=== PATIENT | female | born 1960 | race Caucasian/White ===

== ENCOUNTER 2023-11-28 17:06 | Inpatient (IN) | payer OTHER ==
--- OUTSIDE RECORDS SUMMARY | 2023-11-28 17:22 | XMS REPORT | Continuity of Care Document ---
Author Name Unknown Address [address] [id number] [facility] Address [address] [phone] Care Team Providers Care De Icer Installer Name Role Phone VIC MCGHEE Primary Care Physician JENNIE Hernandez Attending Clinician Unavailable López, Cardiology - Clear Attending Clinician Kathy simon Manriquez RN, Bib Giles Attending Clinician Unavail able FABRICIO SALAZAR Attending Clinician Unavail able Edmond GRACE, Keith Armenta Attending Clinician Joe Rodriguez MD Attending Clinician [phone] Lyle GRACE, Alejandro Gupta Attending Clinician [phone] Fabricio Salazar MD Attending Clinician Ayo Alanis MD Attending Clinician [phone] Vic Mcghee NP Attending Clinician [phone] Hernesto Owusu MD Attending Clinician [phone] Doctor Unassigned, [place] Attending Clinician U laverne Elizabeth MD, Gama Attending Clinician [phone] HERNESTO OWUSU Attending Clinician Unavailab le 2, [facility] Attending Clinician Unavailable VIC MCGHEE Attending Clinician Unavailab YONAS Tolbert Attending Clinician Unavailable MICHA CONDON Attending Clinician Unavailable MICHA CONDON Attending Clinician Unavailable NATY CARNES Attending Clinician UnavailNaty Mcguire MD Attending Clinician [phone] Lary Anderson MD Attending Clinician + [phone] LARY ANDERSON Attending Clinician Unava ilable CAROL LAWSON Attending Clinician Unavailable Carol Lawson MD Attending Clinician [phone] RADIOLOGY Attending Clinician Unavailable Radiology Attending Clinician Unavailable Jah GRACE, Jennie Attending Clinician [phone] Pob, [facility] Main Attending Clinician UnavailEugenio Torrez MD Attending Clinician [phone] Team, [facility] Attending Carolina sparks Unavailable Hollis Garland Attending Clinician Unavailable GAMA ELIZABETH Attending Clinician Unavailable RUSTAM GERONIMO Attending Clinician Unavailable Elias Garza Attending Clinician [phone] ELIAS MALONE Attending Clinician Unavailleandro BERRY, SENDWILLIAM K.HVance Attending Clinician Unavailtisha Berry MD, Sendil K.H. Attending Clinician [phone] Anibal Mcnamara MD Attending Clinician [phone] KEITH PRUITT Admitting Clinician Unavaila Keith Boykin MD Admitting Clinician [phone] VIC MCGHEE Admitting Clinician UnavailNATY Farmer Admitting Clinician UnavailCAROL Kenney Admitting Clinician Unavailable ANA CANO Admitting Clinician Unavailable LARY ANDERSON Admitting Clinician Unava ilable Payers Payer Name Policy Type Policy Number Effective Date Expirati on Date Source MEDICARE PART A \\T\\ B [id number] 2023 00:00:00 Problems Condition Name Condition Details Condition Category Status Onset Date Resolution Date Last Treatment Date Treating Clinician Comments Source Dyspnea, unspecifie d type Dyspnea, unspecifie d type Disease Active 11-02 00:00: 00 [facility] Anemia, unspecifie d type Anemia, unspecifie d type Disease Active 11-02 00:00: 00 [facility] Type 2 diabetes mellitus with diabetic polyneurop athy, without long-term current use of insulin Type 2 diabetes mellitus with diabetic polyneurop athy, without long-term current use of insulin Disease Active 2015-09 00:00: 00 [facility] Pancreatit is Pancreatit is Disease Active 10-01 00:00: 00 [facility] Mixed hyperlipid emia Mixed hyperlipid emia Disease Active 09-27 00:00: 00 [facility] Essential hypertensi on, benign Essential hypertensi on, benign Disease Active 09-27 00:00: 00 [facility] Peripheral neuropathy Peripheral neuropathy Disease Active 09-27 00:00: 00 [facility] Fibromyalg ia Fibromyalg ia Disease Active 09-27 00:00: 00 [facility] Depression Depression Disease Active 09-27 00:00: 00 [facility] Anxiety Anxiety Disease Active 09-27 00:00: 00 [facility] Obesity Obesity Disease Active 09-27 00:00: 00 [facility] Asthma Asthma Disease Active 09-27 00:00: 00 [facility] Pure hyperchole sterolemia Pure hyperchole sterolemia Disease Active 09-27 00:00: 00 [facility] Allergies, Adverse Reactions, Alerts Allergy Name Allergy Type Status Severity Reaction(s) Onset Date Inactive Date Treating Clinician Comments Source CODEINE DRUG INGREDI Active N/V 09-27 00:00: 00 [facility] Codeine Propensi ty to adverse reaction s Active Nausea and/or Vomiting 09-27 00:00: 00 Stomach pain [facility] Social History Social Habit Start Date Stop Date Quantity Comments Source Gender identity [facility] SDOH Alcohol Frequency [facility] History SDOH Alcohol Std Drinks [facility] History SDOH Alcohol Binge [facility] Alcohol intake 2023-11-04 00:00:00 2023-11-04 00:00:00 Current drinker of alcohol (finding) [facility] Exposure to SARS-CoV-2 (event) 2022-12-04 00:00:00 2022-12-14 11:05:00 Not sure [facility] History of Social function 2022-09-15 00:00:00 2022-09-15 00:00:00 [facility] Tobacco use and exposure 2022-05-03 00:00:00 2022-05-03 00:00:00 Smokeless tobacco non-user [facility] Alcohol Comment 2014-09-30 00:00:00 2014-09-30 00:00:00 pt states only 2 drinks a day but unknown what kind [facility] Sex Assigned At 1960 00:00:00 1960 00:00:00 [facility] Smoking Status Start Date Stop Date Source Never smoked tobacco [facility] Medications Ordered Medication Name Filled Medication Name Start Date Stop Date Current Medication? Ordering Clinician Indication Dosage Frequency Signature (SIG) Comments Components Source multivitami n tablet 11-11 12:02: 41 Yes 1{tbl} Take 1 Tab by mouth daily. [facility] multivitami n tablet 11-11 12:02: 41 Yes 1{tbl} Take 1 Tab by mouth daily. [facility] multivitami n tablet 11-11 12:02: 41 Yes 1{tbl} Take 1 Tab by mouth daily. [facility] ipratropium -albuteroL (DUONEB) 0.5 mg-3 mg(2.5 mg base)/3 mL nebulizer solution 3 mL 11-11 04:00: 00 Yes 3mL 3 mL, Inhalation , Q8H, First dose (after last modificati on) on Tue11/11/23 at 2200, Until Discontinu ed, Routine [facility] foLIC acid 1 mg tablet 11-11 00:00: 00 02-10 04:59 :00 Yes [id number] 1mg Take 1 tablet by mouth in the morning for 90 days. [facility] thiamine 100 mg tablet 11-11 00:00: 02-10 04:59 :00 Yes [id number] 100mg Take 1 tablet by mouth in the morning for 90 days. [facility] foLIC acid 1 mg tablet 11-11 00:00: 00 02-10 04:59 :00 Yes [id number] 1mg Take 1 tablet by mouth in the morning for 90 days. [facility] thiamine 100 mg tablet 11-11 00:00: 00 02-10 04:59 :00 Yes [id number] 100mg Take 1 tablet by mouth in the morning for 90 days. [facility] foLIC acid 1 mg tablet 11-11 00:00: 00 02-10 04:59 :00 Yes [id number] 1mg Take 1 tablet by mouth in the morning for 90 days. [facility] thiamine 100 mg tablet 11-11 00:00: 00 02-10 04:59 :00 Yes [id number] 100mg Take 1 tablet by mouth in the morning for 90 days. [facility] ASCORBATE CALCIUM (VITAMIN C ORAL) 11-10 16:30: 00 11-10 00:00 :00 No Take by mouth daily. [facility] COQ10, UBIQUINOL, ORAL 11-10 16:30: 00 11-10 00:00 :00 No Take by mouth. [facility] furosemide (LASIX) tablet 40 mg 11-10 15:00: 00 Yes 40mg 40 mg, Oral, DAILY, First dose on Tue11/11/23 at 0900, Until Discontinu ed, Routine [facility] buPROPion XL 150 mg 24 hr tablet 11-10 00:00: 00 02-09 04:59 :00 Yes [id number] 150mg Take 1 tablet by mouth in the morning and 1 tablet in the evening. Do all this for 90 days. [facility] carvediloL 3.125 mg tablet 11-10 00:00: 00 02-09 04:59 :00 Yes [id number] 3.125mg Take 1 tablet by mouth in the morning and 1 tablet in the evening. Take with meals. Do all this for 90 days. [facility] lactulose 10 gram/15 mL solution 11-10 00:00: 00 02-09 04:59 :00 Yes [id number] 30mL Take 30 mL by mouth every 4 (four) hours for 90 days. [facility] buPROPion XL 150 mg 24 hr tablet 11-10 00:00: 00 02-09 04:59 :00 Yes [id number] 150mg Take 1 tablet by mouth in the morning and 1 tablet in the evening. Do all this for 90 days. [facility] carvediloL 3.125 mg tablet 11-10 00:00: 00 02-09 04:59 :00 Yes [id number] 3.125mg Take 1 tablet by mouth in the morning and 1 tablet in the evening. Take with meals. Do all this for 90 days. [facility] lactulose 10 gram/15 mL solution 11-10 00:00: 00 02-09 04:59 :00 Yes [id number] 30mL Take 30 mL by mouth every 4 (four) hours for 90 days. [facility] buPROPion XL 150 mg 24 hr tablet 11-10 00:00: 00 02-09 04:59 :00 Yes [id number] 150mg Take 1 tablet by mouth in the morning and 1 tablet in the evening. Do all this for 90 days. [facility] carvediloL 3.125 mg tablet 11-10 00:00: 00 02-09 04:59 :00 Yes [id number] 3.125mg Take 1 tablet by mouth in the morning and 1 tablet in the evening. Take with meals. Do all this for 90 days. [facility] lactulose 10 gram/15 mL solution 11-10 00:00: 00 02-09 04:59 :00 Yes [id number] 30mL Take 30 mL by mouth every 4 (four) hours for 90 days. [facility] pantoprazol e 40 mg EC tablet 11-10 00:00: 00 12-02 04:59 :00 Yes [id number] 40mg Take 1 tablet by mouth in the morning for 21 days. [facility] pantoprazol e 40 mg EC tablet 11-10 00:00: 00 12-02 04:59 :00 Yes [id number] 40mg Take 1 tablet by mouth in the morning for 21 days. [facility] pantoprazol e 40 mg EC tablet 11-10 00:00: 00 12-02 04:59 :00 Yes [id number] 40mg Take 1 tablet by mouth in the morning for 21 days. [facility] ipratropium -albuteroL (DUONEB) 0.5 mg-3 mg(2.5 mg base)/3 mL nebulizer solution 3 mL 11-09 18:00: 00 11-10 21:00 :20 No 3mL 3 mL, Inhalation , Q6H, First dose (after last modificati on) on Priscila 11/10/23 at 1200, Until Discontinu ed, Routine [facility] ondansetron (ZOFRAN (PF)) injection 4 mg 11-09 15:39: 33 Yes 4mg 4 mg, Slow IV Push, Q6HPRN, Nausea and Vomiting (N/V), Starting on Priscila 11/10/23 at 0939
Do ses of ondansetro n 16 mg and above need to be administer ed via IV piggyback. For Dose >=24mg ECG monitoring is advisable.
[facility] KCL (KLOR-CON M20) tablet 40 mEq 11-09 13:45: 00 11-09 14:33 :00 No 40meq 40 mEq, Oral, ONCE, 1 dose, On Priscila 11/10/23 at 0745, [facility]ine [facility]LASIX[facility] 40 mg 11-09 02:00: 00 11-09 16:38 :00 No 40mg 40 mg, Slow IV Push, Q12H, First dose (after last modificati on) on Tue11/09/23 at 2000, Until Discontinu ed, Routine [facility] empaglifloz in (JARDIANCE) tablet 10 mg 11-08 15:45: 00 11-10 20:35 :35 No 10mg 10 mg, Oral, DAILY, First dose on Tue11/09/23 at 0945, Until Discontinu ed, Routine
Is this a home medication ? No [facility] KCL (KLOR-CON M20) tablet 40 mEq 11-08 15:15: 00 11-08 14:37 :00 No 40meq 40 mEq, Oral, ONCE, 1 dose, On Tue11/09/23 at 0915, Routine [facility] furosemide (LASIX) injection 40 mg 11-07 18:00: 00 11-08 15:42 :37 No 40mg 40 mg, Slow IV Push, Q6H, First dose (after last modificati on) on Tue11/08/23 at 1200, Until Discontinu ed, Routine [facility] KCL (KLOR-CON M20) tablet 40 mEq 11-07 13:00: 00 11-07 12:41 :00 No 40meq 40 mEq, Oral, ONCE, 1 dose, On Tue11/08/23 at 0700, Routine [facility] magnesium sulfate in water 4 gram/50 mL (8 %) IV Piggyback 4 g 11-07 11:56: 00 11-07 14:41 :00 No 4g 4 g, IV Piggyback, at 25 mL/hr Administer over 120 Minutes, ONCE, 1 dose, On Tue11/08/23 at 0600, Routine [facility] furosemide (LASIX) injection 40 mg 11-06 18:00: 00 11-07 03:31 :00 No 40mg 40 mg, Slow IV Push, Q6H, First dose (after last modificati on) on Tue11/07/23 at 1200, Until Discontinu ed, Routine [facility] spironolact one (ALDACTONE) tablet 25 mg 11-06 15:00: 00 Yes 25mg 25 mg, Oral, DAILY, First dose on Tue11/07/23 at 0900, Until Discontinu ed, Routine [facility] magnesium sulfate in water 4 gram/50 mL (8 %) IV Piggyback 4 g 11-06 14:00: 00 11-06 16:47 :00 No 4g 4 g, IV Piggyback, at 25 mL/hr Administer over 120 Minutes, ONCE, 1 dose, On Tue11/07/23 at 0800, Routine [facility] furosemide (LASIX) injection 40 mg 11-06 14:00: 00 11-06 15:49 :13 No 40mg 40 mg, Slow IV Push, Q12H, First dose (after last modificati on) on Tue11/07/23 at 0800, Until Discontinu ed, Routine [facility] atorvastati n (LIPITOR) tablet 40 mg 11-06 03:00: 00 Yes 40mg 40 mg, Oral, QHS, First dose (after last modificati on) on Tue11/06/23 at 2100, Until Discontinu ed, Routine [facility] pantoprazol e (PROTONIX) EC tablet 40 mg 11-05 14:00: 00 Yes 40mg 40 mg, Oral, DAILY, First dose on Tue11/06/23 at 0800, Until Discontinu ed, Routine [facility] KCL (KLOR-CON M20) tablet 40 mEq 11-05 13:00: 00 11-05 14:27 :00 No 40meq 40 mEq, Oral, ONCE, 1 dose, On Tue11/06/23 at 0700, Routine [facility] magnesium sulfate in water 4 gram/50 mL (8 %) IV Piggyback 4 g 11-05 12:30: 00 11-05 16:58 :00 No 4g 4 g, IV Piggyback, at 25 mL/hr Administer over 120 Minutes, ONCE, 1 dose, On Tue11/06/23 at 0630, Routine [facility] carvediloL (COREG) tablet 3.125 mg 11-04 14:00: 00 Yes 3.125mg 3.125 mg, Oral, BID MEALS, First dose on Tue11/05/23 at 0800, Until Discontinu ed, Routine [facility] furosemide (LASIX) injection 20 mg 11-04 02:00: 00 Yes 20mg 20 mg, Slow IV Push, Q12H, First dose on Tue11/04/23 at 1999, Until Discontinu ed, Routine [facility] furosemide (LASIX) injection 20 mg 11-04 02:00: 00 11-06 02:11 :08 No 20mg 20 mg, Slow IV Push, Q12H, First dose on Tue11/04/23 at 2000, Until Discontinu ed, Routine [facility] furosemide (LASIX) tablet 20 mg 11-03 14:15: 00 11-03 18:08 :23 No 20mg 20 mg, Oral, BID, First dose on Tue11/04/23 at 0815, Until Discontinu ed, Routine [facility] magnesium sulfate in water 4 gram/50 mL (8 %) IV Piggyback 4 g 11-03 12:15: 00 11-03 13:36 :00 No 4g 4 g, IV Piggyback, at 25 mL/hr Administer over 120 Minutes, ONCE, 1 dose, On Tue11/04/23 at 0615, CHRIS [facility] potassium chloride in water (KCL) 20 mEq/100 mL RTU IVPB 20 mEq 11-03 12:00: 00 11-03 17:15 :00 No 20meq 20 mEq, IV Piggyback, Q2H, 2 doses, First dose on Tue11/04/23 at 0600, Last dose on Tue11/04/23 at 0800, 100 mL [facility] furosemide (LASIX) injection 40 mg 11-03 06:37: 00 11-03 07:54 :00 No 40mg 40 mg, Slow IV Push, ONCE, 1 dose, On Tue11/04/23 at 0045, Routine [facility] phytonadion e (VITAMIN K) 5 mg in NaCl 0.9% (NS) piggyback 19:30: 00 20:36 :39 No 5mg IV Piggyback, ONCE, 1 dose, On Priscila 11/03/23 at 1330, 50 mL [facility] sulfur hexafluorid e microsphr (LUMASON) injection 5 mL 15:15: 00 15:15 :00 No [id number] 5mL 5 mL, Intravenou s, ONCE, 1 dose, On Priscila 11/03/23 at 0915, Routine [facility] foLIC acid (FOLATE) tablet 1 mg 15:00: 00 Yes 1mg 1 mg, Oral, DAILY, First dose on Priscila 11/03/23 at 0900, Until Discontinu ed, Routine [facility] thiamine (VITAMIN B1) tablet 100 mg 15:00: 00 Yes 100mg 100 mg, Oral, DAILY, First dose on Priscila 11/03/23 at 0900, Until Discontinu ed, Routine [facility] citalopram (CELEXA) tablet 40 mg 15:00: 00 Yes 40mg 40 mg, Oral, DAILY, First dose on Priscila 11/03/23 at 0900, Until Discontinu ed, Routine [facility] foLIC acid (FOLATE) tablet 1 mg 15:00: 00 Yes 1mg 1 mg, Oral, DAILY, First dose on Priscila 11/03/23 at 0900, Until Discontinu ed, Routine [facility] thiamine (VITAMIN B1) tablet 100 mg 15:00: 00 Yes 100mg 100 mg, Oral, DAILY, First dose on Priscila 11/03/23 at 0900, Until Discontinu ed, Routine [facility] citalopram (CELEXA) tablet 40 mg 15:00: 00 Yes 40mg 40 mg, Oral, DAILY, First dose on Priscila 11/03/23 at 0900, Until Discontinu ed, Routine [facility] buPROPion XL (WELLBUTRIN XL) tablet 150 mg 14:00: 00 Yes 150mg 150 mg, Oral, BID, First dose on Tue11/03/23 at 0800, Until Discontinu ed, Routine [facility] buPROPion XL (WELLBUTRIN XL) tablet 150 mg 14:00: 00 Yes 150mg 150 mg, Oral, BID, First dose on Tue11/03/23 at 0800, Until Discontinu ed, Routine [facility] Sliding Scale Insulin-Reg ular 13:30: 00 Yes Subcutaneo us, AC+HS, First dose on Tue11/03/23 at 0730, Until Discontinu ed, Routine [facility] Sliding Scale Insulin-Reg ular 13:30: 00 Yes Subcutaneo us, AC+HS, First dose on Tue11/03/23 at 0730, Until Discontinu ed, Routine [facility] glucagon (GLUCAGEN DIAGNOSTIC KIT) injection 1 mg 06:01: 53 Yes 1mg 1 mg, Intramuscu lar, PRN, Starting on Tue11/03/23 at 0001, Until Discontinu ed, CHRIS, Blood Glucose < or = 70 mg/dL and patient is NPO, unable to swallow or has mental changes. [facility] dextrose 50 % in water (D50W) injection 25 mL 06:01: 53 Yes 25mL 25 mL, Slow IV Push, PRN, Starting on Tue11/03/23 at 0001, Until Discontinu ed, CHRIS, Blood Glucose < or = 70 mg/dL and patient is NPO, unable to swallow or has mental status changes. [facility] glucagon (GLUCAGEN DIAGNOSTIC KIT) injection 1 mg 06:01: 53 Yes 1mg 1 mg, Intramuscu lar, PRN, Starting on Tue11/03/23 at 0001, Until Discontinu ed, CHRIS, Blood Glucose < or = 70 mg/dL and patient is NPO, unable to swallow or has mental changes. [facility] dextrose 50 % in water (D50W) injection 25 mL 06:01: 53 Yes 25mL 25 mL, Slow IV Push, PRN, Starting on Priscila 11/03/23 at 0001, Until Discontinu ed, CHRIS, Blood Glucose < or = 70 mg/dL and patient is NPO, unable to swallow or has mental status changes. [facility] NaCl 0.9% (NS) bolus infusion 500 mL 05:35: 00 13:00 :00 No 500mL at 999 mL/hr, 500 mL, IV Piggyback, ONCE, 1 dose, On Tue11/02/23 at 2345, STAT [facility] dexMEDEtomi dine 200 mcg in 0.9 % NaCl 50 mL (PRECEDEX) RTU IV infusion 03:21: 38 Yes .2ug/kg /h 0.2-1.5 mcg/kg/hr ?81.6 kg (4.08-30.6 mL/hr), IV Infusion, TITRATE, Sedation-R ASS score (0 to -1), Starting on Tue11/02/23 at 2120
In itiate infusion at 0.2 mcg/kg/hr and titrate by 0.1 mcg/kg/hr every 30 minutes to goal sedation score. Maximum dose = 1.5 mcg/kg/hr. If goal not maintained at maximum allowed dose, contact prescriber .
[facility] dexMEDEtomi dine 200 mcg in 0.9 % NaCl 50 mL (PRECEDEX) RTU IV infusion 03:21: 38 11-05 03:38 :06 No .2ug/kg /h 0.2-1.5 mcg/kg/hr ?81.6 kg (4.08-30.6 mL/hr), IV Infusion, TITRATE, Sedation-R ASS score (0 to -1), Starting on Tue11/02/23 at 2120
In itiate infusion at 0.2 mcg/kg/hr and titrate by 0.1 mcg/kg/hr every 30 minutes to goal sedation score. Maximum dose = 1.5 mcg/kg/hr. If goal not maintained at maximum allowed dose, contact prescriber .
[facility] atorvastati n (LIPITOR) tablet 20 mg 03:00: 00 Yes 20mg 20 mg, Oral, QHS, First dose on Tue11/02/23 at 2100, Until Discontinu ed, Routine [facility] atorvastati n (LIPITOR) tablet 20 mg 03:00: 00 11-06 02:11 :08 No 20mg 20 mg, Oral, QHS, First dose on Tue11/02/23 at 2100, Until Discontinu ed, Routine [facility] lactulose (CEPHULAC) solution 30 mL 02:30: 00 Yes 30mL 30 mL, Oral, Q4H, First dose on Tue11/02/23 at 2030, Until Discontinu ed, Routine [facility] pantoprazol e (PROTONIX) injection 40 mg 02:30: 00 Yes 40mg 40 mg, Slow IV Push, Q12H, First dose on Tue11/02/23 at 2030, Until Discontinu ed [facility] lactulose (CEPHULAC) solution 30 mL 02:30: 00 Yes 30mL 30 mL, Oral, Q4H, First dose on Tue11/02/23 at 2030, Until Discontinu ed, Routine [facility] pantoprazol e (PROTONIX) injection 40 mg 02:30: 00 11-05 13:48 :23 No 40mg 40 mg, Slow IV Push, Q12H, First dose on Tue11/02/23 at 2030, Until Discontinu ed [facility] multivitami n tablet 11-02 20:27: 13 Yes 1{tbl} Take 1 Tab by mouth daily. [facility] ASCORBATE CALCIUM (VITAMIN C ORAL) 11-02 20:27: 13 Yes Take by mouth daily. [facility] COQ10, UBIQUINOL, ORAL 11-02 20:27: 13 Yes Take by mouth. [facility] aspirin 81 mg chewable tablet 11-02 20:19: 25 11-02 00:00 :00 No 81mg Take 81 mg by mouth daily. [facility] aspirin 81 mg chewable tablet 11-02 20:19: 25 11-02 00:00 :00 No 81mg Take 81 mg by mouth daily. [facility] iopamidol (ISOVUE 370-500 mL) injection 84 mL 11-02 19:15: 00 11-02 19:15 :00 No [id number] 84mL 84 mL, Intravenou s, ONCE, 1 dose, On Tue11/02/23 at 1315, Routine [facility] furosemide (LASIX) injection 40 mg 11-02 18:30: 00 11-02 18:32 :00 No 40mg 40 mg, IV Push, ONCE, 1 dose, On Tue11/02/23 at 1230, CHRIS [facility] METFORMIN 500 mg tablet 10-06 00:00: 00 Yes [id number] 500mg TAKE 1 TABLET BY MOUTH IN THE MORNING AND 1 IN THE EVENING [facility] METFORMIN 500 mg tablet 10-06 00:00: 00 Yes [id number] 500mg TAKE 1 TABLET BY MOUTH IN THE MORNING AND 1 IN THE EVENING [facility] PREGABALIN 150 mg capsule 2023-10-06 00:00: 00 Yes [id number] TAKE 1 CAPSULE BY MOUTH IN THE MORNING AND 1 IN THE EVENING [facility] METFORMIN 500 mg tablet 10-06 00:00: 00 Yes [id number] 500mg TAKE 1 TABLET BY MOUTH IN THE MORNING AND 1 IN THE EVENING [facility] PREGABALIN 150 mg capsule 10-06 00:00: 00 Yes [id number] TAKE 1 CAPSULE BY MOUTH IN THE MORNING AND 1 IN THE EVENING [facility] METFORMIN 500 mg tablet 10-06 00:00: 00 Yes [id number] 500mg TAKE 1 TABLET BY MOUTH IN THE MORNING AND 1 IN THE EVENING [facility] PREGABALIN 150 mg capsule 4-0 2- 00:00: 00 Yes [id number] TAKE 1 CAPSULE BY MOUTH IN THE MORNING AND 1 IN THE EVENING [facility] METFORMIN 500 mg tablet 4-0 2- 00:00: 00 Yes [id number] 500mg TAKE 1 TABLET BY MOUTH IN THE MORNING AND 1 IN THE EVENING [facility] PREGABALIN 150 mg capsule 4-0 2- 00:00: 00 Yes [id number] TAKE 1 CAPSULE BY MOUTH IN THE MORNING AND 1 IN THE EVENING [facility] METFORMIN 500 mg tablet 4-0 2- 00:00: 00 Yes [id number] 500mg TAKE 1 TABLET BY MOUTH IN THE MORNING AND 1 IN THE EVENING [facility] PREGABALIN 150 mg capsule 4-0 2- 00:00: 00 Yes [id number] TAKE 1 CAPSULE BY MOUTH IN THE MORNING AND 1 IN THE EVENING [facility] METFORMIN 500 mg tablet 4-0 2- 00:00: 00 Yes [id number] 500mg TAKE 1 TABLET BY MOUTH IN THE MORNING AND 1 IN THE EVENING [facility] PREGABALIN 150 mg capsule 4-0 2- 00:00: 00 Yes [id number] TAKE 1 CAPSULE BY MOUTH IN THE MORNING AND 1 IN THE EVENING [facility] METFORMIN 500 mg tablet 4-0 2- 00:00: 00 Yes [id number] 500mg TAKE 1 TABLET BY MOUTH IN THE MORNING AND 1 IN THE EVENING [facility] PREGABALIN 150 mg capsule 4-0 2- 00:00: 00 Yes [id number] TAKE 1 CAPSULE BY MOUTH IN THE MORNING AND 1 IN THE EVENING [facility] METFORMIN 500 mg tablet 4-0 2- 00:00: 00 Yes [id number] 500mg TAKE 1 TABLET BY MOUTH IN THE MORNING AND 1 IN THE EVENING [facility] PREGABALIN 150 mg capsule 4-0 2- 00:00: 00 Yes [id number] TAKE 1 CAPSULE BY MOUTH IN THE MORNING AND 1 IN THE EVENING [facility] METFORMIN 500 mg tablet 4-0 2- 00:00: 00 Yes [id number] 500mg TAKE 1 TABLET BY MOUTH IN THE MORNING AND 1 IN THE EVENING [facility] PREGABALIN 150 mg capsule 2023-0 10-06 00:00: 00 Yes [id number] TAKE 1 CAPSULE BY MOUTH IN THE MORNING AND 1 IN THE EVENING [facility] METFORMIN 500 mg tablet 2023-10-06 00:00: 00 Yes [id number] 500mg TAKE 1 TABLET BY MOUTH IN THE MORNING AND 1 IN THE EVENING [facility] PREGABALIN 150 mg capsule 2023-10-06 00:00: 00 Yes [id number] TAKE 1 CAPSULE BY MOUTH IN THE MORNING AND 1 IN THE EVENING [facility] pregabalin 150 mg capsule 2022-11-01 00:00: 00 Yes [id number] TAKE 1 CAPSULE BY MOUTH IN THE MORNING AND 1 IN THE EVENING [facility] pregabalin 150 mg capsule 2022-11-01 00:00: 00 Yes [id number] TAKE 1 CAPSULE BY MOUTH IN THE MORNING AND 1 IN THE EVENING [facility] pregabalin 150 mg capsule 2022-11-01 00:00: 00 Yes [id number] TAKE 1 CAPSULE BY MOUTH IN THE MORNING AND 1 IN THE EVENING [facility] pregabalin 150 mg capsule 2022-11-01 00:00: 00 10-06 00:00 :00 No [id number] TAKE 1 CAPSULE BY MOUTH IN THE MORNING AND 1 IN THE EVENING [facility] PREGABALIN 150 mg capsule 2022-10-01 00:00: 00 Yes [id number] TAKE 1 CAPSULE BY MOUTH IN THE MORNING AND 1 IN THE EVENING [facility] PREGABALIN 150 mg capsule 2022-10-01 00:00: 00 Yes [id number] TAKE 1 CAPSULE BY MOUTH IN THE MORNING AND 1 IN THE EVENING [facility] PREGABALIN 150 mg capsule 2022-10-01 00:00: 00 Yes [id number] TAKE 1 CAPSULE BY MOUTH IN THE MORNING AND 1 IN THE EVENING [facility] PREGABALIN 150 mg capsule 2022-10-01 00:00: 00 08-31 00:00 :00 No [id number] TAKE 1 CAPSULE BY MOUTH IN THE MORNING AND 1 IN THE EVENING [facility] PREGABALIN 150 mg capsule 2022-09 00:00: 00 08-31 00:00 :00 No [id number] TAKE 1 CAPSULE BY MOUTH IN THE MORNING AND 1 IN THE EVENING [facility] spironolact one 100 mg tablet 2022-09 00:00: 00 Yes [id number] 100mg Take 1 tablet by mouth in the morning. [facility] furosemide 40 mg tablet 2022-09 00:00: 00 Yes [id number] 40mg Take 1 tablet by mouth in the morning. [facility] spironolact one 100 mg tablet 2022-09 00:00: 00 Yes [id number] 100mg Take 1 tablet by mouth in the morning. [facility] furosemide 40 mg tablet 2022-09 00:00: 00 Yes [id number] 40mg Take 1 tablet by mouth in the morning. [facility] Cane Sanjay 2022-09 00:00: 00 Yes [id number] Use as directed. Quad Cane [facility] spironolact one 100 mg tablet 2022-09 00:00: 00 Yes [id number] 100mg Take 1 tablet by mouth in the morning. [facility] furosemide 40 mg tablet 2022-09 00:00: 00 Yes [id number] 40mg Take 1 tablet by mouth in the morning. [facility] Cane Sanjay 2022-09 00:00: 00 Yes [id number] [facility]:00: 00 Yes [id number] 100mg Take 1 tablet by mouth in the morning. [facility] furosemide 40 mg tablet 2022-09 00:00: 00 Yes [id number] 40mg Take 1 tablet by mouth in the morning. [facility] Cane Sanjay 2022-09 00:00: 00 Yes [id number] Use as directed. [facility]-09 00:00: 00 Yes [id number] 100mg Take 1 tablet by mouth in the morning. [facility] furosemide 40 mg tablet 2022-09 00:00: 00 Yes [id number] 40mg Take 1 tablet by mouth in the morning. [facility] Cane Sanjay 2022-09 00:00: 00 Yes [id number] Use as directed. [facility]ane [facility] spironolact one 100 mg tablet 2022-09 00:00: 00 Yes [id number] 100mg Take 1 tablet by mouth in the morning. [facility] furosemide 40 mg tablet 2022-09 00:00: 00 Yes [id number] 40mg Take 1 tablet by mouth in the morning. [facility] Cane Sanjay 2022-09 00:00: 00 Yes [id number] Use as directed. [facility] Cane [facility] spironolact one 100 mg tablet 2022-09 00:00: 00 Yes [id number] 100mg Take 1 tablet by mouth in the morning. [facility] furosemide 40 mg tablet 2022-09 00:00: 00 Yes [id number] 40mg Take 1 tablet by mouth in the morning. [facility] Cane Sanjay 2022-09 00:00: 00 Yes [id number] Use as directed. [facility]ane [facility] spironolact one 100 mg tablet 2022-09 00:00: 00 Yes [id number] 100mg Take 1 tablet by mouth in the morning. [facility] furosemide 40 mg tablet 2022-09 00:00: 00 Yes [id number] 40mg Take 1 tablet by mouth in the morning. [facility] Cane Sanjay 2022-09 00:00: 00 Yes [id number] Use as directed. [facility]ane [facility] spironolact one 100 mg tablet 2022-09 00:00: 00 Yes [id number] 100mg Take 1 tablet by mouth in the morning. [facility] furosemide 40 mg tablet 2022-09 00:00: 00 Yes [id number] 40mg Take 1 tablet by mouth in the morning. [facility] Cane Sanjay 2022-09 00:00: 00 Yes [id number] Use as directed. [facility]ane [facility] spironolact one 100 mg tablet 2022-09 00:00: 00 Yes [id number] 100mg Take 1 tablet by mouth in the morning. [facility] furosemide 40 mg tablet 2022-09 00:00: 00 Yes [id number] 40mg Take 1 tablet by mouth in the morning. [facility] Cane Sanjay 2022-09 00:00: 00 Yes [id number] Use as directed. [facility] Cane [facility] spironolact one 100 mg tablet 2022-09 00:00: 00 Yes [id number] 100mg Take 1 tablet by mouth in the morning. [facility] furosemide 40 mg tablet 2022-09 00:00: 00 Yes [id number] 40mg Take 1 tablet by mouth in the morning. [facility] Cane Sanjay 2022-09 00:00: 00 Yes [id number] Use as directed. [facility]ane [facility] spironolact one 100 mg tablet 2022-09 00:00: 00 Yes [id number] 100mg Take 1 tablet by mouth in the morning. [facility] furosemide 40 mg tablet 2022-09 00:00: 00 Yes [id number] 40mg Take 1 tablet by mouth in the morning. [facility] Cane Sanjay 2022-09 00:00: 00 Yes [id number] Use as directed. [facility]ane [facility] spironolact one 100 mg tablet 2022-09 00:00: 00 Yes [id number] 100mg Take 1 tablet by mouth in the morning. [facility] furosemide 40 mg tablet 2022-09 00:00: 00 Yes [id number] 40mg Take 1 tablet by mouth in the morning. [facility] Cane Sanjay 2022-09 00:00: 00 Yes [id number] Use as directed. [facility] Cane [facility] spironolact one 100 mg tablet 2022-09 00:00: 00 Yes [id number] 100mg Take 1 tablet by mouth in the morning. [facility] furosemide 40 mg tablet 2022-09 00:00: 00 Yes [id number] 40mg Take 1 tablet by mouth in the morning. [facility] Cane Sanjay 2022-09 00:00: 00 Yes [id number] [facility]09 00:00: 00 Yes [id number] 100mg Take 1 tablet by mouth in the morning. [facility] furosemide 40 mg tablet 2022-09 00:00: 00 Yes [id number] 40mg Take 1 tablet by mouth in the morning. [facility] Can Sanjay 2022-09 00:00: 00 Yes [id number] [facility] directed[facility] 2022-09 00:00: 00 Yes [id number] 100mg Take 1 tablet by mouth in the morning. [facility] furosemide 40 mg tablet 2022-09 00:00: 00 Yes [id number] 40mg Take 1 tablet by mouth in the morning. [facility] Can Sanjay 2022-09 00:00: 00 Yes [id number] Use as directed. [facility] 2022-09 00:00: 00 Yes [id number] 100mg Take 1 tablet by mouth in the morning. [facility] furosemide 40 mg tablet 2022-09 00:00: 00 Yes [id number] 40mg Take 1 tablet by mouth in the morning. [facility] Cane Sanjay 2022-09 00:00: 00 Yes [id number] Use as directed. [facility] 2022-09 00:00: 00 Yes [id number] 100mg Take 1 tablet by mouth in the morning. [facility] furosemide 40 mg tablet 2022-09 00:00: 00 Yes [id number] 40mg Take 1 tablet by mouth in the morning. [facility] Cane Sanjay 2022-09 00:00: 00 Yes [id number] Use as directed. Quad Cane [facility] spironolact one 100 mg tablet 2022-09 00:00: 00 Yes [id number] 100mg Take 1 tablet by mouth in the morning. [facility] furosemide 40 mg tablet 2022-09 00:00: 00 Yes [id number] 40mg Take 1 tablet by mouth in the morning. [facility] spironolact one 100 mg tablet 2022-09 00:00: 00 Yes [id number] 100mg Take 1 tablet by mouth in the morning. [facility] furosemide 40 mg tablet 2022-09 00:00: 00 Yes [id number] 40mg Take 1 tablet by mouth in the morning. [facility] spironolact one 100 mg tablet 2022-09 00:00: 00 Yes [id number] 100mg Take 1 tablet by mouth in the morning. [facility] furosemide 40 mg tablet 2022-09 00:00: 00 Yes [id number] 40mg Take 1 tablet by mouth in the morning. [facility] Cane Sanjay 2022-09 00:00: 00 11-10 00:00 :00 No [id number] Use as directed. [facility] 00:00: 00 Yes [id number] Use as directed [facility] Cane Sanjay 2022-09 00:00: 00 Yes [id number] Use as directed [facility] Cane Sanjay 2022-09 00:00: 00 Yes [id number] Use as directed [facility] 2022-09 00:00: 00 Yes [id number] Use as directed [facility] Fransico Sanjay 2022-09 00:00: 00 07-27 00:00 :00 No [id number] Use as directed [facility] Canjosé miguel Sanjay 2022-09 00:00: 00 07-27 00:00 :00 No [id number] Use as directed [facility] metFORMIN 1,000 mg tablet 2022-0 05-12 00:00: 00 Yes [id number] 1000mg Take 1 tablet by mouth in the morning and 1 tablet in the evening. Take with meals. [facility] metFORMIN 1,000 mg tablet 2022-0 05-12 00:00: 00 Yes [id number] 1000mg Take 1 tablet by mouth in the morning and 1 tablet in the evening. Take with meals. [facility] metFORMIN 1,000 mg tablet 2022-0 05-12 00:00: 00 Yes [id number] 1000mg Take 1 tablet by mouth in the morning and 1 tablet in the evening. Take with meals. [facility] metFORMIN 1,000 mg tablet 2022-0 05-12 00:00: 00 Yes [id number] 1000mg Take 1 tablet by mouth in the morning and 1 tablet in the evening. Take with meals. [facility] metFORMIN 1,000 mg tablet 2022-0 05-12 00:00: 00 Yes [id number] 1000mg Take 1 tablet by mouth in the morning and 1 tablet in the evening. Take with meals. [facility] metFORMIN 1,000 mg tablet 2022-0 05-12 00:00: 00 Yes [id number] 1000mg Take 1 tablet by mouth in the morning and 1 tablet in the evening. Take with meals. [facility] metFORMIN 1,000 mg tablet 2022-0 05-12 00:00: 00 Yes [id number] 1000mg Take 1 tablet by mouth in the morning and 1 tablet in the evening. Take with meals. [facility] metFORMIN 1,000 mg tablet 3-0 05-12 00:00: 00 Yes [id number] 1000mg Take 1 tablet by mouth in the morning and 1 tablet in the evening. Take with meals. [facility] metFORMIN 1,000 mg tablet 2022-0 05-12 00:00: 00 Yes [id number] 1000mg Take 1 tablet by mouth in the morning and 1 tablet in the evening. Take with meals. [facility] metFORMIN 1,000 mg tablet 3-0 05-12 00:00: 00 Yes [id number] 1000mg Take 1 tablet by mouth in the morning and 1 tablet in the evening. Take with meals. [facility] metFORMIN 1,000 mg tablet 2023-0 05-12 00:00: 00 Yes [id number] 1000mg Take 1 tablet by mouth in the morning and 1 tablet in the evening. Take with meals. [facility] metFORMIN 1,000 mg tablet 3-0 05-12 00:00: 00 Yes [id number] 1000mg Take 1 tablet by mouth in the morning and 1 tablet in the evening. Take with meals. [facility] metFORMIN 1,000 mg tablet 2023-0 05-12 00:00: 00 Yes [id number] 1000mg Take 1 tablet by mouth in the morning and 1 tablet in the evening. Take with meals. [facility] metFORMIN 1,000 mg tablet 3-0 05-12 00:00: 00 Yes [id number] 1000mg Take 1 tablet by mouth in the morning and 1 tablet in the evening. Take with meals. [facility] metFORMIN 1,000 mg tablet 3-0 05-12 00:00: 00 Yes [id number] 1000mg Take 1 tablet by mouth in the morning and 1 tablet in the evening. Take with meals. [facility] metFORMIN 1,000 mg tablet 3-0 05-12 00:00: 00 Yes [id number] 1000mg Take 1 tablet by mouth in the morning and 1 tablet in the evening. Take with meals. [facility] metFORMIN 1,000 mg tablet 3-0 05-12 00:00: 00 Yes [id number] 1000mg Take 1 tablet by mouth in the morning and 1 tablet in the evening. Take with meals. [facility] metFORMIN 1,000 mg tablet 2023-0 05-12 00:00: 00 Yes [id number] 1000mg Take 1 tablet by mouth in the morning and 1 tablet in the evening. Take with meals. [facility] metFORMIN 1,000 mg tablet 2023-0 05-12 00:00: 00 Yes [id number] 1000mg Take 1 tablet by mouth in the morning and 1 tablet in the evening. Take with meals. [facility] metFORMIN 1,000 mg tablet 3-0 05-12 00:00: 00 Yes [id number] 1000mg Take 1 tablet by mouth in the morning and 1 tablet in the evening. Take with meals. [facility] metFORMIN 1,000 mg tablet 2023-0 05-12 00:00: 00 Yes [id number] 1000mg Take 1 tablet by mouth in the morning and 1 tablet in the evening. Take with meals. [facility] metFORMIN 1,000 mg tablet 3-0 05-12 00:00: 00 Yes [id number] 1000mg Take 1 tablet by mouth in the morning and 1 tablet in the evening. Take with meals. [facility] metFORMIN 1,000 mg tablet 2023-0 05-12 00:00: 00 Yes [id number] 1000mg Take 1 tablet by mouth in the morning and 1 tablet in the evening. Take with meals. [facility] metFORMIN 1,000 mg tablet 3-0 05-12 00:00: 00 Yes [id number] 1000mg Take 1 tablet by mouth in the morning and 1 tablet in the evening. Take with meals. [facility] metFORMIN 1,000 mg tablet 3-0 05-12 00:00: 00 Yes [id number] 1000mg Take 1 tablet by mouth in the morning and 1 tablet in the evening. Take with meals. [facility] metFORMIN 1,000 mg tablet 3-0 05-12 00:00: 00 Yes [id number] 1000mg Take 1 tablet by mouth in the morning and 1 tablet in the evening. Take with meals. [facility] metFORMIN 1,000 mg tablet 3-0 05-12 00:00: 00 Yes [id number] 1000mg Take 1 tablet by mouth in the morning and 1 tablet in the evening. Take with meals. [facility] metFORMIN 1,000 mg tablet 2023-0 05-12 00:00: 00 Yes [id number] 1000mg Take 1 tablet by mouth in the morning and 1 tablet in the evening. Take with meals. [facility] metFORMIN 1,000 mg tablet 2023-0 05-12 00:00: 00 Yes [id number] 1000mg Take 1 tablet by mouth in the morning and 1 tablet in the evening. Take with meals. [facility] metFORMIN 1,000 mg tablet 3-0 05-12 00:00: 00 10-06 00:00 :00 No [id number] 1000mg Take 1 tablet by mouth in the morning and 1 tablet in the evening. Take with meals. [facility] molnupiravi r 200 mg capsule 3-0 04-27 00:00: 00 Yes [id number] 800mg Take 4 capsules by mouth every 12 (twelve) hours. [facility] benzonatate (TESSALON PERLES) 100 mg capsule 3-0 04-27 00:00: 00 Yes [id number] 200mg Take 2 capsules by mouth every 8 (eight) hours as needed for Cough. [facility] benzonatate (TESSALON PERLES) 100 mg capsule 3-0 04-27 00:00: 00 Yes [id number] 200mg Take 2 capsules by mouth every 8 (eight) hours as needed for Cough. [facility] molnupiravi r 200 mg capsule 3-0 04-27 00:00: 00 Yes [id number] 800mg Take 4 capsules by mouth every 12 (twelve) hours. [facility] benzonatate (TESSALON PERLES) 100 mg capsule 3-0 04-27 00:00: 00 Yes [id number] 200mg Take 2 capsules by mouth every 8 (eight) hours as needed for Cough. [facility] molnupiravi r 200 mg capsule 3-0 04-27 00:00: 00 Yes [id number] 800mg Take 4 capsules by mouth every 12 (twelve) hours. [facility] benzonatate (TESSALON PERLES) 100 mg capsule 3-0 04-27 00:00: 00 Yes [id number] 200mg Take 2 capsules by mouth every 8 (eight) hours as needed for Cough. [facility] molnupiravi r 200 mg capsule 2023-0 8- 00:00: 00 Yes [id number] 800mg Take 4 capsules by mouth every 12 (twelve) hours. [facility] benzonatate (TESSALON PERLES) 100 mg capsule 2023-0 8-23 00:00: 00 Yes [id number] 200mg Take 2 capsules by mouth every 8 (eight) hours as needed for Cough. [facility] molnupiravi r 200 mg capsule 2023-0 8-23 00:00: 00 Yes [id number] 800mg Take 4 capsules by mouth every 12 (twelve) hours. [facility] benzonatate (TESSALON PERLES) 100 mg capsule 2023-0 8-23 00:00: 00 Yes [id number] 200mg Take 2 capsules by mouth every 8 (eight) hours as needed for Cough. [facility] molnupiravi r 200 mg capsule 2023-0 8-23 00:00: 00 Yes [id number] 800mg Take 4 capsules by mouth every 12 (twelve) hours. [facility] benzonatate (TESSALON PERLES) 100 mg capsule 2023-0 8- 00:00: 00 Yes [id number] 200mg Take 2 capsules by mouth every 8 (eight) hours as needed for Cough. [facility] molnupiravi r 200 mg capsule 2023-0 8- 00:00: 00 Yes [id number] 800mg Take 4 capsules by mouth every 12 (twelve) hours. [facility] benzonatate (TESSALON PERLES) 100 mg capsule 2023-0 8-23 00:00: 00 Yes [id number] 200mg Take 2 capsules by mouth every 8 (eight) hours as needed for Cough. [facility] molnupiravi r 200 mg capsule 2023-0 8-23 00:00: 00 Yes [id number] 800mg Take 4 capsules by mouth every 12 (twelve) hours. [facility] benzonatate (TESSALON PERLES) 100 mg capsule 2023-0 8-23 00:00: 00 Yes [id number] 200mg Take 2 capsules by mouth every 8 (eight) hours as needed for Cough. [facility] molnupiravi r 200 mg capsule 2023-0 8-23 00:00: 00 Yes [id number] 800mg Take 4 capsules by mouth every 12 (twelve) hours. [facility] benzonatate (TESSALON PERLES) 100 mg capsule 3-0 04-27 00:00: 00 Yes [id number] 200mg Take 2 capsules by mouth every 8 (eight) hours as needed for Cough. [facility] molnupiravi r 200 mg capsule 3-0 04-27 00:00: 00 Yes [id number] 800mg Take 4 capsules by mouth every 12 (twelve) hours. [facility] benzonatate (TESSALON PERLES) 100 mg capsule 3-0 04-27 00:00: 00 Yes [id number] 200mg Take 2 capsules by mouth every 8 (eight) hours as needed for Cough. [facility] benzonatate (TESSALON PERLES) 100 mg capsule 3-0 04-27 00:00: 00 Yes [id number] 200mg Take 2 capsules by mouth every 8 (eight) hours as needed for Cough. [facility] benzonatate (TESSALON PERLES) 100 mg capsule 3-0 04-27 00:00: 00 Yes [id number] 200mg Take 2 capsules by mouth every 8 (eight) hours as needed for Cough. [facility] benzonatate (TESSALON PERLES) 100 mg capsule 3-0 04-27 00:00: 00 Yes [id number] 200mg Take 2 capsules by mouth every 8 (eight) hours as needed for Cough. [facility] benzonatate (TESSALON PERLES) 100 mg capsule 2023-0 04-27 00:00: 00 Yes [id number] 200mg Take 2 capsules by mouth every 8 (eight) hours as needed for Cough. [facility] benzonatate (TESSALON PERLES) 100 mg capsule 2023-0 8 00:00: 00 Yes [id number] 200mg Take 2 capsules by mouth every 8 (eight) hours as needed for Cough. [facility] benzonatate (TESSALON PERLES) 100 mg capsule 2023-0 8- 00:00: 00 Yes [id number] 200mg Take 2 capsules by mouth every 8 (eight) hours as needed for Cough. [facility] benzonatate (TESSALON PERLES) 100 mg capsule 2023-0 8- 00:00: 00 Yes [id number] 200mg Take 2 capsules by mouth every 8 (eight) hours as needed for Cough. [facility] benzonatate (TESSALON PERLES) 100 mg capsule 2023-0 8- 00:00: 00 Yes [id number] 200mg Take 2 capsules by mouth every 8 (eight) hours as needed for Cough. [facility] benzonatate (TESSALON PERLES) 100 mg capsule 2023-0 8- 00:00: 00 Yes [id number] 200mg Take 2 capsules by mouth every 8 (eight) hours as needed for Cough. [facility] benzonatate (TESSALON PERLES) 100 mg capsule 2023-0 8- 00:00: 00 Yes [id number] 200mg Take 2 capsules by mouth every 8 (eight) hours as needed for Cough. [facility] benzonatate (TESSALON PERLES) 100 mg capsule 2023-0 8 00:00: 00 Yes [id number] 200mg Take 2 capsules by mouth every 8 (eight) hours as needed for Cough. [facility] benzonatate (TESSALON PERLES) 100 mg capsule 3-0 8 00:00: 00 Yes [id number] 200mg Take 2 capsules by mouth every 8 (eight) hours as needed for Cough. [facility] benzonatate (TESSALON PERLES) 100 mg capsule 2023-0 8 00:00: 00 Yes [id number] 200mg Take 2 capsules by mouth every 8 (eight) hours as needed for Cough. [facility] benzonatate (TESSALON PERLES) 100 mg capsule 2023-0 8- 00:00: 00 Yes [id number] 200mg Take 2 capsules by mouth every 8 (eight) hours as needed for Cough. [facility] benzonatate (TESSALON PERLES) 100 mg capsule 2023-0 8- 00:00: 00 Yes [id number] 200mg Take 2 capsules by mouth every 8 (eight) hours as needed for Cough. [facility] benzonatate (TESSALON PERLES) 100 mg capsule 3-0 04-27 00:00: 00 Yes [id number] 200mg Take 2 capsules by mouth every 8 (eight) hours as needed for Cough. [facility] benzonatate (TESSALON PERLES) 100 mg capsule 2022-0 04-27 00:00: 00 Yes [id number] 200mg Take 2 capsules by mouth every 8 (eight) hours as needed for Cough. [facility] benzonatate (TESSALON PERLES) 100 mg capsule 2022-0 04-27 00:00: 00 Yes [id number] 200mg Take 2 capsules by mouth every 8 (eight) hours as needed for Cough. [facility] benzonatate (TESSALON PERLES) 100 mg capsule 2022-0 04-27 00:00: 00 Yes [id number] 200mg Take 2 capsules by mouth every 8 (eight) hours as needed for Cough. [facility] benzonatate (TESSALON PERLES) 100 mg capsule 2022-0 04-27 00:00: 00 11-02 00:00 :00 No [id number] 200mg Take 2 capsules by mouth every 8 (eight) hours as needed for Cough. [facility] benzonatate (TESSALON PERLES) 100 mg capsule 0 04-27 00:00: 00 11-02 00:00 :00 No [id number] 200mg Take 2 capsules by mouth every 8 (eight) hours as needed for Cough. [facility] molnupiravi r 200 mg capsule 2022-0 04-27 00:00: 00 07-22 00:00 :00 No [id number] 800mg Take 4 capsules by mouth every 12 (twelve) hours. [facility] molnupiravi r 200 mg capsule 2022-0 04-27 00:00: 00 07-22 00:00 :00 No [id number] 800mg Take 4 capsules by mouth every 12 (twelve) hours. [facility] molnupiravi r 200 mg capsule 2022-0 04-27 00:00: 00 04-27 00:00 :00 No [id number] 800mg Take 4 capsules by mouth every 12 (twelve) hours. [facility] amLODIPine 10 mg tablet 04-12 00:00: 00 Yes [id number] 10mg Take 1 tablet by mouth in the morning. [facility] buPROPion XL 150 mg 24 hr tablet 04-12 00:00: 00 Yes [id number] 150mg Take 1 tablet by mouth in the morning and 1 tablet in the evening. [facility] citalopram 40 mg tablet 04-12 00:00: 00 Yes [id number] 40mg Take 1 tablet by mouth in the morning. [facility] pregabalin 150 mg capsule 04-12 00:00: 00 Yes [id number] 150mg Take 1 capsule by mouth in the morning and 1 capsule in the evening. [facility] flash glucose scanning reader (FREESTYLE MANASA 14 DAY READER) [facility] Yes [id number] 1{each} Take 1 Each in the morning. [facility] flash glucose sensor (FREESTYLE MANASA 14 DAY SENSOR) Kit 04-12 00:00: 00 Yes [id number] 1{kit} 1 Kit every 14 (fourteen) days. [facility] amLODIPine 10 mg tablet 04-12 00:00: 00 Yes [id number] 10mg Take 1 tablet by mouth in the morning. [facility] buPROPion XL 150 mg 24 hr tablet 04-12 00:00: 00 Yes [id number] 150mg Take 1 tablet by mouth in the morning and 1 tablet in the evening. [facility] citalopram 40 mg tablet 04-12 00:00: 00 Yes [id number] 40mg Take 1 tablet by mouth in the morning. [facility] pregabalin 150 mg capsule 04-12 00:00: 00 Yes [id number] 150mg Take 1 capsule by mouth in the morning and 1 capsule in the evening. [facility] flash glucose scanning reader (FREESTYLE MANASA 14 DAY READER) [facility] 04-12 00:00: 00 Yes [id number] 1{each} Take 1 Each in the morning. [facility] flash glucose sensor (FREESTYLE MANASA 14 DAY SENSOR) Kit 04-12 00:00: 00 Yes [id number] 1{kit} 1 Kit every 14 (fourteen) days. [facility] amLODIPine 10 mg tablet 04-12 00:00: 00 Yes [id number] 10mg Take 1 tablet by mouth in the morning. [facility] buPROPion XL 150 mg 24 hr tablet 04-12 00:00: 00 Yes [id number] 150mg Take 1 tablet by mouth in the morning and 1 tablet in the evening. [facility] citalopram 40 mg tablet 04-12 00:00: 00 Yes [id number] 40mg Take 1 tablet by mouth in the morning. [facility] pregabalin 150 mg capsule 04-12 00:00: 00 Yes [id number] 150mg Take 1 capsule by mouth in the morning and 1 capsule in the evening. [facility] flash glucose scanning reader (FREESTYLE MANASA 14 DAY READER) [facility] 04-12 00:00: 00 Yes [id number] 1{each} Take 1 Each in the morning. [facility] flash glucose sensor (FREESTYLE MANASA 14 DAY SENSOR) Kit 04-12 00:00: 00 Yes [id number] 1{kit} 1 Kit every 14 (fourteen) days. [facility] amLODIPine 10 mg tablet 04-12 00:00: 00 Yes [id number] 10mg Take 1 tablet by mouth in the morning. [facility] buPROPion XL 150 mg 24 hr tablet 04-12 00:00: 00 Yes [id number] 150mg Take 1 tablet by mouth in the morning and 1 tablet in the evening. [facility] citalopram 40 mg tablet 04-12 00:00: 00 Yes [id number] 40mg Take 1 tablet by mouth in the morning. [facility] pregabalin 150 mg capsule 04-12 00:00: 00 Yes [id number] 150mg Take 1 capsule by mouth in the morning and 1 capsule in the evening. [facility] flash glucose scanning reader (FREESTYLE MANASA 14 DAY READER) [facility] 04-12 00:00: 00 Yes [id number] 1{each} Take 1 Each in the morning. [facility] flash glucose sensor (FREESTYLE MANASA 14 DAY SENSOR) Kit 04-12 00:00: 00 Yes [id number] 1{kit} 1 Kit every 14 (fourteen) days. [facility] amLODIPine 10 mg tablet 04-12 00:00: 00 Yes [id number] 10mg Take 1 tablet by mouth in the morning. [facility] buPROPion XL 150 mg 24 hr tablet 04-12 00:00: 00 Yes [id number] 150mg Take 1 tablet by mouth in the morning and 1 tablet in the evening. [facility] citalopram 40 mg tablet 04-12 00:00: 00 Yes [id number] 40mg Take 1 tablet by mouth in the morning. [facility] pregabalin 150 mg capsule 04-12 00:00: 00 Yes [id number] 150mg Take 1 capsule by mouth in the morning and 1 capsule in the evening. [facility] flash glucose scanning reader (FREESTYLE MANASA 14 DAY READER) [facility] 04-12 00:00: 00 Yes [id number] 1{each} Take 1 Each in the morning. [facility] flash glucose sensor (FREESTYLE MANASA 14 DAY SENSOR) Kit 04-12 00:00: 00 Yes [id number] 1{kit} 1 Kit every 14 (fourteen) days. [facility] amLODIPine 10 mg tablet 04-12 00:00: 00 Yes [id number] 10mg Take 1 tablet by mouth in the morning. [facility] buPROPion XL 150 mg 24 hr tablet 04-12 00:00: 00 Yes [id number] 150mg Take 1 tablet by mouth in the morning and 1 tablet in the evening. [facility] citalopram 40 mg tablet 04-12 00:00: 00 Yes [id number] 40mg Take 1 tablet by mouth in the morning. [facility] pregabalin 150 mg capsule 04-12 00:00: 00 Yes [id number] 150mg Take 1 capsule by mouth in the morning and 1 capsule in the evening. [facility] flash glucose scanning reader (FREESTYLE MANASA 14 DAY READER) [facility] 04-12 00:00: 00 Yes [id number] 1{each} Take 1 Each in the morning. [facility] flash glucose sensor (FREESTYLE MANASA 14 DAY SENSOR) Kit 04-12 00:00: 00 Yes [id number] 1{kit} 1 Kit every 14 (fourteen) days. [facility] amLODIPine 10 mg tablet 04-12 00:00: 00 Yes [id number] 10mg Take 1 tablet by mouth in the morning. [facility] buPROPion XL 150 mg 24 hr tablet 04-12 00:00: 00 Yes [id number] 150mg Take 1 tablet by mouth in the morning and 1 tablet in the evening. [facility] citalopram 40 mg tablet 04-12 00:00: 00 Yes [id number] 40mg Take 1 tablet by mouth in the morning. [facility] pregabalin 150 mg capsule 04-12 00:00: 00 Yes [id number] 150mg Take 1 capsule by mouth in the morning and 1 capsule in the evening. [facility] flash glucose scanning reader (FREESTYLE MANASA 14 DAY READER) [facility] 04-12 00:00: 00 Yes [id number] 1{each} Take 1 Each in the morning. [facility] flash glucose sensor (FREESTYLE MANASA 14 DAY SENSOR) Kit 04-12 00:00: 00 Yes [id number] 1{kit} 1 Kit every 14 (fourteen) days. [facility] amLODIPine 10 mg tablet 04-12 00:00: 00 Yes [id number] 10mg Take 1 tablet by mouth in the morning. [facility] buPROPion XL 150 mg 24 hr tablet 04-12 00:00: 00 Yes [id number] 150mg Take 1 tablet by mouth in the morning and 1 tablet in the evening. [facility] citalopram 40 mg tablet 04-12 00:00: 00 Yes [id number] 40mg Take 1 tablet by mouth in the morning. [facility] pregabalin 150 mg capsule 04-12 00:00: 00 Yes [id number] 150mg Take 1 capsule by mouth in the morning and 1 capsule in the evening. [facility] flash glucose scanning reader (FREESTYLE MANASA 14 DAY READER) [facility] 04-12 00:00: 00 Yes [id number] 1{each} Take 1 Each in the morning. [facility] flash glucose sensor (FREESTYLE MANASA 14 DAY SENSOR) Kit 04-12 00:00: 00 Yes [id number] 1{kit} 1 Kit every 14 (fourteen) days. [facility] amLODIPine 10 mg tablet 04-12 00:00: 00 Yes [id number] 10mg Take 1 tablet by mouth in the morning. [facility] buPROPion XL 150 mg 24 hr tablet 04-12 00:00: 00 Yes [id number] 150mg Take 1 tablet by mouth in the morning and 1 tablet in the evening. [facility] citalopram 40 mg tablet 04-12 00:00: 00 Yes [id number] 40mg Take 1 tablet by mouth in the morning. [facility] pregabalin 150 mg capsule 04-12 00:00: 00 Yes [id number] 150mg Take 1 capsule by mouth in the morning and 1 capsule in the evening. [facility] flash glucose scanning reader (FREESTYLE MANASA 14 DAY READER) [facility] 04-12 00:00: 00 Yes [id number] 1{each} Take 1 Each in the morning. [facility] flash glucose sensor (FREESTYLE MANASA 14 DAY SENSOR) Kit 04-12 00:00: 00 Yes [id number] 1{kit} 1 Kit every 14 (fourteen) days. [facility] amLODIPine 10 mg tablet 04-12 00:00: 00 Yes [id number] 10mg Take 1 tablet by mouth in the morning. [facility] buPROPion XL 150 mg 24 hr tablet 04-12 00:00: 00 Yes [id number] 150mg Take 1 tablet by mouth in the morning and 1 tablet in the evening. [facility] citalopram 40 mg tablet 04-12 00:00: 00 Yes [id number] 40mg Take 1 tablet by mouth in the morning. [facility] pregabalin 150 mg capsule 04-12 00:00: 00 Yes [id number] 150mg Take 1 capsule by mouth in the morning and 1 capsule in the evening. [facility] flash glucose scanning reader (FREESTYLE MANASA 14 DAY READER) [facility] 04-12 00:00: 00 Yes [id number] 1{each} Take 1 Each in the morning. [facility] flash glucose sensor (FREESTYLE MANASA 14 DAY SENSOR) Kit 04-12 00:00: 00 Yes [id number] 1{kit} 1 Kit every 14 (fourteen) days. [facility] amLODIPine 10 mg tablet 04-12 00:00: 00 Yes [id number] 10mg Take 1 tablet by mouth in the morning. [facility] buPROPion XL 150 mg 24 hr tablet 04-12 00:00: 00 Yes [id number] 150mg Take 1 tablet by mouth in the morning and 1 tablet in the evening. [facility] citalopram 40 mg tablet 04-12 00:00: 00 Yes [id number] 40mg Take 1 tablet by mouth in the morning. [facility] pregabalin 150 mg capsule 04-12 00:00: 00 Yes [id number] 150mg Take 1 capsule by mouth in the morning and 1 capsule in the evening. [facility] flash glucose scanning reader (FREESTYLE MANASA 14 DAY READER) Misc 8 00:00: 00 Yes [id number] 1{each} Take 1 Each in the morning. [facility] flash glucose sensor (FREESTYLE MANASA 14 DAY SENSOR) Kit 04-12 00:00: 00 Yes [id number] 1{kit} 1 Kit every 14 (fourteen) days. [facility] amLODIPine 10 mg tablet 04-12 00:00: 00 Yes [id number] 10mg Take 1 tablet by mouth in the morning. [facility] buPROPion XL 150 mg 24 hr tablet 04-12 00:00: 00 Yes [id number] 150mg Take 1 tablet by mouth in the morning and 1 tablet in the evening. [facility] citalopram 40 mg tablet 04-12 00:00: 00 Yes [id number] 40mg Take 1 tablet by mouth in the morning. [facility] pregabalin 150 mg capsule 04-12 00:00: 00 Yes [id number] 150mg Take 1 capsule by mouth in the morning and 1 capsule in the evening. [facility] flash glucose scanning reader (FREESTYLE MANASA 14 DAY READER) [facility] 00:00: 00 Yes [id number] 1{each} Take 1 Each in the morning. [facility] flash glucose sensor (FREESTYLE MANASA 14 DAY SENSOR) Kit 04-12 00:00: 00 Yes [id number] 1{kit} 1 Kit every 14 (fourteen) days. [facility] amLODIPine 10 mg tablet 04-12 00:00: 00 Yes [id number] 10mg Take 1 tablet by mouth in the morning. [facility] buPROPion XL 150 mg 24 hr tablet 04-12 00:00: 00 Yes [id number] 150mg Take 1 tablet by mouth in the morning and 1 tablet in the evening. [facility] citalopram 40 mg tablet 2022-04-12 00:00: 00 Yes [id number] 40mg Take 1 tablet by mouth in the morning. [facility] pregabalin 150 mg capsule 2022-0 8 00:00: 00 Yes [id number] 150mg Take 1 capsule by mouth in the morning and 1 capsule in the evening. [facility] flash glucose scanning reader (FREESTYLE MANASA 14 DAY READER) [facility] 04-12 00:00: 00 Yes [id number] 1{each} Take 1 Each in the morning. [facility] flash glucose sensor (FREESTYLE MANASA 14 DAY SENSOR) Kit 04-12 00:00: 00 Yes [id number] 1{kit} 1 Kit every 14 (fourteen) days. [facility] amLODIPine 10 mg tablet 04-12 00:00: 00 Yes [id number] 10mg Take 1 tablet by mouth in the morning. [facility] buPROPion XL 150 mg 24 hr tablet 04-12 00:00: 00 Yes [id number] 150mg Take 1 tablet by mouth in the morning and 1 tablet in the evening. [facility] citalopram 40 mg tablet 04-12 00:00: 00 Yes [id number] 40mg Take 1 tablet by mouth in the morning. [facility] pregabalin 150 mg capsule 04-12 00:00: 00 Yes [id number] 150mg Take 1 capsule by mouth in the morning and 1 capsule in the evening. [facility] flash glucose scanning reader (FREESTYLE MANASA 14 DAY READER) [facility] 04-12 00:00: 00 Yes [id number] 1{each} Take 1 Each in the morning. [facility] flash glucose sensor (FREESTYLE MANASA 14 DAY SENSOR) Kit 04-12 00:00: 00 Yes [id number] 1{kit} 1 Kit every 14 (fourteen) days. [facility] amLODIPine 10 mg tablet 04-12 00:00: 00 Yes [id number] 10mg Take 1 tablet by mouth in the morning. [facility] buPROPion XL 150 mg 24 hr tablet 04-12 00:00: 00 Yes [id number] 150mg Take 1 tablet by mouth in the morning and 1 tablet in the evening. [facility] citalopram 40 mg tablet 04-12 00:00: 00 Yes [id number] 40mg Take 1 tablet by mouth in the morning. [facility] pregabalin 150 mg capsule 04-12 00:00: 00 Yes [id number] 150mg Take 1 capsule by mouth in the morning and 1 capsule in the evening. [facility] flash glucose scanning reader (FREESTYLE MANASA 14 DAY READER) [facility] 8- 00:00: 00 Yes [id number] 1{each} Take 1 Each in the morning. [facility] flash glucose sensor (FREESTYLE MANASA 14 DAY SENSOR) Kit 04-12 00:00: 00 Yes [id number] 1{kit} 1 Kit every 14 (fourteen) days. [facility] amLODIPine 10 mg tablet 04-12 00:00: 00 Yes [id number] 10mg Take 1 tablet by mouth in the morning. [facility] buPROPion XL 150 mg 24 hr tablet 04-12 00:00: 00 Yes [id number] 150mg Take 1 tablet by mouth in the morning and 1 tablet in the evening. [facility] citalopram 40 mg tablet 04-12 00:00: 00 Yes [id number] 40mg Take 1 tablet by mouth in the morning. [facility] pregabalin 150 mg capsule 04-12 00:00: 00 Yes [id number] 150mg Take 1 capsule by mouth in the morning and 1 capsule in the evening. [facility] flash glucose scanning reader (FREESTYLE MANASA 14 DAY READER) [facility] 04-12 00:00: 00 Yes [id number] 1{each} Take 1 Each in the morning. [facility] flash glucose sensor (FREESTYLE MANASA 14 DAY SENSOR) Kit 04-12 00:00: 00 Yes [id number] 1{kit} 1 Kit every 14 (fourteen) days. [facility] amLODIPine 10 mg tablet 04-12 00:00: 00 Yes [id number] 10mg Take 1 tablet by mouth in the morning. [facility] buPROPion XL 150 mg 24 hr tablet 04-12 00:00: 00 Yes [id number] 150mg Take 1 tablet by mouth in the morning and 1 tablet in the evening. [facility] citalopram 40 mg tablet 8 00:00: 00 Yes [id number] 40mg Take 1 tablet by mouth in the morning. [facility] flash glucose scanning reader (FREESTYLE MANASA 14 DAY READER) [facility] 8 00:00: 00 Yes [id number] 1{each} Take 1 Each in the morning. [facility] flash glucose sensor (FREESTYLE MANASA 14 DAY SENSOR) Kit 8 00:00: 00 Yes [id number] 1{kit} 1 Kit every 14 (fourteen) days. [facility] amLODIPine 10 mg tablet 04-12 00:00: 00 Yes [id number] 10mg Take 1 tablet by mouth in the morning. [facility] buPROPion XL 150 mg 24 hr tablet 04-12 00:00: 00 Yes [id number] 150mg Take 1 tablet by mouth in the morning and 1 tablet in the evening. [facility] citalopram 40 mg tablet 04-12 00:00: 00 Yes [id number] 40mg Take 1 tablet by mouth in the morning. [facility] flash glucose scanning reader (FREESTYLE MANASA 14 DAY READER) [facility] 04-12 00:00: 00 Yes [id number] 1{each} Take 1 Each in the morning. [facility] flash glucose sensor (FREESTYLE MANASA 14 DAY SENSOR) Kit 04-12 00:00: 00 Yes [id number] 1{kit} 1 Kit every 14 (fourteen) days. [facility] amLODIPine 10 mg tablet 8 00:00: 00 Yes [id number] 10mg Take 1 tablet by mouth in the morning. [facility] buPROPion XL 150 mg 24 hr tablet 8 00:00: 00 Yes [id number] 150mg Take 1 tablet by mouth in the morning and 1 tablet in the evening. [facility] citalopram 40 mg tablet 8 00:00: 00 Yes [id number] 40mg Take 1 tablet by mouth in the morning. [facility] flash glucose scanning reader (FREESTYLE MANASA 14 DAY READER) [facility] 8- 00:00: 00 Yes [id number] 1{each} Take 1 Each in the morning. [facility] flash glucose sensor (FREESTYLE MANASA 14 DAY SENSOR) Kit 04-12 00:00: 00 Yes [id number] 1{kit} 1 Kit every 14 (fourteen) days. [facility] amLODIPine 10 mg tablet 8 00:00: 00 Yes [id number] 10mg Take 1 tablet by mouth in the morning. [facility] buPROPion XL 150 mg 24 hr tablet - 00:00: 00 Yes [id number] 150mg Take 1 tablet by mouth in the morning and 1 tablet in the evening. [facility] citalopram 40 mg tablet 04-12 00:00: 00 Yes [id number] 40mg Take 1 tablet by mouth in the morning. [facility] flash glucose scanning reader (FREESTYLE MANASA 14 DAY READER) [facility] 04-12 00:00: 00 Yes [id number] 1{each} Take 1 Each in the morning. [facility] flash glucose sensor (FREESTYLE MANASA 14 DAY SENSOR) Kit 04-12 00:00: 00 Yes [id number] 1{kit} 1 Kit every 14 (fourteen) days. [facility] amLODIPine 10 mg tablet 04-12 00:00: 00 Yes [id number] 10mg Take 1 tablet by mouth in the morning. [facility] buPROPion XL 150 mg 24 hr tablet 8- 00:00: 00 Yes [id number] 150mg Take 1 tablet by mouth in the morning and 1 tablet in the evening. [facility] citalopram 40 mg tablet 8 00:00: 00 Yes [id number] 40mg Take 1 tablet by mouth in the morning. [facility] flash glucose scanning reader (FREESTYLE MANASA 14 DAY READER) [facility] 04-12 00:00: 00 Yes [id number] 1{each} Take 1 Each in the morning. [facility] flash glucose sensor (FREESTYLE MANASA 14 DAY SENSOR) Kit 04-12 00:00: 00 Yes [id number] 1{kit} 1 Kit every 14 (fourteen) days. [facility] amLODIPine 10 mg tablet 04-12 00:00: 00 Yes [id number] 10mg Take 1 tablet by mouth in the morning. [facility] buPROPion XL 150 mg 24 hr tablet 04-12 00:00: 00 Yes [id number] 150mg Take 1 tablet by mouth in the morning and 1 tablet in the evening. [facility] citalopram 40 mg tablet 04-12 00:00: 00 Yes [id number] 40mg Take 1 tablet by mouth in the morning. [facility] flash glucose scanning reader (FREESTYLE MANASA 14 DAY READER) [facility] 04-12 00:00: 00 Yes [id number] 1{each} Take 1 Each in the morning. [facility] flash glucose sensor (FREESTYLE MNAASA 14 DAY SENSOR) Kit 04-12 00:00: 00 Yes [id number] 1{kit} 1 Kit every 14 (fourteen) days. [facility] amLODIPine 10 mg tablet 04-12 00:00: 00 Yes [id number] 10mg Take 1 tablet by mouth in the morning. [facility] buPROPion XL 150 mg 24 hr tablet 04-12 00:00: 00 Yes [id number] 150mg Take 1 tablet by mouth in the morning and 1 tablet in the evening. [facility] citalopram 40 mg tablet 04-12 00:00: 00 Yes [id number] 40mg Take 1 tablet by mouth in the morning. [facility] flash glucose scanning reader (FREESTYLE MANASA 14 DAY READER) [facility] 04-12 00:00: 00 Yes [id number] 1{each} Take 1 Each in the morning. [facility] flash glucose sensor (FREESTYLE MANASA 14 DAY SENSOR) Kit 04-12 00:00: 00 Yes [id number] 1{kit} 1 Kit every 14 (fourteen) days. [facility] amLODIPine 10 mg tablet 04-12 00:00: 00 Yes [id number] 10mg Take 1 tablet by mouth in the morning. [facility] buPROPion XL 150 mg 24 hr tablet 04-12 00:00: 00 Yes [id number] 150mg Take 1 tablet by mouth in the morning and 1 tablet in the evening. [facility] citalopram 40 mg tablet 04-12 00:00: 00 Yes [id number] 40mg Take 1 tablet by mouth in the morning. [facility] flash glucose scanning reader (FREESTYLE MANASA 14 DAY READER) [facility] 04-12 00:00: 00 Yes [id number] 1{each} Take 1 Each in the morning. [facility] flash glucose sensor (FREESTYLE MANASA 14 DAY SENSOR) Kit 04-12 00:00: 00 Yes [id number] 1{kit} 1 Kit every 14 (fourteen) days. [facility] amLODIPine 10 mg tablet 04-12 00:00: 00 Yes [id number] 10mg Take 1 tablet by mouth in the morning. [facility] buPROPion XL 150 mg 24 hr tablet 04-12 00:00: 00 Yes [id number] 150mg Take 1 tablet by mouth in the morning and 1 tablet in the evening. [facility] citalopram 40 mg tablet 04-12 00:00: 00 Yes [id number] 40mg Take 1 tablet by mouth in the morning. [facility] flash glucose scanning reader (FREESTYLE MANASA 14 DAY READER) [facility] 04-12 00:00: 00 Yes [id number] 1{each} Take 1 Each in the morning. [facility] flash glucose sensor (FREESTYLE MANASA 14 DAY SENSOR) Kit 8 00:00: 00 Yes [id number] 1{kit} 1 Kit every 14 (fourteen) days. [facility] amLODIPine 10 mg tablet 04-12 00:00: 00 Yes [id number] 10mg Take 1 tablet by mouth in the morning. [facility] buPROPion XL 150 mg 24 hr tablet 04-12 00:00: 00 Yes [id number] 150mg Take 1 tablet by mouth in the morning and 1 tablet in the evening. [facility] citalopram 40 mg tablet 04-12 00:00: 00 Yes [id number] 40mg Take 1 tablet by mouth in the morning. [facility] flash glucose scanning reader (FREESTYLE MANASA 14 DAY READER) [facility] 04-12 00:00: 00 Yes [id number] 1{each} Take 1 Each in the morning. [facility] flash glucose sensor (FREESTYLE MANASA 14 DAY SENSOR) Kit 04-12 00:00: 00 Yes [id number] 1{kit} 1 Kit every 14 (fourteen) days. [facility] amLODIPine 10 mg tablet 04-12 00:00: 00 Yes [id number] 10mg Take 1 tablet by mouth in the morning. [facility] buPROPion XL 150 mg 24 hr tablet 04-12 00:00: 00 Yes [id number] 150mg Take 1 tablet by mouth in the morning and 1 tablet in the evening. [facility] citalopram 40 mg tablet 04-12 00:00: 00 Yes [id number] 40mg Take 1 tablet by mouth in the morning. [facility] flash glucose scanning reader (FREESTYLE MANASA 14 DAY READER) [facility] 04-12 00:00: 00 Yes [id number] 1{each} Take 1 Each in the morning. [facility] flash glucose sensor (FREESTYLE MANASA 14 DAY SENSOR) Kit 04-12 00:00: 00 Yes [id number] 1{kit} 1 Kit every 14 (fourteen) days. [facility] amLODIPine 10 mg tablet 04-12 00:00: 00 Yes [id number] 10mg Take 1 tablet by mouth in the morning. [facility] buPROPion XL 150 mg 24 hr tablet 2022-04-12 00:00: 00 Yes [id number] 150mg Take 1 tablet by mouth in the morning and 1 tablet in the evening. [facility] citalopram 40 mg tablet 8-08 00:00: 00 Yes [id number] 40mg Take 1 tablet by mouth in the morning. [facility] flash glucose scanning reader (FREESTYLE MANASA 14 DAY READER) [facility] 8- 00:00: 00 Yes [id number] 1{each} Take 1 Each in the morning. [facility] flash glucose sensor (FREESTYLE MANASA 14 DAY SENSOR) Kit - 00:00: 00 Yes [id number] 1{kit} 1 Kit every 14 (fourteen) days. [facility] amLODIPine 10 mg tablet 04-12 00:00: 00 Yes [id number] 10mg Take 1 tablet by mouth in the morning. [facility] buPROPion XL 150 mg 24 hr tablet 04-12 00:00: 00 Yes [id number] 150mg Take 1 tablet by mouth in the morning and 1 tablet in the evening. [facility] citalopram 40 mg tablet 04-12 00:00: 00 Yes [id number] 40mg Take 1 tablet by mouth in the morning. [facility] flash glucose scanning reader (FREESTYLE MANASA 14 DAY READER) [facility] 04-12 00:00: 00 Yes [id number] 1{each} Take 1 Each in the morning. [facility] flash glucose sensor (FREESTYLE MANASA 14 DAY SENSOR) Kit 04-12 00:00: 00 Yes [id number] 1{kit} 1 Kit every 14 (fourteen) days. [facility] amLODIPine 10 mg tablet 8- 00:00: 00 Yes [id number] 10mg Take 1 tablet by mouth in the morning. [facility] buPROPion XL 150 mg 24 hr tablet 8- 00:00: 00 Yes [id number] 150mg Take 1 tablet by mouth in the morning and 1 tablet in the evening. [facility] citalopram 40 mg tablet 04-12 00:00: 00 Yes [id number] 40mg Take 1 tablet by mouth in the morning. [facility] flash glucose scanning reader (FREESTYLE MANASA 14 DAY READER) [facility] 04-12 00:00: 00 Yes [id number] 1{each} Take 1 Each in the morning. [facility] flash glucose sensor (FREESTYLE MANASA 14 DAY SENSOR) Kit 04-12 00:00: 00 Yes [id number] 1{kit} 1 Kit every 14 (fourteen) days. [facility] amLODIPine 10 mg tablet 04-12 00:00: 00 Yes [id number] 10mg Take 1 tablet by mouth in the morning. [facility] buPROPion XL 150 mg 24 hr tablet 04-12 00:00: 00 Yes [id number] 150mg Take 1 tablet by mouth in the morning and 1 tablet in the evening. [facility] citalopram 40 mg tablet 04-12 00:00: 00 Yes [id number] 40mg Take 1 tablet by mouth in the morning. [facility] flash glucose scanning reader (FREESTYLE MANASA 14 DAY READER) [facility] 04-12 00:00: 00 Yes [id number] 1{each} Take 1 Each in the morning. [facility] flash glucose sensor (FREESTYLE MANASA 14 DAY SENSOR) Kit 04-12 00:00: 00 Yes [id number] 1{kit} 1 Kit every 14 (fourteen) days. [facility] amLODIPine 10 mg tablet 04-12 00:00: 00 Yes [id number] 10mg Take 1 tablet by mouth in the morning. [facility] citalopram 40 mg tablet 04-12 00:00: 00 Yes [id number] 40mg Take 1 tablet by mouth in the morning. [facility] flash glucose scanning reader (FREESTYLE MANASA 14 DAY READER) [facility] 04-12 00:00: 00 Yes [id number] 1{each} Take 1 Each in the morning. [facility] flash glucose sensor (FREESTYLE MANASA 14 DAY SENSOR) Kit 04-12 00:00: 00 Yes [id number] 1{kit} 1 Kit every 14 (fourteen) days. [facility] amLODIPine 10 mg tablet 04-12 00:00: 00 Yes [id number] 10mg Take 1 tablet by mouth in the morning. [facility] citalopram 40 mg tablet 04-12 00:00: 00 Yes [id number] 40mg Take 1 tablet by mouth in the morning. [facility] flash glucose scanning reader (FREESTYLE MANASA 14 DAY READER) [facility] 04-12 00:00: 00 Yes [id number] 1{each} Take 1 Each in the morning. [facility] flash glucose sensor (FREESTYLE MANASA 14 DAY SENSOR) Kit 04-12 00:00: 00 Yes [id number] 1{kit} 1 Kit every 14 (fourteen) days. [facility] amLODIPine 10 mg tablet 04-12 00:00: 00 Yes [id number] 10mg Take 1 tablet by mouth in the morning. [facility] citalopram 40 mg tablet 04-12 00:00: 00 Yes [id number] 40mg Take 1 tablet by mouth in the morning. [facility] pregabalin 150 mg capsule 04-12 00:00: 00 Yes [id number] 150mg Take 1 capsule by mouth in the morning and 1 capsule in the evening. [facility] flash glucose scanning reader (FREESTYLE MANASA 14 DAY READER) [facility] 04-12 00:00: 00 Yes [id number] 1{each} Take 1 Each in the morning. [facility] flash glucose sensor (FREESTYLE MANASA 14 DAY SENSOR) Kit 04-12 00:00: 00 Yes [id number] 1{kit} 1 Kit every 14 (fourteen) days. [facility] amLODIPine 10 mg tablet 04-12 00:00: 00 Yes [id number] 10mg Take 1 tablet by mouth in the morning. [facility] buPROPion XL 150 mg 24 hr tablet 04-12 00:00: 00 Yes [id number] 150mg Take 1 tablet by mouth in the morning and 1 tablet in the evening. [facility] citalopram 40 mg tablet 04-12 00:00: 00 Yes [id number] 40mg Take 1 tablet by mouth in the morning. [facility] pregabalin 150 mg capsule 04-12 00:00: 00 Yes [id number] 150mg Take 1 capsule by mouth in the morning and 1 capsule in the evening. [facility] flash glucose scanning reader (FREESTYLE MANASA 14 DAY READER) [facility] 04-12 00:00: 00 Yes [id number] 1{each} Take 1 Each in the morning. [facility] flash glucose sensor (FREESTYLE MANASA 14 DAY SENSOR) Kit 04-12 00:00: 00 Yes [id number] 1{kit} 1 Kit every 14 (fourteen) days. [facility] amLODIPine 10 mg tablet 04-12 00:00: 00 Yes [id number] 10mg Take 1 tablet by mouth in the morning. [facility] buPROPion XL 150 mg 24 hr tablet 04-12 00:00: 00 Yes [id number] 150mg Take 1 tablet by mouth in the morning and 1 tablet in the evening. [facility] citalopram 40 mg tablet 04-12 00:00: 00 Yes [id number] 40mg Take 1 tablet by mouth in the morning. [facility] pregabalin 150 mg capsule 04-12 00:00: 00 Yes [id number] 150mg Take 1 capsule by mouth in the morning and 1 capsule in the evening. [facility] flash glucose scanning reader (FREESTYLE MANASA 14 DAY READER) [facility] 04-12 00:00: 00 Yes [id number] 1{each} Take 1 Each in the morning. [facility] flash glucose sensor (FREESTYLE MANASA 14 DAY SENSOR) Kit 04-12 00:00: 00 Yes [id number] 1{kit} 1 Kit every 14 (fourteen) days. [facility] amLODIPine 10 mg tablet 8 00:00: 00 Yes [id number] 10mg Take 1 tablet by mouth in the morning. [facility] buPROPion XL 150 mg 24 hr tablet 04-12 00:00: 00 Yes [id number] 150mg Take 1 tablet by mouth in the morning and 1 tablet in the evening. [facility] citalopram 40 mg tablet 04-12 00:00: 00 Yes [id number] 40mg Take 1 tablet by mouth in the morning. [facility] pregabalin 150 mg capsule 04-12 00:00: 00 Yes [id number] 150mg Take 1 capsule by mouth in the morning and 1 capsule in the evening. [facility] flash glucose scanning reader (FREESTYLE MANASA 14 DAY READER) [facility] 04[facility] 00:00: 00 Yes [id number] 1{each} Take 1 Each in the morning. [facility] flash glucose sensor (FREESTYLE MANASA 14 DAY SENSOR) Kit 04-12 00:00: 00 Yes [id number] 1{kit} 1 Kit every 14 (fourteen) days. [facility] amLODIPine 10 mg tablet 04-12 00:00: 00 Yes [id number] 10mg Take 1 tablet by mouth in the morning. [facility] buPROPion XL 150 mg 24 hr tablet 04-12 00:00: 00 Yes [id number] 150mg Take 1 tablet by mouth in the morning and 1 tablet in the evening. [facility] citalopram 40 mg tablet 04-12 00:00: 00 Yes [id number] 40mg Take 1 tablet by mouth in the morning. [facility] pregabalin 150 mg capsule 8- 00:00: 00 Yes [id number] 150mg Take 1 capsule by mouth in the morning and 1 capsule in the evening. [facility] flash glucose scanning reader (FREESTYLE MANASA 14 DAY READER) Misc 8- 00:00: 00 Yes [id number] 1{each} Take 1 Each in the morning. [facility] flash glucose sensor (FREESTYLE MANASA 14 DAY SENSOR) Kit 04-12 00:00: 00 Yes [id number] 1{kit} 1 Kit every 14 (fourteen) days. [facility] amLODIPine 10 mg tablet 04-12 00:00: 00 Yes [id number] 10mg Take 1 tablet by mouth in the morning. [facility] buPROPion XL 150 mg 24 hr tablet 04-12 00:00: 00 Yes [id number] 150mg Take 1 tablet by mouth in the morning and 1 tablet in the evening. [facility] citalopram 40 mg tablet 04-12 00:00: 00 Yes [id number] 40mg Take 1 tablet by mouth in the morning. [facility] pregabalin 150 mg capsule 04-12 00:00: 00 Yes [id number] 150mg Take 1 capsule by mouth in the morning and 1 capsule in the evening. [facility] flash glucose scanning reader (FREESTYLE MANASA 14 DAY READER) Misc 04-12 00:00: 00 Yes [id number] 1{each} Take 1 Each in the morning. [facility] flash glucose sensor (FREESTYLE MANASA 14 DAY SENSOR) Kit 04-12 00:00: 00 Yes [id number] 1{kit} 1 Kit every 14 (fourteen) days. [facility] amLODIPine 10 mg tablet 04-12 00:00: 00 Yes [id number] 10mg Take 1 tablet by mouth in the morning. [facility] buPROPion XL 150 mg 24 hr tablet 04-12 00:00: 00 Yes [id number] 150mg Take 1 tablet by mouth in the morning and 1 tablet in the evening. [facility] citalopram 40 mg tablet 04-12 00:00: 00 Yes [id number] 40mg Take 1 tablet by mouth in the morning. [facility] pregabalin 150 mg capsule 04-12 00:00: 00 Yes [id number] 150mg Take 1 capsule by mouth in the morning and 1 capsule in the evening. [facility] flash glucose scanning reader (FREESTYLE MANASA 14 DAY READER) Misc 04-12 00:00: 00 Yes [id number] 1{each} Take 1 Each in the morning. [facility] flash glucose sensor (FREESTYLE MANASA 14 DAY SENSOR) Kit 04-12 00:00: 00 Yes [id number] 1{kit} 1 Kit every 14 (fourteen) days. [facility] buPROPion XL 150 mg 24 hr tablet 04-12 00:00: 00 11-10 00:00 :00 No [id number] 150mg Take 1 tablet by mouth in the morning and 1 tablet in the evening. [facility] pregabalin 150 mg capsule 04-12 00:00: 00 08-01 00:00 :00 No [id number] 150mg Take 1 capsule by mouth in the morning and 1 capsule in the evening. [facility] metFORMIN 500 mg tablet 04-12 00:00: 00 05-13 04:59 :00 No [id number] 500mg Take 1 tablet by mouth in the morning and 1 tablet in the evening. Do all this for 30 days. [facility] metFORMIN 500 mg tablet 04-12 00:00: 00 05-13 04:59 :00 No [id number] 500mg Take 1 tablet by mouth in the morning and 1 tablet in the evening. Do all this for 30 days. [facility] metFORMIN 500 mg tablet 04-12 00:00: 00 05-13 04:59 :00 No [id number] 500mg Take 1 tablet by mouth in the morning and 1 tablet in the evening. Do all this for 30 days. [facility] metFORMIN 500 mg tablet 04-12 00:00: 00 05-13 04:59 :00 No [id number] 500mg Take 1 tablet by mouth in the morning and 1 tablet in the evening. Do all this for 30 days. [facility] metFORMIN 500 mg tablet 04-12 00:00: 05-13 04:59 :00 No [id number] 500mg Take 1 tablet by mouth in the morning and 1 tablet in the evening. Do all this for 30 days. [facility] metFORMIN 500 mg tablet 04-12 00:00: 00 05-13 04:59 :00 No [id number] 500mg Take 1 tablet by mouth in the morning and 1 tablet in the evening. Do all this for 30 days. [facility] metFORMIN 500 mg tablet 04-12 00:00: 00 05-13 04:59 :00 No [id number] 500mg Take 1 tablet by mouth in the morning and 1 tablet in the evening. Do all this for 30 days. [facility] metFORMIN 500 mg tablet 04-12 00:00: 00 05-13 04:59 :00 No [id number] 500mg Take 1 tablet by mouth in the morning and 1 tablet in the evening. Do all this for 30 days. [facility] metFORMIN 500 mg tablet 04-12 00:00: 05-13 04:59 :00 No [id number] 500mg Take 1 tablet by mouth in the morning and 1 tablet in the evening. Do all this for 30 days. [facility] flash glucose sensor (FREESTYLE MANASA 14 DAY SENSOR) Kit 04-12 00:00: 00 04-12 00:00 :00 No [id number] 1{kit} 1 Kit every 14 (fourteen) days. [facility] flash glucose scanning reader (FREESTYLE MANASA 14 DAY READER) [facility] 04-12 00:00: 00 04-12 00:00 :00 No [id number] 1{each} Take 1 Each in the morning. [facility] flash glucose sensor (FREESTYLE MANASA 14 DAY SENSOR) Kit 04-12 00:00: 00 04-12 00:00 :00 No [id number] 1{kit} 1 Kit every 14 (fourteen) days. [facility] flash glucose scanning reader (FREESTYLE MANASA 14 DAY READER) [facility] 04-12 00:00: 00 04-12 00:00 :00 No [id number] 1{each} Take 1 Each in the morning. [facility] flash glucose sensor (FREESTYLE MANASA 14 DAY SENSOR) Kit 04-12 00:00: 00 04-12 00:00 :00 No [id number] 1{kit} 1 Kit every 14 (fourteen) days. [facility] flash glucose scanning reader (FREESTYLE MANASA 14 DAY READER) Misc 04-12 00:00: 00 04-12 00:00 :00 No [id number] 1{each} Take 1 Each in the morning. [facility] PREGABALIN 150 mg capsule 2022-0 - 00:00: 00 Yes [id number] Take 1 capsule by mouth twice daily [facility] PREGABALIN 150 mg capsule 2022-0 03-02 00:00: 00 04-12 00:00 :00 No [id number] Take 1 capsule by mouth twice daily [facility] PREGABALIN 150 mg capsule 3-0 28 00:00: 00 04-12 00:00 :00 No [id number] Take 1 capsule by mouth twice daily [facility] PREGABALIN 150 mg capsule 2022-0 -28 00:00: 00 04-12 00:00 :00 No [id number] Take 1 capsule by mouth twice daily [facility] PREGABALIN 150 mg capsule 3-0 5-05 00:00: 00 Yes [id number] Take 1 capsule by mouth twice daily [facility] PREGABALIN 150 mg capsule 3-0 5-05 00:00: 00 03-02 00:00 :00 No [id number] Take 1 capsule by mouth twice daily [facility] PREGABALIN 150 mg capsule 3-0 2-03 00:00: 00 Yes [id number] Take 1 capsule by mouth twice daily [facility] PREGABALIN 150 mg capsule 3-0 2-03 00:00: 00 Yes [id number] Take 1 capsule by mouth twice daily [facility] PREGABALIN 150 mg capsule 2022-0 2-03 00:00: 00 Yes [id number] Take 1 capsule by mouth twice daily [facility] PREGABALIN 150 mg capsule 2022-0 2-03 00:00: 00 Yes [id number] Take 1 capsule by mouth twice daily [facility] PREGABALIN 150 mg capsule 2022-0 2-03 00:00: 00 Yes [id number] Take 1 capsule by mouth twice daily [facility] PREGABALIN 150 mg capsule 2022-0 2-03 00:00: 00 Yes [id number] Take 1 capsule by mouth twice daily [facility] PREGABALIN 150 mg capsule 3-0 2- 00:00: 00 05- 00:00 :00 No [id number] Take 1 capsule by mouth twice daily [facility] furosemide 20 mg tablet 0 - 00:00: 00 Yes [id number] 20mg Take 1 tablet by mouth in the morning. [facility] amitriptyli ne 25 mg tablet 2022-0 - 00:00: 00 Yes [id number] 25mg Take 1 tablet by mouth at bedtime. [facility] furosemide 20 mg tablet 0 09-15 00:00: 00 Yes [id number] 20mg Take 1 tablet by mouth in the morning. [facility] amitriptyli ne 25 mg tablet 2022-0 - 00:00: 00 Yes [id number] 25mg Take 1 tablet by mouth at bedtime. [facility] furosemide 20 mg tablet 0 - 00:00: 00 Yes [id number] 20mg Take 1 tablet by mouth in the morning. [facility] amitriptyli ne 25 mg tablet 2022-0 09-15 00:00: 00 Yes [id number] 25mg Take 1 tablet by mouth at bedtime. [facility] furosemide 20 mg tablet 2022-0 - 00:00: 00 Yes [id number] 20mg Take 1 tablet by mouth in the morning. [facility] amitriptyli ne 25 mg tablet 2022-09-15 00:00: 00 Yes [id number] 25mg Take 1 tablet by mouth at bedtime. [facility] furosemide 20 mg tablet 09-15 00:00: 00 Yes [id number] 20mg Take 1 tablet by mouth in the morning. [facility] amitriptyli ne 25 mg tablet 09-15 00:00: 00 Yes [id number] 25mg Take 1 tablet by mouth at bedtime. [facility] furosemide 20 mg tablet 09-15 00:00: 00 Yes [id number] 20mg Take 1 tablet by mouth in the morning. [facility] amitriptyli ne 25 mg tablet 09-15 00:00: 00 Yes [id number] 25mg Take 1 tablet by mouth at bedtime. [facility] furosemide 20 mg tablet 09-15 00:00: 00 Yes [id number] 20mg Take 1 tablet by mouth in the morning. [facility] amitriptyli ne 25 mg tablet 09-15 00:00: 00 Yes [id number] 25mg Take 1 tablet by mouth at bedtime. [facility] furosemide 20 mg tablet 09-15 00:00: 00 Yes [id number] 20mg Take 1 tablet by mouth in the morning. [facility] amitriptyli ne 25 mg tablet 09-15 00:00: 00 Yes [id number] 25mg Take 1 tablet by mouth at bedtime. [facility] furosemide 20 mg tablet 09-15 00:00: 00 Yes [id number] 20mg Take 1 tablet by mouth in the morning. [facility] amitriptyli ne 25 mg tablet 0 09-15 00:00: 00 Yes [id number] 25mg Take 1 tablet by mouth at bedtime. [facility] furosemide 20 mg tablet 09-15 00:00: 00 Yes [id number] 20mg Take 1 tablet by mouth in the morning. [facility] amitriptyli ne 25 mg tablet 09-15 00:00: 00 Yes [id number] 25mg Take 1 tablet by mouth at bedtime. [facility] furosemide 20 mg tablet 0 09-15 00:00: 00 Yes [id number] 20mg Take 1 tablet by mouth in the morning. [facility] amitriptyli ne 25 mg tablet 0 09-15 00:00: 00 Yes [id number] 25mg Take 1 tablet by mouth at bedtime. [facility] amitriptyli ne 25 mg tablet 0 09-15 00:00: 00 Yes [id number] 25mg Take 1 tablet by mouth at bedtime. [facility] amitriptyli ne 25 mg tablet 0 09-15 00:00: 00 Yes [id number] 25mg Take 1 tablet by mouth at bedtime. [facility] amitriptyli ne 25 mg tablet 0 09-15 00:00: 00 Yes [id number] 25mg Take 1 tablet by mouth at bedtime. [facility] amitriptyli ne 25 mg tablet 0 09-15 00:00: 00 Yes [id number] 25mg Take 1 tablet by mouth at bedtime. [facility] amitriptyli ne 25 mg tablet 0 09-15 00:00: 00 Yes [id number] 25mg Take 1 tablet by mouth at bedtime. [facility] amitriptyli ne 25 mg tablet 0 09-15 00:00: 00 Yes [id number] 25mg Take 1 tablet by mouth at bedtime. [facility] amitriptyli ne 25 mg tablet 0 09-15 00:00: 00 Yes [id number] 25mg Take 1 tablet by mouth at bedtime. [facility] amitriptyli ne 25 mg tablet 0 09-15 00:00: 00 Yes [id number] 25mg Take 1 tablet by mouth at bedtime. [facility] amitriptyli ne 25 mg tablet 2022-0 09-15 00:00: 00 Yes [id number] 25mg Take 1 tablet by mouth at bedtime. [facility] amitriptyli ne 25 mg tablet 09-15 00:00: 00 Yes [id number] 25mg Take 1 tablet by mouth at bedtime. [facility] amitriptyli ne 25 mg tablet 09-15 00:00: 00 Yes [id number] 25mg Take 1 tablet by mouth at bedtime. [facility] amitriptyli ne 25 mg tablet 09-15 00:00: 00 Yes [id number] 25mg Take 1 tablet by mouth at bedtime. [facility] amitriptyli ne 25 mg tablet 09-15 00:00: 00 Yes [id number] 25mg Take 1 tablet by mouth at bedtime. [facility] amitriptyli ne 25 mg tablet 09-15 00:00: 00 Yes [id number] 25mg Take 1 tablet by mouth at bedtime. [facility] amitriptyli ne 25 mg tablet 09-15 00:00: 00 Yes [id number] 25mg Take 1 tablet by mouth at bedtime. [facility] amitriptyli ne 25 mg tablet 09-15 00:00: 00 Yes [id number] 25mg Take 1 tablet by mouth at bedtime. [facility] amitriptyli ne 25 mg tablet 09-15 00:00: 00 Yes [id number] 25mg Take 1 tablet by mouth at bedtime. [facility] amitriptyli ne 25 mg tablet 0 09-15 00:00: 00 Yes [id number] 25mg Take 1 tablet by mouth at bedtime. [facility] amitriptyli ne 25 mg tablet 0 09-15 00:00: 00 Yes [id number] 25mg Take 1 tablet by mouth at bedtime. [facility] amitriptyli ne 25 mg tablet 0 09-15 00:00: 00 Yes [id number] 25mg Take 1 tablet by mouth at bedtime. [facility] amitriptyli ne 25 mg tablet 09-15 00:00: 00 Yes [id number] 25mg Take 1 tablet by mouth at bedtime. [facility] amitriptyli ne 25 mg tablet 09-15 00:00: 00 Yes [id number] 25mg Take 1 tablet by mouth at bedtime. [facility] amitriptyli ne 25 mg tablet 09-15 00:00: 00 Yes [id number] 25mg Take 1 tablet by mouth at bedtime. [facility] amitriptyli ne 25 mg tablet 09-15 00:00: 00 Yes [id number] 25mg Take 1 tablet by mouth at bedtime. [facility] amitriptyli ne 25 mg tablet 09-15 00:00: 00 Yes [id number] 25mg Take 1 tablet by mouth at bedtime. [facility] amitriptyli ne 25 mg tablet 09-15 00:00: 00 Yes [id number] 25mg Take 1 tablet by mouth at bedtime. [facility] amitriptyli ne 25 mg tablet 09-15 00:00: 00 Yes [id number] 25mg Take 1 tablet by mouth at bedtime. [facility] amitriptyli ne 25 mg tablet 09-15 00:00: 00 Yes [id number] 25mg Take 1 tablet by mouth at bedtime. [facility] amitriptyli ne 25 mg tablet 09-15 00:00: 00 Yes [id number] 25mg Take 1 tablet by mouth at bedtime. [facility] amitriptyli ne 25 mg tablet 09-15 00:00: 00 Yes [id number] 25mg Take 1 tablet by mouth at bedtime. [facility] amitriptyli ne 25 mg tablet 09-15 00:00: 00 Yes [id number] 25mg Take 1 tablet by mouth at bedtime. [facility] amitriptyli ne 25 mg tablet 09-15 00:00: 00 Yes [id number] 25mg Take 1 tablet by mouth at bedtime. [facility] amitriptyli ne 25 mg tablet 0 09-15 00:00: 00 Yes [id number] 25mg Take 1 tablet by mouth at bedtime. [facility] amitriptyli ne 25 mg tablet 0 09-15 00:00: 00 Yes [id number] 25mg Take 1 tablet by mouth at bedtime. [facility] amitriptyli ne 25 mg tablet 0 09-15 00:00: 00 Yes [id number] 25mg Take 1 tablet by mouth at bedtime. [facility] amitriptyli ne 25 mg tablet 0 09-15 00:00: 00 Yes [id number] 25mg Take 1 tablet by mouth at bedtime. [facility] amitriptyli ne 25 mg tablet 0 09-15 00:00: 00 Yes [id number] 25mg Take 1 tablet by mouth at bedtime. [facility] amitriptyli ne 25 mg tablet 09-15 00:00: 00 Yes [id number] 25mg Take 1 tablet by mouth at bedtime. [facility] amitriptyli ne 25 mg tablet 09-15 00:00: 00 Yes [id number] 25mg Take 1 tablet by mouth at bedtime. [facility] amitriptyli ne 25 mg tablet 0 09-15 00:00: 00 Yes [id number] 25mg Take 1 tablet by mouth at bedtime. [facility] furosemide 20 mg tablet 09-15 00:00: 00 04-12 00:00 :00 No [id number] 20mg Take 1 tablet by mouth in the morning. [facility] furosemide 20 mg tablet 09-15 00:00: 00 04-12 00:00 :00 No [id number] 20mg Take 1 tablet by mouth in the morning. [facility] furosemide 20 mg tablet 09-15 00:00: 00 04-12 00:00 :00 No [id number] 20mg Take 1 tablet by mouth in the morning. [facility] PREGABALIN 150 mg capsule 2021-09 00:00: 00 Yes [id number] Take 1 capsule by mouth twice daily [facility] PREGABALIN 150 mg capsule 2021-09 00:00: 00 Yes [id number] Take 1 capsule by mouth twice daily [facility] PREGABALIN 150 mg capsule 2021-09 00:00: 00 Yes [id number] Take 1 capsule by mouth twice daily [facility] PREGABALIN 150 mg capsule 2021-09 00:00: 00 10-08 00:00 :00 No [id number] Take 1 capsule by mouth twice daily [facility] PREGABALIN 150 mg capsule 2021-09 00:00: 00 Yes [id number] Take 1 capsule by mouth twice daily [facility] PREGABALIN 150 mg capsule 2021-09 00:00: 00 08-27 00:00 :00 No [id number] Take 1 capsule by mouth twice daily [facility] ergocalcife rol, vitamin d2, (VITAMIN D2) 1,250 mcg (50,000 unit) capsule 05-03 00:00: 00 Yes [id number] Take 1 capsule by mouth weekly. [facility] ergocalcife rol, vitamin d2, (VITAMIN D2) 1,250 mcg (50,000 unit) capsule 05-03 00:00: 00 Yes [id number] Take 1 capsule by mouth weekly. [facility] ergocalcife rol, vitamin d2, (VITAMIN D2) 1,250 mcg (50,000 unit) capsule 05-03 00:00: 00 Yes [id number] Take 1 capsule by mouth weekly. [facility] ergocalcife rol, vitamin d2, (VITAMIN D2) 1,250 mcg (50,000 unit) capsule 05-03 00:00: 00 Yes [id number] Take 1 capsule by mouth weekly. [facility] ergocalcife rol, vitamin d2, (VITAMIN D2) 1,250 mcg (50,000 unit) capsule 05-03 00:00: 00 Yes [id number] Take 1 capsule by mouth weekly. [facility] ergocalcife rol, vitamin d2, (VITAMIN D2) 1,250 mcg (50,000 unit) capsule 05-03 00:00: 00 Yes [id number] Take 1 capsule by mouth weekly. [facility] ergocalcife rol, vitamin d2, (VITAMIN D2) 1,250 mcg (50,000 unit) capsule 05-03 00:00: 00 Yes [id number] Take 1 capsule by mouth weekly. [facility] ergocalcife rol, vitamin d2, (VITAMIN D2) 1,250 mcg (50,000 unit) capsule 05-03 00:00: 00 Yes [id number] Take 1 capsule by mouth weekly. [facility] ergocalcife rol, vitamin d2, (VITAMIN D2) 1,250 mcg (50,000 unit) capsule 05-03 00:00: 00 Yes [id number] Take 1 capsule by mouth weekly. [facility] ergocalcife rol, vitamin d2, (VITAMIN D2) 1,250 mcg (50,000 unit) capsule 05-03 00:00: 00 Yes [id number] Take 1 capsule by mouth weekly. [facility] ergocalcife rol, vitamin d2, (VITAMIN D2) 1,250 mcg (50,000 unit) capsule 05-03 00:00: 00 Yes [id number] Take 1 capsule by mouth weekly. [facility] ergocalcife rol, vitamin d2, (VITAMIN D2) 1,250 mcg (50,000 unit) capsule 05-03 00:00: 00 Yes [id number] Take 1 capsule by mouth weekly. [facility] ergocalcife rol, vitamin d2, (VITAMIN D2) 1,250 mcg (50,000 unit) capsule 05-03 00:00: 00 Yes [id number] Take 1 capsule by mouth weekly. [facility] ergocalcife rol, vitamin d2, (VITAMIN D2) 1,250 mcg (50,000 unit) capsule 05-03 00:00: 00 Yes [id number] Take 1 capsule by mouth weekly. [facility] ergocalcife rol, vitamin d2, (VITAMIN D2) 1,250 mcg (50,000 unit) capsule 05-03 00:00: 00 Yes [id number] Take 1 capsule by mouth weekly. [facility] ergocalcife rol, vitamin d2, (VITAMIN D2) 1,250 mcg (50,000 unit) capsule 05-03 00:00: 00 Yes [id number] Take 1 capsule by mouth weekly. [facility] ergocalcife rol, vitamin d2, (VITAMIN D2) 1,250 mcg (50,000 unit) capsule 05-03 00:00: 00 Yes [id number] Take 1 capsule by mouth weekly. [facility] ergocalcife rol, vitamin d2, (VITAMIN D2) 1,250 mcg (50,000 unit) capsule 05-03 00:00: 00 Yes [id number] Take 1 capsule by mouth weekly. [facility] ergocalcife rol, vitamin d2, (VITAMIN D2) 1,250 mcg (50,000 unit) capsule 05-03 00:00: 00 Yes [id number] Take 1 capsule by mouth weekly. [facility] ergocalcife rol, vitamin d2, (VITAMIN D2) 1,250 mcg (50,000 unit) capsule 05-03 00:00: 00 Yes [id number] Take 1 capsule by mouth weekly. [facility] ergocalcife rol, vitamin d2, (VITAMIN D2) 1,250 mcg (50,000 unit) capsule 05-03 00:00: 00 Yes [id number] Take 1 capsule by mouth weekly. [facility] ergocalcife rol, vitamin d2, (VITAMIN D2) 1,250 mcg (50,000 unit) capsule 05-03 00:00: 00 Yes [id number] Take 1 capsule by mouth weekly. [facility] ergocalcife rol, vitamin d2, (VITAMIN D2) 1,250 mcg (50,000 unit) capsule 05-03 00:00: 00 Yes [id number] Take 1 capsule by mouth weekly. [facility] ergocalcife rol, vitamin d2, (VITAMIN D2) 1,250 mcg (50,000 unit) capsule 05-03 00:00: 00 Yes [id number] Take 1 capsule by mouth weekly. [facility] ergocalcife rol, vitamin d2, (VITAMIN D2) 1,250 mcg (50,000 unit) capsule 05-03 00:00: 00 Yes [id number] Take 1 capsule by mouth weekly. [facility] ergocalcife rol, vitamin d2, (VITAMIN D2) 1,250 mcg (50,000 unit) capsule 05-03 00:00: 00 Yes [id number] Take 1 capsule by mouth weekly. [facility] ergocalcife rol, vitamin d2, (VITAMIN D2) 1,250 mcg (50,000 unit) capsule 05-03 00:00: 00 Yes [id number] Take 1 capsule by mouth weekly. [facility] ergocalcife rol, vitamin d2, (VITAMIN D2) 1,250 mcg (50,000 unit) capsule 05-03 00:00: 00 Yes [id number] Take 1 capsule by mouth weekly. [facility] ergocalcife rol, vitamin d2, (VITAMIN D2) 1,250 mcg (50,000 unit) capsule 05-03 00:00: 00 Yes [id number] Take 1 capsule by mouth weekly. [facility] ergocalcife rol, vitamin d2, (VITAMIN D2) 1,250 mcg (50,000 unit) capsule 05-03 00:00: 00 Yes [id number] Take 1 capsule by mouth weekly. [facility] ergocalcife rol, vitamin d2, (VITAMIN D2) 1,250 mcg (50,000 unit) capsule 05-03 00:00: 00 Yes [id number] Take 1 capsule by mouth weekly. [facility] ergocalcife rol, vitamin d2, (VITAMIN D2) 1,250 mcg (50,000 unit) capsule 05-03 00:00: 00 Yes [id number] Take 1 capsule by mouth weekly. [facility] ergocalcife rol, vitamin d2, (VITAMIN D2) 1,250 mcg (50,000 unit) capsule 05-03 00:00: 00 Yes [id number] Take 1 capsule by mouth weekly. [facility] ergocalcife rol, vitamin d2, (VITAMIN D2) 1,250 mcg (50,000 unit) capsule 05-03 00:00: 00 Yes [id number] Take 1 capsule by mouth weekly. [facility] ergocalcife rol, vitamin d2, (VITAMIN D2) 1,250 mcg (50,000 unit) capsule 05-03 00:00: 00 Yes [id number] Take 1 capsule by mouth weekly. [facility] ergocalcife rol, vitamin d2, (VITAMIN D2) 1,250 mcg (50,000 unit) capsule 05-03 00:00: 00 Yes [id number] Take 1 capsule by mouth weekly. [facility] ergocalcife rol, vitamin d2, (VITAMIN D2) 1,250 mcg (50,000 unit) capsule 05-03 00:00: 00 Yes [id number] Take 1 capsule by mouth weekly. [facility] ergocalcife rol, vitamin d2, (VITAMIN D2) 1,250 mcg (50,000 unit) capsule 05-03 00:00: 00 Yes [id number] Take 1 capsule by mouth weekly. [facility] ergocalcife rol, vitamin d2, (VITAMIN D2) 1,250 mcg (50,000 unit) capsule 05-03 00:00: 00 Yes [id number] Take 1 capsule by mouth weekly. [facility] ergocalcife rol, vitamin d2, (VITAMIN D2) 1,250 mcg (50,000 unit) capsule 05-03 00:00: 00 Yes [id number] Take 1 capsule by mouth weekly. [facility] ergocalcife rol, vitamin d2, (VITAMIN D2) 1,250 mcg (50,000 unit) capsule 05-03 00:00: 00 Yes [id number] Take 1 capsule by mouth weekly. [facility] ergocalcife rol, vitamin d2, (VITAMIN D2) 1,250 mcg (50,000 unit) capsule 05-03 00:00: 00 Yes [id number] Take 1 capsule by mouth weekly. [facility] ergocalcife rol, vitamin d2, (VITAMIN D2) 1,250 mcg (50,000 unit) capsule 05-03 00:00: 00 Yes [id number] Take 1 capsule by mouth weekly. [facility] ergocalcife rol, vitamin d2, (VITAMIN D2) 1,250 mcg (50,000 unit) capsule 05-03 00:00: 00 Yes [id number] Take 1 capsule by mouth weekly. [facility] ergocalcife rol, vitamin d2, (VITAMIN D2) 1,250 mcg (50,000 unit) capsule 05-03 00:00: 00 Yes [id number] Take 1 capsule by mouth weekly. [facility] ergocalcife rol, vitamin d2, (VITAMIN D2) 1,250 mcg (50,000 unit) capsule 05-03 00:00: 00 Yes [id number] Take 1 capsule by mouth weekly. [facility] ergocalcife rol, vitamin d2, (VITAMIN D2) 1,250 mcg (50,000 unit) capsule 05-03 00:00: 00 Yes [id number] Take 1 capsule by mouth weekly. [facility] ergocalcife rol, vitamin d2, (VITAMIN D2) 1,250 mcg (50,000 unit) capsule 05-03 00:00: 00 Yes [id number] Take 1 capsule by mouth weekly. [facility] ergocalcife rol, vitamin d2, (VITAMIN D2) 1,250 mcg (50,000 unit) capsule 05-03 00:00: 00 Yes [id number] Take 1 capsule by mouth weekly. [facility] ergocalcife rol, vitamin d2, (VITAMIN D2) 1,250 mcg (50,000 unit) capsule 05-03 00:00: 00 Yes [id number] Take 1 capsule by mouth weekly. [facility] ergocalcife rol, vitamin d2, (VITAMIN D2) 1,250 mcg (50,000 unit) capsule 05-03 00:00: 00 Yes [id number] Take 1 capsule by mouth weekly. [facility] ergocalcife rol, vitamin d2, (VITAMIN D2) 1,250 mcg (50,000 unit) capsule 05-03 00:00: 00 Yes [id number] Take 1 capsule by mouth weekly. [facility] ergocalcife rol, vitamin d2, (VITAMIN D2) 1,250 mcg (50,000 unit) capsule 05-03 00:00: 00 Yes [id number] Take 1 capsule by mouth weekly. [facility] ergocalcife rol, vitamin d2, (VITAMIN D2) 1,250 mcg (50,000 unit) capsule 05-03 00:00: 00 Yes [id number] Take 1 capsule by mouth weekly. [facility] ergocalcife rol, vitamin d2, (VITAMIN D2) 1,250 mcg (50,000 unit) capsule 05-03 00:00: 00 Yes [id number] Take 1 capsule by mouth weekly. [facility] ergocalcife rol, vitamin d2, (VITAMIN D2) 1,250 mcg (50,000 unit) capsule 05-03 00:00: 00 11-10 00:00 :00 No [id number] Take 1 capsule by mouth weekly. [facility] multivitami n tablet 3-31 09:09: 11 Yes 1{tbl} Take 1 Tab by mouth daily. [facility] ASCORBATE CALCIUM (VITAMIN C ORAL) 12-03 09:09: 11 Yes Take by mouth daily. [facility] aspirin 81 mg chewable tablet 12-03 09:09: 11 Yes 81mg Take 81 mg by mouth daily. [facility] COQ10, UBIQUINOL, ORAL 12-03 09:09: 11 Yes Take by mouth. [facility] multivitami n tablet 12-03 09:09: 11 Yes 1{tbl} Take 1 Tab by mouth daily. [facility] ASCORBATE CALCIUM (VITAMIN C ORAL) 12-03 09:09: 11 Yes Take by mouth daily. [facility] aspirin 81 mg chewable tablet 12-03 09:09: 11 Yes 81mg Take 81 mg by mouth daily. [facility] COQ10, UBIQUINOL, ORAL 12-03 09:09: 11 Yes Take by mouth. [facility] multivitami n tablet 12-03 09:09: 11 Yes 1{tbl} Take 1 Tab by mouth daily. [facility] ASCORBATE CALCIUM (VITAMIN C ORAL) 12-03 09:09: 11 Yes Take by mouth daily. [facility] aspirin 81 mg chewable tablet 12-03 09:09: 11 Yes 81mg Take 81 mg by mouth daily. [facility] COQ10, UBIQUINOL, ORAL 12-03 09:09: 11 Yes Take by mouth. [facility] multivitami n tablet 12-03 09:09: 11 Yes 1{tbl} Take 1 Tab by mouth daily. [facility] ASCORBATE CALCIUM (VITAMIN C ORAL) 12-03 09:09: 11 Yes Take by mouth daily. [facility] aspirin 81 mg chewable tablet 12-03 09:09: 11 Yes 81mg Take 81 mg by mouth daily. [facility] COQ10, UBIQUINOL, ORAL 12-03 09:09: 11 Yes Take by mouth. [facility] multivitami n tablet 12-03 09:09: 11 Yes 1{tbl} Take 1 Tab by mouth daily. [facility] ASCORBATE CALCIUM (VITAMIN C ORAL) 12-03 09:09: 11 Yes Take by mouth daily. [facility] aspirin 81 mg chewable tablet 12-03 09:09: 11 Yes 81mg Take 81 mg by mouth daily. [facility] COQ10, UBIQUINOL, ORAL 12-03 09:09: 11 Yes Take by mouth. [facility] multivitami n tablet 12-03 09:09: 11 Yes 1{tbl} Take 1 Tab by mouth daily. [facility] ASCORBATE CALCIUM (VITAMIN C ORAL) 12-03 09:09: 11 Yes Take by mouth daily. [facility] aspirin 81 mg chewable tablet 12-03 09:09: 11 Yes 81mg Take 81 mg by mouth daily. [facility] COQ10, UBIQUINOL, ORAL 12-03 09:09: 11 Yes Take by mouth. [facility] multivitami n tablet 12-03 09:09: 11 Yes 1{tbl} Take 1 Tab by mouth daily. [facility] ASCORBATE CALCIUM (VITAMIN C ORAL) 12-03 09:09: 11 Yes Take by mouth daily. [facility] aspirin 81 mg chewable tablet 12-03 09:09: 11 Yes 81mg Take 81 mg by mouth daily. [facility] COQ10, UBIQUINOL, ORAL 12-03 09:09: 11 Yes Take by mouth. [facility] multivitami n tablet 12-03 09:09: 11 Yes 1{tbl} Take 1 Tab by mouth daily. [facility] ASCORBATE CALCIUM (VITAMIN C ORAL) 12-03 09:09: 11 Yes Take by mouth daily. [facility] aspirin 81 mg chewable tablet 12-03 09:09: 11 Yes 81mg Take 81 mg by mouth daily. [facility] COQ10, UBIQUINOL, ORAL 12-03 09:09: 11 Yes Take by mouth. [facility] multivitami n tablet 12-03 09:09: 11 Yes 1{tbl} Take 1 Tab by mouth daily. [facility] ASCORBATE CALCIUM (VITAMIN C ORAL) 12-03 09:09: 11 Yes Take by mouth daily. [facility] aspirin 81 mg chewable tablet 12-03 09:09: 11 Yes 81mg Take 81 mg by mouth daily. [facility] COQ10, UBIQUINOL, ORAL 12-03 09:09: 11 Yes Take by mouth. [facility] multivitami n tablet 12-03 09:09: 11 Yes 1{tbl} Take 1 Tab by mouth daily. [facility] ASCORBATE CALCIUM (VITAMIN C ORAL) 12-03 09:09: 11 Yes Take by mouth daily. [facility] aspirin 81 mg chewable tablet 12-03 09:09: 11 Yes 81mg Take 81 mg by mouth daily. [facility] COQ10, UBIQUINOL, ORAL 12-03 09:09: 11 Yes Take by mouth. [facility] multivitami n tablet 12-03 09:09: 11 Yes 1{tbl} Take 1 Tab by mouth daily. [facility] ASCORBATE CALCIUM (VITAMIN C ORAL) 12-03 09:09: 11 Yes Take by mouth daily. [facility] aspirin 81 mg chewable tablet 12-03 09:09: 11 Yes 81mg Take 81 mg by mouth daily. [facility] COQ10, UBIQUINOL, ORAL 12-03 09:09: 11 Yes Take by mouth. [facility] multivitami n tablet 12-03 09:09: 11 Yes 1{tbl} Take 1 Tab by mouth daily. [facility] ASCORBATE CALCIUM (VITAMIN C ORAL) 12-03 09:09: 11 Yes Take by mouth daily. [facility] aspirin 81 mg chewable tablet 12-03 09:09: 11 Yes 81mg Take 81 mg by mouth daily. [facility] COQ10, UBIQUINOL, ORAL 12-03 09:09: 11 Yes Take by mouth. [facility] multivitami n tablet 12-03 09:09: 11 Yes 1{tbl} Take 1 Tab by mouth daily. [facility] ASCORBATE CALCIUM (VITAMIN C ORAL) 12-03 09:09: 11 Yes Take by mouth daily. [facility] aspirin 81 mg chewable tablet 12-03 09:09: 11 Yes 81mg Take 81 mg by mouth daily. [facility] COQ10, UBIQUINOL, ORAL 12-03 09:09: 11 Yes Take by mouth. [facility] multivitami n tablet 12-03 09:09: 11 Yes 1{tbl} Take 1 Tab by mouth daily. [facility] ASCORBATE CALCIUM (VITAMIN C ORAL) 12-03 09:09: 11 Yes Take by mouth daily. [facility] aspirin 81 mg chewable tablet 12-03 09:09: 11 Yes 81mg Take 81 mg by mouth daily. [facility] COQ10, UBIQUINOL, ORAL 12-03 09:09: 11 Yes Take by mouth. [facility] multivitami n tablet 12-03 09:09: 11 Yes 1{tbl} Take 1 Tab by mouth daily. [facility] ASCORBATE CALCIUM (VITAMIN C ORAL) 12-03 09:09: 11 Yes Take by mouth daily. [facility] aspirin 81 mg chewable tablet 12-03 09:09: 11 Yes 81mg Take 81 mg by mouth daily. [facility] COQ10, UBIQUINOL, ORAL 12-03 09:09: 11 Yes Take by mouth. [facility] multivitami n tablet 12-03 09:09: 11 Yes 1{tbl} Take 1 Tab by mouth daily. [facility] ASCORBATE CALCIUM (VITAMIN C ORAL) 12-03 09:09: 11 Yes Take by mouth daily. [facility] aspirin 81 mg chewable tablet 12-03 09:09: 11 Yes 81mg Take 81 mg by mouth daily. [facility] COQ10, UBIQUINOL, ORAL 12-03 09:09: 11 Yes Take by mouth. [facility] multivitami n tablet 12-03 09:09: 11 Yes 1{tbl} Take 1 Tab by mouth daily. [facility] ASCORBATE CALCIUM (VITAMIN C ORAL) 12-03 09:09: 11 Yes Take by mouth daily. [facility] aspirin 81 mg chewable tablet 12-03 09:09: 11 Yes 81mg Take 81 mg by mouth daily. [facility] COQ10, UBIQUINOL, ORAL 12-03 09:09: 11 Yes Take by mouth. [facility] multivitami n tablet 12-03 09:09: 11 Yes 1{tbl} Take 1 Tab by mouth daily. [facility] ASCORBATE CALCIUM (VITAMIN C ORAL) 12-03 09:09: 11 Yes Take by mouth daily. [facility] aspirin 81 mg chewable tablet 12-03 09:09: 11 Yes 81mg Take 81 mg by mouth daily. [facility] COQ10, UBIQUINOL, ORAL 12-03 09:09: 11 Yes Take by mouth. [facility] multivitami n tablet 12-03 09:09: 11 Yes 1{tbl} Take 1 Tab by mouth daily. [facility] ASCORBATE CALCIUM (VITAMIN C ORAL) 12-03 09:09: 11 Yes Take by mouth daily. [facility] aspirin 81 mg chewable tablet 12-03 09:09: 11 Yes 81mg Take 81 mg by mouth daily. [facility] COQ10, UBIQUINOL, ORAL 12-03 09:09: 11 Yes Take by mouth. [facility] multivitami n tablet 12-03 09:09: 11 Yes 1{tbl} Take 1 Tab by mouth daily. [facility] ASCORBATE CALCIUM (VITAMIN C ORAL) 12-03 09:09: 11 Yes Take by mouth daily. [facility] aspirin 81 mg chewable tablet 12-03 09:09: 11 Yes 81mg Take 81 mg by mouth daily. [facility] COQ10, UBIQUINOL, ORAL 12-03 09:09: 11 Yes Take by mouth. [facility] multivitami n tablet 12-03 09:09: 11 Yes 1{tbl} Take 1 Tab by mouth daily. [facility] ASCORBATE CALCIUM (VITAMIN C ORAL) 12-03 09:09: 11 Yes Take by mouth daily. [facility] aspirin 81 mg chewable tablet 12-03 09:09: 11 Yes 81mg Take 81 mg by mouth daily. [facility] COQ10, UBIQUINOL, ORAL 12-03 09:09: 11 Yes Take by mouth. [facility] multivitami n tablet 12-03 09:09: 11 Yes 1{tbl} Take 1 Tab by mouth daily. [facility] ASCORBATE CALCIUM (VITAMIN C ORAL) 12-03 09:09: 11 Yes Take by mouth daily. [facility] aspirin 81 mg chewable tablet 12-03 09:09: 11 Yes 81mg Take 81 mg by mouth daily. [facility] COQ10, UBIQUINOL, ORAL 12-03 09:09: 11 Yes Take by mouth. [facility] multivitami n tablet 12-03 09:09: 11 Yes 1{tbl} Take 1 Tab by mouth daily. [facility] ASCORBATE CALCIUM (VITAMIN C ORAL) 12-03 09:09: 11 Yes Take by mouth daily. [facility] aspirin 81 mg chewable tablet 12-03 09:09: 11 Yes 81mg Take 81 mg by mouth daily. [facility] COQ10, UBIQUINOL, ORAL 12-03 09:09: 11 Yes Take by mouth. [facility] multivitami n tablet 12-03 09:09: 11 Yes 1{tbl} Take 1 Tab by mouth daily. [facility] ASCORBATE CALCIUM (VITAMIN C ORAL) 12-03 09:09: 11 Yes Take by mouth daily. [facility] aspirin 81 mg chewable tablet 12-03 09:09: 11 Yes 81mg Take 81 mg by mouth daily. [facility] COQ10, UBIQUINOL, ORAL 12-03 09:09: 11 Yes Take by mouth. [facility] multivitami n tablet 12-03 09:09: 11 Yes 1{tbl} Take 1 Tab by mouth daily. [facility] ASCORBATE CALCIUM (VITAMIN C ORAL) 12-03 09:09: 11 Yes Take by mouth daily. [facility] aspirin 81 mg chewable tablet 12-03 09:09: 11 Yes 81mg Take 81 mg by mouth daily. [facility] COQ10, UBIQUINOL, ORAL 12-03 09:09: 11 Yes Take by mouth. [facility] multivitami n tablet 12-03 09:09: 11 Yes 1{tbl} Take 1 Tab by mouth daily. [facility] ASCORBATE CALCIUM (VITAMIN C ORAL) 12-03 09:09: 11 Yes Take by mouth daily. [facility] aspirin 81 mg chewable tablet 12-03 09:09: 11 Yes 81mg Take 81 mg by mouth daily. [facility] COQ10, UBIQUINOL, ORAL 12-03 09:09: 11 Yes Take by mouth. [facility] multivitami n tablet 12-03 09:09: 11 Yes 1{tbl} Take 1 Tab by mouth daily. [facility] ASCORBATE CALCIUM (VITAMIN C ORAL) 12-03 09:09: 11 Yes Take by mouth daily. [facility] aspirin 81 mg chewable tablet 12-03 09:09: 11 Yes 81mg Take 81 mg by mouth daily. [facility] COQ10, UBIQUINOL, ORAL 12-03 09:09: 11 Yes Take by mouth. [facility] multivitami n tablet 12-03 09:09: 11 Yes 1{tbl} Take 1 Tab by mouth daily. [facility] ASCORBATE CALCIUM (VITAMIN C ORAL) 12-03 09:09: 11 Yes Take by mouth daily. [facility] aspirin 81 mg chewable tablet 12-03 09:09: 11 Yes 81mg Take 81 mg by mouth daily. [facility] COQ10, UBIQUINOL, ORAL 12-03 09:09: 11 Yes Take by mouth. [facility] multivitami n tablet 12-03 09:09: 11 Yes 1{tbl} Take 1 Tab by mouth daily. [facility] ASCORBATE CALCIUM (VITAMIN C ORAL) 12-03 09:09: 11 Yes Take by mouth daily. [facility] aspirin 81 mg chewable tablet 12-03 09:09: 11 Yes 81mg Take 81 mg by mouth daily. [facility] COQ10, UBIQUINOL, ORAL 12-03 09:09: 11 Yes Take by mouth. [facility] multivitami n tablet 12-03 09:09: 11 Yes 1{tbl} Take 1 Tab by mouth daily. [facility] ASCORBATE CALCIUM (VITAMIN C ORAL) 12-03 09:09: 11 Yes Take by mouth daily. [facility] aspirin 81 mg chewable tablet 12-03 09:09: 11 Yes 81mg Take 81 mg by mouth daily. [facility] COQ10, UBIQUINOL, ORAL 12-03 09:09: 11 Yes Take by mouth. [facility] multivitami n tablet 12-03 09:09: 11 Yes 1{tbl} Take 1 Tab by mouth daily. [facility] ASCORBATE CALCIUM (VITAMIN C ORAL) 12-03 09:09: 11 Yes Take by mouth daily. [facility] aspirin 81 mg chewable tablet 12-03 09:09: 11 Yes 81mg Take 81 mg by mouth daily. [facility] COQ10, UBIQUINOL, ORAL 12-03 09:09: 11 Yes Take by mouth. [facility] multivitami n tablet 12-03 09:09: 11 Yes 1{tbl} Take 1 Tab by mouth daily. [facility] ASCORBATE CALCIUM (VITAMIN C ORAL) 12-03 09:09: 11 Yes Take by mouth daily. [facility] aspirin 81 mg chewable tablet 12-03 09:09: 11 Yes 81mg Take 81 mg by mouth daily. [facility] COQ10, UBIQUINOL, ORAL 12-03 09:09: 11 Yes Take by mouth. [facility] multivitami n tablet 12-03 09:09: 11 Yes 1{tbl} Take 1 Tab by mouth daily. [facility] ASCORBATE CALCIUM (VITAMIN C ORAL) 12-03 09:09: 11 Yes Take by mouth daily. [facility] aspirin 81 mg chewable tablet 12-03 09:09: 11 Yes 81mg Take 81 mg by mouth daily. [facility] COQ10, UBIQUINOL, ORAL 12-03 09:09: 11 Yes Take by mouth. [facility] multivitami n tablet 12-03 09:09: 11 Yes 1{tbl} Take 1 Tab by mouth daily. [facility] ASCORBATE CALCIUM (VITAMIN C ORAL) 12-03 09:09: 11 Yes Take by mouth daily. [facility] aspirin 81 mg chewable tablet 12-03 09:09: 11 Yes 81mg Take 81 mg by mouth daily. [facility] COQ10, UBIQUINOL, ORAL 12-03 09:09: 11 Yes Take by mouth. [facility] multivitami n tablet 12-03 09:09: 11 Yes 1{tbl} Take 1 Tab by mouth daily. [facility] ASCORBATE CALCIUM (VITAMIN C ORAL) 12-03 09:09: 11 Yes Take by mouth daily. [facility] aspirin 81 mg chewable tablet 12-03 09:09: 11 Yes 81mg Take 81 mg by mouth daily. [facility] COQ10, UBIQUINOL, ORAL 12-03 09:09: 11 Yes Take by mouth. [facility] multivitami n tablet 12-03 09:09: 11 Yes 1{tbl} Take 1 Tab by mouth daily. [facility] ASCORBATE CALCIUM (VITAMIN C ORAL) 12-03 09:09: 11 Yes Take by mouth daily. [facility] aspirin 81 mg chewable tablet 12-03 09:09: 11 Yes 81mg Take 81 mg by mouth daily. [facility] COQ10, UBIQUINOL, ORAL 12-03 09:09: 11 Yes Take by mouth. [facility] multivitami n tablet 12-03 09:09: 11 Yes 1{tbl} Take 1 Tab by mouth daily. [facility] ASCORBATE CALCIUM (VITAMIN C ORAL) 12-03 09:09: 11 Yes Take by mouth daily. [facility] aspirin 81 mg chewable tablet 12-03 09:09: 11 Yes 81mg Take 81 mg by mouth daily. [facility] COQ10, UBIQUINOL, ORAL 12-03 09:09: 11 Yes Take by mouth. [facility] multivitami n tablet 12-03 09:09: 11 Yes 1{tbl} Take 1 Tab by mouth daily. [facility] ASCORBATE CALCIUM (VITAMIN C ORAL) 12-03 09:09: 11 Yes Take by mouth daily. [facility] aspirin 81 mg chewable tablet 12-03 09:09: 11 Yes 81mg Take 81 mg by mouth daily. [facility] COQ10, UBIQUINOL, ORAL 12-03 09:09: 11 Yes Take by mouth. [facility] multivitami n tablet 12-03 09:09: 11 Yes 1{tbl} Take 1 Tab by mouth daily. [facility] ASCORBATE CALCIUM (VITAMIN C ORAL) 12-03 09:09: 11 Yes Take by mouth daily. [facility] aspirin 81 mg chewable tablet 12-03 09:09: 11 Yes 81mg Take 81 mg by mouth daily. [facility] COQ10, UBIQUINOL, ORAL 12-03 09:09: 11 Yes Take by mouth. [facility] multivitami n tablet 12-03 09:09: 11 Yes 1{tbl} Take 1 Tab by mouth daily. [facility] ASCORBATE CALCIUM (VITAMIN C ORAL) 12-03 09:09: 11 Yes Take by mouth daily. [facility] aspirin 81 mg chewable tablet 12-03 09:09: 11 Yes 81mg Take 81 mg by mouth daily. [facility] COQ10, UBIQUINOL, ORAL 12-03 09:09: 11 Yes Take by mouth. [facility] multivitami n tablet 12-03 09:09: 11 Yes 1{tbl} Take 1 Tab by mouth daily. [facility] ASCORBATE CALCIUM (VITAMIN C ORAL) 12-03 09:09: 11 Yes Take by mouth daily. [facility] aspirin 81 mg chewable tablet 12-03 09:09: 11 Yes 81mg Take 81 mg by mouth daily. [facility] COQ10, UBIQUINOL, ORAL 12-03 09:09: 11 Yes Take by mouth. [facility] multivitami n tablet 12-03 09:09: 11 Yes 1{tbl} Take 1 Tab by mouth daily. [facility] ASCORBATE CALCIUM (VITAMIN C ORAL) 12-03 09:09: 11 Yes Take by mouth daily. [facility] aspirin 81 mg chewable tablet 12-03 09:09: 11 Yes 81mg Take 81 mg by mouth daily. [facility] COQ10, UBIQUINOL, ORAL 12-03 09:09: 11 Yes Take by mouth. [facility] multivitami n tablet 12-03 09:09: 11 Yes 1{tbl} Take 1 Tab by mouth daily. [facility] ASCORBATE CALCIUM (VITAMIN C ORAL) 12-03 09:09: 11 Yes Take by mouth daily. [facility] aspirin 81 mg chewable tablet 12-03 09:09: 11 Yes 81mg Take 81 mg by mouth daily. [facility] COQ10, UBIQUINOL, ORAL 12-03 09:09: 11 Yes Take by mouth. [facility] multivitami n tablet 12-03 09:09: 11 Yes 1{tbl} Take 1 Tab by mouth daily. [facility] ASCORBATE CALCIUM (VITAMIN C ORAL) 12-03 09:09: 11 Yes Take by mouth daily. [facility] aspirin 81 mg chewable tablet 12-03 09:09: 11 Yes 81mg Take 81 mg by mouth daily. [facility] COQ10, UBIQUINOL, ORAL 12-03 09:09: 11 Yes Take by mouth. [facility] multivitami n tablet 12-03 09:09: 11 Yes 1{tbl} Take 1 Tab by mouth daily. [facility] ASCORBATE CALCIUM (VITAMIN C ORAL) 12-03 09:09: 11 Yes Take by mouth daily. [facility] aspirin 81 mg chewable tablet 12-03 09:09: 11 Yes 81mg Take 81 mg by mouth daily. [facility] COQ10, UBIQUINOL, ORAL 12-03 09:09: 11 Yes Take by mouth. [facility] multivitami n tablet 12-03 09:09: 11 Yes 1{tbl} Take 1 Tab by mouth daily. [facility] ASCORBATE CALCIUM (VITAMIN C ORAL) 12-03 09:09: 11 Yes Take by mouth daily. [facility] aspirin 81 mg chewable tablet 12-03 09:09: 11 Yes 81mg Take 81 mg by mouth daily. [facility] COQ10, UBIQUINOL, ORAL 12-03 09:09: 11 Yes Take by mouth. [facility] multivitami n tablet 12-03 09:09: 11 Yes 1{tbl} Take 1 Tab by mouth daily. [facility] ASCORBATE CALCIUM (VITAMIN C ORAL) 12-03 09:09: 11 Yes Take by mouth daily. [facility] aspirin 81 mg chewable tablet 12-03 09:09: 11 Yes 81mg Take 81 mg by mouth daily. [facility] COQ10, UBIQUINOL, ORAL 12-03 09:09: 11 Yes Take by mouth. [facility] multivitami n tablet 12-03 09:09: 11 Yes 1{tbl} Take 1 Tab by mouth daily. [facility] ASCORBATE CALCIUM (VITAMIN C ORAL) 12-03 09:09: 11 Yes Take by mouth daily. [facility] aspirin 81 mg chewable tablet 12-03 09:09: 11 Yes 81mg Take 81 mg by mouth daily. [facility] COQ10, UBIQUINOL, ORAL 12-03 09:09: 11 Yes Take by mouth. [facility] multivitami n tablet 12-03 09:09: 11 Yes 1{tbl} Take 1 Tab by mouth daily. [facility] ASCORBATE CALCIUM (VITAMIN C ORAL) 12-03 09:09: 11 Yes Take by mouth daily. [facility] aspirin 81 mg chewable tablet 12-03 09:09: 11 Yes 81mg Take 81 mg by mouth daily. [facility] COQ10, UBIQUINOL, ORAL 12-03 09:09: 11 Yes Take by mouth. [facility] multivitami n tablet 12-03 09:09: 11 Yes 1{tbl} Take 1 Tab by mouth daily. [facility] ASCORBATE CALCIUM (VITAMIN C ORAL) 12-03 09:09: 11 Yes Take by mouth daily. [facility] aspirin 81 mg chewable tablet 12-03 09:09: 11 Yes 81mg Take 81 mg by mouth daily. [facility] COQ10, UBIQUINOL, ORAL 12-03 09:09: 11 Yes Take by mouth. [facility] multivitami n tablet 12-03 09:09: 11 Yes 1{tbl} Take 1 Tab by mouth daily. [facility] ASCORBATE CALCIUM (VITAMIN C ORAL) 12-03 09:09: 11 Yes Take by mouth daily. [facility] aspirin 81 mg chewable tablet 12-03 09:09: 11 Yes 81mg Take 81 mg by mouth daily. [facility] COQ10, UBIQUINOL, ORAL 12-03 09:09: 11 Yes Take by mouth. [facility] multivitami n tablet 12-03 09:09: 11 Yes 1{tbl} Take 1 Tab by mouth daily. [facility] ASCORBATE CALCIUM (VITAMIN C ORAL) 12-03 09:09: 11 Yes Take by mouth daily. [facility] aspirin 81 mg chewable tablet 12-03 09:09: 11 Yes 81mg Take 81 mg by mouth daily. [facility] COQ10, UBIQUINOL, ORAL 12-03 09:09: 11 Yes Take by mouth. [facility] multivitami n tablet 12-03 09:09: 11 Yes 1{tbl} Take 1 Tab by mouth daily. [facility] ASCORBATE CALCIUM (VITAMIN C ORAL) 12-03 09:09: 11 Yes Take by mouth daily. [facility] aspirin 81 mg chewable tablet 12-03 09:09: 11 Yes 81mg Take 81 mg by mouth daily. [facility] COQ10, UBIQUINOL, ORAL 12-03 09:09: 11 Yes Take by mouth. [facility] multivitami n tablet 12-03 09:09: 11 Yes 1{tbl} Take 1 Tab by mouth daily. [facility] ASCORBATE CALCIUM (VITAMIN C ORAL) 12-03 09:09: 11 Yes Take by mouth daily. [facility] aspirin 81 mg chewable tablet 12-03 09:09: 11 Yes 81mg Take 81 mg by mouth daily. [facility] COQ10, UBIQUINOL, ORAL 12-03 09:09: 11 Yes Take by mouth. [facility] atorvastati n 20 mg tablet 12-03 00:00: 00 Yes [id number] 20mg Take 1 tablet by mouth at bedtime. [facility] buPROPion XL 150 mg 24 hr tablet 12-03 00:00: 00 Yes [id number] 150mg Take 1 tablet by mouth 2 (two) times daily. [facility] citalopram 40 mg tablet 12-03 00:00: 00 Yes [id number] 40mg Take 1 tablet by mouth daily. [facility] flash glucose scanning reader (FREESTYLE MANASA 14 DAY READER) Misc 12-03 00:00: 00 Yes [id number] 1{each} 1 Each daily. [facility] flash glucose sensor (FREESTYLE MANASA 14 DAY SENSOR) Kit 12-03 00:00: 00 Yes [id number] 1{kit} 1 Kit every 14 (fourteen) days. [facility] metFORMIN 500 mg tablet 12-03 00:00: 00 Yes [id number] 500mg Take 1 tablet by mouth 2 (two) times daily. [facility] pregabalin 150 mg capsule 12-03 00:00: 00 Yes [id number] 150mg Take 1 capsule by mouth 2 (two) times daily. [facility] atorvastati n 20 mg tablet 12-03 00:00: 00 Yes [id number] 20mg Take 1 tablet by mouth at bedtime. [facility] buPROPion XL 150 mg 24 hr tablet 12-03 00:00: 00 Yes [id number] 150mg Take 1 tablet by mouth 2 (two) times daily. [facility] citalopram 40 mg tablet 12-03 00:00: 00 Yes [id number] 40mg Take 1 tablet by mouth daily. [facility] flash glucose scanning reader (FREESTYLE MANASA 14 DAY READER) Misc 12-03 00:00: 00 Yes [id number] 1{each} 1 Each daily. [facility] flash glucose sensor (FREESTYLE MANASA 14 DAY SENSOR) Kit 12-03 00:00: 00 Yes [id number] 1{kit} 1 Kit every 14 (fourteen) days. [facility] metFORMIN 500 mg tablet 12-03 00:00: 00 Yes [id number] 500mg Take 1 tablet by mouth 2 (two) times daily. [facility] pregabalin 150 mg capsule 12-03 00:00: 00 Yes [id number] 150mg Take 1 capsule by mouth 2 (two) times daily. [facility] atorvastati n 20 mg tablet 12-03 00:00: 00 Yes [id number] 20mg Take 1 tablet by mouth at bedtime. [facility] buPROPion XL 150 mg 24 hr tablet 12-03 00:00: 00 Yes [id number] 150mg Take 1 tablet by mouth 2 (two) times daily. [facility] citalopram 40 mg tablet 12-03 00:00: 00 Yes [id number] 40mg Take 1 tablet by mouth daily. [facility] flash glucose scanning reader (FREESTYLE MANASA 14 DAY READER) [facility] 12-03 00:00: 00 Yes [id number] 1{each} 1 Each daily. [facility] flash glucose sensor (FREESTYLE MANASA 14 DAY SENSOR) Kit 12-03 00:00: 00 Yes [id number] 1{kit} 1 Kit every 14 (fourteen) days. [facility] metFORMIN 500 mg tablet 12-03 00:00: 00 Yes [id number] 500mg Take 1 tablet by mouth 2 (two) times daily. [facility] pregabalin 150 mg capsule 12-03 00:00: 00 Yes [id number] 150mg Take 1 capsule by mouth 2 (two) times daily. [facility] atorvastati n 20 mg tablet 12-03 00:00: 00 Yes [id number] 20mg Take 1 tablet by mouth at bedtime. [facility] buPROPion XL 150 mg 24 hr tablet 12-03 00:00: 00 Yes [id number] 150mg Take 1 tablet by mouth 2 (two) times daily. [facility] citalopram 40 mg tablet 12-03 00:00: 00 Yes [id number] 40mg Take 1 tablet by mouth daily. [facility] flash glucose scanning reader (FREESTYLE MANASA 14 DAY READER) [facility] 12-03 00:00: 00 Yes [id number] 1{each} 1 Each daily. [facility] flash glucose sensor (FREESTYLE MANASA 14 DAY SENSOR) Kit 12-03 00:00: 00 Yes [id number] 1{kit} 1 Kit every 14 (fourteen) days. [facility] metFORMIN 500 mg tablet 12-03 00:00: 00 Yes [id number] 500mg Take 1 tablet by mouth 2 (two) times daily. [facility] pregabalin 150 mg capsule 12-03 00:00: 00 Yes [id number] 150mg Take 1 capsule by mouth 2 (two) times daily. [facility] atorvastati n 20 mg tablet 12-03 00:00: 00 Yes [id number] 20mg Take 1 tablet by mouth at bedtime. [facility] buPROPion XL 150 mg 24 hr tablet 12-03 00:00: 00 Yes [id number] 150mg Take 1 tablet by mouth 2 (two) times daily. [facility] citalopram 40 mg tablet 12-03 00:00: 00 Yes [id number] 40mg Take 1 tablet by mouth daily. [facility] flash glucose scanning reader (FREESTYLE MANASA 14 DAY READER) Misc 12-03 00:00: 00 Yes [id number] 1{each} 1 Each daily. [facility] flash glucose sensor (FREESTYLE MANASA 14 DAY SENSOR) Kit 12-03 00:00: 00 Yes [id number] 1{kit} 1 Kit every 14 (fourteen) days. [facility] metFORMIN 500 mg tablet 12-03 00:00: 00 Yes [id number] 500mg Take 1 tablet by mouth 2 (two) times daily. [facility] atorvastati n 20 mg tablet 12-03 00:00: 00 Yes [id number] 20mg Take 1 tablet by mouth at bedtime. [facility] buPROPion XL 150 mg 24 hr tablet 12-03 00:00: 00 Yes [id number] 150mg Take 1 tablet by mouth 2 (two) times daily. [facility] citalopram 40 mg tablet 12-03 00:00: 00 Yes [id number] 40mg Take 1 tablet by mouth daily. [facility] flash glucose scanning reader (FREESTYLE MANASA 14 DAY READER) Misc 12-03 00:00: 00 Yes [id number] 1{each} 1 Each daily. [facility] flash glucose sensor (FREESTYLE MANASA 14 DAY SENSOR) Kit 12-03 00:00: 00 Yes [id number] 1{kit} 1 Kit every 14 (fourteen) days. [facility] metFORMIN 500 mg tablet 12-03 00:00: 00 Yes [id number] 500mg Take 1 tablet by mouth 2 (two) times daily. [facility] atorvastati n 20 mg tablet 12-03 00:00: 00 Yes [id number] 20mg Take 1 tablet by mouth at bedtime. [facility] buPROPion XL 150 mg 24 hr tablet 12-03 00:00: 00 Yes [id number] 150mg Take 1 tablet by mouth 2 (two) times daily. [facility] citalopram 40 mg tablet 12-03 00:00: 00 Yes [id number] 40mg Take 1 tablet by mouth daily. [facility] flash glucose scanning reader (FREESTYLE MANASA 14 DAY READER) [facility] 12-03 00:00: 00 Yes [id number] 1{each} 1 Each daily. [facility] flash glucose sensor (FREESTYLE MANASA 14 DAY SENSOR) Kit 12-03 00:00: 00 Yes [id number] 1{kit} 1 Kit every 14 (fourteen) days. [facility] metFORMIN 500 mg tablet 12-03 00:00: 00 Yes [id number] 500mg Take 1 tablet by mouth 2 (two) times daily. [facility] atorvastati n 20 mg tablet 12-03 00:00: 00 Yes [id number] 20mg Take 1 tablet by mouth at bedtime. [facility] buPROPion XL 150 mg 24 hr tablet 12-03 00:00: 00 Yes [id number] 150mg Take 1 tablet by mouth 2 (two) times daily. [facility] citalopram 40 mg tablet 12-03 00:00: 00 Yes [id number] 40mg Take 1 tablet by mouth daily. [facility] flash glucose scanning reader (FREESTYLE MANASA 14 DAY READER) [facility] 12-03 00:00: 00 Yes [id number] 1{each} 1 Each daily. [facility] flash glucose sensor (FREESTYLE MANASA 14 DAY SENSOR) Kit 12-03 00:00: 00 Yes [id number] 1{kit} 1 Kit every 14 (fourteen) days. [facility] metFORMIN 500 mg tablet 12-03 00:00: 00 Yes [id number] 500mg Take 1 tablet by mouth 2 (two) times daily. [facility] atorvastati n 20 mg tablet 12-03 00:00: 00 Yes [id number] 20mg Take 1 tablet by mouth at bedtime. [facility] buPROPion XL 150 mg 24 hr tablet 12-03 00:00: 00 Yes [id number] 150mg Take 1 tablet by mouth 2 (two) times daily. [facility] citalopram 40 mg tablet 12-03 00:00: 00 Yes [id number] 40mg Take 1 tablet by mouth daily. [facility] flash glucose scanning reader (FREESTYLE MANASA 14 DAY READER) [facility] 12-03 00:00: 00 Yes [id number] 1{each} 1 Each daily. [facility] flash glucose sensor (FREESTYLE MANASA 14 DAY SENSOR) Kit 12-03 00:00: 00 Yes [id number] 1{kit} 1 Kit every 14 (fourteen) days. [facility] metFORMIN 500 mg tablet 12-03 00:00: 00 Yes [id number] 500mg Take 1 tablet by mouth 2 (two) times daily. [facility] atorvastati n 20 mg tablet 12-03 00:00: 00 Yes [id number] 20mg Take 1 tablet by mouth at bedtime. [facility] buPROPion XL 150 mg 24 hr tablet 12-03 00:00: 00 Yes [id number] 150mg Take 1 tablet by mouth 2 (two) times daily. [facility] citalopram 40 mg tablet 12-03 00:00: 00 Yes [id number] 40mg Take 1 tablet by mouth daily. [facility] flash glucose scanning reader (FREESTYLE MANASA 14 DAY READER) Misc 12-03 00:00: 00 Yes [id number] 1{each} 1 Each daily. [facility] flash glucose sensor (FREESTYLE MANASA 14 DAY SENSOR) Kit 12-03 00:00: 00 Yes [id number] 1{kit} 1 Kit every 14 (fourteen) days. [facility] metFORMIN 500 mg tablet 12-03 00:00: 00 Yes [id number] 500mg Take 1 tablet by mouth 2 (two) times daily. [facility] atorvastati n 20 mg tablet 12-03 00:00: 00 Yes [id number] 20mg Take 1 tablet by mouth at bedtime. [facility] buPROPion XL 150 mg 24 hr tablet 12-03 00:00: 00 Yes [id number] 150mg Take 1 tablet by mouth 2 (two) times daily. [facility] citalopram 40 mg tablet 12-03 00:00: 00 Yes [id number] 40mg Take 1 tablet by mouth daily. [facility] flash glucose scanning reader (FREESTYLE MANASA 14 DAY READER) [facility] 12-03 00:00: 00 Yes [id number] 1{each} 1 Each daily. [facility] flash glucose sensor (FREESTYLE MANASA 14 DAY SENSOR) Kit 12-03 00:00: 00 Yes [id number] 1{kit} 1 Kit every 14 (fourteen) days. [facility] metFORMIN 500 mg tablet 12-03 00:00: 00 Yes [id number] 500mg Take 1 tablet by mouth 2 (two) times daily. [facility] atorvastati n 20 mg tablet 12-03 00:00: 00 Yes [id number] 20mg Take 1 tablet by mouth at bedtime. [facility] buPROPion XL 150 mg 24 hr tablet 12-03 00:00: 00 Yes [id number] 150mg Take 1 tablet by mouth 2 (two) times daily. [facility] citalopram 40 mg tablet 12-03 00:00: 00 Yes [id number] 40mg Take 1 tablet by mouth daily. [facility] flash glucose scanning reader (FREESTYLE MANASA 14 DAY READER) [facility] 12-03 00:00: 00 Yes [id number] 1{each} 1 Each daily. [facility] flash glucose sensor (FREESTYLE MANASA 14 DAY SENSOR) Kit 12-03 00:00: 00 Yes [id number] 1{kit} 1 Kit every 14 (fourteen) days. [facility] metFORMIN 500 mg tablet 12-03 00:00: 00 Yes [id number] 500mg Take 1 tablet by mouth 2 (two) times daily. [facility] atorvastati n 20 mg tablet 12-03 00:00: 00 Yes [id number] 20mg Take 1 tablet by mouth at bedtime. [facility] buPROPion XL 150 mg 24 hr tablet 12-03 00:00: 00 Yes [id number] 150mg Take 1 tablet by mouth 2 (two) times daily. [facility] citalopram 40 mg tablet 12-03 00:00: 00 Yes [id number] 40mg Take 1 tablet by mouth daily. [facility] flash glucose scanning reader (FREESTYLE MANASA 14 DAY READER) [facility] 12-03 00:00: 00 Yes [id number] 1{each} 1 Each daily. [facility] flash glucose sensor (FREESTYLE MANASA 14 DAY SENSOR) Kit 12-03 00:00: 00 Yes [id number] 1{kit} 1 Kit every 14 (fourteen) days. [facility] metFORMIN 500 mg tablet 12-03 00:00: 00 Yes [id number] 500mg Take 1 tablet by mouth 2 (two) times daily. [facility] atorvastati n 20 mg tablet 12-03 00:00: 00 Yes [id number] 20mg Take 1 tablet by mouth at bedtime. [facility] buPROPion XL 150 mg 24 hr tablet 12-03 00:00: 00 Yes [id number] 150mg Take 1 tablet by mouth 2 (two) times daily. [facility] citalopram 40 mg tablet 12-03 00:00: 00 Yes [id number] 40mg Take 1 tablet by mouth daily. [facility] flash glucose scanning reader (FREESTYLE MANASA 14 DAY READER) [facility] 12-03 00:00: 00 Yes [id number] 1{each} 1 Each daily. [facility] flash glucose sensor (FREESTYLE MANASA 14 DAY SENSOR) Kit 12-03 00:00: 00 Yes [id number] 1{kit} 1 Kit every 14 (fourteen) days. [facility] metFORMIN 500 mg tablet 12-03 00:00: 00 Yes [id number] 500mg Take 1 tablet by mouth 2 (two) times daily. [facility] atorvastati n 20 mg tablet 12-03 00:00: 00 Yes [id number] 20mg Take 1 tablet by mouth at bedtime. [facility] buPROPion XL 150 mg 24 hr tablet 12-03 00:00: 00 Yes [id number] 150mg Take 1 tablet by mouth 2 (two) times daily. [facility] citalopram 40 mg tablet 12-03 00:00: 00 Yes [id number] 40mg Take 1 tablet by mouth daily. [facility] flash glucose scanning reader (FREESTYLE MANASA 14 DAY READER) [facility] 12-03 00:00: 00 Yes [id number] 1{each} 1 Each daily. [facility] flash glucose sensor (FREESTYLE MANASA 14 DAY SENSOR) Kit 12-03 00:00: 00 Yes [id number] 1{kit} 1 Kit every 14 (fourteen) days. [facility] metFORMIN 500 mg tablet 12-03 00:00: 00 Yes [id number] 500mg Take 1 tablet by mouth 2 (two) times daily. [facility] atorvastati n 20 mg tablet 12-03 00:00: 00 Yes [id number] 20mg Take 1 tablet by mouth at bedtime. [facility] buPROPion XL 150 mg 24 hr tablet 12-03 00:00: 00 Yes [id number] 150mg Take 1 tablet by mouth 2 (two) times daily. [facility] citalopram 40 mg tablet 12-03 00:00: 00 Yes [id number] 40mg Take 1 tablet by mouth daily. [facility] flash glucose scanning reader (FREESTYLE MANASA 14 DAY READER) [facility] 12-03 00:00: 00 Yes [id number] 1{each} 1 Each daily. [facility] flash glucose sensor (FREESTYLE MANASA 14 DAY SENSOR) Kit 12-03 00:00: 00 Yes [id number] 1{kit} 1 Kit every 14 (fourteen) days. [facility] metFORMIN 500 mg tablet 12-03 00:00: 00 Yes [id number] 500mg Take 1 tablet by mouth 2 (two) times daily. [facility] atorvastati n 20 mg tablet 12-03 00:00: 00 Yes [id number] 20mg Take 1 tablet by mouth at bedtime. [facility] buPROPion XL 150 mg 24 hr tablet 12-03 00:00: 00 Yes [id number] 150mg Take 1 tablet by mouth 2 (two) times daily. [facility] citalopram 40 mg tablet 12-03 00:00: 00 Yes [id number] 40mg Take 1 tablet by mouth daily. [facility] flash glucose scanning reader (FREESTYLE MANASA 14 DAY READER) [facility] 12-03 00:00: 00 Yes [id number] 1{each} 1 Each daily. [facility] flash glucose sensor (FREESTYLE MANASA 14 DAY SENSOR) Kit 12-03 00:00: 00 Yes [id number] 1{kit} 1 Kit every 14 (fourteen) days. [facility] metFORMIN 500 mg tablet 12-03 00:00: 00 Yes [id number] 500mg Take 1 tablet by mouth 2 (two) times daily. [facility] atorvastati n 20 mg tablet 12-03 00:00: 00 Yes [id number] 20mg Take 1 tablet by mouth at bedtime. [facility] buPROPion XL 150 mg 24 hr tablet 12-03 00:00: 00 Yes [id number] 150mg Take 1 tablet by mouth 2 (two) times daily. [facility] citalopram 40 mg tablet 12-03 00:00: 00 Yes [id number] 40mg Take 1 tablet by mouth daily. [facility] flash glucose scanning reader (FREESTYLE MANASA 14 DAY READER) Misc 12-03 00:00: 00 Yes [id number] 1{each} 1 Each daily. [facility] flash glucose sensor (FREESTYLE MANASA 14 DAY SENSOR) Kit 12-03 00:00: 00 Yes [id number] 1{kit} 1 Kit every 14 (fourteen) days. [facility] metFORMIN 500 mg tablet 12-03 00:00: 00 Yes [id number] 500mg Take 1 tablet by mouth 2 (two) times daily. [facility] atorvastati n 20 mg tablet 12-03 00:00: 00 Yes [id number] 20mg Take 1 tablet by mouth at bedtime. [facility] atorvastati n 20 mg tablet 12-03 00:00: 00 Yes [id number] 20mg Take 1 tablet by mouth at bedtime. [facility] atorvastati n 20 mg tablet 12-03 00:00: 00 Yes [id number] 20mg Take 1 tablet by mouth at bedtime. [facility] atorvastati n 20 mg tablet 12-03 00:00: 00 Yes [id number] 20mg Take 1 tablet by mouth at bedtime. [facility] atorvastati n 20 mg tablet 12-03 00:00: 00 Yes [id number] 20mg Take 1 tablet by mouth at bedtime. [facility] atorvastati n 20 mg tablet 12-03 00:00: 00 Yes [id number] 20mg Take 1 tablet by mouth at bedtime. [facility] atorvastati n 20 mg tablet 12-03 00:00: 00 Yes [id number] 20mg Take 1 tablet by mouth at bedtime. [facility] atorvastati n 20 mg tablet 2021-0 12-03 00:00: 00 Yes [id number] 20mg Take 1 tablet by mouth at bedtime. [facility] atorvastati n 20 mg tablet 2021-0 12-03 00:00: 00 Yes [id number] 20mg Take 1 tablet by mouth at bedtime. [facility] atorvastati n 20 mg tablet 2021-0 12-03 00:00: 00 Yes [id number] 20mg Take 1 tablet by mouth at bedtime. [facility] atorvastati n 20 mg tablet 2021-0 12-03 00:00: 00 Yes [id number] 20mg Take 1 tablet by mouth at bedtime. [facility] atorvastati n 20 mg tablet 2021-0 12-03 00:00: 00 Yes [id number] 20mg Take 1 tablet by mouth at bedtime. [facility] atorvastati n 20 mg tablet 2021-0 12-03 00:00: 00 Yes [id number] 20mg Take 1 tablet by mouth at bedtime. [facility] atorvastati n 20 mg tablet 2021-0 12-03 00:00: 00 Yes [id number] 20mg Take 1 tablet by mouth at bedtime. [facility] atorvastati n 20 mg tablet 2021-0 12-03 00:00: 00 Yes [id number] 20mg Take 1 tablet by mouth at bedtime. [facility] atorvastati n 20 mg tablet 2021-0 12-03 00:00: 00 Yes [id number] 20mg Take 1 tablet by mouth at bedtime. [facility] atorvastati n 20 mg tablet 2021-0 12-03 00:00: 00 Yes [id number] 20mg Take 1 tablet by mouth at bedtime. [facility] atorvastati n 20 mg tablet 2021-0 12-03 00:00: 00 Yes [id number] 20mg Take 1 tablet by mouth at bedtime. [facility] atorvastati n 20 mg tablet 2021-0 12-03 00:00: 00 Yes [id number] 20mg Take 1 tablet by mouth at bedtime. [facility] atorvastati n 20 mg tablet 2021-0 12-03 00:00: 00 Yes [id number] 20mg Take 1 tablet by mouth at bedtime. [facility] atorvastati n 20 mg tablet 2021-0 12-03 00:00: 00 Yes [id number] 20mg Take 1 tablet by mouth at bedtime. [facility] atorvastati n 20 mg tablet 2021-0 12-03 00:00: 00 Yes [id number] 20mg Take 1 tablet by mouth at bedtime. [facility] atorvastati n 20 mg tablet 2021-0 12-03 00:00: 00 Yes [id number] 20mg Take 1 tablet by mouth at bedtime. [facility] atorvastati n 20 mg tablet 2021-0 12-03 00:00: 00 Yes [id number] 20mg Take 1 tablet by mouth at bedtime. [facility] atorvastati n 20 mg tablet 2021-0 12-03 00:00: 00 Yes [id number] 20mg Take 1 tablet by mouth at bedtime. [facility] atorvastati n 20 mg tablet 2021-0 12-03 00:00: 00 Yes [id number] 20mg Take 1 tablet by mouth at bedtime. [facility] atorvastati n 20 mg tablet 2021-0 12-03 00:00: 00 Yes [id number] 20mg Take 1 tablet by mouth at bedtime. [facility] atorvastati n 20 mg tablet 2021-0 12-03 00:00: 00 Yes [id number] 20mg Take 1 tablet by mouth at bedtime. [facility] atorvastati n 20 mg tablet 2021-0 12-03 00:00: 00 Yes [id number] 20mg Take 1 tablet by mouth at bedtime. [facility] atorvastati n 20 mg tablet 2021-0 12-03 00:00: 00 Yes [id number] 20mg Take 1 tablet by mouth at bedtime. [facility] atorvastati n 20 mg tablet 0 12-03 00:00: 00 Yes [id number] 20mg Take 1 tablet by mouth at bedtime. [facility] atorvastati n 20 mg tablet 12-03 00:00: 00 Yes [id number] 20mg Take 1 tablet by mouth at bedtime. [facility] atorvastati n 20 mg tablet 0 12-03 00:00: 00 Yes [id number] 20mg Take 1 tablet by mouth at bedtime. [facility] atorvastati n 20 mg tablet 0 12-03 00:00: 00 Yes [id number] 20mg Take 1 tablet by mouth at bedtime. [facility] atorvastati n 20 mg tablet 12-03 00:00: 00 Yes [id number] 20mg Take 1 tablet by mouth at bedtime. [facility] atorvastati n 20 mg tablet 12-03 00:00: 00 Yes [id number] 20mg Take 1 tablet by mouth at bedtime. [facility] atorvastati n 20 mg tablet 12-03 00:00: 00 Yes [id number] 20mg Take 1 tablet by mouth at bedtime. [facility] atorvastati n 20 mg tablet 12-03 00:00: 00 Yes [id number] 20mg Take 1 tablet by mouth at bedtime. [facility] atorvastati n 20 mg tablet 0 12-03 00:00: 00 Yes [id number] 20mg Take 1 tablet by mouth at bedtime. [facility] atorvastati n 20 mg tablet 0 12-03 00:00: 00 Yes [id number] 20mg Take 1 tablet by mouth at bedtime. [facility] buPROPion XL 150 mg 24 hr tablet 12-03 00:00: 00 04-12 00:00 :00 No [id number] 150mg Take 1 tablet by mouth 2 (two) times daily. [facility] citalopram 40 mg tablet 12-03 00:00: 00 04-12 00:00 :00 No [id number] 40mg Take 1 tablet by mouth daily. [facility] flash glucose scanning reader (FREESTYLE MANASA 14 DAY READER) [facility] 12-03 00:00: 00 04-12 00:00 :00 No [id number] 1{each} 1 Each daily. [facility] flash glucose sensor (FREESTYLE MANASA 14 DAY SENSOR) Kit 12-03 00:00: 00 04-12 00:00 :00 No [id number] 1{kit} 1 Kit every 14 (fourteen) days. [facility] metFORMIN 500 mg tablet 12-03 00:00: 00 04-12 00:00 :00 No [id number] 500mg Take 1 tablet by mouth 2 (two) times daily. [facility] buPROPion XL 150 mg 24 hr tablet 12-03 00:00: 00 04-12 00:00 :00 No [id number] 150mg Take 1 tablet by mouth 2 (two) times daily. [facility] citalopram 40 mg tablet 12-03 00:00: 00 04-12 00:00 :00 No [id number] 40mg Take 1 tablet by mouth daily. [facility] flash glucose scanning reader (FREESTYLE MANASA 14 DAY READER) [facility] 12-03 00:00: 00 04-12 00:00 :00 No [id number] 1{each} 1 Each daily. [facility] flash glucose sensor (FREESTYLE MANASA 14 DAY SENSOR) Kit 12-03 00:00: 00 04-12 00:00 :00 No [id number] 1{kit} 1 Kit every 14 (fourteen) days. [facility] metFORMIN 500 mg tablet 12-03 00:00: 00 04-12 00:00 :00 No [id number] 500mg Take 1 tablet by mouth 2 (two) times daily. [facility] buPROPion XL 150 mg 24 hr tablet 12-03 00:00: 00 04-12 00:00 :00 No [id number] 150mg Take 1 tablet by mouth 2 (two) times daily. [facility] citalopram 40 mg tablet 12-03 00:00: 00 04-12 00:00 :00 No [id number] 40mg Take 1 tablet by mouth daily. [facility] flash glucose scanning reader (FREESTYLE MANASA 14 DAY READER) Misc 12-03 00:00: 00 04-12 00:00 :00 No [id number] 1{each} 1 Each daily. [facility] flash glucose sensor (FREESTYLE MANASA 14 DAY SENSOR) Kit 12-03 00:00: 00 04-12 00:00 :00 No [id number] 1{kit} 1 Kit every 14 (fourteen) days. [facility] metFORMIN 500 mg tablet 12-03 00:00: 00 04-12 00:00 :00 No [id number] 500mg Take 1 tablet by mouth 2 (two) times daily. [facility] pregabalin 150 mg capsule 12-03 00:00: 00 07-09 00:00 :00 No [id number] 150mg Take 1 capsule by mouth 2 (two) times daily. [facility] lisinopriL- hydrochloro thiazide 20-12.5 mg per tablet 2019-09 0 00:00: 00 Yes [id number] 1{tbl} Take 1 tablet by mouth daily. [facility] lisinopriL- hydrochloro thiazide 20-12.5 mg per tablet 2019-09 0 00:00: 00 Yes [id number] 1{tbl} Take 1 tablet by mouth daily. [facility] lisinopriL- hydrochloro thiazide 20-12.5 mg per tablet 2019-09 0 00:00: 00 Yes [id number] 1{tbl} Take 1 tablet by mouth daily. [facility] lisinopriL- hydrochloro thiazide 20-12.5 mg per tablet 2019-09 0 00:00: 00 Yes [id number] 1{tbl} Take 1 tablet by mouth daily. [facility] lisinopriL- hydrochloro thiazide 20-12.5 mg per tablet 2019-09 0 00:00: 00 Yes [id number] 1{tbl} Take 1 tablet by mouth daily. [facility] lisinopriL- hydrochloro thiazide 20-12.5 mg per tablet 2019-09 0 00:00: 00 Yes [id number] 1{tbl} Take 1 tablet by mouth daily. [facility] lisinopriL- hydrochloro thiazide 20-12.5 mg per tablet 2019-09 0 00:00: 00 Yes [id number] 1{tbl} Take 1 tablet by mouth daily. [facility] lisinopriL- hydrochloro thiazide 20-12.5 mg per tablet 2019-09 0 00:00: 00 Yes [id number] 1{tbl} Take 1 tablet by mouth daily. [facility] lisinopriL- hydrochloro thiazide 20-12.5 mg per tablet 2019-09 0 00:00: 00 Yes [id number] 1{tbl} Take 1 tablet by mouth daily. [facility] lisinopriL- hydrochloro thiazide 20-12.5 mg per tablet 2019-09 0 00:00: 00 Yes [id number] 1{tbl} Take 1 tablet by mouth daily. [facility] lisinopriL- hydrochloro thiazide 20-12.5 mg per tablet 2019-09 0 00:00: 00 Yes [id number] 1{tbl} Take 1 tablet by mouth daily. [facility] lisinopriL- hydrochloro thiazide 20-12.5 mg per tablet 2019-09 0 00:00: 00 Yes [id number] 1{tbl} Take 1 tablet by mouth daily. [facility] lisinopriL- hydrochloro thiazide 20-12.5 mg per tablet 2019-09 0 00:00: 00 Yes [id number] 1{tbl} Take 1 tablet by mouth daily. [facility] lisinopriL- hydrochloro thiazide 20-12.5 mg per tablet 2019-09 0-30 00:00: 00 Yes [id number] 1{tbl} Take 1 tablet by mouth daily. [facility] lisinopriL- hydrochloro thiazide 20-12.5 mg per tablet 2019-09 0-30 00:00: 00 Yes [id number] 1{tbl} Take 1 tablet by mouth daily. [facility] lisinopriL- hydrochloro thiazide 20-12.5 mg per tablet 2019-09 0-30 00:00: 00 Yes [id number] 1{tbl} Take 1 tablet by mouth daily. [facility] lisinopriL- hydrochloro thiazide 20-12.5 mg per tablet 2019-09 0-30 00:00: 00 Yes [id number] 1{tbl} Take 1 tablet by mouth daily. [facility] lisinopriL- hydrochloro thiazide 20-12.5 mg per tablet 2019-09 030 00:00: 00 Yes [id number] 1{tbl} Take 1 tablet by mouth daily. [facility] lisinopriL- hydrochloro thiazide 20-12.5 mg per tablet 2019-09 030 00:00: 00 04-12 00:00 :00 No [id number] 1{tbl} Take 1 tablet by mouth daily. [facility] lisinopriL- hydrochloro thiazide 20-12.5 mg per tablet 2019-09 030 00:00: 00 04-12 00:00 :00 No [id number] 1{tbl} Take 1 tablet by mouth daily. [facility] lisinopriL- hydrochloro thiazide 20-12.5 mg per tablet 2019-09 030 00:00: 00 04-12 00:00 :00 No [id number] 1{tbl} Take 1 tablet by mouth daily. [facility] AMLODIPINE 10 mg tablet 6-15 00:00: 00 Yes [id number] Take 1 tablet by mouth once daily [facility] AMLODIPINE 10 mg tablet 6-15 00:00: 00 Yes [id number] Take 1 tablet by mouth once daily [facility] AMLODIPINE 10 mg tablet 0 15 00:00: 00 Yes [id number] Take 1 tablet by mouth once daily [facility] AMLODIPINE 10 mg tablet 0 15 00:00: 00 Yes [id number] Take 1 tablet by mouth once daily [facility] AMLODIPINE 10 mg tablet 0 15 00:00: 00 Yes [id number] Take 1 tablet by mouth once daily [facility] AMLODIPINE 10 mg tablet 0 15 00:00: 00 Yes [id number] Take 1 tablet by mouth once daily [facility] AMLODIPINE 10 mg tablet 0 15 00:00: 00 Yes [id number] Take 1 tablet by mouth once daily [facility] AMLODIPINE 10 mg tablet 0 15 00:00: 00 Yes [id number] Take 1 tablet by mouth once daily [facility] AMLODIPINE 10 mg tablet 0 15 00:00: 00 Yes [id number] Take 1 tablet by mouth once daily [facility] AMLODIPINE 10 mg tablet 0 15 00:00: 00 Yes [id number] Take 1 tablet by mouth once daily [facility] AMLODIPINE 10 mg tablet 0 15 00:00: 00 Yes [id number] Take 1 tablet by mouth once daily [facility] AMLODIPINE 10 mg tablet 0 15 00:00: 00 Yes [id number] Take 1 tablet by mouth once daily [facility] AMLODIPINE 10 mg tablet 0 15 00:00: 00 Yes [id number] Take 1 tablet by mouth once daily [facility] AMLODIPINE 10 mg tablet 0 15 00:00: 00 Yes [id number] Take 1 tablet by mouth once daily [facility] AMLODIPINE 10 mg tablet 0 15 00:00: 00 Yes [id number] Take 1 tablet by mouth once daily [facility] AMLODIPINE 10 mg tablet 0 15 00:00: 00 Yes [id number] Take 1 tablet by mouth once daily [facility] AMLODIPINE 10 mg tablet 0 15 00:00: 00 Yes [id number] Take 1 tablet by mouth once daily [facility] AMLODIPINE 10 mg tablet 02-17 00:00: 00 Yes [id number] Take 1 tablet by mouth once daily [facility] AMLODIPINE 10 mg tablet 02-17 00:00: 00 04-12 00:00 :00 No [id number] Take 1 tablet by mouth once daily [facility] AMLODIPINE 10 mg tablet 02-17 00:00: 00 04-12 00:00 :00 No [id number] Take 1 tablet by mouth once daily [facility] AMLODIPINE 10 mg tablet 02-17 00:00: 00 04-12 00:00 :00 No [id number] Take 1 tablet by mouth once daily [facility] Vital Signs Vital Name Observation Time Observation Value Comments S ource Systolic blood pressure 2023-11-12 16:51:00 109 mm[Hg] [facility] Diastolic blood pressure 2023-11-12 16:51:00 85 mm[Hg] [facility] Heart rate 2023-11-12 16:51:00 77 /min [facility] Respiratory rate 2023-11-12 16:48:00 18 /min [facility] Oxygen saturation in Arterial blood by Pulse oximetry 2023-11-12 16:48:00 96 /min [facility] Body temperature 2023-11-12 13:19:00 35.67 [place] [facility] Body weight 2023-11-04 01:00:00 90.18 kg [facility] BMI 2023-11-04 01:00:00 32.09 kg/m2 [facility] Body height 2023-11-03 15:45:00 167.6 cm [facility] Systolic blood pressure 2023-11-03 22:10:00 105 mm[Hg] [facility] Diastolic blood pressure 2023-11-03 22:10:00 58 mm[Hg] [facility] Heart rate 2023-11-03 22:10:00 97 /min [facility] Body temperature 2023-11-03 22:10:00 35.28 [place] [facility] Respiratory rate 2023-11-03 22:10:00 18 /min [facility] Oxygen saturation in Arterial blood by Pulse oximetry 2023-11-03 22:10:00 97 /min [facility] Body height 2023-11-03 15:45:00 167.6 cm [facility] Body weight 2023-11-03 15:45:00 89.585 kg [facility] BMI 2023-11-03 15:45:00 32.09 kg/m2 [facility] Systolic blood pressure 2023-07-27 20:19:00 103 mm[Hg] [facility] Diastolic blood pressure 2023-07-27 20:19:00 61 mm[Hg] [facility] Heart rate 2023-07-27 20:19:00 80 /min [facility] Body temperature 2023-07-27 20:19:00 35.28 [place] [facility] Body height 2023-07-27 20:19:00 167.6 cm [facility] Body weight 2023-07-27 20:19:00 85.322 kg [facility] BMI 2023-07-27 20:19:00 30.36 kg/m2 [facility] Oxygen saturation in Arterial blood by Pulse oximetry 2023-07-27 20:19:00 100 /min [facility] Systolic blood pressure 2023-07-22 21:54:00 127 mm[Hg] [facility] Diastolic blood pressure 2023-07-22 21:54:00 74 mm[Hg] [facility] Heart rate 2023-07-22 21:54:00 97 /min [facility] Body temperature 2023-07-22 21:54:00 37.61 [place] [facility] Body height 2023-07-22 21:54:00 167.6 cm [facility] Body weight 2023-07-22 21:54:00 84.369 kg [facility] BMI 2023-07-22 21:54:00 30.02 kg/m2 [facility] Oxygen saturation in Arterial blood by Pulse oximetry 2023-07-22 21:54:00 98 /min [facility] Systolic blood pressure 2023-06-13 19:01:00 121 mm[Hg] [facility] Diastolic blood pressure 2023-06-13 19:01:00 54 mm[Hg] [facility] Heart rate 2023-06-13 19:01:00 84 /min [facility] Body temperature 2023-06-13 19:01:00 36.22 [place] [facility] Respiratory rate 2023-06-13 19:01:00 18 /min [facility] Body height 2023-06-13 19:01:00 165.1 cm [facility] Body weight 2023-06-13 19:01:00 82.101 kg [facility] BMI 2023-06-13 19:01:00 30.12 kg/m2 [facility] Oxygen saturation in Arterial blood by Pulse oximetry 2023-06-13 19:01:00 98 /min [facility] Systolic blood pressure 2023-04-12 16:43:00 139 mm[Hg] [facility] Diastolic blood pressure 2023-04-12 16:43:00 66 mm[Hg] [facility] Heart rate 2023-04-12 16:43:00 86 /min [facility] Body temperature 2023-04-12 16:43:00 37.22 [facility] Respiratory rate 2023-04-12 16:43:00 18 /min [facility] Body weight 2023-04-12 16:43:00 85.73 kg [facility] BMI 2023-04-12 16:43:00 30.51 kg/m2 [facility] Oxygen saturation in Arterial blood by Pulse oximetry 2023-04-12 16:43:00 95 /min [facility] Systolic blood pressure 2022-12-14 16:33:00 145 mm[Hg] [facility] Diastolic blood pressure 2022-12-14 16:33:00 63 mm[Hg] [facility] Heart rate 2022-12-14 16:33:00 75 /[facility]terial blood by Pulse oximetry 2022-12-14 16:33:00 97 /min [facility] Body temperature 2022-12-14 16:30:00 37.44 [place] [facility] Respiratory rate 2022-12-14 16:30:00 18 /min [facility] Body height 2022-12-14 16:30:00 167.6 cm [facility] 2022-12-14 16:30:00 84.46 [facility] BMI 2022-12-14 16:30:00 30.05 kg/m2 [facility] Systolic blood pressure 2022-11-16 13:49:00 134 mm[Hg] [facility] Diastolic blood pressure 2022-11-16 13:49:00 65 mm[Hg] [facility] Heart rate 2022-11-16 13:48:00 84 /min [facility] Body height 2022-11-16 13:48:00 167.6 cm [facility] Body weight 2022-11-16 13:48:00 78.019 kg [facility] BMI 2022-11-16 13:48:00 27.76 kg/m2 [facility] Oxygen saturation in Arterial blood by Pulse oximetry 2022-11-16 13:48:00 97 /min [facility] Systolic blood pressure 2022-09-15 21:48:00 131 mm[Hg] [facility] Diastolic blood pressure 2022-09-15 21:48:00 61 mm[Hg] [facility] Heart rate 2022-09-15 21:47:00 80 /min [facility] Respiratory rate 2022-09-15 21:47:00 18 /min [facility] Body height 2022-09-15 21:47:00 167.6 cm [facility] Body weight 2022-09-15 21:47:00 81.647 [facility] BMI 2022-09-15 21:47:00 29.05 kg/m2 [facility] Oxygen saturation in Arterial blood by Pulse oximetry 2022-09-15 21:47:00 97 /min [facility] Systolic blood pressure 2022-05-18 16:36:00 155 mm[Hg] [facility] Diastolic blood pressure 2022-05-18 16:36:00 64 mm[Hg] [facility] Heart rate 2022-05-18 16:36:00 84 /min [facility] Body temperature 2022-05-18 16:36:00 36.11 [place] [facility] Respiratory rate 2022-05-18 16:36:00 17 /min [facility] Body height 2022-05-18 16:36:00 167.6 cm [facility] Body weight 2022-05-18 16:36:00 73.029 kg [facility] BMI 2022-05-18 16:36:00 25.99 kg/m2 [facility] Oxygen saturation in Arterial blood by Pulse oximetry 2022-05-18 16:36:00 99 /min [facility] Systolic blood pressure 2022-05-03 21:10:00 148 mm[Hg] [facility] Diastolic blood pressure 2022-05-03 21:10:00 67 mm[Hg] [facility] Heart rate 2022-05-03 21:10:00 75 /min [facility] Respiratory rate 2022-05-03 21:10:00 18 /min [facility] Body weight 2022-05-03 21:10:00 73.029 kg [facility] BMI 2022-05-03 21:10:00 25.99 kg/m2 [facility] Oxygen saturation in Arterial blood by Pulse oximetry 2022-05-03 21:10:00 98 /min [facility] Procedures Procedure Date / Time Performed Performing Clinician Source POCT GLUCOSE (AUTOMATED) 2023-11-12 14:11:00 Alejandro Alvarenga [facility] POCT GLUCOSE (AUTOMATED) 2023-11-12 02:47:00 Alejandro Alvarenga [facility] POCT GLUCOSE (AUTOMATED) 2023-11-11 23:41:00 Alejandro Alvarenga [facility] POCT GLUCOSE (AUTOMATED) 2023-11-11 18:25:00 LyleAlejandro sparks [facility] POCT GLUCOSE (AUTOMATED) 2023-11-11 14:07:00 LyleAlejandro sparks [facility] MAGNESIUM 2023-11-11 11:11:00 [facility] BASIC METABOLIC PANEL (NA, K , CL, CO2, GLUCOSE, BUN, CREATININE, CA) 2023-11-11 11:11:00 [facility] CBC WITH DIFF 2023-11-11 11:11:00 [facility] POCT GLUCOSE (AUTOMATED) 2023-11-11 02:57:00 LyleAlejandro sparks [facility] POCT GLUCOSE (AUTOMATED) 2023-11-10 23:29:00 Alejandro Alvarenga [facility] POCT GLUCOSE (AUTOMATED) 2023-11-10 17:31:00 LyleAlejandro sparks [facility] POCT GLUCOSE (AUTOMATED) 2023-11-10 14:14:00 Alejandro Alvarenga [facility] MAGNESIUM 2023-11-10 11:40:00 [facility] BASIC METABOLIC PANEL (NA, K , CL, CO2, GLUCOSE, BUN, CREATININE, CA) 2023-11-10 11:40:00 [facility] CBC WITH DIFF 2023-11-10 11:40:00 [facility] POCT GLUCOSE (AUTOMATED) 2023-11-10 03:34:00 LyleAlejandro sparks [facility] POCT GLUCOSE (AUTOMATED) 2023-11-09 22:24:00 Alejandro Alvarenga [facility] POCT GLUCOSE (AUTOMATED) 2023-11-09 17:41:00 LyleAlejandro sparks [facility] POCT GLUCOSE (AUTOMATED) 2023-11-09 14:23:00 Alejandro Alvarenga [facility] MAGNESIUM 2023-11-09 12:01:00 Estrada Headley [facility] BASIC METABOLIC PANEL (NA, K , CL, CO2, GLUCOSE, BUN, CREATININE, CA) 2023-11-09 12:01:00 Estrada Headley [facility] CBC WITH DIFF 2023-11-09 12:01:00 Estrada Headley [facility] POCT GLUCOSE (AUTOMATED) 2023-11-09 02:44:00 LyleAlejandro sparks [facility] POCT GLUCOSE (AUTOMATED) 2023-11-09 00:17:00 LyleAlejandro sparks [facility] POCT GLUCOSE (AUTOMATED) 2023-11-08 18:58:00 LyleAlejandro sparks [facility] POCT GLUCOSE (AUTOMATED) 2023-11-08 14:04:00 Alejandro Alvarenga [facility] MAGNESIUM 2023-11-08 10:38:00 [facility] BASIC METABOLIC PANEL (NA, K , CL, CO2, GLUCOSE, BUN, CREATININE, CA) 2023-11-08 10:38:00 [facility] CBC WITH DIFF 2023-11-08 10:38:00 [facility] POCT GLUCOSE (AUTOMATED) 2023-11-08 01:49:00 LyleAlejandro sparks [facility] POCT GLUCOSE (AUTOMATED) 2023-11-07 23:10:00 Alejandro Alvarenga [facility] POCT GLUCOSE (AUTOMATED) 2023-11-07 17:20:00 Alejandro Alvarenga [facility] POCT GLUCOSE (AUTOMATED) 2023-11-07 13:54:00 Alejandro Alvarenga [facility] MAGNESIUM 2023-11-07 11:46:00 [facility] BASIC METABOLIC PANEL (NA, K , CL, CO2, GLUCOSE, BUN, CREATININE, CA) 2023-11-07 11:46:00 [facility] CBC WITH DIFF 2023-11-07 11:46:00 [facility] POCT GLUCOSE (AUTOMATED) 2023-11-07 02:26:00 LyleAlejandro sparks [facility] POCT GLUCOSE (AUTOMATED) 2023-11-06 22:06:00 Alejandro Alvarenga [facility] POCT GLUCOSE (AUTOMATED) 2023-11-06 17:47:00 Alejandro Alvarenga [facility] POCT GLUCOSE (AUTOMATED) 2023-11-06 14:32:00 Alejandro Alvarenga [facility] MAGNESIUM 2023-11-06 09:57:00 [facility] HEPATIC FUNCTION PANEL (8007 [id number]) (ALB,T.PRO,BILI T,BU/BC,ALT,AST,ALK PHOS) 2023-11-06 09:57:00 [facility] BASIC METABOLIC PANEL (NA, K , CL, CO2, GLUCOSE, BUN, CREATININE, CA) 2023-11-06 09:57:00 [facility] CBC WITH DIFF 2023-11-06 09:57:00 [facility] PROTHROMBIN TIME / INR 2023-11-06 09:57:00 [facility] POCT GLUCOSE (AUTOMATED) 2023-11-06 03:05:00 Alejandro Alvarenga [facility] POCT GLUCOSE (AUTOMATED) 2023-11-05 22:45:00 Alejandro Alvarenga [facility] POCT GLUCOSE (AUTOMATED) 2023-11-05 17:53:00 Alejandro Alvarenga [facility] POCT GLUCOSE (AUTOMATED) 2023-11-05 15:23:00 Alejandro Alvarenga [facility] MAGNESIUM 2023-11-05 11:22:00 August Peters [facility] COMP. METABOLIC PANEL ([id number]) 2023-11-05 11:22:00 August Peters [facility] CBC WITH DIFF 2023-11-05 11:22:00 August Peters [facility] POCT GLUCOSE (AUTOMATED) 2023-11-05 03:18:00 Keith Pruitt [facility] CBC WITHOUT DIFF 2023-11-05 00:05:00 Kirsty Jefferson [facility] POCT GLUCOSE (AUTOMATED) 2023-11-04 23:02:00 Keith Pruitt [facility] COMP. METABOLIC PANEL ([id number]) 2023-11-04 19:46:00 Kirsty Jefferson Dinorah [facility] COMP. METABOLIC PANEL ([id number]) 2023-11-04 19:46:00 Kirsty Jefferson Dinorah [facility] POCT GLUCOSE (AUTOMATED) 2023-11-04 18:43:00 Keith Pruitt [facility] POCT GLUCOSE (AUTOMATED) 2023-11-04 18:43:00 Keith Pruitt [facility] CBC WITHOUT DIFF 2023-11-04 17:13:00 Kirsty Jefferson [facility] CBC WITHOUT DIFF 2023-11-04 17:13:00 Kirsty Jefferson [facility] POCT GLUCOSE (AUTOMATED) 2023-11-04 14:07:00 Keith Pruitt [facility] POCT GLUCOSE (AUTOMATED) 2023-11-04 14:07:00 Keith Pruitt [facility] PREPARE PACKED RBC 2023-11-04 13:46:44 Kirsty Jefferson [facility] PREPARE PACKED RBC 2023-11-04 13:46:44 Kirsty Jefferson [facility] PROTHROMBIN TIME / INR 2023-11-04 12:53:00 Kirsty Jefferson [facility] PROTHROMBIN TIME / INR 2023-11-04 12:53:00 Kirsty Jefferson [facility] CBC WITH DIFF 2023-11-04 11:34:00 [facility]vin [facility] CBC WITH DIFF 2023-11-04 11:34:00 Melvin [facility] ALBUMIN 2023-11-04 10:29:00 Kirsyt Jefferson [facility] MAGNESIUM 2023-11-04 10:29:00 Melvin [facility] BASIC METABOLIC PANEL (NA, K , CL, CO2, GLUCOSE, BUN, CREATININE, CA) 2023-11-04 10:29:00 [facility]vin [facility] ALBUMIN 2023-11-04 10:29:00 Kirsty Jefferson [facility] MAGNESIUM 2023-11-04 10:29:00 Melvin Olivares [facility] BASIC METABOLIC PANEL (NA, K , CL, CO2, GLUCOSE, BUN, CREATININE, CA) 2023-11-04 10:29:00 Melvin Olivares [facility] CBC WITHOUT DIFF 2023-11-04 05:35:00 Adams Shearer [facility] CBC WITHOUT DIFF 2023-11-04 05:35:00 Adams Shearer [facility] POCT GLUCOSE (AUTOMATED) 2023-11-04 05:26:00 Keith Pruitt [facility] POCT GLUCOSE (AUTOMATED) 2023-11-04 05:26:00 Keith Pruitt [facility] POCT GLUCOSE (AUTOMATED) 2023-11-04 02:34:00 Keith Pruitt [facility] POCT GLUCOSE (AUTOMATED) 2023-11-04 02:34:00 Keith Pruitt [facility] POCT GLUCOSE (AUTOMATED) 2023-11-03 22:48:00 Keith Pruitt [facility] POCT GLUCOSE (AUTOMATED) 2023-11-03 22:48:00 Keith Pruitt [facility] EGD (ENDO) 2023-11-03 21:09:13 Keith Pruitt [facility] EGD (ENDO) 2023-11-03 21:09:13 Keith Pruitt [facility] ESOPHAGOGASTRODUODENOSCOPY 2023-11-03 21:00:00 Annabelle [facility] ESOPHAGOGASTRODUODENOSCOPY 2023-11-03 21:00:00 Ayo Alanis [facility] FOLATE 2023-11-03 20:08:00 Luzmaria Arceo [facility] TROPONIN I 2023-11-03 20:08:00 Otis Becerra [facility] CBC WITHOUT DIFF 2023-11-03 20:08:00 Adams Shearer [facility] FOLATE 2023-11-03 20:08:00 Luzmaria Arceo [facility] TROPONIN I 2023-11-03 20:08:00 Otis Becerra [facility] CBC WITHOUT DIFF 2023-11-03 20:08:00 Adams Shearer [facility] POCT GLUCOSE (AUTOMATED) 2023-11-03 17:25:00 Keith Pruitt [facility] POCT GLUCOSE (AUTOMATED) 2023-11-03 17:25:00 Keith Pruitt [facility] TRANSTHORACIC ECHO (TTE) COM PLETE W/ CONTRAST 2023-11-03 15:06:43 Margie Deutsch Seth [facility] TRANSTHORACIC ECHO (TTE) COM PLETE W/ CONTRAST 2023-11-03 15:06:43 Margie Deutsch Seth [facility] POCT GLUCOSE (AUTOMATED) 2023-11-03 14:07:00 Keith Pruitt [facility] POCT GLUCOSE (AUTOMATED) 2023-11-03 14:07:00 Keith Pruitt [facility] TROPONIN I 2023-11-03 14:06:[address] Lu[address] [facility] TROPONIN I 2023-11-03 14:06:[address] Luzmar[address] [facility] FERRITIN SERUM 2023-11-03 12:13:00 Devaughn [facility] TROPONIN I 2023-11-03 12:13:00 Luzmaria Arceo Trisha [facility] CBC WITHOUT DIFF 2023-11-03 12:13:00 Margie Deutsch [facility] FERRITIN SERUM 2023-11-03 12:13:00 Devaughn [facility] TROPONIN I 2023-11-03 12:13:00 Luzmaria [address]ce[address] [facility] CBC WITHOUT DIFF 2023-11-03 12:13:00 Margie Deutsch [facility] PREPARE PACKED RBC 2023-11-03 09:14:53 Seema Scruggs [facility] PREPARE PACKED RBC 2023-11-03 09:14:53 Seema Scruggs [facility] LACTATE DEHYDROGENASE 2023-11-03 07:11:00 Galambus, Luzmaria [facility] MAGNESIUM 2023-11-03 07:11:00 Galambus, [facility] VITAMIN B12, LEVEL 2023-11-03 07:11:00 Galambus, [facility] HAPTOGLOBIN, SERUM 2023-11-03 07:11:00 Galambus, [facility] HEPATIC FUNCTION PANEL (8007 6) (ALB,T.PRO,BILI T,BU/BC,ALT,AST,ALK PHOS) 2023-11-03 07:11:00 Galambus, [facility] BASIC METABOLIC PANEL (NA, K , CL, CO2, GLUCOSE, BUN, CREATININE, CA) 2023-11-03 07:11:00 Galambus, [facility] IRON PANEL 2023-11-03 07:11:00 Danita Cantor [facility] CBC WITH DIFF 2023-11-03 07:11:00 Galambus, [facility] PROTHROMBIN TIME / INR 2023-11-03 07:11:00 Galambus, [facility] ACTIVATED PARTIAL THRMPLAS TRAM 2023-10-07 9 07:11:00 Galambus, [facility] LACTATE DEHYDROGENASE 2023-11-03 07:11:00 Galambus, [facility] MAGNESIUM 2023-11-03 07:11:00 Galambus, [facility] VITAMIN B12, LEVEL 2023-11-03 07:11:00 Galambus, [facility] HAPTOGLOBIN, SERUM 2023-11-03 07:11:00 Galambus, [facility] HEPATIC FUNCTION PANEL (8007 6) (ALB,T.PRO,BILI T,BU/BC,ALT,AST,ALK PHOS) 2023-11-03 07:11:00 Galambus, [facility] BASIC METABOLIC PANEL (NA, K , CL, CO2, GLUCOSE, BUN, CREATININE, CA) 2023-11-03 07:11:[address] [facility] IRON PANEL 2023-11-03 07:11:00 Danita Cantor [facility] CBC WITH DIFF 2023-11-03 07:11:00 Luzmaria Arceo [facility] PROTHROMBIN TIME / INR 2023-11-03 07:11:00 Adis [facility] ACTIVATED PARTIAL THRMPLAS TRAM 2023-10-07 9 07:11:00 Adis [facility] ENDOSCOPY PROCEDURE DOCUMENTATION 06:01:00 Doctor Unassigned, [place] [facility] ENDOSCOPY PROCEDURE DOCUMENTATION 06:01:00 Doctor Unassigned, [place] [facility] TRANSFUSE PACKED RBC 2023-11-03 04:09:00 Get Hanson [facility] TRANSFUSE PACKED RBC 2023-11-03 04:09:00 Gianni Deutschmad [facility] PREPARE PACKED RBC 2023-11-03 04:01:33 Get Hanson [facility] PREPARE PACKED RBC 2023-11-03 04:01:33 Get Hanson [facility] AMMONIA, PLASMA 2023-11-03 03:19:00 Galbean [facility] AMMONIA, PLASMA 2023-11-03 03:19:00 Adis Luzmaria [facility] TROPONIN I 2023-11-03 02:06:00 Seema Scruggs [facility] COMP. METABOLIC PANEL (44164) 2023-11-03 02:06:00 Seema Scruggs [facility] CBC WITH DIFF 2023-11-03 02:06:00 Seema Scruggs [facility] GLYCOSYLATED HEMOGLOBIN (A1C) 2023-11-03 02:06:00 GalLuzmaria del angel Trisha [facility] PROTHROMBIN TIME / INR 2023-11-03 02:06:00 Kael, [facility] ACTIVATED PARTIAL THRMPLAS TRAM 2023-10-07 9 02:06:00 Seema Scruggs [facility] FIBRINOGEN 2023-11-03 02:06:00 Kael [facility] HB ABO GROUPING 2023-11-03 02:06:00 Kael [facility] TROPONIN I 2023-11-03 02:06:00 Kael [facility] COMP. METABOLIC PANEL (42006) 2023-11-03 02:06:00 Kael [facility] CBC WITH DIFF 2023-11-03 02:06:00 Kael [facility] GLYCOSYLATED HEMOGLOBIN (A1C) 2023-11-03 02:06:00 Luzmaria Arceo [facility] PROTHROMBIN TIME / INR 2023-11-03 02:06:00 Kael [facility] ACTIVATED PARTIAL THRMPLAS TRAM 2023-10-07 9 02:06:00 Kael [facility] FIBRINOGEN 2023-11-03 02:06:00 Kael [facility] HB ABO GROUPING 2023-11-03 02:06:00 Kael [facility] CRITICAL CARE 2023-11-03 00:28:59 Joe Rodriguez [facility] CRITICAL CARE 2023-11-03 00:28:59 Michael [facility] TRANSFUSE PACKED RBC 2023-11-02 23:27:00 Joe Rodriguez [facility] TRANSFUSE PACKED RBC 2023-11-02 23:27:00 Joe Rodriguez [facility] PREPARE PACKED RBC 2023-11-02 23:18:16 Joe Rodriguez [facility] PREPARE PACKED RBC 2023-11-02 23:18:16 Joe Rodriguez [facility] TRANSFUSE PACKED RBC 2023-11-02 20:04:00 Joe Rodriguez [facility] TRANSFUSE PACKED RBC 2023-11-02 20:04:00 Joe Rodriguez [facility] ABORH CONFIRMATION (LAB ONLY) 2023-11-02 18:52:00 Joe Rodriguez [facility] ABORH CONFIRMATION (LAB ONLY) 2023-11-02 18:52:00 oJe Rodriguez [facility] CT ABDOMEN PELVIS W CONTRAST 2023-11-02 18:23:02 Joe Rodriguez [facility] CT ABDOMEN PELVIS W CONTRAST 2023-11-02 18:23:02 Joe Rodriguez [facility] URINALYSIS 2023-11-02 17:12:00 Joe Rodriguez [facility] HB ABO GROUPING 2023-11-02 17:12:00 [facility]UG (IMMUNOASSAY) - COMPREHENSIVE DRUG SCREEN W/O REFLEX 2023-11-02 17:12:00 Joe Rodriguez [facility] URINALYSIS 2023-11-02 17:12:00 Joe Rodriguez [facility] HB ABO GROUPING 2023-11-02 17:12:00 [facility] (IMMUNOASSAY) - COMPREHENSIVE DRUG SCREEN W/O REFLEX 2023-11-02 17:12:00 [facility] WITH DIFF 2023-11-02 16:35:00 [facility] WITH DIFF 2023-11-02 16:35:00 [facility] CHEST 1 VW 2023-11-02 15:56:00 [facility] CHEST 1 VW 2023-11-02 15:56:00 Michael [facility] AC PANEL 20 + LACTIC ACID 2023-11-02 15:50:00 [facility] PANEL 20 + LACTIC ACID 2023-11-02 15:50:00 [facility] ECG ROUTINE & RHYTHM STRIP 2023-11-02 15:36:44 [facility] ECG ROUTINE & RHYTHM STRIP 2023-11-02 15:36:44 [facility] TROPONIN I 2023-11-02 15:33:00 Michael [facility] COMP. METABOLIC PANEL (27519) 2023-11-02 15:33:00 Joe Rodriguez [facility] ETHANOL 2023-11-02 15:33:00 [facility] N-TERMINAL PRO-BNP 2023-11-02 15:33:00 Joe Rodriguez [facility] TROPONIN I 2023-11-02 15:33:00 Joe Rodriguez [facility] COMP. METABOLIC PANEL (31232) 2023-11-02 15:33:00 Joe Rodriguez [facility] ETHANOL 2023-11-02 15:33:00 Joe Rodriguez [facility] N-TERMINAL PRO-BNP 2023-11-02 15:33:00 Joe Rodriguez [facility] EMERGENCY SERVICES AGREEMENT S AND AUTHORIZATIONS 2023-11-02 06:01:00 Doctor Unassigned, [place] [facility] HOSPITAL ADMISSION 2023-11-02 06:01:00 Doctor Unassigned, [place] [facility] EMERGENCY SERVICES AGREEMENT S AND AUTHORIZATIONS 2023-11-02 06:01:00 Doctor Unassigned, [place] [facility] HOSPITAL ADMISSION 2023-11-02 06:01:00 Doctor Unassigned, [place] [facility] REFERRAL- REQUEST/RESPONSE 2023-10-12 06:01:00 Doctor Unassigned, [place] [facility] EXTERNAL PROVIDER RECORDS 2023-09-08 06:01:00 Doctor Unassigned, [place] [facility] CT ABDOMEN PELVIS WO CONTRAST 2023-07-26 15:49:28 Vic Mcghee [facility] POCT HEMOGLOBIN A1C TEST 2023-07-22 22:43:00 Vic Mcghee [facility] NOTICE OF BILLING PRACTICES FOR MEDICARE PATIENTS 2023-07-22 21:42:33 Doctor Unassigned, [place] [facility] CONSENT/REFUSAL FOR DIAGNOSI S AND TREATMENT 2023-05-19 15:01:19 Doctor Unassigned, [place] [facility] DME/SUPPLY JUSTIFICATION 2023-04-22 05:01:00 Doctor Unassigned, [place] [facility] POCT HEMOGLOBIN A1C TEST 2023-04-12 17:42:00 Vic Mcghee [facility] PATIENT FINANCIAL POLICY 2022-11-16 13:39:02 Doctor Unassigned, [place] [facility] CT HEAD WO CONTRAST 2022-05-18 17:05:49 Carol Lawson [facility] TROPONIN I 2022-05-18 16:48:00 Carol Lawson [facility] BASIC METABOLIC PANEL (NA, K , CL, CO2, GLUCOSE, BUN, CREATININE, CA) 2022-05-18 16:48:00 Carol Lawson [facility] CBC WITH DIFF 2022-05-18 16:48:00 Carol Lawson [facility] CONSENT/REFUSAL FOR DIAGNOSI S AND TREATMENT 2022-05-18 16:25:01 Doctor Unassigned, [place] [facility] POCT GLUCOSE(AGE >30DAYS) 2022-05-03 21:22:00 Vic Mcghee [facility] POCT HEMOGLOBIN A1C TEST 2022-05-03 21:21:00 Vic Mcghee [facility] Encounters Start Date/Time End Date/Time Encounter Type Admission Type Attending Clinicians Care Facility Care Department Encounter ID Source 2023-11-25 10:00:00 2023-11-25 10:00:00 Outpatient JENNIE PETTY [facility] [id number] [facility] 2023-11-17 00:00:00 2023-11-17 00:00:00 Letter (Out) Rene Cardiology - [facility] MED[facility] OFFICE BUILDING 1..840.114 350.1.13.10 4.2.7.2.686 [id number] [facility] 2023-11-14 00:00:00 2023-11-14 00:00:00 Transition of Care Bib Manriquez 1..840.114 350.1.13.10 4.2.7.2.686 [id number] [facility] 2023-11-02 09:24:00 2023-11-12 12:02:00 Inpatient X ERIKA SALAZARAL [facility] [id number] [facility] 2023-11-02 09:24:00 2023-11-12 12:02:00 Hospital Encounter Keith Pruitt, Joe Alvarenga, Alejandro Salazar, Fabricio Torres [facility] .840.114 350.1.13.10 4.2.7.2.686 [id number] [facility] 2023-11-03 15:51:00 2023-11-03 16:32:00 Surgery Ayo Alanis [facility] 1.20.114 350.1.13.10 4.2.7.2.686 [id number] [facility] 2023-10-24 00:00:00 2023-10-24 00:00:00 Telephone Vic Mcghee [facility] 1.2840.114 350.1.13.10 4.2.7.2.686 [id number] [facility] 2023-10-19 00:00:00 2023-10-19 00:00:00 Telephone Hern[facility] 1.0.114 350.1.13.10 4.2.7.2.686 [id number] [facility] 2023-10-12 00:00:00 2023-10-12 00:00:00 Orders Only Doctor Unassigned, [place] [facility] 1.2840.114 350.1.13.10 4.2.7.2.686 [id number] [facility] 2023-10-05 00:00:00 2023-10-05 00:00:00 Refill [facility] 1.2840.114 350.1.13.10 4.2.7.2.686 [id number] [facility] 2023-10-05 00:00:00 2023-10-05 00:00:00 Refill Елена Gama [facility] NAL BUILDING 1.2.840.114 350.1.13.10 4.2.7.2.686 [id number] [facility] 2023-09-08 00:00:00 2023-09-08 00:00:00 Orders Only Doctor Unassigned, [place] [facility] 1.2.840.114 350.1.13.10 4.2.7.2.686 [id number] [facility] 2023-08-31 00:00:00 2023-08-31 00:00:00 Telephone Hernesto [facility]us[facility] 1..840.114 350.1.13.10 4.2.7.2.686 [id number] [facility] 2023-08-31 00:00:00 2023-08-31 00:00:00 Refill Vance Owusuma [facility] 1..840.114 350.1.13.10 4.2.7.2.686 [id number] [facility] 2023-08-24 13:20:00 2023-08-24 13:20:00 Outpatient R HERNESTO OWUSU OBI-HERNESTO MCGEE [facility] [id number] [facility] 2023-08-10 00:00:00 2023-08-10 00:00:00 Telephone [facility] 1.2.840.114 350.1.13.10 4.2.7.2.686 [id number] [facility] 2023-08-01 00:00:00 2023-08-01 00:00:00 [facility] 1.2.840.114 350.1.13.10 4.2.7.2.686 [id number] [facility] 2023-07-27 15:30:00 2023-07-27 15:45:00 Ore Tester Visit 2, Adc Lab Vic Mcghee [facility] BU[facility] 1.2.840.114 350.1.13.10 4.2.7.2.686 [id number] [facility] 2023-07-27 14:30:00 2023-07-27 15:16:21 Outpatient R VIC MCGHEE VIC [facility] [id number] [facility] 2023-07-27 14:30:00 2023-07-27 15:16:21 Office Visit Vic Mcghee [facility] 1.2.840.114 350.1.13.10 4.2.7.2.686 [id number] [facility] 2023-07-27 00:00:00 2023-07-27 00:00:00 Patient Outreach Vic Mcghee [facility] 1.2.840.114 350.1.13.10 4.2.7.2.686 [id number] [facility] 2023-07-26 09:24:20 2023-07-26 23:59:00 Outpatient R VIC MCGHEE OGECHUKWU [facility] [id number] [facility] 2023-07-26 09:24:20 2023-07-26 23:59:00 Hospital Encounter Vic Mcghee [facility] 1.2.840.114 350.1.13.10 4.2.7.2.686 [id number] [facility] 2023-07-22 15:30:00 2023-07-22 16:47:35 Outpatient R VIC MCGHEE OGECHUKWU [facility] [id number] [facility] 2023-07-22 15:30:00 2023-07-22 16:47:35 Office Visit [facility] 1..840.114 350.1.13.10 4.2.7.2.686 [id number] [facility] 2023-07-22 08:30:00 2023-07-22 08:30:00 Outpatient R [facility] [id number] [facility] 2023-07-22 00:00:00 2023-07-22 00:00:00 Orders Only Doctor Unassigned, [place] [facility] 1..840.114 350.1.13.10 4.2.7.2.686 [id number] [facility] 2023-06-20 08:30:00 2023-06-20 08:30:00 Outpatient R YONAS ORELLANA [facility] [id number] [facility] 2023-06-13 13:30:00 2023-06-13 14:18:50 Outpatient R MICHA CONDON MITCHELL [facility] [id number] [facility] 2023-06-13 13:30:00 2023-06-13 14:18:50 Office Visit Micha Condon [facility] BUILD[facility] 1..840.114 350.1.13.10 4.2.7.2.686 [id number] [facility] 2023-06-03 13:30:00 2023-06-03 13:45:00 Ore Tester Visit 2, [facility] 1.2.840.114 350.1.13.10 4.2.7.2.686 [id number] [facility] 2023-06-03 13:30:00 2023-06-03 13:37:25 Outpatient R VIC MCGHEE, VIC [facility] [id number] [facility] 2023-05-19 10:00:00 2023-05-19 10:16:14 Outpatient R VIC MCGHEE, VIC [facility] [id number] [facility] 2023-05-19 10:00:00 2023-05-19 10:15:00 Ore Tester Visit 2, Adc Lab Vic Mcghee [facility] 1.2.840.114 350.1.13.10 4.2.7.2.686 [id number] [facility] 2023-05-19 00:00:00 2023-05-19 00:00:00 Orders Only Doctor Unassigned, [place] [facility] 1.2.840.114 350.1.13.10 4.2.7.2.686 [id number] [facility] 2023-05-11 00:00:00 2023-05-11 00:00:00 Telephone Jenn Mcgheenevaeh [facility]ILD[facility] 1.2.840.114 350.1.13.10 4.2.7.2.686 [id number] [facility] 2023-05-11 00:00:00 2023-05-11 00:00:00 Telephone Cherry Mcgheeparadise [facility] BUILDING 1.2.840.114 350.1.13.10 4.2.7.2.686 [id number] [facility] 2023-04-27 11:00:00 2023-04-27 12:09:03 Outpatient R VIC MCGHEE OGECHUKWU [facility] [id number] [facility] 2023-04-27 11:00:00 2023-04-27 12:09:03 Telemedici ne Visit Vic [facility]hee [facility] 1.2.840.114 350.1.13.10 4.2.7.2.686 [id number] [facility] 2023-04-27 00:00:00 2023-04-27 00:00:00 Telephone Vic Mcghee [facility] 1.2.840.114 350.1.13.10 4.2.7.2.686 [id number] [facility] 2023-04-26 00:00:00 2023-04-26 00:00:00 Telephone Vic Mcghee [facility] 1.2.840.114 350.1.13.10 4.2.7.2.686 [id number] [facility] 2023-04-22 00:00:00 2023-04-22 00:00:00 Orders Only Doctor Unassigned, [place] [facility] 1.2.840.114 350.1.13.10 4.2.7.2.686 [id number] [facility] 2023-04-18 15:45:00 2023-04-18 15:45:00 Outpatient R MICHA CONDON MITCHELL [facility] [id number] [facility] 2023-04-12 11:00:00 2023-04-12 12:41:45 Outpatient R VIC MCGHEE OGECHUKWU [facility] [id number] [facility] 2023-04-12 11:00:00 2023-04-12 12:41:45 Office Visit Vic Mcghee [facility] 1.2.840.114 350.1.13.10 4.2.7.2.686 [id number] [facility] 2023-04-12 00:00:00 2023-04-12 00:00:00 Telephone Vic Mcghee [facility] 1.2.840.114 350.1.13.10 4.2.7.2.686 [id number] [facility] 2023-04-04 12:00:00 2023-04-04 12:00:00 Outpatient R TAZ, CHERRYJoanaJami OZUNABRIAN CHERRYPARADISE [facility] [id number] [facility] 2023-03-28 14:30:00 2023-03-28 14:30:00 Outpatient R MICHA CONDON MITCHELL [facility] [id number] [facility] 2023-03-22 09:30:00 2023-03-22 09:30:00 Outpatient R CHERRY MCGHEEJoanaJami MCGHEE CHERRYJoanaJami [facility] [id number] [facility] 2023-03-01 09:30:00 2023-03-01 09:30:00 Outpatient R NATY CARNES [facility] [id number] [facility] 2023-02-23 00:00:00 2023-02-23 00:00:00 Refill Vic Mcghee [facility] 1.2.840.114 350.1.13.10 4.2.7.2.686 [id number] [facility] 2023-02-17 00:00:00 2023-02-17 00:00:00 Telephone Cherry Mcgheeparadise [facility] NAL BUILDING 1.2.840.114 350.1.13.10 4.2.7.2.686 [id number] [facility] 2023-01-25 11:00:00 2023-01-25 11:00:00 Outpatient R ANTY CARNES [facility] [id number] [facility] 2023-01-07 00:00:00 2023-01-07 00:00:00 Vic Godwin [facility] NAL BUILDING 1.2.840.114 350.1.13.10 4.2.7.2.686 [id number] [facility] 2022-12-14 11:15:00 2022-12-14 12:11:25 Outpatient R NATY CARNES [facility] [id number] [facility] 2022-12-14 11:15:00 2022-12-14 12:11:25 Office Visit Naty Carnes [facility] NAL BUILDING 1.2.840.114 350.1.13.10 4.2.7.2.686 [id number] [facility] 2022-12-03 12:50:23 2022-12-03 23:59:00 Outpatient R NATY CARNES [facility] [id number] [facility] 2022-11-30 08:00:00 2022-11-30 08:00:00 Outpatient R NATY CARNES [facility] [id number] [facility] 2022-11-26 14:00:00 2022-11-26 14:00:00 Outpatient R NATY CARNES [facility] [id number] [facility] 2022-11-16 08:00:00 2022-11-16 09:03:08 Outpatient R NATY CARNES [facility] [id number] [facility] 2022-11-16 08:00:00 2022-11-16 09:03:08 Office Visit Naty Carnes [facility] BUILDING 1.2.840.114 350.1.13.10 4.2.7.2.686 [id number] [facility] 2022-11-16 00:00:00 2022-11-16 00:00:00 Orders Only Doctor Unassigned, [place] [facility] 1.2.840.114 350.1.13.10 4.2.7.2.686 [id number] [facility] 2022-10-19 08:00:00 2022-10-19 08:00:00 Outpatient R NATY CARNES [facility] [id number] [facility] 2022-10-04 00:00:00 2022-10-04 00:00:00 Refill Gama Elizabeth [facility] 1.2.840.114 350.1.13.10 4.2.7.2.686 [id number] [facility] 2022-09-28 08:30:00 2022-09-28 08:30:00 Outpatient R FEROZ CARNESNIFER [facility] [id number] [facility] 2022-09-15 15:30:00 2022-09-15 16:28:32 Outpatient R VIC MCGHEE OGECHUKWU [facility] [id number] [facility] 2022-09-15 15:30:00 2022-09-15 16:28:32 Office Visit Vic Mcghee [facility] 1.2.840.114 350.1.13.10 4.2.7.2.686 [id number] [facility] 2022-08-27 00:00:00 2022-08-27 00:00:00 Refill Lary Anderson [facility] 1.2.840.114 350.1.13.10 4.2.7.2.686 [id number] [facility] 2022-08-27 00:00:00 2022-08-27 00:00:00 Refill Vic Mcghee [facility] 1.2.840.114 350.1.13.10 4.2.7.2.686 [id number] [facility] 2022-07-16 00:00:00 2022-07-16 00:00:00 [facility] [id number] [facility] 2022-07-06 00:00:00 2022-07-06 00:00:00 Refill Lary Anderson Tisha [facility] 1.2.840.114 350.1.13.10 4.2.7.2.686 [id number] [facility] 2022-06-10 08:40:00 2022-06-10 08:40:00 [facility] [id number] [facility] 2022-06-10 08:40:00 2022-06-10 08:40:00 Outpatient [facility] [id number] [facility] 2022-05-18 11:37:00 2022-05-18 13:49:00 Emergency X CAROL LAWSON [facility] ERT [id number] [facility] 2022-05-18 11:37:00 2022-05-18 13:49:00 Emergency Carol Lawson [facility] 1.2.840.114 350.1.13.10 4.2.7.2.686 [id number] [facility] 2022-05-14 00:00:00 2022-05-14 00:00:00 Telephone Lary Anderson [facility] 1.2.840.114 350.1.13.10 4.2.7.2.686 [id number] [facility] 2022-05-03 16:00:00 2022-05-03 16:58:53 Outpatient R VIC MCGHEE, VIC [facility] [id number] [facility] 2022-05-03 16:00:00 2022-05-03 16:58:53 Office Visit Vic Mcghee [facility] 1.2.840.114 350.1.13.10 4.2.7.2.686 [id number] [facility] 2022-05-03 16:00:00 2022-05-03 16:58:53 Outpatient R VIC MCGHEE, VIC [facility] [id number] [facility] 2022-05-03 16:00:00 2022-05-03 16:00:00 Outpatient R VIC MCGHEE VIC [facility] [id number] [facility] 2022-04-13 12:29:46 2022-04-13 23:59:00 Outpatient R RADIOLOGY [facility] [id number] [facility] 2022-04-13 12:29:46 2022-04-13 23:59:00 Hospital Encounter Radiology [facility] 1.2.840.114 350.1.13.10 4.2.7.2.686 [id number] [facility] 2022-04-07 14:40:00 2022-04-07 14:40:00 Outpatient R JENNIE TYSON [facility] [id number] [facility] 2022-03-11 00:00:00 2022-03-11 00:00:00 Orders Only Doctor Unassigned, [place] [facility] 1.2.840.114 350.1.13.10 4.2.7.2.686 [id number] [facility] 2022-03-09 16:00:00 2022-03-09 16:31:41 Outpatient R VIC MCGHEE OGECHUKWU [facility] [id number] [facility] 2022-03-09 16:00:00 2022-03-09 16:31:41 Office Visit Vic Mcghee [facility] 1.2.840.114 350.1.13.10 4.2.7.2.686 [id number] [facility] 2022-03-09 14:20:00 2022-03-09 15:21:19 [id number] 2022-03-09 14:20:00 2022-03-09 15:21:19 [facility] 1.2.840.114 350.1.13.10 4.2.7.2.686 [id number] [facility] 2022-03-09 14:20:00 2022-03-09 15:21:19 [facility] [id number] [facility] 2022-03-09 14:20:00 2022-03-09 14:40:00 [facility] 1.2.840.114 350.1.13.10 4.2.7.2.686 [id number] [facility] 2022-03-09 14:20:00 2022-03-09 14:20:00 [facility] [id number] 2022-03-05 14:30:00 2022-03-05 14:30:00 Outpatient R VIC MCGHEE OGECHUKWU [facility] [id number] [facility] 2022-03-05 00:00:00 2022-03-05 00:00:00 Telephone Jennie Tyson [facility] 1.2.840.114 350.1.13.10 4.2.7.2.686 [id number] [facility] 2022-03-05 00:00:00 2022-03-05 00:00:00 Telephone Lary Anderson [facility] 1.2.840.114 350.1.13.10 4.2.7.2.686 [id number] [facility] 2022-03-05 00:00:00 2022-03-05 00:00:00 Telephone Lary Anderson [facility] 1.2.840.114 350.1.13.10 4.2.7.2.686 [id number] [facility] 2022-03-05 00:00:00 2022-03-05 00:00:00 Telephone Lary Anderson [facility] 1.2.840.114 350.1.13.10 4.2.7.2.686 [id number] 044 [id number] [facility] 2022-02-22 00:00:00 2022-02-22 00:00:00 Telephone Lary Anderson [facility] 1.2.840.114 350.1.13.10 4.2.7.2.686 [id number] [facility] 2022-01-20 09:55:35 2022-01-20 23:59:00 Outpatient Glenn TYSONJENNIE [facility] [id number] [facility] 2022-01-20 10:30:00 2022-01-20 10:45:00 Ore Tester Visit Pobrinda, Adc Lab Main Eugenio Perez [facility] 1..840.114 350.1.13.10 4.2.7.2.686 [id number] [facility] 2022-01-20 09:49:37 2022-01-20 09:54:00 Hospital Encounter Radiology [facility] 1..840.114 350.1.13.10 4.2.7.2.686 [id number] [facility] 2022-01-20 00:00:00 2022-01-20 00:00:00 Orders Only Doctor Unassigned, [place] [facility] 1..840.114 350.1.13.10 4.2.7.2.686 [id number] [facility] 2022-01-01 15:00:00 2022-01-01 15:00:00 Outpatient LARY LEW [facility] [id number] [facility] 2021-12-25 15:30:00 2021-12-25 15:30:00 Outpatient VIC LEWIS OGECHUKWU [facility] [id number] [facility] 2021-12-10 00:00:00 2021-12-10 00:00:00 Outpatient LARY LEW [facility] [id number] [facility] 2021-12-03 08:40:00 2021-12-03 09:42:35 Outpatient LARY LEW [facility] [id number] [facility] 2021-12-03 08:40:00 2021-12-03 09:42:35 Office Visit Lary Anderson [facility] 1.2.840.114 350.1.13.10 4.2.7.2.686 [id number] [facility] 2021-10-21 00:00:00 2021-10-21 00:00:00 Telephone Team, [facility] 1.2.840.114 350.1.13.10 4.2.7.2.686 [id number] 082 [id number] [facility] 2021-10-07 00:00:00 2021-10-07 00:00:00 Telephone Team, [facility] 1.2.840.114 350.1.13.10 4.2.7.2.686 [id number] 082 [id number] [facility] 2021-10-05 00:00:00 2021-10-05 00:00:00 Case Management Hollis Garland [facility] 1.2.840.114 350.1.13.10 4.2.7.2.686 [id number] [facility] 2021-09-07 16:00:00 2021-09-07 16:00:00 Outpatient R VIC MCGHEE OGECHUKWU [facility] [id number] [facility] 2021-08-31 08:00:00 2021-08-31 08:00:00 Outpatient R VIC MCGHEE OGECHUKWU [facility] [id number] [facility] 2021-08-27 16:00:00 2021-08-27 16:00:00 Outpatient R GAMA ELIZABETH [facility] [id number] [facility] 2021-08-26 00:00:00 2021-08-26 00:00:00 Refill Lary Anderson [facility] 1.2.840.114 350.1.13.10 4.2.7.2.686 [id number] 231 [id number] [facility] 2021-08-26 00:00:00 2021-08-26 00:00:00 Refill Lary Anderson [facility] 1.2.840.114 350.1.13.10 4.2.7.2.686 [id number] 231 [id number] [facility] 2021-08-24 00:00:00 2021-08-24 00:00:00 Refill Lary Anderson [facility] 1.2.840.114 350.1.13.10 4.2.7.2.686 [id number] 231 [id number] [facility] 2021-07-20 09:40:00 2021-07-20 09:40:00 Outpatient LARY LEW [facility] [id number] [facility] 2021-07-06 00:00:00 2021-07-06 00:00:00 Lary Nassar [facility] 1.2.840.114 350.1.13.10 4.2.7.2.686 [id number] 044 [id number] [facility] 2021-07-04 00:00:00 2021-07-04 00:00:00 Orders Only Doctor Unassigned, [place] [facility] 1.2.840.114 350.1.13.10 4.2.7.2.686 [id number] [facility] 2021-04-09 08:00:00 2021-04-09 08:00:00 Outpatient LARY LEW [facility] RAD [id number] [facility] 2021-03-31 10:19:01 2021-03-31 23:59:00 Hospital Encounter Radiology [facility] 1.2.840.114 350.1.13.10 4.2.7.2.686 [id number] [facility] 2021-03-31 00:00:00 2021-03-31 00:00:00 Outpatient R RADIOLOGY [facility] [id number] [facility] 2021-03-27 00:00:00 2021-03-27 00:00:00 Outpatient R RADIOLOGY [facility] [id number] [facility] 2021-03-23 09:30:00 2021-03-23 09:30:00 Outpatient R GRAZYNA RUSTAM [facility] [id number] [facility] 2021-03-20 00:00:00 2021-03-20 00:00:00 Telephone Elias Malone [facility] Office Building One 1.2.840.114 350.1.13.10 4.2.7.2.686 [id number] [facility] 2021-03-11 00:00:00 2021-03-11 00:00:00 Refill Lary Anderson [facility] Building 1.2.840.114 350.1.13.10 4.2.7.2.686 [id number] 231 [id number] [facility] 2021-03-02 15:30:00 2021-03-02 15:30:00 Outpatient R ELIAS MALONE [facility] [id number] [facility] 2021-02-06 00:00:00 2021-02-06 00:00:00 Telephone Lary Anderson [facility] Building 1.2.840.114 350.1.13.10 4.2.7.2.686 [id number] 231 [id number] [facility] 2020-12-12 00:00:00 2020-12-12 00:00:00 Telephone Lary Anderson [facility] Building 1.2.840.114 350.1.13.10 4.2.7.2.686 [id number] 231 [id number] [facility] 2020-12-04 08:00:00 2020-12-04 08:00:00 Outpatient R CHETAN BERRY [facility] [id number] [facility] 2020-12-03 00:00:00 2020-12-03 00:00:00 Letter (Out) Lary Anderson [facility] Building 1.2.840.114 350.1.13.10 4.2.7.2.686 [id number] 231 [id number] [facility] 2020-12-02 12:44:22 2020-12-02 13:35:29 Office Visit Chetan Berry [facility] 1.2.840.114 350.1.13.10 4.2.7.2.686 [id number] [facility] 2020-12-02 13:00:00 2020-12-02 13:00:00 Outpatient CHETAN BROWN [facility] [id number] [facility] 2020-11-27 10:00:00 2020-11-27 10:00:00 Outpatient CHETAN BORWN [facility] [id number] [facility] 2020-11-27 00:00:00 2020-11-27 00:00:00 Telephone Elias Malone [facility] Building 1.2.840.114 350.1.13.10 4.2.7.2.686 [id number] [facility] 2020-11-26 09:08:00 2020-11-26 09:23:00 Ore Tester Visit 2, Adc Lab Elias Malone [facility] Building 1.2840.114 350.1.13.10 4.2.7.2.686 [id number] [facility] 2020-11-26 07:57:23 2020-11-26 09:01:25 Office Visit Elias Malone [facility] Building 1.2840.114 350.1.13.10 4.2.7.2.686 [id number] [facility] 2020-11-26 08:00:00 2020-11-26 08:00:00 Outpatient R HERMINIO [facility] [id number] [facility] 2020-11-20 08:30:00 2020-11-20 08:30:00 Outpatient R TAMI [facility] [id number] [facility] 2020-11-04 00:00:00 2020-11-04 00:00:00 Telephone Lary Anderson [facility] Building One 1.840.114 350.1.13.10 4.2.7.2.686 [id number] [facility] 2020-10-09 00:00:00 2020-10-09 00:00:00 Orders Only Doctor Unassigned, [place] [facility] 1.840.114 350.1.13.10 4.2.7.2.686 [id number] [facility] 2020-09-01 09:40:00 2020-09-01 09:40:00 Outpatient R JENNIE TYSON [facility] [id number] [facility] 2020-07-08 15:45:00 2020-07-08 23:59:00 Hospital Encounter Radiology [facility] 1.2840.114 350.1.13.10 4.2.7.2.686 [id number] [facility] 2020-07-08 00:00:00 2020-07-08 00:00:00 Outpatient R RADIOLOGY [facility] [id number] [facility] 2020-07-08 00:00:00 2020-07-08 00:00:00 Orders Only Doctor Unassigned, [place] [facility] 1.20.114 350.1.13.10 4.2.7.2.686 [id number] [id number] [facility] 2020-07-04 09:27:29 2020-07-04 10:25:01 Office Visit Lary Anderson [facility] Building 1..114 350.1.13.10 4.2.7.2.686 [id number] [facility] 2020-07-04 09:20:00 2020-07-04 09:20:00 Outpatient R LARY ANDERSON [facility] [id number] [facility] 2020-07-04 00:00:00 2020-07-04 00:00:00 Orders Only Doctor Unassigned, [place] [facility] 1.114 350.1.13.10 4.2.7.2.686 [id number] [facility] 2020-06-19 10:40:00 2020-06-19 10:40:00 Outpatient R LARY ANDERSON [facility] [id number] [facility] 2020-06-19 00:00:00 2020-06-19 00:00:00 Telephone Lary Anderson [facility] Office Building One 1.114 350.1.13.10 4.2.7.2.686 [id number] 044 [id number] [facility] 2020-06-18 08:57:41 2020-06-18 23:59:00 Hospital Encounter Radiology [facility] 1..114 350.1.13.10 4.2.7.2.686 [id number] [facility] 2020-06-18 10:39:58 2020-06-18 10:54:58 Ore Tester Visit 2, Adc Lab Lary Anderson [facility] Building 1.20.114 350.1.13.10 4.2.7.2.686 [id number] [facility] 2020-06-18 00:00:00 2020-06-18 00:00:00 Outpatient R RADIOLOGY [facility] [id number] [facility] 2020-06-18 00:00:00 2020-06-18 00:00:00 Orders Only Doctor Unassigned, [place] [facility] 1.2.114 350.1.13.10 4.2.7.2.686 [id number] [facility] 2020-06-18 00:00:00 2020-06-18 00:00:00 Telephone Anderson Lary A [facility] 1.284.114 350.1.13.10 4.2.7.2.686 [id number] [facility] 2020-06-16 00:00:00 2020-06-16 00:00:00 Refill Anderson Lary A [facility] Building 1.284.114 350.1.13.10 4.2.7.2.686 [id number] [facility] 2020-05-23 15:00:00 2020-05-23 15:00:00 Outpatient R LARY ANDERSON [facility] [id number] [facility] 2020-05-23 10:43:05 2020-05-23 11:03:05 Telemedici ne Visit Anderson Lary Tisha [facility] Building 1.284.114 350.1.13.10 4.2.7.2.686 [id number] [facility] 2020-05-19 09:20:00 2020-05-19 09:20:00 Outpatient R ANDERSONTRACIELARY [facility] [id number] [facility] 2020-05-19 00:00:00 2020-05-19 00:00:00 Telephone Monica Lary [facility] Building 1.2.840.114 350.1.13.10 4.2.7.2.686 [id number] 231 [id number] [facility] 2020-04-18 14:20:00 2020-04-18 14:20:00 Outpatient R ANDERSONTRACIELARY [facility] [id number] [facility] 2020-03-20 00:00:00 2020-03-20 00:00:00 Refill Monica Lary A [facility] Building 1.2.840.114 350.1.13.10 4.2.7.2.686 [id number] [facility] 2020-02-18 09:01:00 2020-02-19 08:24:09 Telemedici ne Visit AndersonTracieLary A [facility] Building 1.2.840.114 350.1.13.10 4.2.7.2.686 [id number] [facility] 2020-02-18 07:40:00 2020-02-18 07:40:00 Outpatient R MONICA LARY [facility] [id number] [facility] 2020-02-18 00:00:00 2020-02-18 00:00:00 Refill AndersonTracieLary A [facility] Building 1.2.840.114 350.1.13.10 4.2.7.2.686 [id number] 231 [id number] [facility] 2020-02-13 00:00:00 2020-02-13 00:00:00 [facility] 1.2.840.114 350.1.13.10 4.2.7.2.686 [id number] 231 [id number] [facility] 2020-01-15 00:00:00 2020-01-15 00:00:00 Refill Lary Anderson [facility] Building 1.2.840.114 350.1.13.10 4.2.7.2.686 [id number] 231 [id number] [facility] 2020-01-09 00:00:00 2020-01-09 00:00:00 Refill Lary Anderson [facility] 1.2.840.114 350.1.13.10 4.2.7.2.686 [id number] 231 [id number] [facility] 2019-12-27 07:00:00 2019-12-27 07:00:00 Outpatient R LARY ANDERSON [facility] [id number] [facility] 2019-11-23 07:20:00 2019-11-23 07:20:00 Outpatient R LAYR ANDERSON [facility] [id number] [facility] 2019-08-08 07:44:02 2019-08-08 23:59:00 Outpatient LARY LEW [facility] [id number] [facility] 2019-04-16 00:00:00 2019-04-16 00:00:00 Telephone Anibal Mcnamara [facility] Building 1.2.840.114 350.1.13.10 4.2.7.2.686 [id number] [facility] 2019-04-09 00:00:00 2019-04-09 00:00:00 Telephone Anibal Mcnamara [facility] Building 1.2.840.114 350.1.13.10 4.2.7.2.686 [id number] 044 [id number] [facility] 2019-04-06 00:00:00 2019-04-06 00:00:00 Telephone Anibal Mcnamara [facility] 1.2.840.114 350.1.13.10 4.2.7.2.686 [id number] [id number] [facility] 2019-04-04 10:50:20 2019-04-04 23:59:00 Hospital Encounter Lary Anderson [facility] 1.2.840.114 350.1.13.10 4.2.7.2.686 [id number] 807 [id number] [facility] Results Test Description Test Time Test Comments Results Result Co mments Source [facility] GLUCOSE (AUTOMATED)2023-11-12 02:49:38* Test Item Value Reference Range Interpretation Comme nts POCT GLU (test code = 9638164356) 114 mg/dL 70-110 H Lab Interpretation (test cod e = 05261-6) Abnormal [facility] GLUCOSE (AUTOMATED)2023-11-11 23:46:06* Test Item Value Reference Range Interpretation Comme nts POCT GLU (test code = 8870755440) 133 mg/dL 70-110 H Lab Interpretation (test cod e = 33894-8) Abnormal [facility] GLUCOSE (AUTOMATED)2023-11-11 18:34:28* Test Item Value Reference Range Interpretation Comme nts POCT GLU (test code = 8846370766) 131 mg/dL 70-110 H Lab Interpretation (test cod e = 22365-3) Abnormal [facility] GLUCOSE (AUTOMATED)2023-11-11 14:20:44* Test Item Value Reference Range Interpretation Comme nts POCT GLU (test code = 7117800610) 117 mg/dL 70-110 H Lab Interpretation (test cod e = 90173-5) Abnormal [facility] Metabolic Panel (NA, K, CL, CO2, GLUCOSE, BUN, CREATININE, CA)2023-11-11 12:58:16* Test Item Value Reference Range Interpretation Comme nts NA (test code = 0753455424) 136 mmol/L 135-145 K (test code = 4156038642) 3.5 mmol/L 3.5-5.0 CL (test code = 4898573083) 101 mmol/L 98-108 CO2 TOTAL (test code = 9759017234) 30 mmol/L 23-31 AGAP (test code = 2813295493) 5 2-16 BUN (test code = 5033458043) 13 mg/dL 7-23 GLUCOSE (test code = 7031526541) 108 mg/dL 70-110 CREATININE (test code = 2160-0) 0.83 mg/dL 0.50-1.04 CALCIUM (test code = 0643474336) 8.6 mg/dL 8.6-10.6 eGFR (test code = 69216-7) 78.3 mL/min/1.73m2 CKD-EPI eGFR (20 21). Assuming creatinine has been stable day-to-day for at least three months, the eGFR indicates Category G2 (60 - 89 mL/min/1.73 m2) [facility] 12:58:16* Test Item Value Reference Range Interpretation Comme nts MAGNESIUM (test code = 8234938631) 1.9 mg/dL 1.7-2.4 Lab Interpretation (test cod e = 54986-2) Normal [facility] with Kjbl6030-54-62 12:48:36* Test Item Value Reference Range Interpretation Comme nts WBC (test code = 6690-2) 3.85 4.30-11.10 L RBC (test code = 789-8) 3.46 3.93-5.25 L HGB (test code = 718-7) 9.4 g/dL 11.6-15.0 L HCT (test code = 4544-3) 30.5 % 35.7-45.2 L MCV (test code = 787-2) 88.2 fL 80.6-95.5 MCH (test code = 785-6) 27.2 pg 25.9-32.8 MCHC (test code = 786-4) 30.8 g/dL 31.6-35.1 L RDW-SD (test code = 14716-5) 57.4 fL 39.0-49.9 H RDW-CV (test code = 788-0) 20.0 % 12.0-15.5 H PLT (test code = 777-3) 56 166-358 L MPV (test code = 19422-8) 11.6 fL 9.5-12.9 IPF % (test code = 8044276878) 7.4 % 1.3-7.7 Platelet count measured by fluorescence method. NRBC/100 WBC (test code = 5386512101) 0.0 0.0-10.0 NRBC x10^3 (test code = 8682551541) See_Comment [Automated Dataheroa ge] The system which generated this result transmitted reference range: 10*3/?L. The reference range was not used to interpret this result as normal/abnormal. GRAN MAT (NEUT) % (test code = 770-8) 56.8 % IMM GRAN % (test code = 2520024017) 0.50 % LYMPH % (test code = 736-9) 26.8 % MONO % (test code = 5905-5) 13.0 % EOS % (test code = 713-8) 2.1 % BASO % (test code = 706-2) 0.8 % GRAN MAT x10^3(ANC) (test code = 8406707050) 2.19 10*3/uL 1.88-7.09 IMM GRAN x10^3 (test code = 3517206100) 0.00-0.06 LYMPH x10^3 (test code = 731-0) 1.03 10*3/uL 1.32-3.29 L MONO x10^3 (test code = 742-7) 0.50 10*3/uL 0.33-0.92 EOS x10^3 (test code = 711-2) 0.08 10*3/uL 0.03-0.39 BASO x10^3 (test code = 704-7) 0.03 10*3/uL 0.01-0.07 Lab Interpretation (test code = 23115-2) Abnormal [facility] GLUCOSE (AUTOMATED)2023-11-11 03:02:01* Test Item Value Reference Range Interpretation Comme nts POCT GLU (test code = 1642025235) 137 mg/dL 70-110 H Lab Interpretation (test cod e = 27173-7) Abnormal [facility] GLUCOSE (AUTOMATED)2023-11-10 23:32:12* Test Item Value Reference Range Interpretation Comme nts POCT GLU (test code = 2229918538) 153 mg/dL 70-110 H Lab Interpretation (test cod e = 75232-9) Abnormal [facility] GLUCOSE (AUTOMATED)2023-11-10 17:35:48* Test Item Value Reference Range Interpretation Comme nts POCT GLU (test code = 7929045364) 165 mg/dL 70-110 H Lab Interpretation (test cod e = 34551-0) Abnormal [facility] GLUCOSE (AUTOMATED)2023-11-10 14:16:52* Test Item Value Reference Range Interpretation Comme nts POCT GLU (test code = 9927506103) 140 mg/dL 70-110 H Lab Interpretation (test cod e = 48730-2) Abnormal [facility] with Unou2659-08-61 13:10:49* Test Item Value Reference Range Interpretation Comme nts WBC (test code = 6690-2) 3.49 4.30-11.10 L RBC (test code = 789-8) 3.22 3.93-5.25 L HGB (test code = 718-7) 8.6 g/dL 11.6-15.0 L HCT (test code = 4544-3) 28.1 % 35.7-45.2 L MCV (test code = 787-2) 87.3 fL 80.6-95.5 MCH (test code = 785-6) 26.7 pg 25.9-32.8 MCHC (test code = 786-4) 30.6 g/dL 31.6-35.1 L RDW-SD (test code = 49904-9) 56.9 fL 39.0-49.9 H RDW-CV (test code = 788-0) 19.9 % 12.0-15.5 H PLT (test code = 777-3) 55 166-358 L MPV (test code = 79142-6) 10.6 fL 9.5-12.9 IPF % (test code = 7246875870) 7.3 % 1.3-7.7 Platelet count measured by fluorescence method. NRBC/100 WBC (test code = 5085631031) 0.0 0.0-10.0 NRBC x10^3 (test code = 3558731306) See_Comment [Automated messa ge] The system which generated this result transmitted reference range: 10*3/?L. The reference range was not used to interpret this result as normal/abnormal. GRAN MAT (NEUT) % (test code = 770-8) 50.1 % IMM GRAN % (test code = 3915572999) 0.30 % LYMPH % (test code = 736-9) 31.5 % MONO % (test code = 5905-5) 14.3 % EOS % (test code = 713-8) 2.9 % BASO % (test code = 706-2) 0.9 % GRAN MAT x10^3(ANC) (test code = 0456210944) 1.75 10*3/uL 1.88-7.09 L IMM GRAN x10^3 (test code = 1463268090) 0.00-0.06 LYMPH x10^3 (test code = 731-0) 1.10 10*3/uL 1.32-3.29 L MONO x10^3 (test code = 742-7) 0.50 10*3/uL 0.33-0.92 EOS x10^3 (test code = 711-2) 0.10 10*3/uL 0.03-0.39 BASO x10^3 (test code = 704-7) 0.03 10*3/uL 0.01-0.07 Lab Interpretation (test code = 01107-9) Abnormal [facility] Metabolic Panel (NA, K, CL, CO2, GLUCOSE, BUN, CREATININE, CA)2023-11-10 12:49:24* Test Item Value Reference Range Interpretation Comme nts NA (test code = 6824040906) 139 mmol/L 135-145 K (test code = 0268675927) 3.1 mmol/L 3.5-5.0 L CL (test code = 5066424176) 100 mmol/L 98-108 CO2 TOTAL (test code = 0816956337) 32 mmol/L 23-31 H AGAP (test code = 1828015714) 7 2-16 BUN (test code = 3939456943) 14 mg/dL 7-23 GLUCOSE (test code = 8464889673) 117 mg/dL 70-110 H CREATININE (test code = 2160-0) 0.78 mg/dL 0.50-1.04 CALCIUM (test code = 8732366106) 8.3 mg/dL 8.6-10.6 L eGFR (test code = 20860-8) 84.4 mL/min/1.73m2 CKD-EPI eGFR (2020). Assuming creatinine has been stable day-to-day for at least three months, the eGFR indicates Category G2 (60 - 89 mL/min/1.73 m2) Lab Interpretation (test code = 05902-1) [facility]* Test Item Value Reference Range Interpretation Comme nts MAGNESIUM (test code = 3212083583) 1.8 mg/dL 1.7-2.4 Lab Interpretation (test cod e = 80775-7) Normal [facility] GLUCOSE (AUTOMATED)2023-11-10 03:35:18* Test Item Value Reference Range Interpretation Comme nts POCT GLU (test code = 9525759380) 148 mg/dL 70-110 H Lab Interpretation (test cod e = 05461-3) Abnormal [facility] GLUCOSE (AUTOMATED)2023-11-09 22:25:22* Test Item Value Reference Range Interpretation Comme nts POCT GLU (test code = 6590192328) 191 mg/dL 70-110 H Lab Interpretation (test cod e = 61451-0) Abnormal [facility] GLUCOSE (AUTOMATED)2023-11-09 17:44:06* Test Item Value Reference Range Interpretation Comme nts POCT GLU (test code = 2821429046) 187 mg/dL 70-110 H Lab Interpretation (test cod e = 39410-5) Abnormal [facility] GLUCOSE (AUTOMATED)2023-11-09 14:29:25* Test Item Value Reference Range Interpretation Comme nts POCT GLU (test code = 0254836087) 168 mg/dL 70-110 H Lab Interpretation (test cod e = 29345-0) Abnormal [facility] Bjeg1993-92-00 13:39:23* Test Item Value Reference Range Interpretation Comme nts WBC (test code = 6690-2) 4.22 4.30-11.10 L RBC (test code = 789-8) 3.05 3.93-5.25 L HGB (test code = 718-7) 8.5 g/dL 11.6-15.0 L HCT (test code = 4544-3) 26.8 % 35.7-45.2 L MCV (test code = 787-2) 87.9 fL 80.6-95.5 MCH (test code = 785-6) 27.9 pg 25.9-32.8 MCHC (test code = 786-4) 31.7 g/dL 31.6-35.1 RDW-SD (test code = 69509-0) 55.4 fL 39.0-49.9 H RDW-CV (test code = 788-0) 19.9 % 12.0-15.5 H PLT (test code = 777-3) 58 166-358 L MPV (test code = 65954-8) 10.9 fL 9.5-12.9 IPF % (test code = 5406114637) 5.9 % 1.3-7.7 Platelet count measured by fluorescence method. NRBC/100 WBC (test code = 6951257736) 0.0 0.0-10.0 NRBC x10^3 (test code = 2463894597) See_Comment [Automated Dataheroa ge] The system which generated this result transmitted reference range: 10*3/?L. The reference range was not used to interpret this result as normal/abnormal. SEG % (test code = 41360-6) 70 % 33-76 BAND % (test code = 42044-1) 1 % 0-1 LYMPH % (test code = 00241-8) 19 % 14-54 MONO % (test code = 09402-8) 5 % 0-4 H EOS % (test code = 23611-6) 5 % 0-3 H ANC (test code = 753-4) 2.99 10*3/uL 1.88-7.09 Lab Interpretation (test code = 44192-5) Abnormal [facility] GLUCOSE (AUTOMATED)2023-11-09 02:45:26* Test Item Value Reference Range Interpretation Comme nts POCT GLU (test code = 2915494228) 191 mg/dL 70-110 H Lab Interpretation (test cod e = 33834-8) Abnormal [facility] GLUCOSE (AUTOMATED)2023-11-09 00:19:22* Test Item Value Reference Range Interpretation Comme nts POCT GLU (test code = 3624209414) 202 mg/dL 70-110 H Lab Interpretation (test cod e = 09471-7) Abnormal [facility] GLUCOSE (AUTOMATED)2023-11-08 19:04:30* Test Item Value Reference Range Interpretation Comme nts POCT GLU (test code = 1402125271) 247 mg/dL 70-110 H Lab Interpretation (test cod e = 41633-5) Abnormal [facility] GLUCOSE (AUTOMATED)2023-11-08 14:13:44* Test Item Value Reference Range Interpretation Comme nts POCT GLU (test code = 8053618631) 180 mg/dL 70-110 H Lab Interpretation (test cod e = 25523-8) Abnormal [facility] with [id number] 12:11:13* Test Item Value Reference Range Interpretation Comme nts WBC (test code = 6690-2) 5.62 4.30-11.10 RBC (test code = 789-8) 3.12 3.93-5.25 L HGB (test code = 718-7) 8.5 g/dL 11.6-15.0 L HCT (test code = 4544-3) 27.1 % 35.7-45.2 L MCV (test code = 787-2) 86.9 fL 80.6-95.5 MCH (test code = 785-6) 27.2 pg 25.9-32.8 MCHC (test code = 786-4) 31.4 g/dL 31.6-35.1 L RDW-SD (test code = 40605-1) 53.7 fL 39.0-49.9 H RDW-CV (test code = 788-0) 19.9 % 12.0-15.5 H PLT (test code = 777-3) 70 166-358 L MPV (test code = 84059-3) 11.0 fL 9.5-12.9 IPF % (test code = 0553952301) 6.7 % 1.3-7.7 Platelet count measured by fluorescence method. NRBC/100 WBC (test code = 5454636593) 0.0 0.0-10.0 NRBC x10^3 (test code = 5839524744) See_Comment [Automated messa ge] The system which generated this result transmitted reference range: 10*3/?L. The reference range was not used to interpret this result as normal/abnormal. GRAN MAT (NEUT) % (test code = 770-8) 63.1 % IMM GRAN % (test code = 0012986423) 0.40 % LYMPH % (test code = 736-9) 19.4 % MONO % (test code = 5905-5) 13.0 % EOS % (test code = 713-8) 3.6 % BASO % (test code = 706-2) 0.5 % GRAN MAT x10^3(ANC) (test code = 7881168439) 3.55 10*3/uL 1.88-7.09 IMM GRAN x10^3 (test code = 9998376758) 0.00-0.06 LYMPH x10^3 (test code = 731-0) 1.09 10*3/uL 1.32-3.29 L MONO x10^3 (test code = 742-7) 0.73 10*3/uL 0.33-0.92 EOS x10^3 (test code = 711-2) 0.20 10*3/uL 0.03-0.39 BASO x10^3 (test code = 704-7) 0.03 10*3/uL 0.01-0.07 Lab Interpretation (test code = 51804-8) Abnormal [facility] Metabolic Panel (NA, K, CL, CO2, GLUCOSE, BUN, CREATININE, CA)2023-11-08 11:33:21* Test Item Value Reference Range Interpretation Comme nts NA (test code = 6950625423) 138 mmol/L 135-145 K (test code = 4865624143) 3.1 mmol/L 3.5-5.0 L CL (test code = 3779819916) 103 mmol/L 98-108 CO2 TOTAL (test code = 4971474318) 30 mmol/L 23-31 AGAP (test code = 5245484217) 5 2-16 BUN (test code = 0010012011) 15 mg/dL 7-23 GLUCOSE (test code = 7493142257) 163 mg/dL 70-110 H CREATININE (test code = 2160-0) 0.81 mg/dL 0.50-1.04 CALCIUM (test code = 6910900269) 8.1 mg/dL 8.6-10.6 L eGFR (test code = 41383-6) 80.7 mL/min/1.73m2 CKD-EPI eGFR (2020). Assuming creatinine has been stable day-to-day for at least three months, the eGFR indicates Category G2 (60 - 89 mL/min/1.73 m2) Lab Interpretation (test code = 94565-3) [facility]* Test Item Value Reference Range Interpretation Comme nts MAGNESIUM (test code = 3808429399) 1.3 mg/dL 1.7-2.4 L Lab Interpretation (test cod e = 64742-9) Abnormal [facility] GLUCOSE (AUTOMATED)2023-11-08 02:00:07* Test Item Value Reference Range Interpretation Comme nts POCT GLU (test code = 4585977670) 192 mg/dL 70-110 H Lab Interpretation (test cod e = 81057-3) Abnormal [facility] GLUCOSE (AUTOMATED)2023-11-07 23:13:18* Test Item Value Reference Range Interpretation Comme nts POCT GLU (test code = 3325395122) 196 mg/dL 70-110 H Lab Interpretation (test cod e = 39106-0) Abnormal [facility] GLUCOSE (AUTOMATED)2023-11-07 17:26:17* Test Item Value Reference Range Interpretation Comme nts POCT GLU (test code = 3873298376) 203 mg/dL 70-110 H Lab Interpretation (test cod e = 94622-5) Abnormal [facility] GLUCOSE (AUTOMATED)2023-11-07 14:05:49* Test Item Value Reference Range Interpretation Comme nts POCT GLU (test code = 0651587443) 198 mg/dL 70-110 H Lab Interpretation (test cod e = 20006-1) Abnormal [facility] Metabolic Panel (NA, K, CL, CO2, GLUCOSE, BUN, CREATININE, CA)2023-11-07 12:53:44* Test Item Value Reference Range Interpretation Comme nts NA (test code = 9443372095) 138 mmol/L 135-145 K (test code = 2574847268) 3.6 mmol/L 3.5-5.0 CL (test code = 9395779196) 104 mmol/L 98-108 CO2 TOTAL (test code = 8976897330) 29 mmol/L 23-31 AGAP (test code = 0956305536) 5 2-16 BUN (test code = 7108791097) 15 mg/dL 7-23 GLUCOSE (test code = 6035494313) 171 mg/dL 70-110 H CREATININE (test code = 2160-0) 0.76 mg/dL 0.50-1.04 CALCIUM (test code = 9439524177) 8.6 mg/dL 8.6-10.6 eGFR (test code = 47140-7) 87.1 mL/min/1.73m2 CKD-EPI eGFR (2020). Assuming creatinine has been stable day-to-day for at least three months, the eGFR indicates Category G2 (60 - 89 mL/min/1.73 m2) Lab Interpretation (test code = 92333-4) [facility] 12:53:44* Test Item Value Reference Range Interpretation Comme nts MAGNESIUM (test code = 7266596916) 1.5 mg/dL 1.7-2.4 L Lab Interpretation (test cod e = 84650-1) Abnormal [facility] with Srta9459-60-83 12:48:07* Test Item Value Reference Range Interpretation Comme nts WBC (test code = 6690-2) 6.36 4.30-11.10 RBC (test code = 789-8) 3.28 3.93-5.25 L HGB (test code = 718-7) 8.9 g/dL 11.6-15.0 L HCT (test code = 4544-3) 28.4 % 35.7-45.2 L MCV (test code = 787-2) 86.6 fL 80.6-95.5 MCH (test code = 785-6) 27.1 pg 25.9-32.8 MCHC (test code = 786-4) 31.3 g/dL 31.6-35.1 L RDW-SD (test code = 55837-4) 52.0 fL 39.0-49.9 H RDW-CV (test code = 788-0) 19.1 % 12.0-15.5 H PLT (test code = 777-3) 81 166-358 L MPV (test code = 75774-1) 11.3 fL 9.5-12.9 IPF % (test code = 8348453287) 6.6 % 1.3-7.7 Platelet count measured by fluorescence method. NRBC/100 WBC (test code = 1435163166) 0.0 0.0-10.0 NRBC x10^3 (test code = 4145304844) See_Comment [Automated Dataheroa ge] The system which generated this result transmitted reference range: 10*3/?L. The reference range was not used to interpret this result as normal/abnormal. GRAN MAT (NEUT) % (test code = 770-8) 61.8 % IMM GRAN % (test code = 2551357388) 0.50 % LYMPH % (test code = 736-9) 21.5 % MONO % (test code = 5905-5) 12.6 % EOS % (test code = 713-8) 3.0 % BASO % (test code = 706-2) 0.6 % GRAN MAT x10^3(ANC) (test code = 7041640053) 3.93 10*3/uL 1.88-7.09 IMM GRAN x10^3 (test code = 6591292171) 0.03 10*3/uL 0.00-0.06 LYMPH x10^3 (test code = 731-0) 1.37 10*3/uL 1.32-3.29 MONO x10^3 (test code = 742-7) 0.80 10*3/uL 0.33-0.92 EOS x10^3 (test code = 711-2) 0.19 10*3/uL 0.03-0.39 BASO x10^3 (test code = 704-7) 0.04 10*3/uL 0.01-0.07 POLYCHROMASIA (test code = 84061-3) 2+ See_Comment [Automated Dataheroa ge] The system which generated this result transmitted reference range: 2+. The reference range was not used to interpret this result as normal/abnormal. Lab Interpretation (test code = 95565-7) Abnormal [facility] GLUCOSE (AUTOMATED)2023-11-07 02:28:16* Test Item Value Reference Range Interpretation Comme nts POCT GLU (test code = 2735579792) 192 mg/dL 70-110 H Lab Interpretation (test cod e = 93788-1) Abnormal [facility] GLUCOSE (AUTOMATED)2023-11-06 22:07:48* Test Item Value Reference Range Interpretation Comme nts POCT GLU (test code = 0869931156) 190 mg/dL 70-110 H Lab Interpretation (test cod e = 87344-8) Abnormal [facility] GLUCOSE (AUTOMATED)2023-11-06 17:49:10* Test Item Value Reference Range Interpretation Comme nts POCT GLU (test code = 6074661812) 223 mg/dL 70-110 H Lab Interpretation (test cod e = 94726-0) Abnormal [facility] GLUCOSE (AUTOMATED)2023-11-06 14:33:36* Test Item Value Reference Range Interpretation Comme nts POCT GLU (test code = 1282640244) 206 mg/dL 70-110 H Lab Interpretation (test cod e = 00746-1) Abnormal [facility] with Xtga8249-04-80 10:44:36* Test Item Value Reference Range Interpretation Comme nts WBC (test code = 6690-2) 6.74 4.30-11.10 RBC (test code = 789-8) 3.21 3.93-5.25 L HGB (test code = 718-7) 8.7 g/dL 11.6-15.0 L HCT (test code = 4544-3) 27.6 % 35.7-45.2 L MCV (test code = 787-2) 86.0 fL 80.6-95.5 MCH (test code = 785-6) 27.1 pg 25.9-32.8 MCHC (test code = 786-4) 31.5 g/dL 31.6-35.1 L RDW-SD (test code = 27655-4) 51.5 fL 39.0-49.9 H RDW-CV (test code = 788-0) 17.1 % 12.0-15.5 H PLT (test code = 777-3) 77 166-358 L MPV (test code = 24602-9) 11.5 fL 9.5-12.9 IPF % (test code = 6129725056) 7.0 % 1.3-7.7 Platelet count measured by fluorescence method. NRBC/100 WBC (test code = 3371591422) 0.0 0.0-10.0 NRBC x10^3 (test code = 7513994404) See_Comment [Automated Dataheroa ge] The system which generated this result transmitted reference range: 10*3/?L. The reference range was not used to interpret this result as normal/abnormal. GRAN MAT (NEUT) % (test code = 770-8) 71.1 % IMM GRAN % (test code = 6857880128) 0.30 % LYMPH % (test code = 736-9) 15.6 % MONO % (test code = 5905-5) 9.9 % EOS % (test code = 713-8) 2.5 % BASO % (test code = 706-2) 0.6 % GRAN MAT x10^3(ANC) (test code = 9192762503) 4.79 10*3/uL 1.88-7.09 IMM GRAN x10^3 (test code = 1143963259) 0.00-0.06 LYMPH x10^3 (test code = 731-0) 1.05 10*3/uL 1.32-3.29 L MONO x10^3 (test code = 742-7) 0.67 10*3/uL 0.33-0.92 EOS x10^3 (test code = 711-2) 0.17 10*3/uL 0.03-0.39 BASO x10^3 (test code = 704-7) 0.04 10*3/uL 0.01-0.07 Lab Interpretation (test code = 70478-9) [facility] (NA, K, CL, CO2, GLUCOSE, BUN, CREATININE, CA)2023-11-06 10:23:30* Test Item Value Reference Range Interpretation Comme nts NA (test code = 2232866540) 138 mmol/L 135-145 K (test code = 5483055784) 3.1 mmol/L 3.5-5.0 L CL (test code = 3321708924) 104 mmol/L 98-108 CO2 TOTAL (test code = 7086037795) 28 mmol/L 23-31 AGAP (test code = 5693233364) 6 2-16 BUN (test code = 6763786767) 12 mg/dL 7-23 GLUCOSE (test code = 1588895597) 172 mg/dL 70-110 H CREATININE (test code = 2160-0) 0.65 mg/dL 0.50-1.04 CALCIUM (test code = 1337887778) 8.3 mg/dL 8.6-10.6 L eGFR (test code = 91548-6) 97.8 mL/min/1.73m2 CKD-EPI eGFR (2020). Assuming creatinine has been stable day-to-day for at least three months, the eGFR indicates Category G1 (>= 90 mL/min/1.73 m2) Lab Interpretation (test code = 96600-9) [facility] 10:23:30* Test Item Value Reference Range Interpretation Comme nts MAGNESIUM (test code = 2471920532) 1.4 mg/dL 1.7-2.4 L Lab Interpretation (test cod e = 85758-3) [facility]normal [facility] ([facility] (ALB,T.PRO,BILI T,BU/BC,ALT,AST,ALK PHOS)2023-11-06 10:23:30* Test Item Value Reference Range Interpretation Comme nts TOTAL BILI (test code = 2838915232) 3.8 mg/dL 0.1-1.1 H BILI UNCON (test code = 1586693529) 2.6 mg/dL 0.1-1.1 H BILI CONJ (test code = 0230925602) 0.4 mg/dL 0.0-0.3 H T PROTEIN (test code = 9336217519) 6.7 g/dL 6.3-8.2 ALBUMIN (test code = 6011951326) 3.0 g/dL 3.5-5.0 L ALK PHOS (test code = 1097480249) 63 U/L 34-122 ALTv (test code = 1742-6) 18 U/L 5-35 AST(SGOT) (test code = 0049804046) 44 U/L 13-40 H Lab Interpretation (test cod e = 54070-5) [facility]normal [facility] / [id number] 10:21:28* Test Item Value Reference Range Interpretation Comme nts PROTIME PATIENT (test code = 5964-2) 18.0 10.1-12.6 H INR (test code = 6301-6) 1.6 Normal INR <1.1; Warfarin Therapeutic range 2.0 to 3.0 or 2.5 to 3.5, depending upon the indications. Lab Interpretation (test code = 07494-2) Abnormal [facility] GLUCOSE (AUTOMATED)2023-11-06 03:05:45* Test Item Value Reference Range Interpretation Comme nts POCT GLU (test code = 4278224462) 190 mg/dL 70-110 H Lab Interpretation (test cod e = 12822-1) Abnormal [facility] GLUCOSE (AUTOMATED)2023-11-05 22:46:21* Test Item Value Reference Range Interpretation Comme nts POCT GLU (test code = 2880230841) 204 mg/dL 70-110 H Lab Interpretation (test cod e = 38093-4) Abnormal [facility] GLUCOSE (AUTOMATED)2023-11-05 17:55:04* Test Item Value Reference Range Interpretation Comme nts POCT GLU (test code = 8678120899) 225 mg/dL 70-110 H Lab Interpretation (test cod e = 37306-3) Abnormal [facility] GLUCOSE (AUTOMATED)2023-11-05 15:25:04* Test Item Value Reference Range Interpretation Comme nts POCT GLU (test code = 1244160857) 198 mg/dL 70-110 H Lab Interpretation (test cod e = 56885-3) Abnormal [facility] Zucf0033-01-18 12:20:58* Test Item Value Reference Range Interpretation Comme nts WBC (test code = 6690-2) 7.41 4.30-11.10 RBC (test code = 789-8) 3.20 3.93-5.25 L HGB (test code = 718-7) 8.4 g/dL 11.6-15.0 L HCT (test code = 4544-3) 26.7 % 35.7-45.2 L MCV (test code = 787-2) 83.4 fL 80.6-95.5 MCH (test code = 785-6) 26.3 pg 25.9-32.8 MCHC (test code = 786-4) 31.5 g/dL 31.6-35.1 L RDW-SD (test code = 19964-6) 50.3 fL 39.0-49.9 H RDW-CV (test code = 788-0) 16.8 % 12.0-15.5 H PLT (test code = 777-3) 83 166-358 L MPV (test code = 00083-1) 11.9 fL 9.5-12.9 IPF % (test code = 4361486583) 7.6 % 1.3-7.7 Platelet count measured by fluorescence method. NRBC/100 WBC (test code = 9148049741) 0.0 0.0-10.0 NRBC x10^3 (test code = 5132514671) See_Comment [Automated messa ge] The system which generated this result transmitted reference range: 10*3/?L. The reference range was not used to interpret this result as normal/abnormal. GRAN MAT (NEUT) % (test code = 770-8) 65.0 % IMM GRAN % (test code = 2019468864) 0.70 % LYMPH % (test code = 736-9) 19.8 % MONO % (test code = 5905-5) 10.3 % EOS % (test code = 713-8) 3.5 % BASO % (test code = 706-2) 0.7 % GRAN MAT x10^3(ANC) (test code = 0952078062) 4.82 10*3/uL 1.88-7.09 IMM GRAN x10^3 (test code = 0510923438) 0.05 10*3/uL 0.00-0.06 LYMPH x10^3 (test code = 731-0) 1.47 10*3/uL 1.32-3.29 MONO x10^3 (test code = 742-7) 0.76 10*3/uL 0.33-0.92 EOS x10^3 (test code = 711-2) 0.26 10*3/uL 0.03-0.39 BASO x10^3 (test code = 704-7) 0.05 10*3/uL 0.01-0.07 Lab Interpretation (test code = 00052-6) [facility] 11:50:29* Test Item Value Reference Range Interpretation Comme nts MAGNESIUM (test code = 2879996218) 1.8 mg/dL 1.7-2.4 Lab Interpretation (test cod e = 53045-3) [facility] (13230)2023-11-05 11:50:29* Test Item Value Reference Range Interpretation Comme nts NA (test code = 9943060611) 136 mmol/L 135-145 K (test code = 1492724790) 3.5 mmol/L 3.5-5.0 CL (test code = 1819669139) 103 mmol/L 98-108 CO2 TOTAL (test code = 7907425622) 28 mmol/L 23-31 AGAP (test code = 8588599645) 5 2-16 BUN (test code = 3921932512) 14 mg/dL 7-23 GLUCOSE (test code = 5899535143) 175 mg/dL 70-110 H CREATININE (test code = 2160-0) 0.74 mg/dL 0.50-1.04 TOTAL BILI (test code = 2522050904) 4.3 mg/dL 0.1-1.1 H CALCIUM (test code = 6123572528) 8.4 mg/dL 8.6-10.6 L T PROTEIN (test code = 1089428162) 7.2 g/dL 6.3-8.2 ALBUMIN (test code = 6564640654) 3.3 g/dL 3.5-5.0 L ALK PHOS (test code = 5320241388) 69 U/L 34-122 ALTv (test code = 1742-6) 20 U/L 5-35 AST(SGOT) (test code = 7910070818) 54 U/L 13-40 H eGFR (test code = 08485-9) 89.9 mL/min/1.73m2 Lab Interpretation (test cod e = 31335-4) Abnormal [facility] GLUCOSE (AUTOMATED)2023-11-05 03:19:36* Test Item Value Reference Range Interpretation Comme nts POCT GLU (test code = 3862934715) 214 mg/dL 70-110 H Notified Provide r Lab Interpretation (test code = 33550-3) Abnormal [facility] GLUCOSE (AUTOMATED)2023-11-04 23:04:22* Test Item Value Reference Range Interpretation Comme nts POCT GLU (test code = 7381599811) 215 mg/dL 70-110 H Lab Interpretation (test cod e = 79103-5) Abnormal [facility]. Metabolic Panel (72633)2023-11-04 20:30:50* Test Item Value Reference Range Interpretation Comme nts NA (test code = 1714811111) 134 mmol/L 135-145 L K (test code = 4362096833) 3.8 mmol/L 3.5-5.0 CL (test code = 7495217295) 103 mmol/L 98-108 CO2 TOTAL (test code = 0102395381) 24 mmol/L 23-31 AGAP (test code = 2090990130) 7 2-16 BUN (test code = 9562786855) 15 mg/dL 7-23 GLUCOSE (test code = 5658097384) 224 mg/dL 70-110 H CREATININE (test code = 2160-0) 0.75 mg/dL 0.50-1.04 TOTAL BILI (test code = 9749521701) 4.8 mg/dL 0.1-1.1 H CALCIUM (test code = 0502999521) 8.2 mg/dL 8.6-10.6 L T PROTEIN (test code = 2221535733) 7.1 g/dL 6.3-8.2 ALBUMIN (test code = 8709941456) 3.2 g/dL 3.5-5.0 L ALK PHOS (test code = 8026493208) 63 U/L 34-122 ALTv (test code = 1742-6) 20 U/L 5-35 AST(SGOT) (test code = 0765168110) 57 U/L 13-40 H eGFR (test code = 66735-1) 88.5 mL/min/1.73m2 CKD-EPI eGFR (2020). Assuming creatinine has been stable day-to-day for at least three months, the eGFR indicates Category G2 (60 - 89 mL/min/1.73 m2) Lab Interpretation (test code = 92821-1) [facility] (54920)2023-11-04 20:30:50* Test Item Value Reference Range Interpretation Comme nts NA (test code = 4705970528) 134 mmol/L 135-145 L K (test code = 3161522928) 3.8 mmol/L 3.5-5.0 CL (test code = 0909414305) 103 mmol/L 98-108 CO2 TOTAL (test code = 2642600111) 24 mmol/L 23-31 AGAP (test code = 3536025877) 7 2-16 BUN (test code = 4059448310) 15 mg/dL 7-23 GLUCOSE (test code = 2364134284) 224 mg/dL 70-110 H CREATININE (test code = 2160-0) 0.75 mg/dL 0.50-1.04 TOTAL BILI (test code = 0021393701) 4.8 mg/dL 0.1-1.1 H CALCIUM (test code = 2082282500) 8.2 mg/dL 8.6-10.6 L T PROTEIN (test code = 4158834977) 7.1 g/dL 6.3-8.2 ALBUMIN (test code = 1150885828) 3.2 g/dL 3.5-5.0 L ALK PHOS (test code = 3375601778) 63 U/L 34-122 ALTv (test code = 1742-6) 20 U/L 5-35 AST(SGOT) (test code = 6134812925) 57 U/L 13-40 H eGFR (test code = 21859-4) 88.5 mL/min/1.73m2 CKD-EPI eGFR (2020). Assuming creatinine has been stable day-to-day for at least three months, the eGFR indicates Category G2 (60 - 89 mL/min/1.73 m2) Lab Interpretation (test code = 87137-5) Abnormal [facility] GLUCOSE (AUTOMATED)2023-11-04 18:44:14* Test Item Value Reference Range Interpretation Comme [facility] POCT GLU (test code = 7578698634) 235 mg/dL 70-110 H Lab Interpretation (test cod e = 14982-3) Abnormal [facility] GLUCOSE (AUTOMATED)2023-11-04 18:44:14* Test Item Value Reference Range Interpretation Comme [facility] POCT GLU (test code = 6148841495) 235 mg/dL 70-110 H Lab Interpretation (test cod e = 88593-8) Abnormal [facility] without [id number] 17:36:26* Test Item Value Reference Range Interpretation Comme nts WBC (test code = 6690-2) 7.43 4.30-11.10 RBC (test code = 789-8) 2.75 3.93-5.25 L HGB (test code = 718-7) 7.4 g/dL 11.6-15.0 L HCT (test code = 4544-3) 23.2 % 35.7-45.2 L MCH (test code = 785-6) 26.9 pg 25.9-32.8 MCV (test code = 787-2) 84.4 fL 80.6-95.5 MCHC (test code = 786-4) 31.9 g/dL 31.6-35.1 PLT (test code = 777-3) 72 166-358 L MPV (test code = 77975-5) 12.2 fL 9.5-12.9 RDW-CV (test code = 788-0) 16.6 % 12.0-15.5 H RDW-SD (test code = 91226-5) 50.1 fL 39.0-49.9 H NRBC x10^3 (test code = 3552004329) 0.03 See_Comment [Automated Data[employer] ge] The system which generated this result transmitted reference range: 10*3/?L. The reference range was not used to interpret this result as normal/abnormal. NRBC/100 WBC (test code = 6602025212) 0.4 0.0-10.0 IPF % (test code = 7982623754) 8.1 % 1.3-7.7 H Platelet count measured by fluorescence method. Lab Interpretation (test code = 86370-3) [facility] [id number] 17:36:26* Test Item Value Reference Range Interpretation Comme nts WBC (test code = 6690-2) 7.43 4.30-11.10 RBC (test code = 789-8) 2.75 3.93-5.25 L HGB (test code = 718-7) 7.4 g/dL 11.6-15.0 L HCT (test code = 4544-3) 23.2 % 35.7-45.2 L MCH (test code = 785-6) 26.9 pg 25.9-32.8 MCV (test code = 787-2) 84.4 fL 80.6-95.5 MCHC (test code = 786-4) 31.9 g/dL 31.6-35.1 PLT (test code = 777-3) 72 166-358 L MPV (test code = 52582-2) 12.2 fL 9.5-12.9 RDW-CV (test code = 788-0) 16.6 % 12.0-15.5 H RDW-SD (test code = 73107-3) 50.1 fL 39.0-49.9 H NRBC x10^3 (test code = 9349678197) 0.03 See_Comment [Automated messa ge] The system which generated this result transmitted reference range: 10*3/?L. The reference range was not used to interpret this result as normal/abnormal. NRBC/100 WBC (test code = 7859663534) 0.4 0.0-10.0 IPF % (test code = 9961992282) 8.1 % 1.3-7.7 H Platelet count measured by fluorescence method. Lab Interpretation (test code = 25921-3) [facility] 14:08:33* Test Item Value Reference Range Interpretation Comme nts POCT GLU (test code = 1217920712) 232 mg/dL 70-110 H Lab Interpretation (test cod e = 43085-7) Abnormal [facility] GLUCOSE (AUTOMATED)2023-11-04 14:08:33* Test Item Value Reference Range Interpretation Comme nts POCT GLU (test code = 4159188192) 232 mg/dL 70-110 H Lab Interpretation (test cod e = 60229-3) [facility] (in units), 1 Units 2023-11-04 13:46:44* Test Item Value Reference Range Interpretation Comme nts Cross Match Result (test code = 4409) Compatible ISBT Blood Type Code (test code = 134165) 6200 Unit Blood Type (test code = 4410) A Pos Unit Number (test code = 4411) [id number] Blood Expiration Date & Time (test code = 466010) [id number] Status Information (test code = 4412) Issued Product Identification (test code = 4413) Red Blood Cells Product Code (test code = 4414) [id number] Performed at [facility] Blood [address] Free: [phone] No. [id number] [facility] Packed RBC (in units), 1 Units 2023-11-04 13:46:44* Test Item Value Reference Range Interpretation Comme nts Cross Match Result (test code = 4409) Compatible ISBT Blood Type Code (test code = 312464) 6200 Unit Blood Type (test code = 4410) A Pos Unit Number (test code = 4411) [id number] Blood Expiration Date & Time (test code = 074540) [id number] Status Information (test code = 4412) Issued Product Identification (test code = 4413) Red Blood Cells Product Code (test code = 4414) [id number] Performed at [facility] Blood [address] Free: [phone] No. [id number] [facility] GLUCOSE (AUTOMATED)2023-11-04 05:27:38* Test Item Value Reference Range Interpretation Comme nts POCT GLU (test code = 0052749522) 286 mg/dL 70-110 H Notified Provide r Lab Interpretation (test code = 62185-8) Abnormal [facility] GLUCOSE (AUTOMATED)2023-11-04 05:27:38* Test Item Value Reference Range Interpretation Comme nts POCT GLU (test code = 4134210147) 286 mg/dL 70-110 H Notified Provide r Lab Interpretation (test code = 96222-5) Abnormal [facility] GLUCOSE (AUTOMATED)2023-11-04 02:41:44* Test Item Value Reference Range Interpretation Comme nts POCT GLU (test code = 3137747702) 291 mg/dL 70-110 H Lab Interpretation (test cod e = 21271-5) Abnormal [facility] GLUCOSE (AUTOMATED)2023-11-04 02:41:44* Test Item Value Reference Range Interpretation Comme nts POCT GLU (test code = 3393439628) 291 mg/dL 70-110 H Lab Interpretation (test cod e = 94645-6) Abnormal [facility] GLUCOSE (AUTOMATED)2023-11-03 22:50:24* Test Item Value Reference Range Interpretation Comme nts POCT GLU (test code = 3598169306) 229 mg/dL 70-110 H Notified Provide r Lab Interpretation (test code = 71562-4) Abnormal [facility] GLUCOSE (AUTOMATED)2023-11-03 22:50:24* Test Item Value Reference Range Interpretation Comme nts POCT GLU (test code = 3174430798) 229 mg/dL 70-110 H Notified Provide r Lab Interpretation (test code = 04475-8) Abnormal [facility] [id number] 18:12:16* Test Item Value Reference Range Interpretation Comme nts IRON (test code = 6341567302) 419 ug/dL 50-160 H TIBC (test code = 8598270359) 449 ug/dL 250-410 H % FE SAT (test code = 0391201919) 93 % 20-50 H Lab Interpretation (test cod e = 59561-3) Abnormal [facility] [id number] 18:12:16* Test Item Value Reference Range Interpretation Comme nts IRON (test code = 0948892453) 419 ug/dL 50-160 H TIBC (test code = 3340768948) 449 ug/dL 250-410 H % FE SAT (test code = 5430767068) 93 % 20-50 H Lab Interpretation (test cod e = 13627-7) [facility] 18:06:55* Test Item Value Reference Range Interpretation Comme nts Height (test code = 6730666991) 66 in Weight (test code = 1428713335) 180 lbs Systolic BP (test code = 3372412651) 99 mmHg Diastolic BP (test code = 0118941591) 64 mmHg Heart Rate (test code = 2040102593) 83 bpm BSA (test code = 5740794942) 1.91 m2 Ao root diam (test code = 6701721073) 3.10 cm Aortic root (test code = 3966154642) 3.1 cm Ao root annulus (test code = 1294753056) 3.1 cm LA size (test code = 0860974649) 4.0 cm Sinus (test code = 0173690621) 2.9 cm STJ (test code = 1701663182) 2.8 cm MV Peak E Shar (test code = 9400377487) 136.4 cm/s MV Peak A Shar (test code = 7717636913) 123.5 cm/s E/A ratio (test code = 4105031201) 1.10 ratio E wave decelartion time (test code = 7676661960) 0.19 s MV E/e' septal (test code = 8689244298) 6.7 cm/s MV Prop V (test code = 3360745866) 39.50 cm/s LAV(MOD-sp4) (test code = 0686882144) 75.30 mL LVOT peak shar (test code = 1893272218) 126.1 cm/s LVOT mn grad (test code = 7308819865) 3.6 mmHg AV LVOT peak gradient (test code = 2053129404) 6.4 mmHg LVOT peak VTI (test code = 4626255109) 27.2 cm LV V1 mean (test code = 6739422021) 90.80 cm/s Aortic valve mean velocity (test code = 5758755232) 132.9 cm/s Ao peak shar (test code = 5204887278) 201.7 cm/s Ao VTI (test code = 8312643976) 43.7 cm Ao max PG (test code = 6493456358) 16.30 mm[Hg] AV peak gradient (test code = 7698403440) 16.3 mmHg AV mean gradient (test code = 8732421438) 8.0 mmHg TASV (test code = 4277679993) 11.2 cm/s LA Volume Index (BP) (test code = 2068236586) 46.8 mL/m2 LA volume (BP) (test code = 8302670825) 89.5 mL LAV(MOD-sp2) (test code = 9035159759) 69.00 mL LVIDD (test code = 8184438456) 5.30 cm Left Ventricular End Diastolic Volume by Teichholz Method (test code = 4165755) 136.1 mL IVS (test code = 2067906709) 1.00 cm Interventricular Septum Diastolic Thickness by 2D (test code = 3862904) 1.00 cm LVPWD (test code = 0181244703) 1.02 cm PW (test code = 7479376912) 1.02 cm 0.6-1.1 EF(Teich) (test code = 8192602419) 47.90 % LVIDS (test code = 5737934954) 4.00 cm Left Ventricular End Systolic Volume by Teichholz Method (test code = 7383855) 70.9 mL FS (test code = 9355401669) 24 % EF - 2D (test code = 49990941) 47.90 % LVOT stroke volume (test code = 2408349483) 101.80 cm3 LVOT diameter (test code = 5732807739) 2.18 cm LVOT area (test code = 5162706325) 3.70 cm2 AV area by cont VTI (test code = 5089221230) 2.3 cm2 AV area peak shar (test code = 8249671870) 2.3 cm2 AV valve area (test code = 4822444030) 2.33 cm2 A4C EF (test code = 8407124480) 45.20 % EF(sp4-el) (test code = 9331947032) 44.40 % SV(MOD-sp4) (test code = 3187255093) 68.50 mL SV(sp4-el) (test code = 0533145776) 68.10 mL LV Diastolic Volume (BP) (test code = 2760054708) 166.3 mL A2C EF (test code = 7398170149) 52.50 % EF(MOD-bp) (test code = 7307723181) 50.40 % EF(sp2-el) (test code = 8632252869) 52.80 % LV Systolic Volume (BP) (test code = 0092306188) 82.5 mL SV(MOD-bp) (test code = 2039702008) 83.80 mL SV(MOD-sp2) (test code = 4854841760) 88.70 mL EF (test code = 6126620588) 50 Left Ventricular Stroke Volume by 2-D Biplane-MOD (test code = 2365705) 83.8 mL TR Peak Shar (test code = 4803197081) 270.3 cm/s Triscuspid Valve Regurgitation Peak Gradient (test code = 6100971851) 29.2 mmHg LV Diastolic Volume Index (BP) (test code = 7479181597) 87.1 mL/m2 LV Systolic Volume Index (BP) (test code = 6566610727) 43.2 mL/m2 Radiology Study observation (narrative) (test code = 56825-6) CHAD (test code = CHAD) ?Left?Ventricle: Left ventricle is mildly dilated. Increased wall thickness. Mildly increased ventricular mass. There is eccentric hypertrophy. Normal wall motion. Low normal systolic function with a visually estimated EF of 50 - 55%. EF by 2D Pérez biplane is 50%. There is grade 2 diastolic dysfunction. Elevated left ventricular filling pressure. ?Right?Ventricle: Right ventricle size is normal. Normal systolic function. ?Left?Atrium: Left atrium is moderately dilated. Left atrium volume index is 46.8 mL/m2. ?Aortic?Valve: Consistent with mild aortic stenosis. AV mean gradient is 8.0 mmHg. AV peak velocity is 201.7 cm/s. AV area by continuity VTI is 2.3 cm2. ?Tricuspid?Valve: Tricuspid valve structure is normal. Mild transvalvular regurgitation. Right ventricular systolic pressure is 40-45 mmHg. ?IVC/SVC: IVC diameter is greater than 21 mm and decreases less than 50% during inspiration; therefore the estimated right atrial pressure is elevated (~15 mmHg). Mitchel Renee MD Left VentricleLeft ventricle is mildly dilated. Increased wall thickness. Mildly increased ventricular mass. There is eccentric hypertrophy. Normal wall motion. Low normal systolic function with a visually estimated EF of 50 - 55%. EF by 2D Pérez biplane is 50%. There is grade 2 diastolic dysfunction. Elevated left ventricular filling pressure.Right VentricleRight ventricle size is normal. Normal systolic function.Left AtriumLeft atrium is moderately dilated. Left atrium volume index is 46.8 mL/m2.Right AtriumRight atrium size is normal.IVC/SVCIVC diameter is greater than 21 mm and decreases less than 50% during inspiration; therefore the estimated right atrial pressure is elevated (~15 mmHg).Mitral ValveMild posterior mitral annular calcification. Trace transvalvular regurgitation.Tricusp id ValveTricuspid valve structure is normal. Mild transvalvular regurgitation. Right ventricular systolic pressure is 40-45 mmHg.Aortic ValveMildly thickened cusps. Mildly calcified cusps. Mild annular calcification. Consistent with mild aortic stenosis. AV mean gradient is 8.0 mmHg. AV peak velocity is 201.7 cm/s. AV area by continuity VTI is 2.3 cm2.Pulmonic ValveNot well visualized. Mild transvalvular regurgitation.Ascendi ng AortaNormal sized aortic root.PericardiumThe pericardium is normal. No pericardial effusion.Study DetailsStudy quality was adequate. A complete echocardiogram was performed using 2D, color flow Doppler and spectral Doppler. 5 mL of Lumason ultrasound enhancing agent used. [facility] 18:06:55* Test Item Value Reference Range Interpretation Comme nts Height (test code = 8260720445) 66 in Weight (test code = 6012801237) 180 lbs Systolic BP (test code = 5880490795) 99 mmHg Diastolic BP (test code = 7677123288) 64 mmHg Heart Rate (test code = 3565085329) 83 bpm BSA (test code = 8760366834) 1.91 m2 Ao root diam (test code = 2318885622) 3.10 cm Aortic root (test code = 7338037592) 3.1 cm Ao root annulus (test code = 9642273774) 3.1 cm LA size (test code = 1656218119) 4.0 cm Sinus (test code = 0221060308) 2.9 cm STJ (test code = 4058039522) 2.8 cm MV Peak E Shar (test code = 0781640679) 136.4 cm/s MV Peak A Shar (test code = 0305053556) 123.5 cm/s E/A ratio (test code = 5721366950) 1.10 ratio E wave decelartion time (test code = 0114002441) 0.19 s MV E/e' septal (test code = 7661991805) 6.7 cm/s MV Prop V (test code = 9653180202) 39.50 cm/s LAV(MOD-sp4) (test code = 2964111573) 75.30 mL LVOT peak shar (test code = 8069451703) 126.1 cm/s LVOT mn grad (test code = 3388840490) 3.6 mmHg AV LVOT peak gradient (test code = 9226416414) 6.4 mmHg LVOT peak VTI (test code = 3891822667) 27.2 cm LV V1 mean (test code = 6847391189) 90.80 cm/s Aortic valve mean velocity (test code = 3284373147) 132.9 cm/s Ao peak shar (test code = 1455863846) 201.7 cm/s Ao VTI (test code = 0634113310) 43.7 cm Ao max PG (test code = 5444392402) 16.30 mm[Hg] AV peak gradient (test code = 0521975294) 16.3 mmHg AV mean gradient (test code = 7329654777) 8.0 mmHg TASV (test code = 8446639690) 11.2 cm/s LA Volume Index (BP) (test code = 2935347268) 46.8 mL/m2 LA volume (BP) (test code = 4115125911) 89.5 mL LAV(MOD-sp2) (test code = 3251565697) 69.00 mL LVIDD (test code = 5948457936) 5.30 cm Left Ventricular End Diastolic Volume by Teichholz Method (test code = 4264090) 136.1 mL IVS (test code = 2291356684) 1.00 cm Interventricular Septum Diastolic Thickness by 2D (test code = 4706674) 1.00 cm LVPWD (test code = 8100137696) 1.02 cm PW (test code = 4531331670) 1.02 cm 0.6-1.1 EF(Teich) (test code = 7543723783) 47.90 % LVIDS (test code = 6791574192) 4.00 cm Left Ventricular End Systolic Volume by Teichholz Method (test code = 7654161) 70.9 mL FS (test code = 8574316348) 24 % EF - 2D (test code = 23017257) 47.90 % LVOT stroke volume (test code = 7715316558) 101.80 cm3 LVOT diameter (test code = 1433843480) 2.18 cm LVOT area (test code = 2388306177) 3.70 cm2 AV area by cont VTI (test code = 7488632394) 2.3 cm2 AV area peak shar (test code = 8397353178) 2.3 cm2 AV valve area (test code = 0837146886) 2.33 cm2 A4C EF (test code = 9423022795) 45.20 % EF(sp4-el) (test code = 6526008691) 44.40 % SV(MOD-sp4) (test code = 8564743188) 68.50 mL SV(sp4-el) (test code = 1648468341) 68.10 mL LV Diastolic Volume (BP) (test code = 2883781177) 166.3 mL A2C EF (test code = 5463666426) 52.50 % EF(MOD-bp) (test code = 5041423719) 50.40 % EF(sp2-el) (test code = 2657564449) 52.80 % LV Systolic Volume (BP) (test code = 3040315562) 82.5 mL SV(MOD-bp) (test code = 1988762010) 83.80 mL SV(MOD-sp2) (test code = 3413548955) 88.70 mL EF (test code = 7799611025) 50 Left Ventricular Stroke Volume by 2-D Biplane-MOD (test code = 2713371) 83.8 mL TR Peak Shar (test code = 8416963343) 270.3 cm/s Triscuspid Valve Regurgitation Peak Gradient (test code = 1188468113) 29.2 mmHg LV Diastolic Volume Index (BP) (test code = 5192607892) 87.1 mL/m2 LV Systolic Volume Index (BP) (test code = 5120904628) 43.2 mL/m2 Radiology Study observation (narrative) (test code = 73660-9) CHAD (test code = CHAD) ?Left?Ventricle: Left ventricle is mildly dilated. Increased wall thickness. Mildly increased ventricular mass. There is eccentric hypertrophy. Normal wall motion. Low normal systolic function with a visually estimated EF of 50 - 55%. EF by 2D Pérez biplane is 50%. There is grade 2 diastolic dysfunction. Elevated left ventricular filling pressure. ?Right?Ventricle: Right ventricle size is normal. Normal systolic function. ?Left?Atrium: Left atrium is moderately dilated. Left atrium volume index is 46.8 mL/m2. ?Aortic?Valve: Consistent with mild aortic stenosis. AV mean gradient is 8.0 mmHg. AV peak velocity is 201.7 cm/s. AV area by continuity VTI is 2.3 cm2. ?Tricuspid?Valve: Tricuspid valve structure is normal. Mild transvalvular regurgitation. Right ventricular systolic pressure is 40-45 mmHg. ?IVC/SVC: IVC diameter is greater than 21 mm and decreases less than 50% during inspiration; therefore the estimated right atrial pressure is elevated (~15 mmHg). Mitchel Renee MD Left VentricleLeft ventricle is mildly dilated. Increased wall thickness. Mildly increased ventricular mass. There is eccentric hypertrophy. Normal wall motion. Low normal systolic function with a visually estimated EF of 50 - 55%. EF by 2D Pérez biplane is 50%. There is grade 2 diastolic dysfunction. Elevated left ventricular filling pressure.Right VentricleRight ventricle size is normal. Normal systolic function.Left AtriumLeft atrium is moderately dilated. Left atrium volume index is 46.8 mL/m2.Right AtriumRight atrium size is normal.IVC/SVCIVC diameter is greater than 21 mm and decreases less than 50% during inspiration; therefore the estimated right atrial pressure is elevated (~15 mmHg).Mitral ValveMild posterior mitral annular calcification. Trace transvalvular regurgitation.Tricusp id ValveTricuspid valve structure is normal. Mild transvalvular regurgitation. Right ventricular systolic pressure is 40-45 mmHg.Aortic ValveMildly thickened cusps. Mildly calcified cusps. Mild annular calcification. Consistent with mild aortic stenosis. AV mean gradient is 8.0 mmHg. AV peak velocity is 201.7 cm/s. AV area by continuity VTI is 2.3 cm2.Pulmonic ValveNot well visualized. Mild transvalvular regurgitation.Ascendi ng AortaNormal sized aortic root.PericardiumThe pericardium is normal. No pericardial effusion.Study DetailsStudy quality was adequate. A complete echocardiogram was performed using 2D, color flow Doppler and spectral Doppler. 5 mL of Lumason ultrasound enhancing agent used. [facility] [id number] 17:52:12* Test Item Value Reference Range Interpretation Comme nts FERRITIN (test code = 2897591762) 17.5 ng/mL 11.0-264.0 CHAD (test code = CHAD) Biotin has been reported to cause a negative bias, interpret results relative to patient's use of biotin. Lab Interpretation (test code = 61186-6) Normal [facility] [id number] 17:52:12* Test Item Value Reference Range Interpretation Comme nts FERRITIN (test code = 2318932304) 17.5 ng/mL 11.0-264.0 CHAD (test code = CHAD) Biotin has been reported to cause a negative bias, interpret results relative to patient's use of biotin. Lab Interpretation (test code = 11095-3) Normal [facility] GLUCOSE (AUTOMATED)2023-11-03 17:26:49* Test Item Value Reference Range Interpretation Comme nts POCT GLU (test code = 9516540577) 242 mg/dL 70-110 H Notified Provide r Lab Interpretation (test code = 86477-6) Abnormal [facility] GLUCOSE (AUTOMATED)2023-11-03 17:26:49* Test Item Value Reference Range Interpretation Comme nts POCT GLU (test code = 0115632002) 242 mg/dL 70-110 H Notified Provide r Lab Interpretation (test code = 56007-4) [facility] [id number] 15:15:20* Test Item Value Reference Range Interpretation Comme nts HAPTOGLOB (test code = 5031463539) 16-200 L Lab Interpretation (test cod e = 95723-0) [facility], [id number] 15:15:20* Test Item Value Reference Range Interpretation Comme nts HAPTOGLOB (test code = 3591441968) 16-200 L Lab Interpretation (test cod e = 53822-6) Abnormal [facility] HospitalGlycosylated Hemoglobin (A1C)2023-11-03 14:56:24* Test Item Value Reference Range Interpretation Comme nts HGB A1C (test code = 4548-4) 6.0 % 4.0-5.7 H CHAD (test code = CHAD) Reference RangesNormal: <5.7%Prediabetes: 5.7 - 6.4%Diabetes: > 6.5% Lab Interpretation (test code = 05276-4) Abnormal [facility] Hospital[facility]ylated Hemoglobin (A1C)2023-11-03 14:56:24* Test Item Value Reference Range Interpretation Comme nts HGB A1C (test code = 4548-4) 6.0 % 4.0-5.7 H CHAD (test code = CHAD) Reference RangesNormal: <5.7%Prediabetes: 5.7 - 6.4%Diabetes: > 6.5% Lab Interpretation (test code = 83618-4) Abnormal [facility] GLUCOSE (AUTOMATED)2023-11-03 14:08:46* Test Item Value Reference Range Interpretation Comme nts POCT GLU (test code = 2034041077) 222 mg/dL 70-110 H Lab Interpretation (test cod e = 57735-0) Abnormal [facility] GLUCOSE (AUTOMATED)2023-11-03 14:08:46* Test Item Value Reference Range Interpretation Comme nts POCT GLU (test code = 1772802337) 222 mg/dL 70-110 H Lab Interpretation (test cod e = 81916-6) Abnormal [facility] HospitalTroponin [id number] 13:03:35* Test Item Value Reference Range Interpretation Comme nts TROPONIN I (test code = 6509479347) 0.221 ng/mL <=0.034 H CHAD (test code = CHAD) Reference (Normal) Range (defined by the 99th percentile reference limit): <= 0.034 ng/mL Note: Cardiac troponin begins to rise 3-4 hours after the onset of ischemia. Repeat in 4-6 hours if the sample was drawn within 3-4 hours of the onset of the symptom and found normal. Diagnosis of myocardial injury is made with acute changes in cTn concentrations with at least one serial sample above the 99th percentile upper reference limit (URL), taken together with the patient's clinical presentation. Biotin has been reported to cause a negative bias, interpret results relative to patient's use of biotin. Lab Interpretation (test code = 95630-0) Abnormal [facility] HospitalTroponin [id number] 13:03:35* Test Item Value Reference Range Interpretation Comme nts TROPONIN I (test code = 6282573284) 0.221 ng/mL <=0.034 H CHAD (test code = CHAD) Reference (Normal) Range (defined by the 99th percentile reference limit): <= 0.034 ng/mL Note: Cardiac troponin begins to rise 3-4 hours after the onset of ischemia. Repeat in 4-6 hours if the sample was drawn within 3-4 hours of the onset of the symptom and found normal. Diagnosis of myocardial injury is made with acute changes in cTn concentrations with at least one serial sample above the 99th percentile upper reference limit (URL), taken together with the patient's clinical presentation. Biotin has been reported to cause a negative bias, interpret results relative to patient's use of biotin. Lab Interpretation (test code = 48809-6) Abnormal [facility] HospitalCbc without [id number] 12:42:37* Test Item Value Reference Range Interpretation Comme nts WBC (test code = 6690-2) 6.13 4.30-11.10 RBC (test code = 789-8) 2.86 3.93-5.25 L HGB (test code = 718-7) 7.6 g/dL 11.6-15.0 L HCT (test code = 4544-3) 22.5 % 35.7-45.2 L MCH (test code = 785-6) 26.6 pg 25.9-32.8 MCV (test code = 787-2) 78.7 fL 80.6-95.5 L MCHC (test code = 786-4) 33.8 g/dL 31.6-35.1 PLT (test code = 777-3) 74 166-358 L MPV (test code = 11613-3) 11.3 fL 9.5-12.9 RDW-CV (test code = 788-0) 16.1 % 12.0-15.5 H RDW-SD (test code = 72204-8) 46.3 fL 39.0-49.9 NRBC x10^3 (test code = 3624871955) 0.02 See_Comment [Automated [employer]] The system which generated this result transmitted reference range: 10*3/?L. The reference range was not used to interpret this result as normal/abnormal. NRBC/100 WBC (test code = 6580263936) 0.3 0.0-10.0 IPF % (test code = 4811344116) 8.4 % 1.3-7.7 H Platelet count measured by fluorescence method. Lab Interpretation (test code = 15071-2) Abnormal [facility] without [id number] 12:42:37* Test Item Value Reference Range Interpretation Comme nts WBC (test code = 6690-2) 6.13 4.30-11.10 RBC (test code = 789-8) 2.86 3.93-5.25 L HGB (test code = 718-7) 7.6 g/dL 11.6-15.0 L HCT (test code = 4544-3) 22.5 % 35.7-45.2 L MCH (test code = 785-6) 26.6 pg 25.9-32.8 MCV (test code = 787-2) 78.7 fL 80.6-95.5 L MCHC (test code = 786-4) 33.8 g/dL 31.6-35.1 PLT (test code = 777-3) 74 166-358 L MPV (test code = 12573-5) 11.3 fL 9.5-12.9 RDW-CV (test code = 788-0) 16.1 % 12.0-15.5 H RDW-SD (test code = 70538-1) 46.3 fL 39.0-49.9 NRBC x10^3 (test code = 1970065769) 0.02 See_Comment [Automated [employer]] The system which generated this result transmitted reference range: 10*3/?L. The reference range was not used to interpret this result as normal/abnormal. NRBC/100 WBC (test code = 2130343087) 0.3 0.0-10.0 IPF % (test code = 4962590966) 8.4 % 1.3-7.7 H Platelet count measured by fluorescence method. Lab Interpretation (test code = 46054-6) Abnormal [facility] HospitalVitamin B12, [id number] 11:20:08* Test Item Value Reference Range Interpretation Comme nts VIT B12 (test code = 6381300775) 975 pg/mL 240-930 H CHAD (test code = CHAD) Biotin has been reported to cause a positive bias, interpret results relative to patient's use of biotin. Lab Interpretation (test code = 04135-6) Abnormal [facility] HospitalVitamin B12, [id number] 11:20:08* Test Item Value Reference Range Interpretation Comme nts VIT B12 (test code = 7840894482) 975 pg/mL 240-930 H CHAD (test code = CHAD) Biotin has been reported to cause a positive bias, interpret results relative to patient's use of biotin. Lab Interpretation (test code = 33855-3) Abnormal [facility] Packed RBC (in units), 1 Units 2023-11-03 09:14:53* Test Item Value Reference Range Interpretation Comme nts Cross Match Result (test code = 4409) Compatible ISBT Blood Type Code (test code = 053083) 6200 Unit Blood Type (test code = 4410) A Pos Unit Number (test code = 4411) [id number] Blood Expiration Date & Time (test code = 019301) [id number] Status Information (test code = 4412) Issued Product Identification (test code = 4413) Red Blood Cells Product Code (test code = 4414) [id number] Performed at [facility] B Laboratory Services [facility] Blood [address] [place] [address]Tvey Free: [phone] No. [id number] [facility] Packed RBC (in units), 1 Units 2023-11-03 09:14:53* Test Item Value Reference Range Interpretation Comme nts Cross Match Result (test code = 4409) Compatible ISBT Blood Type Code (test code = 686781) 6200 Unit Blood Type (test code = 4410) A Pos Unit Number (test code = 4411) [id number] Blood Expiration Date & Time (test code = 796173) [id number] Status Information (test code = 4412) Issued Product Identification (test code = 4413) Red Blood Cells Product Code (test code = 4414) [id number] Performed at [facility] Laboratory Services [facility] Blood [address] [address]Mqyp Free: [phone] No. [id number] [facility] with Hhtq6003-20-03 08:13:49* Test Item Value Reference Range Interpretation Comme nts WBC (test code = 6690-2) 6.51 4.30-11.10 RBC (test code = 789-8) 2.60 3.93-5.25 L HGB (test code = 718-7) 6.8 g/dL 11.6-15.0 L HCT (test code = 4544-3) 20.4 % 35.7-45.2 L MCV (test code = 787-2) 78.5 fL 80.6-95.5 L MCH (test code = 785-6) 26.2 pg 25.9-32.8 MCHC (test code = 786-4) 33.3 g/dL 31.6-35.1 RDW-SD (test code = 69262-4) 45.8 fL 39.0-49.9 RDW-CV (test code = 788-0) 16.0 % 12.0-15.5 H PLT (test code = 777-3) 78 166-358 L MPV (test code = 93769-4) 10.5 fL 9.5-12.9 IPF % (test code = 4504956447) 8.1 % 1.3-7.7 H Platelet count measured by fluorescence method. NRBC/100 WBC (test code = 9462874559) 0.3 0.0-10.0 NRBC x10^3 (test code = 2985736334) 0.02 See_Comment [Automated messa ge] The system which generated this result transmitted reference range: 10*3/?L. The reference range was not used to interpret this result as normal/abnormal. GRAN MAT (NEUT) % (test code = 770-8) 57.7 % IMM GRAN % (test code = 0177530819) 0.30 % LYMPH % (test code = 736-9) 26.3 % MONO % (test code = 5905-5) 10.9 % EOS % (test code = 713-8) 4.0 % BASO % (test code = 706-2) 0.8 % GRAN MAT x10^3(ANC) (test code = 2767126970) 3.76 10*3/uL 1.88-7.09 IMM GRAN x10^3 (test code = 6683914759) 0.00-0.06 LYMPH x10^3 (test code = 731-0) 1.71 10*3/uL 1.32-3.29 MONO x10^3 (test code = 742-7) 0.71 10*3/uL 0.33-0.92 EOS x10^3 (test code = 711-2) 0.26 10*3/uL 0.03-0.39 BASO x10^3 (test code = 704-7) 0.05 10*3/uL 0.01-0.07 Lab Interpretation (test code = 54269-9) Abnormal [facility] with Dlyv2852-48-61 08:13:49* Test Item Value Reference Range Interpretation Comme nts WBC (test code = 6690-2) 6.51 4.30-11.10 RBC (test code = 789-8) 2.60 3.93-5.25 L HGB (test code = 718-7) 6.8 g/dL 11.6-15.0 L HCT (test code = 4544-3) 20.4 % 35.7-45.2 L MCV (test code = 787-2) 78.5 fL 80.6-95.5 L MCH (test code = 785-6) 26.2 pg 25.9-32.8 MCHC (test code = 786-4) 33.3 g/dL 31.6-35.1 RDW-SD (test code = 43200-1) 45.8 fL 39.0-49.9 RDW-CV (test code = 788-0) 16.0 % 12.0-15.5 H PLT (test code = 777-3) 78 166-358 L MPV (test code = 46140-5) 10.5 fL 9.5-12.9 IPF % (test code = 4715164001) 8.1 % 1.3-7.7 H Platelet count measured by fluorescence method. NRBC/100 WBC (test code = 8349478338) 0.3 0.0-10.0 NRBC x10^3 (test code = 1251773902) 0.02 See_Comment [Automated messa ge] The system which generated this result transmitted reference range: 10*3/?L. The reference range was not used to interpret this result as normal/abnormal. GRAN MAT (NEUT) % (test code = 770-8) 57.7 % IMM GRAN % (test code = 6693400728) 0.30 % LYMPH % (test code = 736-9) 26.3 % MONO % (test code = 5905-5) 10.9 % EOS % (test code = 713-8) 4.0 % BASO % (test code = 706-2) 0.8 % GRAN MAT x10^3(ANC) (test code = 1972247681) 3.76 10*3/uL 1.88-7.09 IMM GRAN x10^3 (test code = 3436071467) 0.00-0.06 LYMPH x10^3 (test code = 731-0) 1.71 10*3/uL 1.32-3.29 MONO x10^3 (test code = 742-7) 0.71 10*3/uL 0.33-0.92 EOS x10^3 (test code = 711-2) 0.26 10*3/uL 0.03-0.39 BASO x10^3 (test code = 704-7) 0.05 10*3/uL 0.01-0.07 Lab Interpretation (test code = 93728-4) [facility] Qpaoyrjwwsamz3130-12-49 07:59:45* Test Item Value Reference Range Interpretation Comme nts LDH (test code = 6996456327) 221 U/L 120-246 Lab Interpretation (test cod e = 46487-3) Normal [facility] Hospital[facility] Gujzogwsnucsb9020-17-31 07:59:45* Test Item Value Reference Range Interpretation Comme nts LDH (test code = 6709581446) 221 U/L 120-246 Lab Interpretation (test cod e = 87392-6) Normal [facility] HospitalMagnesium2024-02-29 07:56:08* Test Item Value Reference Range Interpretation Comme nts MAGNESIUM (test code = 7520631667) 1.7 mg/dL 1.7-2.4 Lab Interpretation (test cod e = 05972-2) Normal [facility] (NA, K, CL, CO2, GLUCOSE, BUN, CREATININE, CA)2023-11-03 07:56:08* Test Item Value Reference Range Interpretation Comme nts NA (test code = 4823306083) 135 mmol/L 135-145 K (test code = 9255836705) 3.6 mmol/L 3.5-5.0 CL (test code = 9176706405) 100 mmol/L 98-108 CO2 TOTAL (test code = 5204637150) 26 mmol/L 23-31 AGAP (test code = 9711014306) 9 2-16 BUN (test code = 1107948922) 20 mg/dL 7-23 GLUCOSE (test code = 8582142153) 175 mg/dL 70-110 H CREATININE (test code = 2160-0) 0.78 mg/dL 0.50-1.04 CALCIUM (test code = 4133911722) 8.4 mg/dL 8.6-10.6 L eGFR (test code = 57526-6) 84.4 mL/min/1.73m2 CKD-EPI eGFR (2020). Assuming creatinine has been stable day-to-day for at least three months, the eGFR indicates Category G2 (60 - 89 mL/min/1.73 m2) Lab Interpretation (test code = 16210-3) Abnormal [facility] HospitalHep[facility] Function Panel (77214) (ALB,T.PRO,BILI T,BU/BC,ALT,AST,ALK PHOS)2023-11-03 07:56:08* Test Item Value Reference Range Interpretation Comme nts TOTAL BILI (test code = 5264755693) 6.7 mg/dL 0.1-1.1 H BILI UNCON (test code = 8958499708) 5.4 mg/dL 0.1-1.1 H BILI CONJ (test code = 7012527467) 0.4 mg/dL 0.0-0.3 H T PROTEIN (test code = 2130175820) 7.2 g/dL 6.3-8.2 ALBUMIN (test code = 5123320329) 3.3 g/dL 3.5-5.0 L ALK PHOS (test code = 4348170315) 64 U/L 34-122 ALTv (test code = 1742-6) 17 U/L 5-35 AST(SGOT) (test code = 4758821004) 53 U/L 13-40 H Lab Interpretation (test cod e = 77487-1) Abnormal [facility] HospitalMagnesium2024-02-29 07:56:08* Test Item Value Reference Range Interpretation Comme nts MAGNESIUM (test code = 4885443695) 1.7 mg/dL 1.7-2.4 Lab Interpretation (test cod e = 93085-2) Normal [facility] (NA, K, CL, CO2, GLUCOSE, BUN, CREATININE, CA)2023-11-03 07:56:08* Test Item Value Reference Range Interpretation Comme nts NA (test code = 7745742361) 135 mmol/L 135-145 K (test code = 6818690986) 3.6 mmol/L 3.5-5.0 CL (test code = 5902683157) 100 mmol/L 98-108 CO2 TOTAL (test code = 7633141281) 26 mmol/L 23-31 AGAP (test code = 7868505889) 9 2-16 BUN (test code = 7076124054) 20 mg/dL 7-23 GLUCOSE (test code = 0759209099) 175 mg/dL 70-110 H CREATININE (test code = 2160-0) 0.78 mg/dL 0.50-1.04 CALCIUM (test code = 9433681056) 8.4 mg/dL 8.6-10.6 L eGFR (test code = 92021-4) 84.4 mL/min/1.73m2 CKD-EPI eGFR (2020). Assuming creatinine has been stable day-to-day for at least three months, the eGFR indicates Category G2 (60 - 89 mL/min/1.73 m2) Lab Interpretation (test code = 38998-9) Abnormal [facility] HospitalHep[facility] Function Panel (93705) (ALB,T.PRO,BILI T,BU/BC,ALT,AST,ALK PHOS)2023-11-03 07:56:08* Test Item Value Reference Range Interpretation Comme nts TOTAL BILI (test code = 1075897964) 6.7 mg/dL 0.1-1.1 H BILI UNCON (test code = 0256941277) 5.4 mg/dL 0.1-1.1 H BILI CONJ (test code = 3891593879) 0.4 mg/dL 0.0-0.3 H T PROTEIN (test code = 0379437801) 7.2 g/dL 6.3-8.2 ALBUMIN (test code = 0450849069) 3.3 g/dL 3.5-5.0 L ALK PHOS (test code = 4254694683) 64 U/L 34-122 ALTv (test code = 1742-6) 17 U/L 5-35 AST(SGOT) (test code = 5873522748) 53 U/L 13-40 H Lab Interpretation (test cod e = 56440-0) Abnormal [facility] HospitalProthrombin Time / BUR8880-86-58 07:40:00* Test Item Value Reference Range Interpretation Comme [facility] PROTIME PATIENT (test code = 5964-2) 19.0 10.1-12.6 H INR (test code = 6301-6) 1.6 Normal INR <1.1; Warfarin Therapeutic range 2.0 to 3.0 or 2.5 to 3.5, depending upon the indications. Lab Interpretation (test code = 83144-4) Abnormal [facility] HospitalaPTT2024-02-29 07:40:00* Test Item Value Reference Range Interpretation Comme [facility] APTT Patient (test code = 3173-2) 33 26-36 Lab Interpretation (test cod e = 90599-5) Normal [facility] HospitalProthrombin Time / QHR1171-32-97 07:40:00* Test Item Value Reference Range Interpretation Comme [facility] PROTIME PATIENT (test code = 5964-2) 19.0 10.1-12.6 H INR (test code = 6301-6) 1.6 Normal INR <1.1; Warfarin Therapeutic range 2.0 to 3.0 or 2.5 to 3.5, depending upon the indications. Lab Interpretation (test code = 05354-8) Abnormal [facility] HospitalaPTT2024-02-29 07:40:00* Test Item Value Reference Range Interpretation Comme [facility] APTT Patient (test code = 3173-2) 33 26-36 Lab Interpretation (test cod e = 89771-9) Normal [facility] Packed RBC (in units), 1 Units 2023-11-03 04:01:33* Test Item Value Reference Range Interpretation Comme [facility] Cross Match Result (test code = 4409) Compatible ISBT Blood Type Code (test code = 176293) 9500 Unit Blood Type (test code = 4410) O Neg Unit Number (test code = 4411) [id number] Blood Expiration Date & Time (test code = 847154) 821978372486 Status Information (test code = 4412) Issued Product Identification (test code = 4413) Red Blood Cells Product Code (test code = 4414) [id number] Performed at [place] [id number] Free: [phone] No. [id number] [facility] Packed RBC (in units), 1 Units 2023-11-03 04:01:33* Test Item Value Reference Range Interpretation Comme [facility] Cross Match Result (test code = 4409) Compatible ISBT Blood Type Code (test code = 510909) 9500 Unit Blood Type (test code = 4410) O Neg Unit Number (test code = 4411) [id number] Blood Expiration Date & Time (test code = 469942) 964393780135 Status Information (test code = 4412) Issued Product Identification (test code = 4413) Red Blood Cells Product Code (test code = 4414) [id number] Performed at [facility] Blood [place] [address]Toll Free: [phone] No. [id number] [facility], Tncpeu0504-93-55 03:40:23* Test Item Value Reference Range Interpretation Comme nts AMMONIA (test code = 5062706470) 24 umol/L 9-33 Lab Interpretation (test cod e = 26825-9) Normal [facility], Phymmt7729-77-37 03:40:23* Test Item Value Reference Range Interpretation Comme nts AMMONIA (test code = 1599387251) 24 umol/L 9-33 Lab Interpretation (test cod e = 95075-2) Normal [facility] with Bodm3424-10-70 03:06:16* Test Item Value Reference Range Interpretation Comme nts WBC (test code = 6690-2) 5.98 4.30-11.10 RBC (test code = 789-8) 2.33 3.93-5.25 L HGB (test code = 718-7) 5.9 g/dL 11.6-15.0 L HCT (test code = 4544-3) 18.2 % 35.7-45.2 L MCV (test code = 787-2) 78.1 fL 80.6-95.5 L MCH (test code = 785-6) 25.3 pg 25.9-32.8 L MCHC (test code = 786-4) 32.4 g/dL 31.6-35.1 RDW-SD (test code = 60290-5) 45.3 fL 39.0-49.9 RDW-CV (test code = 788-0) 15.9 % 12.0-15.5 H PLT (test code = 777-3) 81 166-358 L MPV (test code = 15619-9) 12.6 fL 9.5-12.9 IPF % (test code = 6821445880) 5.7 % 1.3-7.7 Platelet count measured by fluorescence method. NRBC/100 WBC (test code = 3561971886) 0.5 0.0-10.0 NRBC x10^3 (test code = 4105620111) 0.03 See_Comment [Automated messa ge] The system which generated this result transmitted reference range: 10*3/?L. The reference range was not used to interpret this result as normal/abnormal. GRAN MAT (NEUT) % (test code = 770-8) 57.7 % IMM GRAN % (test code = 4178459521) 1.30 % LYMPH % (test code = 736-9) 24.7 % MONO % (test code = 5905-5) 13.5 % EOS % (test code = 713-8) 2.0 % BASO % (test code = 706-2) 0.8 % GRAN MAT x10^3(ANC) (test code = 3510150932) 3.44 10*3/uL 1.88-7.09 IMM GRAN x10^3 (test code = 7347798282) 0.08 10*3/uL 0.00-0.06 H LYMPH x10^3 (test code = 731-0) 1.48 10*3/uL 1.32-3.29 MONO x10^3 (test code = 742-7) 0.81 10*3/uL 0.33-0.92 EOS x10^3 (test code = 711-2) 0.12 10*3/uL 0.03-0.39 BASO x10^3 (test code = 704-7) 0.05 10*3/uL 0.01-0.07 Lab Interpretation (test code = 18913-6) Abnormal [facility] with Wgba7288-28-76 03:06:16* Test Item Value Reference Range Interpretation Comme nts WBC (test code = 6690-2) 5.98 4.30-11.10 RBC (test code = 789-8) 2.33 3.93-5.25 L HGB (test code = 718-7) 5.9 g/dL 11.6-15.0 L HCT (test code = 4544-3) 18.2 % 35.7-45.2 L MCV (test code = 787-2) 78.1 fL 80.6-95.5 L MCH (test code = 785-6) 25.3 pg 25.9-32.8 L MCHC (test code = 786-4) 32.4 g/dL 31.6-35.1 RDW-SD (test code = 13278-1) 45.3 fL 39.0-49.9 RDW-CV (test code = 788-0) 15.9 % 12.0-15.5 H PLT (test code = 777-3) 81 166-358 L MPV (test code = 51536-8) 12.6 fL 9.5-12.9 IPF % (test code = 1901091477) 5.7 % 1.3-7.7 Platelet count measured by fluorescence method. NRBC/100 WBC (test code = 1313231243) 0.5 0.0-10.0 NRBC x10^3 (test code = 7827495809) 0.03 See_Comment [Automated messa ge] The system which generated this result transmitted reference range: 10*3/?L. The reference range was not used to interpret this result as normal/abnormal. GRAN MAT (NEUT) % (test code = 770-8) 57.7 % IMM GRAN % (test code = 5920993838) 1.30 % LYMPH % (test code = 736-9) 24.7 % MONO % (test code = 5905-5) 13.5 % EOS % (test code = 713-8) 2.0 % BASO % (test code = 706-2) 0.8 % GRAN MAT x10^3(ANC) (test code = 3214470241) 3.44 10*3/uL 1.88-7.09 IMM GRAN x10^3 (test code = 7805869748) 0.08 10*3/uL 0.00-0.06 H LYMPH x10^3 (test code = 731-0) 1.48 10*3/uL 1.32-3.29 MONO x10^3 (test code = 742-7) 0.81 10*3/uL 0.33-0.92 EOS x10^3 (test code = 711-2) 0.12 10*3/uL 0.03-0.39 BASO x10^3 (test code = 704-7) 0.05 10*3/uL 0.01-0.07 Lab Interpretation (test code = 70428-9) [facility] B4535-60[facility]08 02:43:57* Test Item Value Reference Range Interpretation Comme [facility] TROPONIN I (test code = 8001886340) 0.189 ng/mL <=0.034 H CHAD (test code = CHAD) Reference (Normal) Range (defined by the 99th percentile reference limit): <= 0.034 ng/mL Note: Cardiac troponin begins to rise 3-4 hours after the onset of ischemia. Repeat in 4-6 hours if the sample was drawn within 3-4 hours of the onset of the symptom and found normal. Diagnosis of myocardial injury is made with acute changes in cTn concentrations with at least one serial sample above the 99th percentile upper reference limit (URL), taken together with the patient's clinical presentation. Biotin has been reported to cause a negative bias, interpret results relative to patient's use of biotin. Lab Interpretation (test code = 10483-2) Abnormal [facility] HospitalTroponin W3673-40-50 02:43:57* Test Item Value Reference Range Interpretation Comme [facility] TROPONIN I (test code = 6375599537) 0.189 ng/mL <=0.034 H CHAD (test code = CHAD) Reference (Normal) Range (defined by the 99th percentile reference limit): <= 0.034 ng/mL Note: Cardiac troponin begins to rise 3-4 hours after the onset of ischemia. Repeat in 4-6 hours if the sample was drawn within 3-4 hours of the onset of the symptom and found normal. Diagnosis of myocardial injury is made with acute changes in cTn concentrations with at least one serial sample above the 99th percentile upper reference limit (URL), taken together with the patient's clinical presentation. Biotin has been reported to cause a negative bias, interpret results relative to patient's use of biotin. Lab Interpretation (test code = 30128-7) Abnormal [facility] HospitalProthrombin Time / YPO4852-47-84 02:40:35* Test Item Value Reference Range Interpretation Comme nts PROTIME PATIENT (test code = 5964-2) 18.3 10.1-12.6 H INR (test code = 6301-6) 1.6 Normal INR <1.1; Warfarin Therapeutic range 2.0 to 3.0 or 2.5 to 3.5, depending upon the indications. Lab Interpretation (test code = 27553-5) Abnormal [facility] HospitalActivated Partial Thrmplas Pkh8731-16-07 02:40:35* Test Item Value Reference Range Interpretation Comme nts APTT Patient (test code = 3173-2) 22 26-36 L Lab Interpretation (test cod e = 54469-0) Abnormal [facility] HospitalFibrinogen2024-02-29 02:40:35* Test Item Value Reference Range Interpretation Comme nts Fibrinogen (test code = 0046182873) 157 mg/dL 167-453 L Lab Interpretation (test cod e = 78681-7) Abnormal [facility] HospitalProthrombin Time / [id number] 02:40:35* Test Item Value Reference Range Interpretation Comme nts PROTIME PATIENT (test code = 5964-2) 18.3 10.1-12.6 H INR (test code = 6301-6) 1.6 Normal INR <1.1; Warfarin Therapeutic range 2.0 to 3.0 or 2.5 to 3.5, depending upon the indications. Lab Interpretation (test code = 84517-0) Abnormal [facility] HospitalAct[facility] Partial Thrmplas Oqe5793-23-25 02:40:35* Test Item Value Reference Range Interpretation Comme nts APTT Patient (test code = 3173-2) 22 26-36 L Lab Interpretation (test cod e = 56188-9) Abnormal [facility] HospitalFibrinogen2024-02-29 02:40:35* Test Item Value Reference Range Interpretation Comme nts Fibrinogen (test code = 8335534876) 157 mg/dL 167-453 L Lab Interpretation (test cod e = 26873-6) Abnormal [facility] HospitalComp. Metabolic Panel (95822)2023-11-03 02:29:32* Test Item Value Reference Range Interpretation Comme nts NA (test code = 6742262980) 134 mmol/L 135-145 L K (test code = 4659033168) 3.7 mmol/L 3.5-5.0 CL (test code = 4422375514) 100 mmol/L 98-108 CO2 TOTAL (test code = 7496885699) 26 mmol/L 23-31 AGAP (test code = 5417142575) 8 2-16 BUN (test code = 7054386995) 22 mg/dL 7-23 GLUCOSE (test code = 8042347493) 219 mg/dL 70-110 H CREATININE (test code = 2160-0) 0.79 mg/dL 0.50-1.04 TOTAL BILI (test code = 2879424762) 4.6 mg/dL 0.1-1.1 H CALCIUM (test code = 1287501544) 8.7 mg/dL 8.6-10.6 T PROTEIN (test code = 4583745170) 7.5 g/dL 6.3-8.2 ALBUMIN (test code = 6252825340) 3.5 g/dL 3.5-5.0 ALK PHOS (test code = 9318347708) 64 U/L 34-122 ALTv (test code = 1742-6) 18 U/L 5-35 AST(SGOT) (test code = 6551967191) 41 U/L 13-40 H eGFR (test code = 28708-6) 83.1 mL/min/1.73m2 CKD-EPI eGFR (2020). Assuming creatinine has been stable day-to-day for at least three months, the eGFR indicates Category G2 (60 - 89 mL/min/1.73 m2) Lab Interpretation (test code = 00710-4) [facility] (59351)2023-11-03 02:29:32* Test Item Value Reference Range Interpretation Comme nts NA (test code = 6743722650) 134 mmol/L 135-145 L K (test code = 3419452864) 3.7 mmol/L 3.5-5.0 CL (test code = 1782660808) 100 mmol/L 98-108 CO2 TOTAL (test code = 3474807418) 26 mmol/L 23-31 AGAP (test code = 0393702412) 8 2-16 BUN (test code = 1738320275) 22 mg/dL 7-23 GLUCOSE (test code = 8636779675) 219 mg/dL 70-110 H CREATININE (test code = 2160-0) 0.79 mg/dL 0.50-1.04 TOTAL BILI (test code = 8511673786) 4.6 mg/dL 0.1-1.1 H CALCIUM (test code = 7352438401) 8.7 mg/dL 8.6-10.6 T PROTEIN (test code = 5746263238) 7.5 g/dL 6.3-8.2 ALBUMIN (test code = 1156924937) 3.5 g/dL 3.5-5.0 ALK PHOS (test code = 7543878775) 64 U/L 34-122 ALTv (test code = 1742-6) 18 U/L 5-35 AST(SGOT) (test code = 2999587597) 41 U/L 13-40 H eGFR (test code = 49782-1) 83.1 mL/min/1.73m2 CKD-EPI eGFR (2020). Assuming creatinine has been stable day-to-day for at least three months, the eGFR indicates Category G2 (60 - 89 mL/min/1.73 m2) Lab Interpretation (test code = 75107-9) Abnormal [facility] HospitalType and Screen - ONCE Nitnoda7567-77-96 02:10:00* Test Item Value Reference Range Interpretation Comme nts ABO & RH (test code = 20) A POSITIVE IAT (test code = 1185) Negative [facility] HospitalType and Screen - ONCE Txmyuvc2002-73-57 02:10:00* Test Item Value Reference Range Interpretation Comme nts ABO & RH (test code = 20) A POSITIVE IAT (test code = 1185) Negative [facility] HospitalCritical Kaje2213-36-00 00:28:59Joe Rodriguez MD ? ? 11/02/2023 ?6:28 PMCritical Care Performed by: Joe Rodriguez MDAuthorizedby: Joe Rodriguez MD ?Critical care provider statement: ?Critical care time (minutes): ?75 ?Critical care time was exclusive of: ?Separately billable procedures and treating other patients and teaching time ?Critical care was necessary to treat or prevent imminent or life-threatening deterioration of the following conditions: ?Circulatory failure ?Critical care was time spent personally by me on the following activities: ?Development of treatment plan with patient or surrogate, evaluation ofpatient's response to treatment, examination of patient, obtaining history from patient or surrogate, ordering and performing treatments and interventions, ordering and review of laboratory studies, ordering and review of radiographic studies, pulse oximetry, re- evaluation of patient's condition and review of old charts ?Care discussed with: admitting provider ?Comments: ? Due to a high probability of clinically significant, life threatening deterioration, the patient required my highest level of preparedness to intervene emergently and I personally spent this critical care time directly and personally managing the patient. This critical care time included obtaining a history; examining thepatient; pulse oximetry; ordering and review of studies; arranging urgent treatment with development of a management plan; evaluation of patient's response to treatment; frequent reassessment; and, discussions with other providers.This critical care time was performed to assess and manage the high probability of imminent, life- threatening deterioration that could result in multi-organ failure. Itwas exclusive of separately billable procedures and treating other patients. [facility] Packed RBC (in units), 2 Units 2023-11-02 23:18:16* Test Item Value Reference Range Interpretation Comme nts Cross Match Result (test code = 4409) Compatible ISBT Blood Type Code (test code = 434153) 6200 Unit Blood Type (test code = 4410) A Pos Unit Number (test code = 4411) [id number] Blood Expiration Date & Time (test code = 710641) [id number] Status Information (test code = 4412) Issued Product Identification (test code = 4413) Red Blood Cells Product Code (test code = 4414) [id number] Performed at [facility] Blood [address] [address]Yozn Free: [phone] No. [id number] [facility] Packed RBC (in units), 2 Units 2023-11-02 23:18:16* Test Item Value Reference Range Interpretation Comme nts Cross Match Result (test code = 4409) Compatible ISBT Blood Type Code (test code = 148890) 6200 Unit Blood Type (test code = 4410) A Pos Unit Number (test code = 4411) [id number] Blood Expiration Date & Time (test code = 934722) 971696543355 Status Information (test code = 4412) Issued Product Identification (test code = 4413) Red Blood Cells Product Code (test code = 4414) [id number] Performed at [facility] Laboratory [facility] Blood [address] [place] [address]Jymi Free: [phone] No. [id number] [facility] HospitalCT ABDOMEN PELVIS W KKPJJKBI0836-73-07 18:42:53CT Abdomen and Pelvis with intravenous contrast. CLINICAL HISTORY: Abdominal distention. DOSE: Up-to-date CT equipment and radiation dose reduction techniques wereemployed. CTDIvol: ? 17.83 mGy. DLP:?937.58 mGy-cm. TECHNIQUE : Contiguous axial imaging from the level of the lung basesthrough the pubic symphysis were performed after the uncomplicatedadministration of 83 mL of nonionic contrast material. ?Coronal andsagittal reconstructions were obtained. Auto mA and/or iterativereconstruction were used to reduce radiation dose. FINDINGS: ?Comparison has been made with 07/26/2023 CT studies. Lower lungs: Small right and moderate left pleural effusion with collapsedportions of both lower lungs. Liver, Gallbladder and Spleen: S/P cholecystectomy. Liver is 16 cm inlength and spleen is enlarged, 13.4 x 6 cm in size. Undulating serosalsurface of the liver is suggestive of chronic primary liverdisease.Biliary ducts and the pancreatic ducts appear of normal size. Peritoneum: ?Small volume ascites noted with fluid surrounding the liver,spleen, stomach, in the paracolic gutter and in the pelvis. No free air.Small lymph nodes are seen in the periportal space and retrogastric region,unchanged. Pancreas and Adrenals: ?Unremarkable pancreas and adrenal glands. Kidneys and Ureters: ?No visiblecalculi in the renal collecting systems. No hydroureter or hydronephrosis. Vessels: Diffuse atherosclerosis without AAA. Patent portal venouscirculation. Calcifications noted in several small and medium sizedarteries including inferior epigastric artery and branches of Retroperitoneum: No abnormal fluid or lymphadenopathy. Bowel: Colonic diverticulosis is noted without any acute changes. Bladder and Reproductive Organs: ?No gross pathology in the under distendedand unopacified urinary bladder. No gross pathology in the uterus oradnexa. Bones: Lower thoracic and upper lumbar degenerative spondylosis,exaggerated lumbar lordosis, grade 1 spondylolisthesis at L4-L5, multilevelhypertrophic facetarthritis, spinal stenosis at L4-L5, less at L3-L4.Cystic changes are seen in the head of the rightfemur, likely degenerativecyst secondary to osteoarthritis of the joint. Soft tissues: Diffuse anasarca with congested subcutaneous fat of theentire abdomen and pelvis. CONCLUSION:1. Liver morphologyconsistent with chronic liver disease, possiblycirrhosis with portal hypertension causing small volume ascites and mildsplenomegaly.2. S/P cholecystectomy.3. Generalized anasarca.4. Extensive arteriosclerosis. Please correlate with history forpossibility of chronic poorly controlled diabetes.5. Small right and moderate left pleural effusion with chronicallycollapsed portions of adjacent lower lungs.[facility]CT [facility] PEL[facility] W [id number] 18:42:53CT Abdomen and Pelvis with intravenous contrast. CLINICAL HISTORY: Abdominal distention. DOSE: Up-to-date CT equipment and radiation dose reduction techniques wereemployed. CTDIvol: ? 17.83 mGy. DLP:?937.58 mGy-cm. TECHNIQUE : Contiguous axial imaging from the level of the lung basesthrough the pubic symphysis were performed after the uncomplicatedadministration of 83 mL of nonionic contrast material. ?Coronal andsagittal reconstructions were obtained. Auto mA and/or iterativereconstruction were used to reduce radiation dose. FINDINGS: ?Comparison has been made with 07/26/2023 CT studies. Lower lungs: Small right and moderate left pleural effusion with collapsedportions of both lower lungs. Liver, Gallbladder and Spleen: S/P cholecystectomy. Liver is 16 cm inlength and spleen is enlarged, 13.4 x 6 cm in size. Undulating serosalsurface of the liver is suggestive of chronic primary liverdisease.Biliary ducts and the pancreatic ducts appear of normal size. Peritoneum: ?Small volume ascites noted with fluid surrounding the liver,spleen, stomach, in the paracolic gutter and in the pelvi s. No free air.Small lymph nodes are seen in the periportal space and retrogastric region,unchanged. Pancreas and Adrenals: ?Unremarkable pancreas and adrenal glands. Kidneys and Ureters: ?No visiblecalculi in the renal collecting systems. No hydroureter or hydronephrosis. Vessels: Diffuse atherosclerosis without AAA. Patent portal venouscirculation. Calcifications noted in several small and medium sizedarteries including inferior epigastric artery and branches of Retroperitoneum: No abnormal fluid or lymphadenopathy. Bowel: Colonic diverticulosis is noted without any acute changes. Bladder and Reproductive Organs: ?No gross pathology in the under distendedand unopacified urinary bladder. No gross pathology in the uterus oradnexa. Bones: Lower thoracic and upper lumbar degenerative spondylosis,exaggerated lumbar lordosis, grade 1 spondylolisthesis at L4-L5, multilevelhypertrophic facetarthritis, spinal stenosis at L4-L5, less at L3-L4.Cystic changes are seen in the head of the rightfemur, likely degenerativecyst secondary to osteoarthritis of the joint. Soft tissues: Diffuse anasarca with congested subcutaneous fat of theentire abdomen and pelvis. CONCLUSION:1. Liver morphologyconsistent with chronic liver disease, possiblycirrhosis with portal hypertension causing small volume ascites and mildsplenomegaly.2. S/P cholecystectomy.3. Generalized anasarca.4. Extensive arteriosclerosis. Please correlate with history forpossibility of chronic poorly controlled diabetes.5. Small right and moderate left pleural effusion with chronicallycollapsed portions of adjacent lower lungs.[facility]CB WITH [id number] 17:49:36* Test Item Value Reference Range Interpretation Comme nts WBC (test code = 6690-2) 5.31 4.30-11.10 RBC (test code = 789-8) 1.50 3.93-5.25 L HGB (test code = 718-7) 3.5 g/dL 11.6-15.0 LL HCT (test code = 4544-3) 12.9 % 35.7-45.2 LL MCV (test code = 787-2) 86.0 fL 80.6-95.5 MCH (test code = 785-6) 23.3 pg 25.9-32.8 L MCHC (test code = 786-4) 27.1 g/dL 31.6-35.1 L RDW-SD (test code = 09710-8) 53.8 fL 39.0-49.9 H RDW-CV (test code = 788-0) 17.2 % 12.0-15.5 H PLT (test code = 777-3) 85 166-358 L MPV (test code = 70151-8) 11.6 fL 9.5-12.9 NRBC/100 WBC (test code = 2304082924) 0.0 0.0-10.0 NRBC x10^3 (test code = 8550042316) See_Comment [Automated messa ge] The system which generated this result transmitted reference range: 10*3/?L. The reference range was not used to interpret this result as normal/abnormal. GRAN MAT (NEUT) % (test code = 770-8) 59.3 % IMM GRAN % (test code = 8544772757) 0.40 % LYMPH % (test code = 736-9) 25.2 % MONO % (test code = 5905-5) 11.7 % EOS % (test code = 713-8) 3.4 % BASO % (test code = 706-2) 0.0 % GRAN MAT x10^3(ANC) (test code = 8376491723) 3.15 10*3/uL 1.88-7.09 IMM GRAN x10^3 (test code = 4190663190) 0.00-0.06 LYMPH x10^3 (test code = 731-0) 1.34 10*3/uL 1.32-3.29 MONO x10^3 (test code = 742-7) 0.62 10*3/uL 0.33-0.92 EOS x10^3 (test code = 711-2) 0.18 10*3/uL 0.03-0.39 BASO x10^3 (test code = 704-7) 0.01-0.07 ELLIPTO/OVAL (test code = 97203-2) 2+ See_Comment A [Automated messa ge] The system which generated this result transmitted reference range: (none). The reference range was not used to interpret this result as normal/abnormal. POLYCHROMASIA (test code = 29599-2) 2+ See_Comment [Automated messa ge] The system which generated this result transmitted reference range: 2+. The reference range was not used to interpret this result as normal/abnormal. REACT LYMPHS (test code = 3522716305) Rare GIANT PLATELETS (test code = 5908-9) Present See_Comment A [Automated messa ge] The system which generated this result transmitted reference range: (none). The reference range was not used to interpret this result as normal/abnormal. Lab Interpretation (test code = 95116-1) Abnormal [facility] WITH [id number] 17:49:36* Test Item Value Reference Range Interpretation Comme nts WBC (test code = 6690-2) 5.31 4.30-11.10 RBC (test code = 789-8) 1.50 3.93-5.25 L HGB (test code = 718-7) 3.5 g/dL 11.6-15.0 LL HCT (test code = 4544-3) 12.9 % 35.7-45.2 LL MCV (test code = 787-2) 86.0 fL 80.6-95.5 MCH (test code = 785-6) 23.3 pg 25.9-32.8 L MCHC (test code = 786-4) 27.1 g/dL 31.6-35.1 L RDW-SD (test code = 25292-4) 53.8 fL 39.0-49.9 H RDW-CV (test code = 788-0) 17.2 % 12.0-15.5 H PLT (test code = 777-3) 85 166-358 L MPV (test code = 53004-6) 11.6 fL 9.5-12.9 NRBC/100 WBC (test code = 7234792542) 0.0 0.0-10.0 NRBC x10^3 (test code = 0268703186) See_Comment [Automated messa ge] The system which generated this result transmitted reference range: 10*3/?L. The reference range was not used to interpret this result as normal/abnormal. GRAN MAT (NEUT) % (test code = 770-8) 59.3 % IMM GRAN % (test code = 6061182122) 0.40 % LYMPH % (test code = 736-9) 25.2 % MONO % (test code = 5905-5) 11.7 % EOS % (test code = 713-8) 3.4 % BASO % (test code = 706-2) 0.0 % GRAN MAT x10^3(ANC) (test code = 0449365442) 3.15 10*3/uL 1.88-7.09 IMM GRAN x10^3 (test code = 7381157047) 0.00-0.06 LYMPH x10^3 (test code = 731-0) 1.34 10*3/uL 1.32-3.29 MONO x10^3 (test code = 742-7) 0.62 10*3/uL 0.33-0.92 EOS x10^3 (test code = 711-2) 0.18 10*3/uL 0.03-0.39 BASO x10^3 (test code = 704-7) 0.01-0.07 ELLIPTO/OVAL (test code = 18905-9) 2+ See_Comment A [Automated messa ge] The system which generated this result transmitted reference range: (none). The reference range was not used to interpret this result as normal/abnormal. POLYCHROMASIA (test code = 69386-6) 2+ See_Comment [Automated messa ge] The system which generated this result transmitted reference range: 2+. The reference range was not used to interpret this result as normal/abnormal. REACT LYMPHS (test code = 8926594079) Rare GIANT PLATELETS (test code = 5908-9) Present See_Comment A [Automated messa ge] The system which generated this result transmitted reference range: (none). The reference range was not used to interpret this result as normal/abnormal. Lab Interpretation (test code = 18702-8) Abnormal [facility] HospitalType and Screen - ONCE [id number] 17:29:00 * Test Item Value Reference Range Interpretation Comme nts ABO & RH (test code = 20) A POSITIVE IAT (test code = 1185) Negative [facility] HospitalType [facility] - ONCE [id number] 17:29:00 * Test Item Value Reference Range Interpretation Comme nts ABO & RH (test code = 20) A POSITIVE IAT (test code = 1185) Negative [facility] HospitalEthanol2024-02-28 16:59:32 ALCOHOL<10mg/dL11/02/2023 10:59 [facility] [id number] Toxic>100 Depression of CHICKEN VACCINATOR>400 Fatalities ReportedHarris Health System Ben [facility]ub HospitalEthanol2024-02-28 16:59:32ALCOHOL<10mg/dL11/02/2023 10:59 [facility]10 [id number] Toxic>100 Depression of CHICKEN VACCINATOR>400 [facility] 2023-[facility]-02 16:35:39* Test Item Value Reference Range Interpretation Comme nts TROPONIN I (test code = 3724570165) 0.184 ng/mL <=0.034 H CHAD (test code = CHAD) Reference (Normal) Range (defined by the 99th percentile reference limit): <= 0.034 ng/mL Note: Cardiac troponin begins to rise 3-4 hours after the onset of ischemia. Repeat in 4-6 hours if the sample was drawn within 3-4 hours of the onset of the symptom and found normal. Diagnosis of myocardial injury is made with acute changes in cTn concentrations with at least one serial sample above the 99th percentile upper reference limit (URL), taken together with the patient's clinical presentation. Biotin has been reported to cause a negative bias, interpret results relative to patient's use of biotin. Lab Interpretation (test code = 75515-9) Abnormal [facility] [id number] 16:35:39* Test Item Value Reference Range Interpretation Comme nts TROPONIN I (test code = 0784954229) 0.184 ng/mL <=0.034 H CHAD (test code = CHAD) Reference (Normal) Range (defined by the 99th percentile reference limit): <= 0.034 ng/mL Note: Cardiac troponin begins to rise 3-4 hours after the onset of ischemia. Repeat in 4-6 hours if the sample was drawn within 3-4 hours of the onset of the symptom and found normal. Diagnosis of myocardial injury is made with acute changes in cTn concentrations with at least one serial sample above the 99th percentile upper reference limit (URL), taken together with the patient's clinical presentation. Biotin has been reported to cause a negative bias, interpret results relative to patient's use of biotin. Lab Interpretation (test code = 89869-3) Abnormal [facility] HospitalN-TERMINAL [id number] 16:33:21* Test Item Value Reference Range Interpretation Comme nts NT-proBNP (test code = 94591-2) 2100 pg/mL <=125 H CHAD (test code = CHAD) Positive: Heart Failure Likely Lab Interpretation (test code = 67552-3) Abnormal [facility] HospitalN-TERMINAL [id number] 16:33:21* Test Item Value Reference Range Interpretation Comme nts NT-proBNP (test code = 20360-3) 2100 pg/mL <=125 H CHAD (test code = CHAD) Positive: Heart Failure Likely Lab Interpretation (test code = 11279-6) Abnormal [facility] HospitalCOMP. METABOLIC PANEL (16147)2023-11-02 16:23:59* Test Item Value Reference Range Interpretation Comme nts NA (test code = 3542190593) 134 mmol/L 135-145 L K (test code = 5034067140) 3.6 mmol/L 3.5-5.0 CL (test code = 9076966581) 101 mmol/L 98-108 CO2 TOTAL (test code = 0129326799) 22 mmol/L 23-31 L AGAP (test code = 8526689434) 11 2-16 BUN (test code = 7211268048) 20 mg/dL 7-23 GLUCOSE (test code = 2912950535) 221 mg/dL 70-110 H CREATININE (test code = 2160-0) 0.86 mg/dL 0.50-1.04 TOTAL BILI (test code = 0539052757) 2.6 mg/dL 0.1-1.1 H CALCIUM (test code = 7436975100) 8.8 mg/dL 8.6-10.6 T PROTEIN (test code = 1146433443) 7.5 g/dL 6.3-8.2 ALBUMIN (test code = 1253509538) 3.3 g/dL 3.5-5.0 L ALK PHOS (test code = 0028869629) 69 U/L 34-122 ALTv (test code = 1742-6) 18 U/L 5-35 AST(SGOT) (test code = 7644267463) 36 U/L 13-40 eGFR (test code = 23767-0) 75.1 mL/min/1.73m2 CKD-EPI eGFR (2020). Assuming creatinine has been stable day-to-day for at least three months, the eGFR indicates Category G2 (60 - 89 mL/min/1.73 m2) Lab Interpretation (test code = 63238-3) Abnormal [facility] HospitalCOMP. METABOLIC PANEL (67120)2023-11-02 16:23:59* Test Item Value Reference Range Interpretation Comme nts NA (test code = 3208110864) 134 mmol/L 135-145 L K (test code = 6107978349) 3.6 mmol/L 3.5-5.0 CL (test code = 5376881114) 101 mmol/L 98-108 CO2 TOTAL (test code = 4974045347) 22 mmol/L 23-31 L AGAP (test code = 1815993356) 11 2-16 BUN (test code = 1719635052) 20 mg/dL 7-23 GLUCOSE (test code = 8721372385) 221 mg/dL 70-110 H CREATININE (test code = 2160-0) 0.86 mg/dL 0.50-1.04 TOTAL BILI (test code = 2205620136) 2.6 mg/dL 0.1-1.1 H CALCIUM (test code = 0897453930) 8.8 mg/dL 8.6-10.6 T PROTEIN (test code = 4275753709) 7.5 g/dL 6.3-8.2 ALBUMIN (test code = 0374771905) 3.3 g/dL 3.5-5.0 L ALK PHOS (test code = 6861519051) 69 U/L 34-122 ALTv (test code = 1742-6) 18 U/L 5-35 AST(SGOT) (test code = 4396852499) 36 U/L 13-40 eGFR (test code = 35409-3) 75.1 mL/min/1.73m2 CKD-EPI eGFR (2020). Assuming creatinine has been stable day-to-day for at least three months, the eGFR indicates Category G2 (60 - 89 mL/min/1.73 m2) Lab Interpretation (test code = 19894-6) Abnormal [facility] HospitalXR CHEST 1 [id number] 16:19:55EXAM: XR CHEST 1 11/02/2023 9:50 AM HISTORY: 63 years-old Female with dyspnea . TECHNIQUE: Portable AP view of the chest. COMPARISON: None. FINDINGS: Lines and tubes: None. Cardiomediastinal: The cardiac silhouette is upper normal in size to mildlyenlarged. The pulmonary vasculature is engorged. Lungs and pleura: Mild diffuse prominence of interstitial markingssuspicious for mild interstitial ed eladio. Small to moderate left pleuraleffusion and associated atelectasis. Trace right pleural effusion. Included osseous structures show no acute abnormality. [facility] HospitalXR [facility] 1 [id number] 16:19:55EXAM: XR CHEST 1 11/02/2023 9:50 AM HISTORY: 63 years-old Female with dyspnea . TECHNIQUE: Portable AP view of the chest. COMPARISON: None. FINDINGS: Lines and tubes: None. Cardiomediastinal: The cardiac silhouette is upper normal in size to mildlyenlarged. The pulmonary vasculature is engorged. Lungs and pleura: Mild diffuse prominence of interstitial markingssuspicious for mild interstitial ed eladio. Small to moderate left pleuraleffusion and associated atelectasis. Trace right pleural effusion. Included osseous structures show no acute abnormality. [facility] HospitalAC Panel 20 + Lactic [id number] 15:54:01* Test Item Value Reference Range Interpretation Comme nts PH (test code = 2) 7.50 7.35-7.45 H PCO2 (test code = 5170579528) 32 35-45 L PO2 (test code = 4484632997) 74 80-100 L HCO3 (test code = 8308283687) 25 22-26 BE (test code = 9658282450) 1.0 -3.0-3.0 THB (test code = 7266709678) 3.8 g/dL 12.0-16.0 LL %O2HB (test code = 6536006229) 93.0 % 94.0-99.0 L %COHB ART (test code = 4013426825) 0.6 % 0.0-1.5 %METHB ART (test code = 0844764386) 0.6 % 0.4-1.5 VOL%O2 ART (test code = 2174985538) 5.1 % 15.0-23.0 L NA (test code = 8085003490) 134 mmol/L 135-145 L K+ (test code = 8047634824) 3.6 mmol/L 3.5-5.0 AC CA IONZ (test code = 7418591810) 4.40 mg/dL 4.50-5.30 L GLUCOSE (test code = 4389240514) 237 mg/dL 70-110 H LACTIC ACID (test code = 7877989499) 3.62 mmol/L 0.50-2.20 H Lab Interpretation (test cod e = 57867-2) Abnormal [facility] HospitalAC Panel 20 + Lactic [id number] 15:54:01* Test Item Value Reference Range Interpretation Comme [facility] PH (test code = 2) 7.50 7.35-7.45 H PCO2 (test code = 7443120369) 32 35-45 L PO2 (test code = 5455854737) 74 80-100 L HCO3 (test code = 9506966564) 25 22-26 BE (test code = 5469147949) 1.0 -3.0-3.0 THB (test code = 4946942118) 3.8 g/dL 12.0-16.0 LL %O2HB (test code = 1441316267) 93.0 % 94.0-99.0 L %COHB ART (test code = 7171648558) 0.6 % 0.0-1.5 %METHB ART (test code = 3313987074) 0.6 % 0.4-1.5 VOL%O2 ART (test code = 6939362338) 5.1 % 15.0-23.0 L NA (test code = 3470127185) 134 mmol/L 135-145 L K+ (test code = 8583144937) 3.6 mmol/L 3.5-5.0 AC CA IONZ (test code = 1710663456) 4.40 mg/dL 4.50-5.30 L GLUCOSE (test code = 2028090687) 237 mg/dL 70-110 H LACTIC ACID (test code = 4411670454) 3.62 mmol/L 0.50-2.20 H Lab Interpretation (test cod e = 09552-4) Abnormal [facility] HEMOGLOBIN A1C [id number] 22:44:00* Test Item Value Reference Range Interpretation Comme [facility] POCT HBA1C (test code = 4548-4) 6.2 % 4-6 A Lab Interpretation (test cod e = 22801-2) Abnormal [facility] HEMOGLOBIN A1C [id number] 22:44:00* Test Item Value Reference Range Interpretation Comme nts POCT HBA1C (test code = 4548-4) 6.2 % 4-6 A Lab Interpretation (test cod e = 17148-6) Abnormal [facility] HEMOGLOBIN A1C [id number] 17:42:00* Test Item Value Reference Range Interpretation Comme nts POCT HBA1C (test code = 4548-4) 9.1 % 4-6 A Lab Interpretation (test cod e = 42347-3) Abnormal [facility] HEMOGLOBIN A1C [id number] 17:42:00* Test Item Value Reference Range Interpretation Comme nts POCT HBA1C (test code = 4548-4) 9.1 % 4-6 A Lab Interpretation (test cod e = 42656-7) Abnormal [facility] HEMOGLOBIN A1C [id number] 17:42:00* Test Item Value Reference Range Interpretation Comme nts POCT HBA1C (test code = 4548-4) 9.1 % 4-6 A Lab Interpretation (test cod e = 03367-6) Abnormal [facility] GLUCOSE(AGE >30DAYS)2022-05-03 21:22:00* Test Item Value Reference Range Interpretation Comme nts POCT Glu (age>30days) (test code = 3342) 148 mg/dL 70-110 A Lab Interpretation (test cod e = 19841-1) Abnormal [facility] GLUCOSE(AGE >30DAYS)2022-05-03 21:22:00* Test Item Value Reference Range Interpretation Comme nts POCT Glu (age>30days) (test code = 3342) 148 mg/dL 70-110 A Lab Interpretation (test cod e = 35255-6) Abnormal [facility] HEMOGLOBIN A1C [id number] 21:21:00* Test Item Value Reference Range Interpretation Comme nts POCT HBA1C (test code = 4548-4) 7.2 % 4-6 A Lab Interpretation (test cod e = 83174-8) Abnormal [facility] HEMOGLOBIN A1C [id number] 21:21:00* Test Item Value Reference Range Interpretation Comme nts POCT HBA1C (test code = 4548-4) 7.2 % 4-6 A Lab Interpretation (test cod e = 65245-1) Abnormal [facility] Consult Notes Date/Time Note Provider Source 2023-11-09 08:33:00 [id number] 8:33:00Associated Order(s): CONSULT ADULT PHYSICAL THERAPY Patient agreeable to working with physical therapy. Patient met semi reclined in bed.Recommend nursing staff utilize Rolling Walker to safely assist patient with mobility out of the bed or chair.PHYSICAL THERAPY EVALUATIONConsult received, chart reviewed and evaluation complete this date. Patient is referred to PT for evaluation and treatment. Patient is a 63 year old female who presents to hospital for Dyspnea, GIB (gastrointestinal bleeding) s/p paracentesis.Discharge Recommendations:Therapy Needs and Potential:Patient would benefit from continued physical therapy services to address: decline in bed mobility decline in transfers decline in gait and/or balance decreased strength decreased endurancePatient demonstrates good potential to improve and meet therapy goals with further physical therapy services.Patient appears motivated to improve their functional mobility and return to their previous level of function.Patient demonstrates ability to tolerate atleast 30-60 minutes of physical therapy with active participation.Challenges to Home Transition:increased risk of fallsEquipment recommendations:Patient has or access to necessary equipmentCurrent Functional Status and/or Treatment:AM-PAC 6 Clicks (Raw Score 0=Dependent, 24=Independent; Low function Raw Score 0= Dependent, 32=Independent):Raw Score - Basic Mobility : 17T-Scale Score - Basic Mobility : 39.67Bed Mobility:Sitting balance GoodSupine to sit: SupervisionScooting to edge of bed: SupervisionAdditional time and verbal cues to complete transitionTransfers:Sit to stand: Supervision using Rolling WalkerStand to sit: Supervision using Rolling WalkerStatic/dynamic standing balance: Fair+Verbal cueing provided for correct hand placement and correct use of AD(+) dizziness upon standingAmbulation:Assisted patient with ambulation as follows: 16 feet using Rolling Walker and Supervision.Patient presenting with Modified 3 point gait pattern.Decreased step length and gait speedTherapeutic exercise:patient educated in Edema management, Energy conservation, Fall prevention, General strengthening, and Positioning. and patient/caregiver verbalizes understanding of instructions.Patient is educated on importance of out of bed activity and upright sitting, especially for meals, to decrease risk of pneumonia, pressure sores, and deconditioning.Educated patient on importance of elevating B leg and performing ankle pumps to decrease edema and risk of blood clot formation.Educated patient on energy conservation; instructed to perform small bouts of activity spread throughout the day, allowing time for rest between activities, to build endurance and prevent fatigue.Functional Outcome Measures: (Values within the past 12 hours)Tinetti Gait Score- # / 12Initiation of gait: No hesitancyStep length: Neither foot passes the otherFoot clearance: Both feet completely clear floorStep Symmetry: Step lengths equalStep continuity: Steps appear continuousPath: Mild/moderate deviation or uses ADTrunk: Marked sway or uses ADWalking: Heels almost touchingTinetti Gait Score: 7Tinetti Gait Score Interpretation: >= 7 - Low risk for fallsTINETTI BALANCE SCORE- # / 16Sitting balance: Steady, safeArises: Able, uses arms to helpAttempts to Rise: Able, requires > 1Immediate standing balance (first 5 sec): Steady but uses walker or other supportStanding Balance: Steady but LEONORA > 4 inches or uses AD/other supportNudged 3 times *: Staggers, grabs, catches selfEyes closed*: SteadyTurning 360 degrees: Either discontinuous or unsteadySitting down: Uses arms or motion not smoothTinetti Balance Score: 9Tinetti Balance Interpretation: >= 9 - Low risk for fallsAfter session, patient up in chair. Call button provided.PLAN OF CARE:While in the hospital, PT will follow patient at least 3 times per week,once or twice a day, per patient's tolerance and needs.See below for complete details.Admit Date: 11/02/2023Hospital Diagnosis:Dyspnea, unspecified type [R06.00]GIB (gastrointestinal bleeding) [K92.2]PT Diagnosis: Difficulty walkingWeight Bearing Precaution: NAGeneral Precautions: PPE used:Gloves, General, Fall,Purewick catheter, IV disconnected, oxygen: Nasal canula @1LBracing/Cast present or required:N/APMH:Past Medical History:Diagnosis DateAlcohol abuseAsthmaDepressionEssential hypertension, benignType 2 diabetes mellitus with diabetic polyneuropathy, without long-term current use of insulinPSH:Past Surgical History:Procedure Laterality DateCHOLECYSTECTOMYDILATION AND CURETTAGE (SHX)ESOPHAGOGASTRODUODENOSCOPY N/A 11/03/2023Surgeon: Ayo Alanis MD; Location: ENDOSCOPY ([facility]) OR LOCATIONTONSILLECTOMYPrior Living Situation: Lives in a single story house with partner and partners sister, Able to negotiate: YesDME: Rolling Walker, shower chair, Four wheeled walker with seatPrior level of Mobility: house hold ambulation, ambulates with Four wheeled walker with seatSuspected ischemic or hemorraghic stroke:NoSubjective: Patient states that prior to this illness she was independent without any devices but since she's been ill she has been using the rollator walker mostly and has been staying homePatient/Family Goals: improve functionPatient/Family verbalizes understanding of condition: YesPAIN:denies pain before and after sessionCOMMUNICATIONPrimary Language: EnglishAble to Verbalize needs: YesVision:glasses Hearing:good; no issues reportedORIENTATION/COGNITION:Oriented to: person, place, date/time, and situationAwake: Yes Alert: Yes Dizzy: Yes upon sitting/standingFollows Commands: Yes1-Step Yes Multi-Step YesInconsistent: NoNEUROLOGICALLight Touch: deficit: Diminished light touch B feet with absent sharp/dull discriminationTone: normalBALANCE:Sitting: Static: Good Dynamic: GoodStanding: Static: Fair+ Dynamic: Fair+RANGE OF MOTION: within functional limits bilateral LESTRENGTH: 4/5 (Good), bilateral LEENDURANCE: Fair+, Nasal canulaSKIN INTEGRITY: intactPROBLEM LIST: Decline in bed mobility, Decline in gait, Decline in transfers, Decreased strength, Decreased endurance, and Decreased balanceASSESSMENT: Patient is a 63 year old female seen secondary to the above listed diagnosis. Patient would benefit from continued PT to address the above listed deficits to maximize independence and safety with functional mobility.Rehabilitation Potential: goodGoals: The following goals are to maximize independence and safety with functional mobility to eventually return to prior living situation and prior functional status.Upon discharge, patient and/or family will demonstrate the followin. Supine-sit: Independent2. sit-stand: Independent3. Independent with ambulation, Feet: 200 using least assistive device.Treatment Plan: Gait training, Gait training on stairs, Therapeutic exercise, Transfer training, Balance training, Bed mobility training, Equipment needs assessment, Safety education, patient/caregiver education, Pain management, Neuromuscular Re-Education, and Functional Motor TrainingPATIENT EDUCATION: Patient provided with preferred teaching of verbal information on role of PT, plan of care, and above instruction. Shows readiness to learn. Verbal instruction teaching provided. Individual is able to read and verbalizes understanding of teaching provided.Ashley Christina PT, DPTTotal Timed Tx Codes in Minutes: 15 MinTotal Treatment Time in Minutes: 25 Kizzy physical therapy evaluation of moderate complexity was completed based on meeting the criteria below:A history of present problem with at least 1-2 personal factors (includes environmental factors) and/or comorbidities that impact the plan of careAn examination of body systems using standardized tests and measures in addressing at least 3 or more elements from any of the following: body structures and functions, activity limitations and/or participation restrictionsAn evolving clinical presentation with changing characteristics 13806-5Cdozvtb blpnTB4075-04-94W61:09:09Consult noteTXT1.2.840.988606.1.13.104.2.7.2.7 61165|[id number] for patient slhq92662-5Cvlfwwj noteLNNARRATIVEFormatted C-CDA narrative text[address] Eb[id number] SANMQSHKAVZTAGLQYGIF6123-59-86M41:09:0 91.2.840.240514.1.72.3.15|1.2.840.1143 [id number] [facility] 2023-11-08 10:20:00 lh2b/w1wNpj+GFxSXhH+QeXp8KKOgpxOYyZk9n WXh+PK/94RJNAc7BkvQeTry49j2112-40-11E3 0:20:00Associated Order(s): CONSULT ADULT OCCUPATIONAL THERAPY OT GENERAL EVALUATIONConsult received via [facility], EMR reviewed and evaluation completed 11/08/23. Patient referred to occupational therapy for evaluation and treatment secondary to SOB. Patient agreeable to participate in occupational therapy.Discharge Recommendations:Therapy Needs and Potential:- Patient would benefit from continued skilled occupational therapy services to address: Decline in basic activities of daily living, Decline in instrumental activities of daily living, and Decreased endurance- Patient demonstrates good potential to improve and meet therapy goals with further skilled occupational therapy services.- Patient appears motivated to improve their B/IADLs and return to their previous level of function.- Patient demonstrates ability to tolerate at least 30-60 minutes of active participation in occupational therapy.- Patient able to follow commands: 1-step Yes, Multi-step Yes, Inconsistencies NoChallenges to Home Transition:- Requires physical assistance for BADLS- Requires physical assistance for IADLS- Increased risk of fallsEquipment Recommendations:Hand held shower, Long handled sponge, Long handled neurology tech, and Sock aidePLAN OF CARE: At least 3x/weekPrecautions:Weight bearing status: NAGeneral: Fall, O2 per NC , and IV f7Bfgggyx: N/ACurrent Occupational Performance and/or Treatment:AM-PAC 6 Clicks (Raw Score 0=Dependent, 24=Independent; Low function Raw Score 0= Dependent, 32=Independent):Raw Score - Daily Activity: 19T-Scale Score - Daily Activity: 40.22Grooming: Independent, to wipe face with damp washcloth sitting upright in bed. Patient left with toiletry items to complete at her leisure.UB Dressing: Independent, to don gown posteriorly sitting EOB.Toilet Transfer: Supervision, with extra time and CGA for stand pivot transfer to/from bedside commode. Patient rating transfer at 5/10 on JAMAL scale.Functional Mobility:HOB elevated.Supine<>sit: Minimal Assistance, for trunk body mechanics.Sit<>stand: Supervision, with verbal cues for hand placement with extra time secondary to SOB.Stand pivot transfer to/from bedside commode.Patient returns to bed.Lateral scooting towards center of bed: Minimal Assistance, with verbal cues for bridging techniquePatient left at 47 degrees and educated on positioning for increased lung capacity and overall wellbeingPatient rating functional mobility in total at 7/10 on JAMAL scale.Patient/caregiver educated on:Adaptive equipment , ADL training, Compensatory techniques/adaptive strategies, Deep breathing, Energy conservation, Fall prevention, Positioning, Role of OT, and Safety awarenessPatient left semireclining in bed with call fink in reach. Patient left resting comfortably in bed with all immediate needs met. Please, see full evaluation below for more detail.OT EVALUATION:63 year old female Admit date: 11/02/2023 Date of onset: ~5 days prior to onsetAdmit Diagnosis: Dyspnea, unspecified type [R06.00]GIB (gastrointestinal bleeding) [K92.2]OT Diagnosis: Impaired BADL independence, Impaired IADL independence, Decreased endurance, and Impaired self-care mobilityPMH:Past Medical History:Diagnosis DateAlcohol abuseAsthmaDepressionEssential hypertension, benignType 2 diabetes mellitus with diabetic polyneuropathy, without long-term current use of insulinPSH:Past Surgical History:Procedure Laterality DateCHOLECYSTECTOMYDILATION AND CURETTAGE (SHX)ESOPHAGOGASTRODUODENOSCOPY N/A 11/03/2023Surgeon: Ayo Alanis MD; Location: ENDOSCOPY ([facility]) OR LOCATIONTONSILLECTOMYPAIN:Pain Location: patient complains of pain caused by SOBPain rating before treatment: does not rate, After treatment: 7Pain Management: Repositioning ProvidedOCCUPATIONAL ROLES/HOME ENVIRONMENT:Home environment: Lives with life partner and life partner's sister, 28/03 supervision/assistance is not available, and Single story home.Bathroom access: YesBathroom setup: ShowerOccupation(s): Not workingFunction prior to admission:Supervision with shower transferLife partner performs IADLs including cooking, cleaning, and grocery shoppingHousehold ambulation and community ambulationSuspected ischemic or hemorraghic stroke patient: NoEquipment prior to admission: shower chair, grab bars, long handled neurology tech, 4 wheel walker, rolling walkerPERFORMANCE SKILLS/FACTORS:UE Muscle Tone: bilateral WNLUE ROM: bilateral AROM WFLUE Strength: ANDRE UE WFLHand dominance: rightDexterity/Coordination: bilateral IntactEndurance - Sitting: Fair Standing: Poor+Sitting Balance - Static: Good Dynamic: GoodStanding: Balance - Static Fair+ Dynamic: FairDizziness: NoSkin Integrity: No breakdown notedSensation: NTOral Motor: WFLCommunication: Able to verbalize needs Yes Other: N/AVision: WFL Yes Other: glassesHearing: good; no issues reportedCOGNITION:Orientation: person, place, date/time, and situationFollows Commands: 1-step Yes Multi-step Yes Inconsistencies NoSafety Awareness/Judgment: GoodPROBLEM LIST: Decreased independence with ADL and Decreased strength/endurance for functional activityREHAB POTENTIAL/PROGNOSIS: goodPATIENT/FAMILY GOALS: To not be short of breathTREATMENT/INTERVENTION PLAN: Patient/Caregiver Education, Equipment recommendations, Daily living activities, and Therapeutic exercisesGOAL(S): By discharge, patient will increase independence in daily living skills as follows:1 Patient will perform toilet transfer with independence.2 Patient will perform LB dressing with independence using AE as needed.3 Patient will complete grooming tasks with independence while standing at the sink.4 Patient will complete toileting hygiene, including clothing management, with independence.5 Patient will increase endurance for functional activity as evidenced by ability to sustain 20 minutes of active participation.6 Patient/caregiver will verbalize/demonstrate understanding/proficiency in the following home programs: Adaptive equipment , 7 Energy conservation, 8 Fall prevention, 9 Positioning, and 10 Theraband (for endurance training purposes)PATIENT-FAMILY TEACHINGPatient provided with preferred teaching of verbal information on Adaptive equipment , ADL training, Compensatory techniques/adaptive strategies, Deep breathing, Energy conservation, Fall prevention, Positioning, Role of OT, and Safety awareness. Shows readiness to learn. Verbal instruction teaching provided. Individual is able to read and verbalizes understanding of teaching provided and accurately returns demonstration of skill.Arely Nguyen, OTR, OTDPager: [phone] Timed Treatment Codes: 10 MinTotal Treatment Time: 31 MinPatient Complexity Level Moderate - An occupational therapy evaluation of moderate complexity was completed using the above tests and measures. The following information was obtained: An occupational profile and medical and therapy history, including an expanded review of medical and/or therapy records and additional review of physical, cognitive, or psychosocial history related to current functional performance, Various standardized and non-standardized assessments were used to identify at least 3-5 performance deficits related to physical, cognitive, or psychosocial skills that result in activity limitations and/or participation restrictions, and Clinical decision making of moderate analytic complexity, which includes an analysis of the occupational profile, analysis of data from detailed assessment(s), and consideration of several treatment options. Patient may present with comorbidities that affect occupational performance. Minimal to moderate modification of tasks or assistance (e.g., physical or verbal) with assessment(s) is necessary to enable patient to complete evaluation component. 17858-1Ytpdvej fpuuKU3284-89-78K64:54:35Consult noteTXT1.2.840.049624.1.13.104.2.7.2.7 14379|[id number] for patient ffie40917-0Fklgmhr noteLNNARRATIVEFormatted C-CDA narrative [id number] J Wielfaert [address] Leon StreetDk[id number] TKWPOVRHFDLIUXCBUNSA1965-19-26J46:54:3 51.2.840.999703.1.72.3.15|1.2.840.1143 [id number] Arely Nguyen [facility] 2023-11-06 07:23:24 kGm6kZ/aosJJZcXpgkCAWytnWNl9IqjhCWf9Py HDFwwz8V3P63ZeMEWzC9w07Ji68883-79-99O2 7:23:24Associated Order(s): CONSULT CARDIOLOGY Images from the original note were not included.-Division of Cardiovascular DiseaseCardiology Consult NoteReason for consult: New onset HFHistory of Present Illness:Arely Contreras is a 63 year old female with PMHx of HTN, DM controlled (AC 6), alcohol abuse, > chronic liver cirrhosis and portal hypertension (esophageal varices), thrombocytopenia 2/2/ alcohol use, who intially presented for GI bleed with melena and Hgb of 3.5 > pt recived a total of 5 units RBCs and her Hgb has been temporized for the past couple days. She started developing SOB and an Echo was obtained that showed low normal EF. Moreover, pt has ascites 2/2/ liver cirrhosis for which HI are recommending paracentesis. Cardiology were consulted for new onset HF (established per primary team due to low normal EF, elevated BNP). 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 In addition, trops were obtained and elevated with a peak of 0.221.Cardiology consulted for HF rx.Recent Labs05/19/398797LCBC 232*LDL 164*HDL 42*TRIG 129Last Two A1C Results ([facility]/LC, POCT, [facility])Recent Labs242 643 680283JDWY6Z -- -- 6.0*ZLWUSBV9Z 9.1* 6.2* --NT-proBNP (pg/mL)Date Value11/02/2023 2,100 (H)Recent Labs/718646LSULGM 0.178*PMHx: has a past medical history of Alcohol abuse, Asthma, Depression, Essential hypertension, benign, and Type 2 diabetes mellitus with diabetic polyneuropathy, without long-term current use of insulin.PSHx: has a past surgical history that includes tonsillectomy; cholecystectomy; dilation and curettage (shx); and esophagogastroduodenoscopy (N/A, 11/03/2023).SocHx: reports that she has never smoked. She has never used smokeless tobacco. She reports current alcohol use. She reports that she does not use drugs.FamilyHx: family history includes Arthritis in her father and mother; Cancer in her sister; Diabetes in her father; Heart in her father.Allergies:AllergiesAllergen ReactionsCodeine Nausea and/or VomitingStomach painPrior to Admission medicationsMedication Sig Start Date End Date Taking? Authorizing ProviderMETFORMIN 500 mg tablet TAKE 1 TABLET BY MOUTH IN THE MORNING AND 1 IN THE EVENING 10/06/23 Obi-Andrea, Hernesto, MDPREGABALIN 150 mg capsule TAKE 1 CAPSULE BY MOUTH IN THE MORNING AND 1 IN THE EVENING 10/06/23 Obefra-Andrea, Hernesto, ALINAane Sanjay Use as directed. Quad Cane 07/27/23 Vic Mcghee, NPfurosemide 40 mg tablet Take 1 tablet by mouth in the morning. 07/27/23 Vic Mcghee, NPspironolactone 100 mg tablet Take 1 tablet by mouth in the morning. 07/27/23 Vic Mcghee, NPamLODIPine 10 mg tablet Take 1 tablet by mouth in the morning. 04/12/23 Vic Mcghee, NPbuPROPion XL 150 mg 24 hr tablet Take 1 tablet by mouth in the morning and 1 tablet in the evening. 04/12/23 Vic Mcghee, NPcitalopram 40 mg tablet Take 1 tablet by mouth in the morning. 04/12/23 Vic Mcghee NPflash glucose scanning reader (FREESTYLE MANASA 14 DAY READER) Misc Take 1 Each in the morning. 04/12/23 Vic Mcghee, MECHEflash glucose sensor (FREESTYLE MANASA 14 DAY SENSOR) Kit 1 Kit every 14 (fourteen) days. 04/12/23 Vic Mcghee, MECHEamitriptyline 25 mg tablet Take 1 tablet by mouth at bedtime. 09/15/22 Vic Mcghee, MECHEergocalciferol, vitamin d2, (VITAMIN D2) 1,250 mcg (50,000 unit) capsule Take 1 capsule by mouth weekly. 05/03/22 Vic Mcghee, NPatorvastatin 20 mg tablet Take 1 tablet by mouth at bedtime. 12/03/21 Lary Anderson MDCOQ10, UBIQUINOL, ORAL Take by mouth. Doctor Unassigned, No NameASCORBATE CALCIUM (VITAMIN C ORAL) Take by mouth daily. Doctor Unassigned, No Namemultivitamin tablet Take 1 Tab by mouth daily. Doctor Unassigned, No NameCurrent Facility-Administered Medications:KCL (KLOR-CON M20) tablet 40 mEq, 40 mEq, Oral, ONCE, Ha, Regan, DOmagnesium sulfate in water 4 gram/50 mL (8 %) IV Piggyback 4 g, 4 g, IV Piggyback, ONCE, Regan Ha DOcarvediloL (COREG) tablet 3.125 mg, 3.125 mg, Oral, BID MEALS, Lorraine, August R, DO, 3.125 mg at 11/05/23 1649furosemide (LASIX) injection 20 mg, 20 mg, Slow IV Push, Q12H, Kirsty Jefferson MD, 20 mg at 11/05/23 2149dextrose 50 % in water (D50W) injection 25 mL, 25 mL, Slow IV Push, PRN, Luzmaria Arceo MDglucagon (GLUCAGEN DIAGNOSTIC KIT) injection 1 mg, 1 mg, Intramuscular, PRN, Luzmaria Arceo MDSliding Scale Insulin-Regular, , Subcutaneous, AC+HS, Luzmaria Arceo MD, 1 Units at 11/05/23 2113atorvastatin (LIPITOR) tablet 20 mg, 20 mg, Oral, QHS, Luzmaria Arceo MD, 20 mg at 11/05/23 2147buPROPion XL (WELLBUTRIN XL) tablet 150 mg, 150 mg, Oral, BID, Luzmaria Arceo MD, 150 mg at 11/05/23 2147cefTRIAXone (ROCEPHIN) 1,000 mg in NaCl 0.9% (NS) 100 mL MINI-BAG, 1,000 mg, IV Piggyback, Q24H ABX, Luzmaria Arceo MD, Stopped at 11/05/23 2215citalopram (CELEXA) tablet 40 mg, 40 mg, Oral, DAILY, Luzmaria Arceo MD, 40 mg at 11/05/23 0952foLIC acid (FOLATE) tablet 1 mg, 1 mg, Oral, DAILY, Luzmaria Arceo MD, 1 mg at 11/05/23 0934lactulose (CEPHULAC) solution 30 mL, 30 mL, Oral, Q4H, Luzmaria Arceo MD, 30 mL at 11/05/23 0934pantoprazole (PROTONIX) injection 40 mg, 40 mg, Slow IV Push, Q12H, Seema Scruggs, , 40 mg at 11/05/23 2140thiamine (VITAMIN B1) tablet 100 mg, 100 mg, Oral, DAILY, Luzmaria Arceo MD, 100 mg at 11/05/23 0934Physical Examination:Temp: [36.1 ?C (97 ?F)-36.8 ?C (98.2 ?F)]Pulse: [70-89]Resp: [16-22]BP: (107-118)/(52-61)MAP (mmHg): [70-79]No intake or output data in the 24 hours ending 11/06/23 0723Cardiovascular: regular rate and rhythm, no murmur and S1, S2, no murmur, click, gallop or rubsRespiratory: faint crackles,Echocardiography 11/03/23:Left Ventricle Left ventricle is mildly dilated. Increased wall thickness. Mildly increased ventricular mass. There is eccentric hypertrophy. Normal wall motion. Low normal systolic function with a visually estimated EF of 50 - 55%. EF by 2D Pérez biplane is 50%. There is grade 2 diastolic dysfunction. Elevated left ventricular filling pressure.Right Ventricle Right ventricle size is normal. Normal systolic function.Left Atrium Left atrium is moderately dilated. Left atrium volume index is 46.8 mL/m2.Right Atrium Right atrium size is normal.IVC/SVC IVC diameter is greater than 21 mm and decreases less than 50% during inspiration; therefore the estimated right atrial pressure is elevated (~15 mmHg).Mitral Valve Mild posterior mitral annular calcification. Trace transvalvular regurgitation.Tricuspid Valve Tricuspid valve structure is normal. Mild transvalvular regurgitation. Right ventricular systolic pressure is 40-45 mmHg.Aortic Valve Mildly thickened cusps. Mildly calcified cusps. Mild annular calcification. Consistent with mild aortic stenosis. AV mean gradient is 8.0 mmHg. AV peak velocity is 201.7 cm/s. AV area by continuity VTI is 2.3 cm2.Pulmonic Valve Not well visualized. Mild transvalvular regurgitation.Ascending Aorta Normal sized aortic root.Pericardium The pericardium is normal. No pericardial effusion.Assessment/Plan:Arely Contreras is a 63 year old female admitted with:HFpEF, diastolic dysfunction grade 2, NYHA Class II-III (EF 50-55%)Liver Cirrhosis, uncompensatedAcute anemia s/p transfusionsThrombocytopenia.Trop elevation likely Acute Myocardial injury (2/2/ Acute anemia and HFPEF decompensated)Recommendations:-Can increase lasix to 40IV BID for net UOP -2L- C/w coreg 3.125 BID,- Increase statin to 40mg daily- Will need spironolactone 25mg daily. Will likely uptitrate to cirrhosis dose if BP tolerates- Encourage paracentesis per primary team.- If okay form a bleeding risk, would recommend starting ASA.Thank you for your consult. Seen and examined with Dr. Nati Rocha MD, FESCCardiology FellowDivision of Cardiovascular MedicineUNM Cancer Center reviewed patient's chart, vitals, lab work, current medications and other diagnostic studies. I saw and examined the patient and agree with the detailed note written by Dr Rocha. I actively participated in the decision-making process. Please see the detailed progress note for additional details with the following additions/exceptions if any.Kelly Farmer MD, FACCAssistant ProfessorDivision of Cardiovascular Medicine [facility] 60802-8Eydcwkl gclyWJ7209-28-72T98:15:36Consult noteTXT1.2.840.679307.1.13.104.2.7.2.7 24972|[id number] for patient rejb70461-6Jwcezel noteLNNARRATIVEFormatted C-CDA narrative textIM-CARDIOVASCULAR DISEASE STAFFIM-CARDIOVASCULAR DISEASE STAFFHOAG [facility] - [address] Obz[id number] RUKREEDUPFILDYCXNRLB5520-99-03X55:15:3 61.2.840.959453.1.72.3.15|1.2.840.1143 [id number] IM-CARDIOVASCULAR DISEASE STAFF [facility] - Health History and Physical Notes Date/Time Note Provider Source 2023-11-03 15:09:48 [id number]lWzR2Plb q iWqDA3jTYJijgAGJo1hdlkH8799-65-76F16:09:4 8 Endoscopy H & PAge: 63 year old Sex: femaleASA Class: 3Indication:Arely Contreras is a 63 year old /White female with past medical history of DM, alcoholic cirrhosis, and essential HTN who was admitted with acute blood loss anemia and Hb 3.5 concerning with acute Gi bleeding. Here for diagnostic EGD.Blood thinners: noPrevious Endoscopy:EGD: yes, done at OSH, reported grade 2 esophageal varices, portal hypertension with associated gastropathy with bleeding in the antral regionColonoscopy:noneSubjective/Interval history:Past Medical History:Diagnosis DateAlcohol abuseAsthmaDepressionEssential hypertension, benignType 2 diabetes mellitus with diabetic polyneuropathy, without long-term current use of insulinCurrent Facility-Administered MedicationsMedication Dose Route Frequency Last Rate Last Admindextrose 50 % in water (D50W) injection 25 mL 25 mL Slow IV Push PRNglucagon (GLUCAGEN DIAGNOSTIC KIT) injection 1 mg 1 mg Intramuscular PRNSliding Scale Insulin-Regular Subcutaneous AC+HS 2 Units at 11/03/23 1130atorvastatin (LIPITOR) tablet 20 mg 20 mg Oral QHS 20 mg at 11/02/23 2127buPROPion XL (WELLBUTRIN XL) tablet 150 mg 150 mg Oral BID 150 mg at 11/03/23 0733cefTRIAXone (ROCEPHIN) 1,000 mg in NaCl 0.9% (NS) 100 mL MINI-BAG 1,000 mg IV Piggyback Q24H ABX Stopped at 11/02/23 2147citalopram (CELEXA) tablet 40 mg 40 mg Oral DAILY 40 mg at 11/03/23 0733dexMEDEtomidine 200 mcg in 0.9 % NaCl 50 mL (PRECEDEX) RTU IV infusion 0.2-1.5 mcg/kg/hr IV Infusion TITRATEfoLIC acid (FOLATE) tablet 1 mg 1 mg Oral DAILY 1 mg at 11/03/23 0733lactulose (CEPHULAC) solution 30 mL 30 mL Oral Q4H 30 mL at 11/03/23 1130octreotide (SANDOSTATIN) 500 mcg in NaCl 0.9% (NS) 100 mL infusion 50 mcg/hr IV Infusion CONTINUOUS 10 mL/hr at 11/03/23 1446 50 mcg/hr at 11/03/23 1446pantoprazole (PROTONIX) injection 40 mg 40 mg Slow IV Push Q12H 40 mg at 11/03/23 0752thiamine (VITAMIN B1) tablet 100 mg 100 mg Oral DAILY 100 mg at 11/03/23 0733AllergiesAllergen ReactionsCodeine Nausea and/or VomitingStomach painSocial HistorySocioeconomic HistoryMarital status: MarriedTobacco UseSmoking status: NeverSmokeless tobacco: NeverSubstance and Sexual ActivityAlcohol use: YesComment: pt states only 2 drinks a day but unknown what kindDrug use: NoSexual activity: YesPartners: FemaleSocial History NarrativeLives with her partner.Social Determinants of HealthFinancial Resource Strain: Low Risk (11/03/2023)Overall Financial Resource Strain (CARDIA)Difficulty of Paying Living Expenses: Not hard at allFood Insecurity: No Food Insecurity (11/03/2023)Hunger Vital SignWorried About Running Out of Food in the Last Year: Never trueRan Out of Food in the Last Year: Never trueTransportation Needs: No Transportation Needs (11/03/2023)PRAPARE - TransportationLack of Transportation (Medical): NoLack of Transportation (Non-Medical): NoPhysical Activity: Inactive (11/03/2023)Exercise Vital SignDays of Exercise per Week: 0 daysMinutes of Exercise per Session: 0 minSocial Connections: Unknown (11/03/2023)Social Connection and Isolation Panel [NHANES]Frequency of Communication with Friends and Family: More than three times a weekMarital Status: Living with partnerHousing Stability: Low Risk (11/03/2023)Housing Stability Vital SignUnable to Pay for Housing in the Last Year: NoNumber of Places Lived in the Last Year: 1Unstable Housing in the Last Year: NoMental Status: alert, oriented j8Vbqmk: clear to auscultationCardiovascular: regular rate and rythmnAbdomen: bowel sounds presentTenderness: NOImpression and Plan:Arely Contreras is a 63 year old /White female with past medical history of DM, alcoholic cirrhosis, and essential HTN who was admitted with acute blood loss anemia and Hb 3.5 concerning with acute Gi bleeding. Here for diagnostic EGD. Consent obtained at the bedside.Education provided to the patient and family about the procedure. Benefits, risks, alternatives, and likelihood of achieving patient's goals of care discussed. Risks discussed including but not limited to aspiration, infection, bleeding, perforation, missed polyps/lesions, failure to obtain a diagnosis, failure to complete the procedure, cardiovascular complications such as GA, stroke, arrhythmia, and . Informed consent obtained.Sebas Crooks. Gastroenterology Fellow. ETO2Twkktasizggyzd signed by Ayo Alanis MD at 11/03/2023 3:31 PM CSTAssociated attestation - Ayo Alanis MD - 11/03/2023 3:31 PM CST I have evaluated the patient and discussed the history, examination findings and procedure plan with Dr Crooks. I agree with the above pre-op note.92678-4Spriaor and physical [id number], Sreeram1.2.840.505038.1.13.104.2.7.2.8369 56MmgipmxgIeoimviWJ2876-33-11Y02:31:17His tory and physical noteTXT1.2.840.207715.1.13.104.2.7.2.7278 79|[id number] for patient nukw99601-5Skdjvfv and physical noteLNNARRATIVEFormatted C-CDA narrative cvmfSL-CBTLDKPSNVJWAEZIQN-XOTBGVLAMXFYTPG [address] Hx[id number] OJMAHEETOBZREVLBO5180-14-07B57:31:171.2.8 40.424022.1.72.3.15|1.2.840.066868.1.13.1 04.2.7.2.727879_[id number] IM-GASTROENTERO LOGY [facility] 2023-11-02 20:33:02 kSQPlSDxZsTXiZOYxZwe8U98rjJufBJm/x9KKy9K m Gq7psvC9lSRwjV/LVIAvhu41348-15-55X31:33:0 2 Images from the original note were not included.MICU History and Physical NoteDate of Service: 4Reason for ICU admission: severe anemia (Hgb 3.5) in setting of alcoholic cirrhosis with possible GI bleedICU Day: 0Code Status: Full CodeSubjectiveCarrijosé miguel Contreras is a 63 y/o female presenting as a transfer from [facility] for severe anemia in the setting of possible GI bleed with alcoholic cirrhosis. Pt said that she started feeling short of breath 5 days ago (~10/28/23) a/w orthostatic dizziness, difficulty walking, and generalized weakness. She then had a dark bowel movement 3 days ago (~10/30/23). This morning (11/02/23), pt noticed that she had increased confusion (poor orientation, poor awareness, difficulty thinking). Denies headache, blurry vision, nausea, vomiting, hematemesis, hematuria, diarrhea, constipation, BRBPR. Pt has never had a colonoscopy, but did have positive Cologuard on 04/29/23.Pt currently undergoing cirrhosis work-up, likely alcoholic. Pt currently drinks 3-4 glasses of hard liquor daily, which is substantially reduced from prior. This has been going on for many years. Last drink was 3 days ago. Pt recently underwent EGD. Results with esophageal varices, portal hypertension c/b gastropathy with oozing. Unable to visualize full stomach because of large bezoar present.Major Events in Last 24 Hours:- admitted to MICUObjectiveVital Signs:BP 109/62 | Pulse 84 | Temp 35.8 ?C (96.5 ?F) (Axillary) | Resp 11 | Ht 1.676 m (5' 6") | Wt 81.6 kg (180 lb) | LMP (LMP Unknown) | SpO2 100% | BMI 29.05 kg/m?Intake/Output:Intake/Output Summary (Last 24 hours) at 11/03/2023 0133Last data filed at 11/03/2023 0100Gross per 24 hourIntake 2088 mlOutput 1145 mlNet 943 mlPhysical Exam:Constitutional: no acute distress, responding appropriately, AOx3 with delayed answers and sometimes initially incorrect (said Rene Mackey before self-correcting to [place], said 19- before self-correcting to 2023)HEENT: NCAT, anictericPulm: no respiratory distress, speaking in full sentences, on room airCardiac: RRR, extremities appear pink and well-perfusedAbdomen: distended, soft, non-tenderExtremities: no peripheral edemaSkin: warm and dry, no lamin rashes, jaundiced, spider telangiectasias on chestNeuro: gross facial symmetry, speaking clearly, + asterixis x 3 beatsLabs (last 24 hours):Chemistry CBC LFTs Coags, dvath188 (L) 100 22 219 (H) 5.98 5.9 (L) 81 (L) AST: 41 (H) ALT: 18 PT: 18.3 (H) INR: 1.63.7 26 0.79 18.2 (L) AP: 64 T Andre: 4.6 (H) PTT: 22 (L)eGFR: 83.1 Ca: 8.7 % Lorraine: 57.7 Prot: 7.5 Alb: 3.5 Lact: 3.62 (H)Mg: - PO4: - ANC: 3.44 Procal: -Respiratory Cardiac7.50 (H)|32 (L)|74 (L)|25|93.0 (L) D-dimer: - pBNP: 2,100 (H) Trop I: 0.189 (H)CK: - CKMB: -MELD 3.0: 20 at 11/02/2023 8:06 PMMELD-Na: 19 at 11/02/2023 8:06 PMCalculated from:Serum Creatinine: 0.79 mg/dL (Using min of 1 mg/dL) at 11/02/2023 8:06 PMSerum Sodium: 134 mmol/L at 11/02/2023 8:06 PMTotal Bilirubin: 4.6 mg/dL at 11/02/2023 8:06 PMSerum Albumin: 3.5 g/dL at 11/02/2023 8:06 PMINR(ratio): 1.6 at 11/02/2023 8:06 PMAge at listing (hypothetical): 63 yearsSex: Female at 11/02/2023 8:06 PMChild-Nair Score for Cirrhosis Mortality from [email or web address] on 4RESULT SUMMARY:10 pointsChild Class CLife Expectancy : 1-3 yearsAbdominal surgery marcus-operative mortality: 82%INPUTS:Bilirubin (Total) --> 3 = >3 mg/dL (>51.3 ?mol/L)Albumin --> 2 = 2.8-3.5 g/dL (28-35 g/L)INR --> 1 = <1.7Ascites --> 2 = SlightEncephalopathy --> 2 = Grade 1-2Microbiology:Results No results found for the last 48 hours. Imaging:XR CHEST 1 VWResult Date: 11/02/2023Findings suggest CHF or volume overload.EGD report (full report can be found in Chart Review>Other Orders>10/12/23 Referral-Request/Response):Assessment & PlanCarrijosé miguel Contreras is a 63 year old female admitted with severe anemia (Hgb 3.5) in setting of alcoholic cirrhosis with possible GI bleed.NeuroAnxietyAlcohol use disorderNo reported hx of DTs. Last drink 3 days ago. EtOH negative at admission. Will monitor.- c/w bupropion, citalopramRespNo acute concerns at this time.CardiovascularType II GA 2/2 severe anemiaTroponin 0.184 --> 0.189.- TTE- Trend troponin j5nSTCnvabfd (>26 weeks) Liver Injury 2/2 Alcohol, Child-Nair Class Cc/b portal hypertension c/b gastropathy with oozingc/b esophageal varices, Grade IIc/b coagulopathy (elevated INR, thrombocytopenia, low fibrinogen) c/b acute blood loss anemia 2/2 GI bleed?c/b hepatic encephalopathyEsophagitisCologuard +Evidenced by ascites, jaundice, and asterixis. AST/ALT ratio is >2. MELD score 20 on 11/02/23. Outpatient work-up with HBV/HCV negative. Ammonia 24 at admission.- GI consult in AM; EGD + colonoscopy- Trend Meld Labs (BMP, T.Bili, INR)- Most recent LFTs: AST: 41 (H), ALT 18, T Andre 4.6 (H), INR 1.6- ascites: holding diuretics in setting of GI bleed- Lactulose titrated to 3-4BM/day; keep K>4 (most recent K 3.7), replete- Esophageal varices: PPI 40mg q12h; Octreotide gtt acutely, transition to Propranolol 20mg PO bid or Nadolol 20mg PO daily after stabilization with goal HR <70; abx for 1 week (ceftriaxone 1g IV daily while inpatient, transition to norfloxacin 400mg or ciprofloxacin 500mg PO bid upon discharge)- folic acid, thiamine- 2 x 18G IVs placed- Encouraged avoidance of alcoholRenalNo acute concerns at this time.HemeNormocytic Anemia (MCV 86.0, baseline Hgb 14) 2/2 acute blood loss, EBL unknown 2/2 GI bleed and alcoholismThrombocytopenia 2/2 liver disease?C/f Hypovolemic ShockPresent on admission. Signs/symptoms include fatigue, dizziness, weakness, and shortness of breath. Unable to determine hemorrhagic shock as liver dysfunction. Previously with macrocytic anemia, likely in setting of chronic alcoholism.- Trend CBC; current Hgb 5.9 (L)- will check hemolysis labs given elevated TBili- transfuse to Hgb >7- remainder of management per GI- 500 cc NS bolusIDNo acute concerns at this time.EndoDiabetes Mellitus, Type 2, non-insulin dependent, Hgb A1c -Most recent Hgb A1c - on -. Adherent with medications as prescribed. Home regimen includes metformin.- SSI- hold home medicationsOtherICU Bundle:Stress ulcer prophylaxis: PPIDVT prophylaxis: contraindicatedNutrition: EnteralLast BM: 10/30/23Bowel Regimen: lactuloseDispo: MICUPrognosis: favorableJustine Padilla Arceo.Internal Medicine, PGY-1 ssociated attestation - Keith Pruitt MD - 11/03/2023 3:05 PM CST Attending History Supplement: I personally examined the patient on 11/03/[address] Arceo's resident note as written. I actively participated in the decision-making process. Please see the resident's note for additional details. Arely Contreras is a 63 year old female cirrhosis admitted with hypovolemic shock and anemia related to acute blood loss. IV fluid resuscitation provided and PRBC transfusion. Improved hemodynamics with Hgb 7.4. Review of external records indicates prior EGD with varices. Being treated with octreotide & pantoprazole. CXR reveals left pleural effusion and review of abdominal CT reveals LLL atelectasis with left pleural effusion and small right effusion, small amount of ascites and enlarge liver & spleen. Consulted GI regarding management of upper GI bleed.62941-8Dviscbv and physical [id number], Alexander G1.2.840.876358.1.13.104.2.7.2.665735Lqta fcXuxvpyccqASD2491-04-92W87:05:01History and physical noteTXT1.2.840.464975.1.13.104.2.7.2.7278 79|[id number] for patient botu76570-7Iaayuph and physical noteLNNARRATIVEFormatted C-CDA narrative text[address] Du[id number] ALAEPAKPKUJEGMPBH2281-77-00E70:05:011.2.8 40.046863.1.72.3.15|1.2.840.807821.1.13.1 04.2.7.2.727879_[id number] [facility] Procedure Notes Date/Time Note Provider Source 2023-11-08 20:54:56 2ePixIZ/g0/ixxfVw0QC GOW4eUjD4DruZZ hQAilpLZx+qsb1MlqVinSQhwSDy4og1219 -03-05T20:54:56Procedure(s): PARACENTESISPre-Procedure Diagnose(s): Decompensated hepatic cirrhosisPost-Procedure Diagnose(s): Decompensated hepatic cirrhosis PARACENTESIS PROCEDURE NOTEDate of Service: 11/08/23Faculty Change Manager: Dr. SalazarProcedure Team: BronwynIndication/Diagnosis: decompensated cirrhosisConsent source: selfConsent type: indications/complications discussed with patient/legal guardian; written consent obtainedPreProcedure Verification Completed yes, Site Marking Completed yes, Time Out Completed yes.Aseptic technique: ChlorhexidineAnesthesia: localAnesthesia drugs used: 1% lidocaineInstrument(s) type: Lumbar TrayVolume removed (in cc): 900ccFluid characteristics: clear and yellowSterile dressing: yesNarrative: presentDescription: After a final discussion of the indication, technique, risks, and benefits of paracentesis, all questions were answered and the patient agreed to proceed. The patient was placed in the supine position with the head of bed elevated 30 degrees. The lower abdomen was searched using ultrasound and a fluid level established. A position for placement of the paracentesis catheter was selected in the right lower quadrant. The skin was prepped with chlorhexidine. With first a 25 ga, 1.6 cm needle, followed by a 22 ga, 5.1 cm needle, 1% lidocaine hydrochloride was placed subcutaneously to achieve excellent local anesthesia. A 14 ga x 5.1 cm needle with an 18 cm catheter was inserted until fluid could be withdrawn. We then kaylie off 900cc by gravity drainage into a plastic container. The catheter was removed when drainage ceased. No acute complications.Patient Tolerance: The vital signs remained stable throughout the procedure, and the patient suffered minimal discomfort.Complications: noneDr. Salazar, Faculty, was present for the entire procedure.John Weldon MDInternal Medicine PGY-I ssociated attestation - Fabricio Salazar MD - 11/10/2023 3:06 PM CST I reviewed the procedure note and agree with the resident's note as written.Fabricio Salazar MD28570-0Procedure [id number], Randal C1.2.840.099226.1.13.104.2.7.2.836 151BqlzzigxbeYvdlbgGGW4751-98-14A4 5:06:56Procedure noteTXT1.2.840.817924.1.13.104.2.7 .2.317234|[id number] for patient mypv83769-8Ezygoqbig noteLNNARRATIVEFormatted C-CDA narrative textIM-INTERNAL MEDICINE-INTERNAL MEDICINE[address] Lt[id number] 66MSECIJMEIQOMJMJRAYJWDN0170-55-17 T15:06:561.2.840.542001.1.72.3.15| 1.2.840.048824.1.13.104.2.7.2.7278 [id number] IM-INTERNAL MEDICINE [facility] Notes Date/Time Note Provider Source 2023-11-14 17:09:50 jDraL4KezwntuQXLarGBzBccWTb7IlvmDbGONO OQN3hlsdvDD1dd6WPtlQf791QC6552-80-40M8 7:09:50 TRANSITIONAL CARE MANAGEMENT ASSESSMENT4Cjanice ContrerasIgshfmi753935YAynucu Johnson is a 63 year old /White female was admitted on 11/02/[address] She was discharged on 11/12/23 with discharge disposition of HR- Routine Discharge.Admitting Physician: Keith Pruitt GDischarge Diagnosis: Upper GI bleedNo linked episodesTCM Bzb-mucc-bf-face outreach documentation:Discharge AssessmentChart Assessed: 11/14/23Chart Reviewed - Post Discharge Call Deferred due to Change in Discharge Status.: Discharged to SNF (SNF location: [place] [address] () [phone] (F) [phone])TCM Outreach Completed: 11/14/23Future Appointments: 65169-0Sudxbevsp encounter QeicDE8875-21-51T84:10:42Telephone encounter NoteTXT1.2.840.113011.1.13.104.2.7.2.7 26551|[id number] for patient mkke95109-3SyszBSRWWQEACKRGuuoaexxu C-CDA narrative [id number] A Gaudet RN[address] Uc[id number] GHGKILXGHPNDDNZUQGLI4630-44-35R73:10:4 21.2.840.062452.1.72.3.15|1.2.840.1143 50.1.13.104.2.7.2.727879_[id number] Bib Manriquez RN [facility] 2023-11-12 10:51:31 zdMgJaA0+wwubajYDpHSsSS1BqpHXLu/+a0mLz 7++uPCBpn/8DK5jwhR15SVw8rA1162-87-33B5 0:51:31 Problem: Respiratory Function - ImpairedGoal: Adequate oxygenation11/12/2023 1051 by Martir Jaeger RNOutcome: Adequate for discharge11/12/2023 0734 by Martir Jaeger RNOutcome: Progressing as expectedProblem: Discharge PlanningGoal: Adequate for discharge11/12/2023 1051 by Martir Jaeger RNOutcome: Adequate for discharge11/12/2023 0734 by Martir Jaeger RNOutcome: Progressing as expectedGoal: Effective communication11/12/2023 1051 by Martir Jaeger RNOutcome: Adequate for discharge11/12/2023 0734 by Martir Jaeger RNOutcome: Progressing as expectedProblem: Bleeding, Risk ofGoal: Absence of impaired coagulation signs and symptoms11/12/2023 1051 by Martir Jaeger RNOutcome: Adequate for discharge11/12/2023 0734 by Martir Jaeger RNOutcome: Progressing as expectedGoal: Absence of active bleeding11/12/2023 1051 by Martir Jaeger RNOutcome: Adequate for discharge11/12/2023 0734 by Martir Jaeger RNOutcome: Progressing as expectedProblem: Falls, Risk ofGoal: Absence of falls11/12/2023 1051 by Martir Jaeger RNOutcome: Adequate for discharge11/12/2023 0734 by Martir Jaeger RNOutcome: Progressing as expectedProblem: Fluid Volume - ImbalancedGoal: Absence of imbalanced fluid volume signs and symptoms11/12/2023 1051 by Martir Jaeger RNOutcome: Adequate for discharge11/12/2023 0734 by Martir Jaeger RNOutcome: Progressing as expectedProblem: PainGoal: Reduction in pain sensation11/12/2023 1051 by Martir Jaeger RNOutcome: Adequate for discharge11/12/2023 0734 by Martir Jaeger RNOutcome: Progressing as expectedProblem: Glucose controlGoal: Glucose level within specified parameters11/12/2023 1051 by Martir Jaeger RNOutbryant: Adequate for discharge11/12/2023 0734 by Martir Jaeger RNOutcome: Progressing as expected 69254-4Qpqg of care clkzBG4908-29-90D92:51:40Plan of care noteTXT1.2.840.102084.1.13.104.2.7.2.7 42388|[id number] for patient tsgk66159-3FcfnQLYWHHNDNDJXzymzchic C-CDA narrative [id number] C Frost RN[id number] NTWFPTAOZHUZETUOVCMM4979-09-69I95:51:4 01.2.840.551514.1.72.3.15|1.2.840.1143 50.1.13.104.2.7.2.727879_[id number] Martir Jaeger RN [facility] 2023-11-12 07:34:34 hQ+EJE3MgF1yuMX+wdaN8KfsIOb8sX+OZ2kyyh twTOoMgrX5DoLLtXPqe2DOnu1R6195-23-40G6 7:34:34 Problem: Respiratory Function - ImpairedGoal: Adequate oxygenationOutcome: Progressing as expectedProblem: Discharge PlanningGoal: Adequate for dischargeOutcome: Progressing as expectedGoal: Effective communicationOutcome: Progressing as expectedProblem: Bleeding, Risk ofGoal: Absence of impaired coagulation signs and symptomsOutcome: Progressing as expectedGoal: Absence of active bleedingOutcome: Progressing as expectedProblem: Falls, Risk ofGoal: Absence of fallsOutcome: Progressing as expectedProblem: Fluid Volume - ImbalancedGoal: Absence of imbalanced fluid volume signs and symptomsOutcome: Progressing as expectedProblem: PainGoal: Reduction in pain sensationOutcome: Progressing as expectedProblem: Glucose controlGoal: Glucose level within specified parametersOutcome: Progressing as expected 67462-5Gzwp of care qxxeFA7831-49-61W54:34:42Plan of care noteTXT1.2.840.443419.1.13.104.2.7.2.7 49124|[id number] for patient eylr51812-3LdixZXMBXDSVKGUAwwlvleau C-CDA narrative textUT[address] [id number] MIFXVEPSXCJLNKOKUWFZ2615-93-83T56:34:4 21.2.840.110136.1.72.3.15|1.2.840.1143 50.1.13.104.2.7.2.727879_[id number] [facility] 2023-11-11 21:27:16 mtKX25y87e9ZcCdfD5rxawQh4L+OSUFFmpNF1s [facility]/SYSGqO5ldl3+EJO21EsM7524-57-21Z4 1:27:16 Problem: Respiratory Function - ImpairedGoal: Adequate oxygenationOutcome: Progressing as expectedProblem: Discharge PlanningGoal: Adequate for dischargeOutcome: Progressing as expectedGoal: Effective communicationOutcome: Progressing as expectedProblem: Bleeding, Risk ofGoal: Absence of impaired coagulation signs and symptomsOutcome: Progressing as expectedGoal: Absence of active bleedingOutcome: Progressing as expectedProblem: Falls, Risk ofGoal: Absence of fallsOutcome: Progressing as expectedProblem: Fluid Volume - ImbalancedGoal: Absence of imbalanced fluid volume signs and symptomsOutcome: Progressing as expectedProblem: PainGoal: Reduction in pain sensationOutcome: Progressing as expectedProblem: Glucose controlGoal: Glucose level within specified parametersOutcome: Progressing as expected 73240-5Xpnb of care kqeyBG1810-95-93W88:27:18Plan of care noteTXT1.2.840.662974.1.13.104.2.7.2.7 61947|[id number] for patient eksj18916-7YclxYZDRATPCYOYXuktdibyq C-CDA narrative [id number] A Thiem RNUT[address] D[address] StreetOpsq[id number] YUDVIAFMYEEWQDMIIYGS4443-43-40E17:27:1 81.2.840.773354.1.72.3.15|1.2.840.1143 50.1.13.104.2.7.2.727879_[id number] Vera Nava RN [facility] 2023-11-11 07:48:17 iWqnSu2YskyOKpRA3EoTO1MDOgmF1bvF1n/MPf OqQJBlBA8ajCwsDmrIqlvs1QMz3766-15-81E4 7:48:17 Problem: Respiratory Function - ImpairedGoal: Adequate oxygenationOutcome: Progressing as expectedProblem: Discharge PlanningGoal: Adequate for dischargeOutcome: Progressing as expectedGoal: Effective communicationOutcome: Progressing as expectedProblem: Bleeding, Risk ofGoal: Absence of impaired coagulation signs and symptomsOutcome: Progressing as expectedGoal: Absence of active bleedingOutcome: Progressing as expectedProblem: Falls, Risk ofGoal: Absence of fallsOutcome: Progressing as expectedProblem: Fluid Volume - ImbalancedGoal: Absence of imbalanced fluid volume signs and symptomsOutcome: Progressing as expectedProblem: PainGoal: Reduction in pain sensationOutcome: Progressing as expectedProblem: Glucose controlGoal: Glucose level within specified parametersOutcome: Progressing as expected 30835-4Zaie of care qcikVV4763-47-92E40:48:25Plan of care noteTXT1.2.840.449328.1.13.104.2.7.2.7 67151|[id number] for patient llun29036-9VzchKREEGLZQTKGOjdunyvki C-CDA narrative text[id number] DZMMGFSVALDAXGXNYNEM3172-13-01T52:48:2 51.2.840.688974.1.72.3.15|1.2.840.1143 50.1.13.104.2.7.2.727879_[id number] [facility] 2023-11-09 18:20:07 is0Xko1xKyBaaR4jnP5SFXmrXmu6cNIoFi+VcE rZKy+cBg/dLKof3TByF5vc6mzJ1807-97-93N0 8:20:07 Problem: Respiratory Function - ImpairedGoal: Adequate oxygenationOutcome: Progressing as expectedProblem: Discharge PlanningGoal: Adequate for dischargeOutcome: Progressing as expectedGoal: Effective communicationOutcome: Progressing as expectedProblem: Bleeding, Risk ofGoal: Absence of impaired coagulation signs and symptomsOutcome: Progressing as expectedGoal: Absence of active bleedingOutcome: Progressing as expectedProblem: Falls, Risk ofGoal: Absence of fallsOutcome: Progressing as expectedProblem: Fluid Volume - ImbalancedGoal: Absence of imbalanced fluid volume signs and symptomsOutcome: Progressing as expectedProblem: PainGoal: Reduction in pain sensationOutcome: Progressing as expectedProblem: Glucose controlGoal: Glucose level within specified parametersOutcome: Progressing as expected 09495-8Wxab of care ahszVM2860-58-26U73:20:09Plan of care noteTXT1.2.840.150260.1.13.104.2.7.2.7 68813|[id number] for patient bpoh20820-8QahoWTLIPGKMLEJSavtfkbyf C-CDA narrative [id number] Heath RN[id number] RDLJIUYHJEAAJAXWPGPV1900-92-39P60:20:0 91.2.840.887064.1.72.3.15|1.2.840.1143 50.1.13.104.2.7.2.727879_[id number] Batsheva Oh Replaced by [facility] 2023-11-08 22:33:17 8W/vEDYcqicUsUeSLR0Php36M+Sa/ISqCkJ49Y lQyxvY5nqxIzm7Jab/I7z+m3Dp4404-03-27X8 2:33:17 Problem: Respiratory Function - ImpairedGoal: Adequate oxygenation11/08/20232232 by Rosanne Singh RNOutcome: Progressing as expected11/08/20232231 by Rosanne Singh RNOutcome: Progressing as expectedProblem: Discharge PlanningGoal: Adequate for discharge11/08/20232232 by Rosanne Singh RNOutcome: Progressing as expected11/08/20232231 by Rosanne Singh RNOutcome: Progressing as expectedGoal: Effective communication11/08/20232232 by Rosanne Singh RNOutbryant: Progressing as expected11/08/20232231 by Rosanne Singh RNOutcome: Progressing as expectedProblem: Bleeding, Risk ofGoal: Absence of impaired coagulation signs and symptoms11/08/20232232 by Rosanne Singh RNOutbryant: Progressing as expected11/08/2023 223 by Rosanne Singh RNOutcome: Progressing as expectedGoal: Absence of active bleeding11/08/20232232 by Rosanne Singh RNOutbryant: Progressing as expected11/08/20232231 by Rosanne Singh RNOutcome: Progressing as expectedProblem: Falls, Risk ofGoal: Absence of falls11/08/20232232 by Rosanne Singh RNOutcome: Progressing as expected11/08/20232231 by Rosanne Singh RNOutcome: Progressing as expectedProblem: Fluid Volume - ImbalancedGoal: Absence of imbalanced fluid volume signs and symptoms11/08/20232232 by Rosanne Singh RNOutbryant: Progressing as expected11/08/20232231 by Rosanne Singh RNOutcome: Progressing as expectedProblem: PainGoal: Reduction in pain sensation11/08/20232232 by Rosanne Singh RNOutcome: Progressing as expected11/08/20232231 by Rosanne Singh RNOutcome: Progressing as expectedProblem: Glucose controlGoal: Glucose level within specified parametersOutcome: Progressing as expected 57507-1Ynay of care phczJF5946-12-60D96:33:19Plan of care noteTXT1.2.840.388983.1.13.104.2.7.2.7 97699|[id number] for patient vzid09593-8XynqPVWJJFYQPGNIrjgbiygb C-CDA narrative [id number] Zerrudo [id number] QMUYJZMYVNETPEVNUGPJ1979-31-05V24:33:1 91.2.840.820310.1.72.3.15|1.2.840.1143 50.1.13.104.2.7.2.727879_[id number] Rosanne Singh Replaced by [facility] 2023-11-08 10:38:05 lN0TaEnMdsvBT0V107tcyOmShr4ZKDyABxtNqH UIceVL+4RUagAyMvi8L4NCFr+V1608-28-88K9 0:38:05 Problem: Respiratory Function - ImpairedGoal: Adequate oxygenationOutcome: Progressing as expectedProblem: Discharge PlanningGoal: Adequate for dischargeOutcome: Progressing as expectedGoal: Effective communicationOutcome: Progressing as expectedProblem: Bleeding, Risk ofGoal: Absence of impaired coagulation signs and symptomsOutcome: Progressing as expectedGoal: Absence of active bleedingOutcome: Progressing as expectedProblem: Falls, Risk ofGoal: Absence of fallsOutcome: Progressing as expectedProblem: Fluid Volume - ImbalancedGoal: Absence of imbalanced fluid volume signs and symptomsOutcome: Progressing as expectedProblem: PainGoal: Reduction in pain sensationOutcome: Progressing as expected 09327-9Pujy of care wnqjPP1362-58-93V78:38:07Plan of care noteTXT1.2.840.467662.1.13.104.2.7.2.7 52823|[id number] for patient dgwy28316-5HtuwJAUCXLIZTTGTopxcurxf C-CDA narrative zyzr888463692Syuwtb Martinez [id number] XRRFGRENIZYLVMDZIELM0025-10-00B49:38:0 71.2.840.046583.1.72.3.15|1.2.840.1143 50.1.13.104.2.7.2.727879_[id number] Shyann Reid RN [facility] 2023-11-07 21:37:13 EGCllEgyU1jGsjEJ7I5f61mpTc6l2L93ca374H kLK36wiH7RSmaF11EOFV5SmG+C6775-54-91S0 1:37:13 Problem: Respiratory Function - ImpairedGoal: Adequate oxygenationOutcome: Progressing as expectedProblem: Discharge PlanningGoal: Adequate for dischargeOutcome: Progressing as expectedGoal: Effective communicationOutcome: Progressing as expectedProblem: Bleeding, Risk ofGoal: Absence of impaired coagulation signs and symptomsOutcome: Progressing as expectedGoal: Absence of active bleedingOutcome: Progressing as expectedProblem: Falls, Risk ofGoal: Absence of fallsOutcome: Progressing as expectedProblem: Fluid Volume - ImbalancedGoal: Absence of imbalanced fluid volume signs and symptomsOutcome: Progressing as expectedProblem: PainGoal: Reduction in pain sensationOutcome: Progressing as expected 72401-3Ccil of care bddzAX1343-17-48M07:37:17Plan of care noteTXT1.2.840.016679.1.13.104.2.7.2.7 32816|[id number] for patient vdmt83245-4CmkfNHJXXLOLQIIDbwzxodzb C-CDA narrative text[id number] IEGSOBDFJIZNIJSPSQIZ4342-17-56G66:37:1 71.2.840.019945.1.72.3.15|1.2.840.1143 50.1.13.104.2.7.2.727879_[id number] [facility] 2023-11-07 10:07:13 kxXn/OYzXkyPuMzmNir4PQbEiuguayyLW/W/a6 knUt1UG+ScaWoZAiYjaYQUkltT7857-05-35N9 0:07:13 Problem: Respiratory Function - ImpairedGoal: Adequate oxygenationOutcome: Progressing as expectedProblem: Discharge PlanningGoal: Adequate for dischargeOutcome: Progressing as expectedGoal: Effective communicationOutcome: Progressing as expectedProblem: Bleeding, Risk ofGoal: Absence of impaired coagulation signs and symptomsOutcome: Progressing as expectedGoal: Absence of active bleedingOutcome: Progressing as expectedProblem: Falls, Risk ofGoal: Absence of fallsOutcome: Progressing as expected 43774-5Ewlx of care zzoiAL1383-26-01V19:07:15Plan of care noteTXT1.2.840.562355.1.13.104.2.7.2.7 65079|[id number] for patient thmd13131-4OdqcNQLYTGWWLOEOlmedrgaa C-CDA narrative text[address] Ug[id number] YJIQTUOTRQKJITZXORTL2472-54-54H91:07:1 51.2.840.863068.1.72.3.15|1.2.840.1143 50.1.13.104.2.7.2.727879_[id number] [facility] 2023-11-07 00:43:57 lmTeYyqqfnAK6Eguh6M/4xFT1UhSyH2aPRrd+M 9yjr5zCHD5AHBxbGLRjE2uOrHH9278-15-36A2 0:43:57 Problem: Respiratory Function - ImpairedGoal: Adequate oxygenationOutcome: Progressing as expectedProblem: Discharge PlanningGoal: Adequate for dischargeOutcome: Progressing as expectedGoal: Effective communicationOutcome: Progressing as expectedProblem: Bleeding, Risk ofGoal: Absence of impaired coagulation signs and symptomsOutcome: Progressing as expectedGoal: Absence of active bleedingOutcome: Progressing as expectedProblem: Falls, Risk ofGoal: Absence of fallsOutcome: Progressing as expected 64883-2Ldti of care zxjlOK0537-35-46L26:43:59Plan of care noteTXT1.2.840.541170.1.13.104.2.7.2.7 69859|[id number] for patient glso42672-8QqaeTWGZYRWHKIFJeoyirlxr C-CDA narrative [id number] E Blackwell RN[id number] GWYLJHKEXTHNSJIPQEZA6027-83-30I72:43:5 91.2.840.326940.1.72.3.15|1.2.840.1143 50.1.13.104.2.7.2.727879_[id number] Kat Alexandra RN [facility] 2023-11-06 11:48:58 yJG+r5Y3qKKEh/2vtiKAnO3lv8mydF6YdLhx/R i5rAeI0FvAZ+sNfA6/YclWzeP33120-89-49W2 1:48:58 Problem: Respiratory Function - ImpairedGoal: Adequate oxygenationOutcome: Progressing as expectedProblem: Discharge PlanningGoal: Adequate for dischargeOutcome: Progressing as expectedGoal: Effective communicationOutcome: Progressing as expectedProblem: Bleeding, Risk ofGoal: Absence of impaired coagulation signs and symptomsOutcome: Progressing as expectedGoal: Absence of active bleedingOutcome: Progressing as expectedProblem: Falls, Risk ofGoal: Absence of fallsOutcome: Progressing as expectedProblem: Respiratory Function - ImpairedGoal: Adequate oxygenationOutcome: Progressing as expectedProblem: Discharge PlanningGoal: Adequate for dischargeOutcome: Progressing as expectedGoal: Effective communicationOutcome: Progressing as expectedProblem: Bleeding, Risk ofGoal: Absence of impaired coagulation signs and symptomsOutcome: Progressing as expectedGoal: Absence of active bleedingOutcome: Progressing as expectedProblem: Falls, Risk ofGoal: Absence of fallsOutcome: Progressing as expected 60895-8Chrw of care ylbkYY5206-48-19N85:49:05Plan of care noteTXT1.2.840.944044.1.13.104.2.7.2.7 87486|[id number] for patient qzes48261-9YumiKFFBGYOXPZZHonjezzeb C-CDA narrative text[address] StreetMxjnTafypcagtHlshwctkjHQHT0984691591GM OTOXBVAYTWHXCIGSNIPA3011-50-10X04:49:0 51.2.840.000012.1.72.3.15|1.2.840.1143 50.1.13.104.2.7.2.727879_[id number] [facility] 2023-11-05 23:09:20 vNZ8HkFZalFAHrcEOziPc80wx4NiylQe1Egcr/ fpaPfBg+iMEZ3iMZJru69BUvAE6868-25-03S7 3:09:20 Problem: Respiratory Function - ImpairedGoal: Adequate oxygenationOutcome: Progressing as expectedProblem: Discharge PlanningGoal: Adequate for dischargeOutcome: Progressing as expectedGoal: Effective communicationOutcome: Progressing as expectedProblem: Bleeding, Risk ofGoal: Absence of impaired coagulation signs and symptomsOutcome: Progressing as expectedGoal: Absence of active bleedingOutcome: Progressing as expectedProblem: Falls, Risk ofGoal: Absence of fallsOutcome: Progressing as expected 21563-4Lovj of care gmufQH7377-79-29E64:09:22Plan of care noteTXT1.2.840.188102.1.13.104.2.7.2.7 45012|[id number] for patient kwyf69746-8YmzgEWJNYNPUTEOSqidaltnh C-CDA narrative text[id number] FPKRUHYEJEFFGFVCRQCH4200-79-09H17:09:2 21.2.840.168681.1.72.3.15|1.2.840.1143 50.1.13.104.2.7.2.727879_[id number] [facility] 2023-11-05 07:37:00 sinjlsFwMSDQQsOK9WhPY95BMOPZvF6ePJzjdH kMEPp+8WwW+r9BQOs3UlNw5Q9L4764-14-64V2 7:37:00 Problem: Respiratory Function - ImpairedGoal: Adequate oxygenationOutcome: Progressing as expectedProblem: Discharge PlanningGoal: Adequate for dischargeOutcome: Progressing as expectedGoal: Effective communicationOutcome: Progressing as expectedProblem: Bleeding, Risk ofGoal: Absence of impaired coagulation signs and symptomsOutcome: Progressing as expectedGoal: Absence of active bleedingOutcome: Progressing as expectedProblem: Falls, Risk ofGoal: Absence of fallsOutcome: Progressing as expected 44590-6Phve of care ihttQO6192-45-91E56:37:05Plan of care noteTXT1.2.840.773418.1.13.104.2.7.2.7 54947|[id number] for patient igku27736-2GcbxCKPWHNYVGNNScxxlaxur C-CDA narrative [id number] Ainsworth RNUT[id number] ONBQBRUYLHTRKAKEBJZE7856-49-97U05:37:0 51.2.840.989509.1.72.3.15|1.2.840.1143 50.1.13.104.2.7.2.727879_[id number] Betty Heath RN [facility] 2023-11-05 01:34:35 U4RhXuZRmxepa0Z6EjhITeveblSUeof0XVKZz/ eFYMManbQ3BaMN5/DLLJO3Rcki6873-08-42M7 1:34:35 Problem: Respiratory Function - ImpairedGoal: Adequate oxygenationOutcome: Progressing as expectedProblem: Discharge PlanningGoal: Adequate for dischargeOutcome: Progressing as expectedGoal: Effective communicationOutcome: Progressing as expectedProblem: Bleeding, Risk ofGoal: Absence of impaired coagulation signs and symptomsOutcome: Progressing as expectedGoal: Absence of active bleedingOutcome: Progressing as expectedProblem: Falls, Risk ofGoal: Absence of fallsOutcome: Progressing as expected 42754-3Pasj of care qafiMX9230-78-35T10:34:38Plan of care noteTXT1.2.840.991564.1.13.104.2.7.2.7 57889|[id number] for patient nivd98227-5LhdqCGDVLOAKDNYQozxljjko C-CDA narrative text[address] BjehGjijleiuaZlyopdbldZLZW8564431180FG JSFZBFIKVZMKTSFXJMBB6516-58-21L13:34:3 81.2.840.756794.1.72.3.15|1.2.840.1143 50.1.13.104.2.7.2.727879_[id number] [facility] 2023-11-02 18:28:59 oHC4GuQeOt4r7eT3U5LAbnF5Ui+wB9r41L1wFf WdbMdUqebJqJjLN+IcUUW/SOxB9697-19-53M4 8:28:59Associated Order(s): Critical Care Critical CarePerformed by: Joe Rodriguez MDAuthorized by: Joe Rodriguez [facility] [place]ritical care provider statement:Critical care time (minutes): 75Critical care time was exclusive of: Separately billable procedures and treating other patients and teaching timeCritical care was necessary to treat or prevent imminent or life-threatening deterioration of the following conditions: Circulatory failureCritical care was time spent personally by me on the following activities: Development of treatment plan with patient or surrogate, evaluation of patient's response to treatment, examination of patient, obtaining history from patient or surrogate, ordering and performing treatments and interventions, ordering and review of laboratory studies, ordering and review of radiographic studies, pulse oximetry, re-evaluation of patient's condition and review of old chartsCare discussed with: admitting providerComments:Due to a high probability of clinically significant, life threatening deterioration, the patient required my highest level of preparedness to intervene emergently and I personally spent this critical care time directly and personally managing the patient. This critical care time included obtaining a history; examining the patient; pulse oximetry; ordering and review of studies; arranging urgent treatment with development of a management plan; evaluation of patient's response to treatment; frequent reassessment; and, discussions with other providers.This critical care time was performed to assess and manage the high probability of imminent, life-threatening deterioration that could result in multi-organ failure. It was exclusive of separately billable procedures and treating other patients. [address]39-2Doumnaeyt department UmfpMC2770-92-83T00:28:59[facility] NoteTXT1.2.840.329225.1.13.104.2.7.2.7 11298|[id number] for patient ygbi88914-3SzxjBZHWAQECZOHJonvjgpao C-CDA narrative text[address] StreetGdvsHwauclsufPzdtymvkfRBNS2936819291KS DTNTFUGCVOEHKRJFLBBJ2726-17-90M07:28:5 91.2.840.693817.1.72.3.15|1.2.840.1143 50.1.13.104.2.7.2.727879_[id number] [facility] 2023-11-02 18:18:35 Qs7dpt+xxCfs40P5RCYVfn8NAq6xsKje8MaJrU w1u1SUGcI0zjdXKcG/28mh7nxQ1600-22-70N2 8:18:35 Patient transferred to [place] [address] for diagnosis of Dyspnea, hypoxia, anemia, elevated troponin, generalized abdominal painPatient agrees to transfer/admit plan and verbalized understanding of plan of care, family aware of planPatient awake alert, oriented, resp reg unlabored, skin w/d PIV patent x2 with blood transfusing, no s/s infiltration noted,No adverse reaction to medications given while in ED.Report given to [facility] EMS personnel [address]13[address]-3Rriyuthac department BifyVH7231-91-67D82:19:49Emergency department NoteTXT1.2.840.106989.1.13.104.2.7.2.7 20968|[id number] for patient dbqp24882-6ZylaDMCQGQXKLHXDekkbarst C-CDA narrative zats500761016Nwisvrde M Felix RN[address] IszvJwovgvemaKgmypxqqmSOHO7111515736LG BUZLDBONRJNTWSZNBGNY8773-39-88U38:19:4 91.2.840.921639.1.72.3.15|1.2.840.1143 50.1.13.104.2.7.2.727879_[id number] Jazzy Marinelli RN [facility] 2023-11-02 18:14:03 Fi96iM2ahPJ4krufsF4nVPtu42MP/HmhxjnmSZ 2SjxY0nmbrA1fCEYqGmewMxbMZ5681-61-33R1 8:14:03 Nurse ReportReport given to ANITA Chisholm. Chief complaint, assessment findings, infusion verify and orders reviewed. Plan of care discussed with both nurses. Patient/family members [place] [address]-5Thgrorolf department RdamNA5349-39-47X56:14:20[facility] NoteTXT1.2.840.579063.1.13.104.2.7.2.7 68967|[id number] for patient lhdp07969-9WimmPZFMCXXPAVJSgwcphhss C-CDA narrative text[address]TXTX[address]US TBATQBPSMLCZWMEBPOVM6185-55-29K31:14:2 01.2.840.140337.1.72.3.15|1.2.840.1143 50.1.13.104.2.7.2.727879_[id number] [facility] 2023-11-02 10:59:42 8s6dXknJfzMkjzuB5Ov5VKGb4Zw4Qv+1DnDCPk pnU1bwnEOdfORElMo5/8JxILeT9302-55-49J5 0:59:42 Patient attempting to use the restroom. Patient addiment about getting up to the bathroom. Patient unsteady on her feet swaying back and forth. Nurse stood by patient's side and needed a wheelchair to get to the bathroom. 99890-9Emdjmeizq department GpxsKM9360-11-81F45:01:00[facility] NoteTXT1.2.840.901601.1.13.104.2.7.2.7 10750|[id number] for patient ipnf22035-7QqdkQUPFXTWJIPEBmuecanhk C-CDA narrative text[address]TXTX[address]75[address]US EBDKCKOLTVLKLEDUBNUE0878-59-65K96:01:0 01.2.840.878254.1.72.3.15|1.2.840.1143 50.1.13.104.2.7.2.727879_[id number] [facility] 2023-11-02 09:24:45 cTbN1luYiRQsQoXckoGLjqxAFkUbH3dco5R0PA 7ZVkqr20zLnih3w6Cr7j3uYef99038-41-64Z7 9:24:45 Shortness of breath x3 days. Appears to have ascites. Unsure if she has liver problems. EMS reported 88% room air. Does not use home oxygen. 08971-5Wdfhtrjkt department Triage nogdZI9542-78-34Y50:25:42[facility] Triage noteTXT1.2.840.584108.1.13.104.2.7.2.7 42101|[id number] for patient xtbq05631-3Dnezgklnu department NoteLNNARRATIVEFormatted C-CDA narrative bwyl766930908Dxgboyp Fief RNUT[address]TXTX[address]75[address]US ERPGVOWPISBLNXDPTUMT0863-09-88Y77:25:4 21.2.840.790555.1.72.3.15|1.2.840.1143 50.1.13.104.2.7.2.727879_[id number] Allie Gutierrez RN [facility] 2023-11-02 09:23:00 tJzlGOq/iJJyE6OJ+KYDBCmalSYvT9ks1QbQol wrhz1Ct9g+YH3EHyE77gh3by7B7593-94-75K5 9:23:00 EMERGENCY DEPARTMENT [facility]NCOUNTERMcLaren OaklandPatient Name: Arely Kothari of : 1960 63 year oldMRN: [id number] Room:IL2/[address] Care Physician: [facility]Tr[facility]- HospitalPatient Escorted by: Self [9]Mode of Ar[facility]: 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 Appears to have ascites. Unsure if she has liver problems. EMS reported 88% room air. Does not use home oxygen.HPIHistory provided by: PatientShortness of BreathSeverity: ModerateOnset quality: GradualDuration: 3 daysTiming: ConstantProgression: WorseningChronicity: NewRelieved by: NothingWorsened by: NothingAssociated symptoms: no abdominal pain, no chest pain, no cough, no fever, no headaches, no vomiting and no wheezingPast Medical History / ImmunizationsPast Medical History:Diagnosis DateAlcohol abuseAsthmaDepressionEssential hypertension, benignType 2 diabetes mellitus with diabetic polyneuropathy, without long-term current use of insulinTetanus received in last 5 years: UnknownChildhood immunizations: Ng-ez-wixyAome Surgical HistoryPast Surgical History:Procedure Laterality DateCHOLECYSTECTOMYDILATION AND CURETTAGE (SHX)TONSILLECTOMYAllergiesAllergiesAl lergen ReactionsCodeine Nausea and/or VomitingStomach painSocial HistoryTobacco UseNever smoked or used smokeless tobacco.Alcohol UseYes.Comments: pt states only 2 drinks a day but unknown what kindDrug UseNo.Sexual ActivitySexually active; Partners: Female.Review of SystemsReview of SystemsConstitutional: Negative. Negative for chills, fatigue, fever and unexpected weight change.HENT: Negative.Eyes: Negative. Negative for discharge and itching.Respiratory: Positive for shortness of breath. Negative for cough, chest tightness and wheezing.Cardiovascular: Negative. Negative for chest pain and palpitations.Gastrointestinal: Negative. Negative for abdominal distention, abdominal pain, nausea and vomiting.Genitourinary: Negative. Negative for dysuria, urgency, frequency and flank pain.Musculoskeletal: Negative.Skin: Negative. Negative for color change, pallor and wound.Neurological: Positive for weakness. Negative for dizziness, syncope, light-headedness and headaches.Psychiatric/Behavioral: Negative. Negative for agitation and behavioral problems.All other systems reviewed and are negative.Endocrine: Endocrine negativePhysical ExamED Triage Vitals [11/02/23 0925]Weight 81.6 kg (180 lb)Actual or estimated Estimated by patient/family reportHeight 1.676 m (5' 6")BP 107/54Pulse 98Resp 20Temp 36.2 ?C (97.2 ?F)Temp source OralSpO2 95 %Measured on Room airPhysical ExamVitals reviewed.Constitutional:Appearance: She is well-developed. She is ill-appearing.Comments: Appears jaundiceHENT:Head: Normocephalic.Nose: Nose normal.Eyes:Conjunctiva/sclera: Conjunctivae normal.Neck:Trachea: No tracheal deviation.Cardiovascular:Rate and Rhythm: Normal rate.Heart sounds: Normal heart sounds. No murmur heard.No friction rub.Pulmonary:Effort: Pulmonary effort is normal. No respiratory distress.Breath sounds: Normal breath sounds.Abdominal:General: Bowel sounds are normal. There is distension.Palpations: Abdomen is soft.Tenderness: There is no abdominal tenderness. There is no guarding or rebound.Musculoskeletal:General: Normal range of motion.Cervical back: Normal range of motion and neck supple.Right lower leg: Edema present.Left lower leg: Edema present.Skin:General: Skin is warm and dry.Neurological:Mental Status: She is alert and oriented to person, place, and time.Psychiatric:Behavior: Behavior normal.LabsLab ResultsCBC WITH DIFF - AbnormalResult Value Ref RangeWBC 5.31 4.30 - 11.10 10*3/?LRBC 1.50 (*) 3.93 - 5.25 10*6/?LHGB 3.5 (*) 11.6 - 15.0 g/dLHCT 12.9 (*) 35.7 - 45.2 %MCV 86.0 80.6 - 95.5 fLMCH 23.3 (*) 25.9 - 32.8 pgMCHC 27.1 (*) 31.6 - 35.1 g/dLRDW-SD 53.8 (*) 39.0 - 49.9 fLRDW-CV 17.2 (*) 12.0 - 15.5 %PLT 85 (*) 166 - 358 10*3/?LMPV 11.6 9.5 - 12.9 fLNRBC/100 WBC 0.0 0.0 - 10.0 /100 WBCsNRBC x10^3 <0.01 10*3/?LGRAN MAT (NEUT) % 59.3 %IMM GRAN % 0.40 %LYMPH % 25.2 %MONO % 11.7 %EOS % 3.4 %BASO % 0.0 %GRAN MAT x10^3(ANC) 3.15 1.88 - 7.09 10*3/uLIMM GRAN x10^3 <0.03 0.00 - 0.06 10*3/uLLYMPH x10^3 1.34 1.32 - 3.29 10*3/uLMONO x10^3 0.62 0.33 - 0.92 10*3/uLEOS x10^3 0.18 0.03 - 0.39 10*3/uLBASO x10^3 <0.03 0.01 - 0.07 10*3/uLELLIPTO/OVAL 2+ (*) (none)POLYCHROMASIA 2+ 2+REACT LYMPHS RareGIANT PLATELETS Present (*) (none)COMP. METABOLIC PANEL (65006) - AbnormalNA 134 (*) 135 - 145 mmol/LK 3.6 3.5 - 5.0 mmol/LCL 101 98 - 108 mmol/LCO2 TOTAL 22 (*) 23 - 31 mmol/LAGAP 11 2 - 16BUN 20 7 - 23 mg/dLGLUCOSE 221 (*) 70 - 110 mg/dLCREATININE 0.86 0.50 - 1.04 mg/dLTOTAL BILI 2.6 (*) 0.1 - 1.1 mg/dLCALCIUM 8.8 8.6 - 10.6 mg/Ziggy PROTEIN 7.5 6.3 - 8.2 g/dLALBUMIN 3.3 (*) 3.5 - 5.0 g/dLALK PHOS 69 34 - 122 U/LALTv 18 5 - 35 U/LAST(SGOT) 36 13 - 40 U/LeGFR 75.1 mL/min/1.10q9UXBFMAWW I - AbnormalTROPONIN I 0.184 (*) <=0.034 ng/mLN-TERMINAL PRO-BNP - AbnormalNT-proBNP 2,100 (*) <=125 pg/mLAC PANEL 20 + LACTIC ACID - AbnormalPH 7.50 (*) 7.35 - 7.45PCO2 32 (*) 35 - 45 mmHgPO2 74 (*) 80 - 100 mmHgHCO3 25 22 - 26 mEq/LBE 1.0 -3.0 - 3.0 mEq/LTHB 3.8 (*) 12.0 - 16.0 g/dL%O2HB 93.0 (*) 94.0 - 99.0 %%COHB ART 0.6 0.0 - 1.5 %%METHB ART 0.6 0.4 - 1.5 %VOL%O2 ART 5.1 (*) 15.0 - 23.0 %NA 134 (*) 135 - 145 mmol/LK+ 3.6 3.5 - 5.0 mmol/LAC CA IONZ 4.40 (*) 4.50 - 5.30 mg/dLGLUCOSE 237 (*) 70 - 110 mg/dLLACTIC ACID 3.62 (*) 0.50 - 2.20 mmol/LURINALYSIS - AbnormalAPPEARANCE Clear ClearCOLOR Yellow YellowPH 5.0 4.8 - 8.0SP GRAVITY 1.013 1.003 - 1.030GLU U QUAL Normal NormalBLOOD Negative NegativeKETONES Negative NegativePROTEIN Negative NegativeUROBILIN 2.0 mg/dL (*) NormalBILIRUBIN Negative NegativeNITRITE Negative NegativeLEUK SARAH Negative NegativeRBC/HPF 2 0 - 3 HPFWBC/HPF 2 0 - 5 HPFBACTERIA Negative NegativeSQ EPITH 1 HPFURINE DRUG (IMMUNOASSAY) - COMPREHENSIVE DRUG SCREEN W/O REFLEX - NormalAMPHET Negative NegativeBARB U Negative NegativeBENZO U Negative NegativeCocaine Metabolite Negative NegativeMETHADONE Negative NegativeOPIATES Negative NegativePCP Negative NegativeTHC Negative NegativeETHANOLALCOHOL <10 mg/dLTYPE AND SCREENABO & RH A POSITIVEIAT NegativeABORH CONFIRMATION (LAB ONLY)ABO & RH A PositivePREPARE PACKED RBCCross Match Result CompatibleISBT Blood Type Code 6200Unit Blood Type A PosUnit Number [id number] Expiration Date & Time 126940839978Qffgnf Information IssuedProduct Identification Red Blood CellsProduct Code T4348B86Hkcue Match Result CompatibleISBT Blood Type Code 6200Unit Blood Type A PosUnit Number [id number] Expiration Date & Time [id number] Information IssuedProduct Identification Red Blood CellsProduct Code A5416C60SsfjjmwBU ABDOMEN PELVIS W CONTRASTFinal ResultCT Abdomen and Pelvis with intravenous contrast.CLINICAL HISTORY: Abdominal distention.DOSE: Up-to-date CT equipment and radiation dose reduction techniques wereemployed.CTDIvol: 17.83 mGy. DLP: 937.58 mGy-cm.TECHNIQUE : Contiguous axial imaging from the level of the lung basesthrough the pubic symphysis were performed after the uncomplicatedadministration of 83 mL of nonionic contrast material. Coronal andsagittal reconstructions were obtained. Auto mA and/or iterativereconstruction were used to reduce radiation dose.FINDINGS: Comparison has been made with 07/26/2023 CT studies.Lower lungs: Small right and moderate left pleural effusion with collapsedportions of both lower lungs.Liver, Gallbladder and Spleen: S/P cholecystectomy. Liver is 16 cm inlength and spleen is enlarged, 13.4 x 6 cm in size. Undulating serosalsurface of the liver is suggestive of chronic primary liver disease.Biliary ducts and the pancreatic ducts appear of normal size.Peritoneum: Small volume ascites noted with fluid surrounding the liver,spleen, stomach, in the paracolic gutter and in the pelvis. No free air.Small lymph nodes are seen in the periportal space and retrogastricregion,unchanged.Pancreas and Adrenals: Unremarkable pancreas and adrenal glands.Kidneys and Ureters: No visible calculi in the renal collecting systems.No hydroureter or hydronephrosis.Vessels: Diffuse atherosclerosis without AAA. Patent portal venouscirculation. Calcifications noted in several small and medium sizedarteries including inferior epigastric artery and branches ofRetroperitoneum: No abnormal fluid or lymphadenopathy.Bowel: Colonic diverticulosis is noted without any acute changes.Bladder and Reproductive Organs: No gross pathology in the underdistendedand unopacified urinary bladder. No gross pathology in the uterus oradnexa.Bones: Lower thoracic and upper lumbar degenerative spondylosis,exaggerated lumbar lordosis, grade 1 spondylolisthesis at L4-L5,multilevelhypertrophic facet arthritis, spinal stenosis at L4-L5, less at L3-L4.Cystic changes are seen in the head of the right femur, likelydegenerativecyst secondary to osteoarthritis of the joint.Soft tissues: Diffuse anasarca with congested subcutaneous fat of theentire abdomen and pelvis.CONCLUSION:1. Liver morphology consistent with chronic liver disease, possiblycirrhosis with portal hypertension causing small volume ascites and mildsplenomegaly.2. S/P cholecystectomy.3. Generalized anasarca.4. Extensive arteriosclerosis. Please correlate with history forpossibility of chronic poorly controlled diabetes.5. Small right and moderate left pleural effusion with chronicallycollapsed portions of adjacent lower lungs.XR CHEST 1 VWFinal ResultEXAM: XR CHEST 1 VW 11/02/2023 9:50 AMHISTORY: 63 years-old Female with dyspnea .TECHNIQUE: Portable AP view of the chest.COMPARISON: None.FINDINGS:Lines and tubes: None.Cardiomediastinal: The cardiac silhouette is upper normal in size tomildlyenlarged. The pulmonary vasculature is engorged.Lungs and pleura: Mild diffuse prominence of interstitial markingssuspicious for mild interstitial edema. Small to moderate left pleuraleffusion and associated atelectasis. Trace right pleural effusion.Included osseous structures show no acute abnormality.IMPRESSIONFindings suggest CHF or volume overload.Orders and TreatmentsOrders Placed This EncounterProceduresCritical CareXR CHEST 1 VWCT ABDOMEN PELVIS W CONTRASTCBC WITH DIFFCOMP. METABOLIC PANEL (01075)TROPONIN IN-TERMINAL PRO-BNPAC Panel 20 + Lactic AcidEthanolURINALYSISURINE DRUG (IMMUNOASSAY) - COMPREHENSIVE DRUG SCREEN W/O REFLEXType and Screen - ONCE [facility] Confirmation (Lab Only)Transfusion Reaction InvestigationO2 Per ProtocolOrders Placed This EncounterMedicationsiopamidol (ISOVUE 370-500 mL) injection 84 mLfurosemide (LASIX) injection 40 mgDISCONTD: furosemide (LASIX) injection 20 mgProceduresEKGTime 0936Rate 95Normal sinusQ waves in anterior leadsAxis normalAbnormal EKGNotes & MDMPatient was evaluated for an emergency medical condition related to Shortness of Breath.ED Course as of 11/02/23 183Wed Nov 02 Pt accepted by [facility] [DN]1317 Transfer initiated [facility] [DN]ED Course User Index[DN] Joe Rodriguez MDDiagnosis/Impression as of 11/02/23 1831Dyspnea, unspecified typeHypoxiaAnemia, unspecified typeElevated troponinGeneralized abdominal painAcute respiratory failure with hypoxiaMedical Decision MakingProblems Addressed:Acute respiratory failure with hypoxia: acute illness or injuryAnemia, unspecified type: chronic illness or injuryDyspnea, unspecified type: acute illness or injuryElevated troponin: acute illness or injuryHypoxia: acute illness or injuryAmount and/or Complexity of Data ReviewedLabs: ordered. Decision-making details documented in ED Course.Radiology: ordered and independent interpretation performed. Decision-making details documented in ED Course.ECG/medicine tests: ordered and independent interpretation performed. Decision-making details documented in ED Course.RiskPrescription drug management.Decision regarding hospitalization.Limitations to patient care and compliance: none.Assessment/Summary:The patient is a 63-year-old female with history of alcoholism who presents with shortness of breath. She is currently being worked up for cirrhosis. She presents appearing jaundiced and fluid overloaded. She is tachypneic with crackles in the left lower base. She has bilateral lower extremity edema. Workup demonstrates that she has a pleural effusion and she was given Lasix. She has a hemoglobin of 3. Bilirubin 2.6. EKG and Troponin negative. The patient was consented for blood. CT of the abdomen pelvis demonstrated chronic fibrotic changes. The patient will require inpatient management with GI consult. The patient was transferred to the ICU down to [place].History, physical exam findings, results of visit, differential diagnosis, medication regimens and plan of future care have been considered. Additional MDM may be found in the ED course. Differential diagnosis considered and final disposition made based on information gathered during evaluation and may not be completely ruled out or specifically listed. Vital signs were rechecked before final disposition.DiagnosisFinal diagnoses:[R06.00] Dyspnea, unspecified type (Primary)[R09.02] Hypoxia[D64.9] Anemia, unspecified type[R79.89] Elevated troponin[R10.84] Generalized abdominal pain[J96.01] Acute respiratory failure with hypoxiaDisposition & Follow UpED DispositionED DispositionTransfer - [facility] to IP/ObsCondition--Comment--Patient's MedicationsSTART taking these medicationsNo medications on fileCONTINUE taking these medications which have NOT CHANGEDAMITRIPTYLINE 25 MG TABLET Take 1 tablet by mouth at bedtime.AMLODIPINE 10 MG TABLET Take 1 tablet by mouth in the morning.ASCORBATE CALCIUM (VITAMIN C ORAL) Take by mouth daily.ASPIRIN 81 MG CHEWABLE TABLET Take 81 mg by mouth daily.ATORVASTATIN 20 MG TABLET Take 1 tablet by mouth at bedtime.BENZONATATE (TESSALON PERLES) 100 MG CAPSULE Take 2 capsules by mouth every 8 (eight) hours as needed for Cough.BUPROPION XL 150 MG 24 HR TABLET Take 1 tablet by mouth in the morning and 1 tablet in the evening.CANE SANJAY Use as directed. Quad CaneCITALOPRAM 40 MG TABLET Take 1 tablet by mouth in the morning.COQ10, UBIQUINOL, ORAL Take by mouth.ERGOCALCIFEROL, VITAMIN D2, (VITAMIN D2) 1,250 MCG (50,000 UNIT) CAPSULE Take 1 capsule by mouth weekly.FLASH GLUCOSE SCANNING READER (FREESTYLE MANASA 14 DAY READER) MISC Take 1 Each in the morning.FLASH GLUCOSE SENSOR (FREESTYLE MANASA 14 DAY SENSOR) KIT 1 Kit every 14 (fourteen) days.FUROSEMIDE 40 MG TABLET Take 1 tablet by mouth in the morning.METFORMIN 500 MG TABLET TAKE 1 TABLET BY MOUTH IN THE MORNING AND 1 IN THE EVENINGMULTIVITAMIN TABLET Take 1 Tab by mouth daily.PREGABALIN 150 MG CAPSULE TAKE 1 CAPSULE BY MOUTH IN THE MORNING AND 1 IN THE EVENINGSPIRONOLACTONE 100 MG TABLET Take 1 tablet by mouth in the morning.START taking Modified Medications as PrescribedNo medications on fileSTOP taking these medicationsNo medications on fileDonjas Rodriguez Jr. MDClinical Traditional Maori Health Practitioner [facility] Emergency Ovczkqdeor3Idtzkj Dictation Software is used frequently and may produce errors. Promptly contact for obvious discrepancies.Joe Rodriguez MD11/02/23 183NeJoe villa MD11/02/23 1832 64047-4Lelvtqdnl Emergency department BnkmWZ6370-81-65B94:32:25[facility] NoteTXT1.2.840.850514.1.13.104.2.7.2.7 00999|[id number] for patient emns63130-1Nqeusftml department NoteLNNARRATIVEFormatted C-CDA narrative [id number] DJXBMYODBAHJHLBRSQGF3113-57-93N89:32:2 51.2.840.661777.1.72.3.15|1.2.840.1143 50.1.13.104.2.7.2.727879_[id number] [facility] 2023-10-25 10:26:22 xkuGnrLoYQ2gbzgpD/cNc4YR/cNJ7CSqatxKD9 OvQhfErsNKxdW4oWdHISKRq6XE4129-27-22S7 0:26:22 Records viewed by provider, placed in to be scanned folder. 71702-2Znruvewae encounter PhmmTY2976-38-52U95:26:41Telephone encounter NoteTXT1.2.840.896428.1.13.104.2.7.2.7 23123|[id number] for patient abpg46972-4AupzMXALPNDGNUCFdvmcduzl C-CDA narrative [id number] ZGORUGRTSCPZYURFPNLG2474-73-52B04:26:4 11.2.840.970504.1.72.3.15|1.2.840.1143 50.1.13.104.2.7.2.727879_[id number] [facility] 2023-10-25 08:10:23 J/Jhue1RAYkEmZSTOu5cSqvbMD+Yq8m1wEnRnw UCIvxpB9x2yqYp75wN+B672k8p1407-33-75Y3 8:10:23 EGD - - esophageal varies grade 11 large gastric bezoar portal hypertension gastropathy with oozing per note sentBut pathology report was okay with no intestinal metaplasia noted and no H.pylori 58337-7Fwyiudysw encounter XiyiVC4886-78-44E48:13:40Telephone encounter NoteTXT1.2.840.967526.1.13.104.2.7.2.7 50743|[id number] for patient ywnr07741-3JqnaEGPFOXNPUXCIncgckzaf C-CDA narrative text[address] FtolD[id number] WNFAFGALAFLAEGYQWJAD4045-14-18I76:13:4 01.2.840.353853.1.72.3.15|1.2.840.1143 50.1.13.104.2.7.2.727879_[id number] [facility] 2023-10-24 13:52:46 1j9jBTgf9FQqICd6VdW/On+0/E0eyjWtuy6sKs KYz8L2MR8OD97ZB0l3P+Md3YA77122-93-88V9 3:52:46 Medical record received from [facility] scanned in folder and placed in provider basket for review and signature. 07622-8Ischlpxqe encounter MgkaUY9343-89-60V91:53:51Telephone encounter NoteTXT1.2.840.881380.1.13.104.2.7.2.7 77028|[id number] for patient tszw74750-3EuqxHNJPRKPPGMONtlrddhva C-CDA narrative hlfy514665534Qrwauxx D [id number] YYEBJVNUIHGCMXPROJWR6177-36-19S25:53:5 11.2.840.502923.1.72.3.15|1.2.840.1143 50.1.13.104.2.7.2.727879_[id number] Monica Pena [facility] 2023-10-19 10:22:58 cioRKW1Ig9BZataoWNV2ZkhWXYP68VSBhEnclS UaFNLugLbk0J38v06lM3U6ZJOn4477-70-66K3 0:22:58 Placed in provider folder for review. 25381-1Cejolsyto encounter DogjKK4705-95-88E34:23:28Telephone encounter NoteTXT1.2.840.149333.1.13.104.2.7.2.7 11135|[id number] for patient jvgq59250-7UdtxABGTHDYZOLTGbtjnuqml C-CDA narrative text[id number] RCPMBPDKRSXANXYHALUH3924-99-40O11:23:2 81.2.840.976887.1.72.3.15|1.2.840.1143 50.1.13.104.2.7.2.727879_[id number] [facility] 2023-10-19 09:56:13 tptlmfB+uAYnH4zF+eMSYvVLdhsUxssy3xjlUW ieh9/6Nk6iXG72rEWECY5jfsif5455-15-83W5 9:56:13 Images from the original note were not included. 02784-3Xkvijgzcv encounter LgxeSI6242-95-31A77:56:58Telephone encounter NoteTXT1.2.840.350024.1.13.104.2.7.2.7 95568|2425682272YAAxecluekf for patient yehh55401-1LduiTCHDTLJHRYLZapmyifah C-CDA narrative muft06989369Wpyi [address] EvszSbmlllajiLlszoltmiHBQB0499210941ZG HWIOMQRBMGECUFEIOLUO3159-74-23E54:56:5 81.2.840.019046.1.72.3.15|1.2.840.1143 50.1.13.104.2.7.2.727879_[id number] Wilma Bangura [facility] 2023-10-05 16:09:33 a061ea+G1swkWvbKTyIL4sSS0FQWBBcSgdgm4q vVrqbERahbQ6YBQ48Kn89w7pCE6027-90-74V9 6:09:33 Images from the original note were not included.Requested RenewalsName from pharmacy: metFORMIN HCl 500 MG Oral TabletWill file in chart as: METFORMIN 500 mg tabletSig: TAKE 1 TABLET BY MOUTH IN THE MORNING AND 1 IN THE EVENINGDisp: 60 tablet Refills: 0Start: 10/05/2023lass: eRXFor: Type 2 diabetes mellitus with diabetic neuropathy, without long-term current use of insulinLast ordered: 5 months ago (04/12/2023) by Vic Mcghee, NPLast refill: 04/12/2023Rx #: [id number]: Diabetes - Biguanides Mnbpho4810/05/2023 04:02 PMProtocol Details Valid encounter within last 12 monthsCr is between 0 and 1.3 and within 360 duhsYAX3B within 180 daysTo be filled at: [address]Routing to provider, I see a prescription for metformin 1,000 MG. Please view 28068-8Evgufgqex encounter PfgnZX7745-21-90A80:10:20Telephone encounter NoteTXT1.2.840.331079.1.13.104.2.7.2.7 63365|[id number] for patient mjul71047-9MttuDXTPUULGWPGNzzguajpk C-CDA narrative textUT[address] WtwvXroihmogxYgiesfselNWTR1101996876LU MKVPFOQDJRRPAPWPIZIO8995-13-09F74:10:2 ..840.903081.1.72.3.15|1.2.840.1143 50.1.13.104.2.7.2.727879_[id number] [facility] 2023-10-05 16:08:19 rIN3VqBaxGSKiGOsG5vblg2lb5WN1ovIA8QWIq 6Rfcm150mcPFgNqA45pAJyGNlc1014-67-32X6 6:08:19 Images from the original note were not included.Requested RenewalsName from pharmacy: Pregabalin 150 MG Oral CapsuleWill file in chart as: PREGABALIN 150 mg capsuleSig: TAKE 1 CAPSULE BY MOUTH IN THE MORNING AND 1 IN THE EVENINGDisp: 60 capsule Refills: 0Start: 10/05/2023lass: eRXNon-formulary For: Neuropathic pain of both feetLast ordered: 1 month ago (08/31/2023) by Gama Elizabeth MDLast refill: 09/01/2023Rx #: [id number] Substance Ogfvxf6110/05/2023 04:02 PMProtocol Details Valid encounter within last 3 monthsPain agreement on fileThis refill cannot be delegatedTo be filled at: [address] 26-34-7549WYC N/A 27985-8Xdhvivqde encounter VruvDS3203-56-05M10:09:02Telephone encounter NoteTXT1.2.840.152086.1.13.104.2.7.2.7 34385|[id number] for patient irys88332-2XigqUIOUNDQDJGEZsakgdrpk C-CDA narrative textUT[address] [id number] HMKONVUBWWOZACXOYQHU6842-82-12N22:09:0 21.2.840.474105.1.72.3.15|1.2.840.1143 50.1.13.104.2.7.2.727879_[id number] [facility] 2023-09-06 11:21:30 IvXE1/+cjhVTQRwnx37olzq9wBeBThoIMZmIS2 iAUVR4r5oyQG1Ux/mlv0oU5Wpt4627-76-49H9 1:21:30 reviewed 98591-0Ybqbhizvh encounter QuyqMU1267-81-02I55:21:34Telephone encounter NoteTXT1.2.840.257338.1.13.104.2.7.2.7 41461|[id number] for patient mkln81587-5GvfzENXWLPYVSCETyermpypl C-CDA narrative text[address]TXTX[address]7555US RYORHIHRCAMZGGCLFEAK3224-49-33U29:21:3 41.2.840.077348.1.72.3.15|1.2.840.1143 50.1.13.104.2.7.2.727879_[id number] [facility] 2023-08-31 14:35:57 zf1JIIq0yGqeOQgB4Xo8YM1D5axR5VBH/gczNd A0fYs1d6VEDNyLGM1NX54mPk/00226-88-75C4 4:35:57 Images from the original note were not included.Requested Renewalspregabalin 150 mg capsuleSig: N/ADisp: 60 capsule Refills: 0Start: 08/31/2023lass: eRXNon-formulary For: Neuropathic pain of both feetLast ordered: 1 month ago (08/01/2023) by Hernesto Owusu, MDControlled Substance Gouomg7908/31/2023 02:18 PMProtocol Details Valid encounter within last 3 monthsPain agreement on fileThis refill cannot be delegatedTo be filled at: [facility] [address] [place] [address] VELASCO 37584-7Aurufzzyb encounter GnojWC7613-07-01W30:36:04Telephone encounter NoteTXT1.2.840.510926.1.13.104.2.7.2.7 30330|[id number] for patient gpay63473-1CamwOECWUCUCFGASyqvjzzbr C-CDA narrative [id number] XWLIVHIJFOVPJRWPBWKI8759-18-27F47:36:0 41.2.840.530884.1.72.3.15|1.2.840.1143 50.1.13.104.2.7.2.727879_[id number] [facility] 2023-08-31 14:17:24 L6cXUjDDRwCetbB75QRcBh9uUT6oOfYHuanodn 5AdjRR4iIhB51ZbRqCEy30onzj6426-53-71C5 4:17:24 Images from the original note were not included. 33879-2Jlanzohpf encounter JtcqQX7727-60-39Z67:18:37Telephone encounter NoteTXT1.2.840.178432.1.13.104.2.7.2.7 43400|[id number] for patient mmcw85316-4HzhuNVAWKWRNDNNOzvndqaio C-CDA narrative text58 [address]GalvestonTXTX7755577555[place] IAIJWABMRNGMHOBQFCZF6828-45-56K92:18:3 71.2.840.487626.1.72.3.15|1.2.840.1143 50.1.13.104.2.7.2.727879_[id number] [facility] 2023-08-31 09:30:38 qEZcL+Q84/JEQ2uruGhH5+1DVrV3BZa7J4yj1Z 4WM+Dw9hdBHccrMefHwqRZL4ZI2699-42-16U6 9:30:38 [facility] placed in provider basket for review. 95227-3Qtykfzebs encounter ZkdaQF8714-21-30I05:32:42Telephone encounter NoteTXT1.2.840.434413.1.13.104.2.7.2.7 05323|1292554662RQKzoevvnew for patient phgr03364-0FrllZEBZSTYKSXCPvhowddco C-CDA narrative ohob26520971Woxj [id number] VMLXAFJCPLACBOTREIVN8396-45-37H60:32:4 21.2.840.432642.1.72.3.15|1.2.840.1143 50.1.13.104.2.7.2.727879_[id number] Wilma Bangura [facility] 2023-05-19 10:00:00 Dk100SMAlbWgOHrVFbYX7kLYxmGnR11xudy5CR 5caIF4yzkHFePZsVNgJoe+j+F30149-07-79Y4 0:00:00 Images from the original note were not included.Venipuncture collection performed by clean technique on the right anticubitus. Total of 1 attempts were made. Slight pressure and a bandage/dressing were applied to the site(s). The patient experienced no complications. The following specimens were processed according to instructions and sent to [facility] laboratories per lab order on 05/19/2023: LT BLUE SST 2 RED LAV 1 PPT DK GREEN (LiHep) DK GREEN (SodH) VILLANUEVA DK BLUE (K2) DK BLUE (S) ACD Blood Culture NIPT/NTD 77143-7Wyzut WgxzHE4355-33-96Y84:09:56Nurse NoteTXT1.2.840.254070.1.13.104.2.7.2.7 12005|[id number] for patient waga68870-9Vfvgd Note[id number] KWXZKJTZEGLUBGQMZPUJ7642-08-73P93:09:5 61.2.840.587661.1.72.3.15|1.2.840.1143 50.1.13.104.2.7.2.727879_[id number] [facility] 2023-04-27 14:16:33 q06KjC9mZC5/DbMF9uZgLo4NPj4dQWhcm/Bvd3 Ubj03kBmCI65tX4mmjNDsnaKnf9386-14-59V4 4:16:33 Resending medication, Spoke with pharmacy and they never received Molnupiravir. 96814-8Izhhslfhq encounter DpplBN6160-94-79A68:18:25Telephone encounter NoteTXT1.2.840.554750.1.13.104.2.7.2.7 20004|7574163575EBWoadyfnme for patient obis30474-4ZlrqRJACJWHEQU[address]TXTX[address]75[address]US LTJCPUGLFEGVMHQTCVQD4761-54-53U87:18:2 51.2.840.844765.1.72.3.15|1.2.840.1143 50.1.13.104.2.7.2.727879_[id number] [facility] 2023-04-27 12:31:35 wUFctoj6Nn40moCRysK7PxMwQPx2kuJd+4Cu3U GSjNAocHT5h/irCJhmoXqzMnLY7426-38-92Y0 2:31:35 [facility] for [facility] did not go through. Please resend or give verbal. 44405-1Jviziruia encounter HsajIH3178-14-26S34:32:35Telephone encounter NoteTXT1.2.840.159775.1.13.104.2.7.2.7 07230|1311578276CRHzvllhbqe for patient ndqh39251-2XtneVU005329887Hqeohpc Howard[address]TXTX[address]75[address]US YGKHWUUWPBPQZKSLJVTW8428-29-89Y80:32:3 51.2.840.953070.1.72.3.15|1.2.840.1143 50.1.13.104.2.7.2.727879_[id number] Erin Mathew [facility] 2023-04-27 08:43:53 uj6Eox6di0k2ycZA3X7F+RDxXlVVfPlPQ/fyhv t2T5EpzRUqT+VmrH5WTba4wto79856-72-43U6 8:43:53 Please have patient scheduled for a telehealth visit today 67523-0Nlgwgiplu encounter KgkzJD8299-69-04P16:44:29Telephone encounter NoteTXT1.2.840.093910.1.13.104.2.7.2.7 02120|3638871608VPAqmecymtw for patient mkbj35584-2FktwVVTJHGUYVI[address]TXTX[address]75[address]US EHZHKPSMQRLCSFZGJLUK4937-68-37D93:44:2 91.2.840.132551.1.72.3.15|1.2.840.1143 50.1.13.104.2.7.2.727879_[id number] [facility] 2023-04-27 07:51:54 KonvCDO3NatLWMsmrek0+TnpTPscQsGb3/pnsS SwgXPfCVLutRjgKSDvF3dNVeRv0509-16-30U0 7:51:54 Pt checking the status on her medication. Pt would like her medication sent too [facility] in [place] instead. 26286-6Tzardtuex encounter IkcjPF2269-00-64H53:53:05Telephone encounter NoteTXT1.2.840.075085.1.13.104.2.7.2.7 52447|1466131467ZWWibuywvwe for patient oofa47068-7YrjmNQ05992550Ephsm J [id number] LMZBUNABXVXERDYXHDTC3640-45-69Z20:53:0 51.2.840.907047.1.72.3.15|1.2.840.1143 50.1.13.104.2.7.2.727879_[id number] Mara Winter [facility] 2023-04-26 17:09:03 yCPScaKtIa1xQvLUljknlKhYako+wDHsQkxQVQ cXAtp8Yq5b8X9LUA7hCyH4RGmX1197-56-52N8 7:09:03 Patient called wanting to speak to a nurse regarding her covid symptoms and medication. 57360-3Kmdabknua encounter FrevRE4202-11-50A65:09:56Telephone encounter NoteTXT1.2.840.633328.1.13.104.2.7.2.7 06145|1664792723URNvqbpzwvx for patient calp19491-4NykkWR679104903Itwnw K [address]TXTX[address]75[address]US EOKFNVPFZGDGNALIOOED3048-76-66V87:09:5 61.2.840.613454.1.72.3.15|1.2.840.1143 50.1.13.104.2.7.2.727879_[id number] Rachel Liang [facility] 2023-04-26 13:17:00 iPctrt9VrEne3cDhGV4y51BghE4BD2BFaae5yL nHVa0s+ZJUIn18S6UfmVMOvSnX3489-32-28J3 3:17:00 Pt called and states that she got a positive at home COVID test. She states that her symptoms started on 04/24. Pt is having cough, body aches, low grade fever, and fatigue. She is requesting for a medication to be prescribed for her symptoms. Please advise. Call back number: [phone] [address] [place], [place] [address]Phone: Mcidipqcqpksvk signed by Erin Rodgers at 04/26/2023 1:19 PM YKA34808-9Rderxgodx encounter ChzqQK5031-11-42Y00:19:31Telephone encounter NoteTXT1.2.840.276778.1.13.104.2.7.2.7 09747|2666484753ARUjypzqneb for patient gurg25986-5PtscDV23041184Ylcijsf R [address] MmwoEokhmjhxzVhhmoskfiGDOK4343279866PS FRFQFCLYILPQTTEBNWRX6469-00-82N11:19:3 11.2.840.587989.1.72.3.15|1.2.840.1143 50.1.13.104.2.7.2.727879_[id number] Erin Rodgers [facility] 2023-04-12 16:45:11 bcht4BQEa6TRpZTCr4Yw/NUejxPemkEyqJJzea d446HLyTwqz7v0Rr7u+KUP24Pb2550-91-81D1 6:45:11 Spoke to cert pharmacy tech and informed me patient is there waiting for prescription, Pharmacist needed clarification on Metformin and the Candida Freestyle. Clarification was made: Meformin: start metformin 500 mg for the month of April and Next month May to increase dose to 1,000 mg Candida Freestyle: pharmacy didn't have Candida 1 and verbally informed pharmacist to change to Candida 2 per Vani. 10393-1Rwnykrzlw encounter GfjkRH2029-41-29F75:51:18Telephone encounter NoteTXT1.2.840.024915.1.13.104.2.7.2.7 46146|2774291913YAJguzeofox for patient occs18319-9IhmqCQ899146384Qqfsfq M Serrano MA[address]TXTX[address]75[address]US YCHIGVADMHJZWAGDDUSN6413-39-23R33:51:1 81.2.840.666893.1.72.3.15|1.2.840.1143 50.1.13.104.2.7.2.727879_[id number] Nena Dominique [facility] 2023-04-12 16:23:30 eF9NuXLvZNIxr2v88xIqiAxYW/G7iafMkuYSfe yWvgYPpPHkGP79jlIBMKiVpXkb3333-34-30W2 6:23:30 Pharm need to change rx flash glucose scanning reader (FREESTYLE MANASA 14 DAY READER) MiscTo Manasa 2 86770-8Doubefhfb encounter HxddTK7066-01-36P63:24:40Telephone encounter NoteTXT1.2.840.584282.1.13.104.2.7.2.7 59653|7232776463EDQkatfkhne for patient nzzn67569-7ZeweLI543468189Hcaap [id number] JKNTJZCDYHTZSTDGJNCY0942-18-81H23:24:4 01.2.840.355370.1.72.3.15|1.2.840.1143 50.1.13.104.2.7.2.727879_[id number] Yvonne Palmer [facility]
[2023-11-28] MEDS ORDERED: NA CHLORIDE 0.9% 500 ML ONE (17:48)
--- NOTE | 2023-11-28 18:07 | RAD REPORT ---
EXAM DESCRIPTION: CT - Head Brain Wo Cont - 11/28/2023 5:57 pm CLINICAL HISTORY: Alteration of awareness/confusion COMPARISON: None TECHNIQUE: Computed axial tomography of the head was obtained. IV contrast was not requested. All CT scans are performed using dose optimization technique as appropriate and may include automated exposure control or mA/KV adjustment according to patient size. FINDINGS: An intracranial bleed is not seen The ventricles are normal in caliber No extra-axial fluid collection is noted. No significant hypodensity within the brain Fluid within the sinuses/ mastoids is not seen. IMPRESSION: No acute intracranial abnormality is seen If patient's symptoms persist MRI of the brain would be recommended
[2023-11-28 18:24] LABS: PT Prothrombin Time 17.3 SECONDS (9.5-12.5); PTT, Activated Partial Thromb 39.9 SECONDS (24.3-36.9); Protime INR 1.59
[2023-11-28 18:35] LABS: Albumin 2.5 g/dL (3.4-5.0); Albumin/Globulin Ratio 0.5 (1.1-1.8); Anion Gap 12.1 mEq/L (5.0-15.0); Bilirubin Total 3.3 mg/dL (0.2-1.0); Globulin 4.7 g/dL (2.3-3.5); Potassium 4.1 mEq/L (3.5-5.1); Protein, Total 7.2 g/dL (6.4-8.2); Troponin High Sensitivity 5.9 pg/mL (<58.9)
[2023-11-28] MEDS ORDERED: NA CHLORIDE 0.9% 3,000 ML ONE (18:40)
--- NOTE | 2023-11-28 18:43 | RAD REPORT ---
EXAM DESCRIPTION: Shea Single View11/28/2023 6:20 pm CLINICAL HISTORY: Confusion and dizziness COMPARISON: none FINDINGS: The lungs appear clear of acute infiltrate. The heart is normal size IMPRESSION: No acute abnormalities displayed
[2023-11-28 18:48] LABS: Specific Gravity 1.008 (1.005-1.030); Urine Bilirubin NEGATIVE (Negative); Urine Blood Negative (Negative); Urine Clarity Clear (Clear); Urine Color Light-Yellow (Yellow); Urine Glucose NEGATIVE (Negative); Urine Ketones NEGATIVE (Negative); Urine Microscopic Reflex YN NO UMIC; Urine Nitrite NEGATIVE (Negative); Urine Protein NEGATIVE (Negative); Urine Urobilinogen Normal (Normal); Urine pH 7.5 (5.0-7.0)
[2023-11-28 18:56] LABS: Absolute Eosinophils 0.1 K/uL (0-0.5); Absolute Lymphocytes (CBC) 1.4 K/uL (0.7-4.9); Absolute Monocytes 0.4 K/uL (0.1-1.3); Absolute Neutrophil 1.9 K/uL (1.8-8.0); Basophils % 0.6 % (0-1.3); Eosinophils % 3.6 % (0-4.4); Hematocrit 27.3 % (36.0-45.0); Hemoglobin 9.1 g/dL (12.0-15.0); Lymphocytes % 36.1 % (15.3-44.8); MCH 28.6 pg (27.0-35.0); MCHC 33.2 g/dL (32.0-36.0); MCV 86.1 fL (80-100); MPV 8.8 fL (7.6-11.3); Monocytes % 11.2 % (3.3-12.3); Neutrophils % 48.5 % (41.7-73.7); Nucleated Red Blood Cells % 0.1 % (0-0); Platelets 62 thou/uL (152-406); RBC Red Blood Cell Count 3.17 M/uL (3.86-4.86); Red Cell Distribution Width 28.3 % (12.1-15.2)
[2023-11-28] MEDS ORDERED: CEFTRIAXONE 1000 MG/VIAL ONE (19:05)
[2023-11-28] MEDS ORDERED: LACTULOSE 20 GM/30 ML UCUP ONE (19:31)
--- NOTE | 2023-11-28 19:54 | EDPHYS ---
Physician Documentation [facility] Name: Arely Chen Age: 63 yrs Sex: Female : 1960 Arrival Date: 11/28/2023 Time: 17:06 Bed 14 Private MD: ED Physician Simone Whitaker HPI: 11/27 17:25 This 63 yrs old Female presents to ER via EMS with complaints of Altered Mental Status. cp 17:25 The patient presents with confusion. Onset: The symptoms/episode began/occurred 3 cp day(s) ago. Possible causes: known end stage liver disease. Associated signs and symptoms: Pertinent positives: weakness, Pertinent negatives: abdominal pain, fever, chest pain. Current symptoms: In the emergency department the patient's symptoms are unchanged from the initial presentation. Patient's baseline: Neuro: alert and fully oriented, Motor: no deficits, Ambulation: walks with assist only, Speech: normal. 17:25 Unable to obtain HPI due to altered mental status. cp Historical: - Allergies: 17:21 Codeine; me1 - PMHx: 17:21 depression; hyperlipidemia; neuralgia and neuritis; Hypertensive disorder; insomnia; me1 anxiety; anemia; alcoholic cirrhosis of liver with ascites; Diabetes mellitus; asthma; - Immunization history:: Adult Immunizations up to date. - Social history:: Smoking status: unknown. ROS: 17:30 Constitutional: Negative for fever, poor PO intake, cp 17:30 Cardiovascular: Negative for chest pain, edema, cp 17:30 Respiratory: Negative for cough, shortness of breath, wheezing, 17:30 Abdomen/GI: Negative for abdominal pain, vomiting, diarrhea, constipation, black/tarry stool, rectal bleeding, 17:30 Neuro: Positive for altered mental status, weakness, Negative for headache, syncope, 17:30 All other systems are negative, Exam: 17:33 Constitutional: The patient appears in no acute distress, alert, awake, cp non-diaphoretic, non-toxic, well developed, well nourished, 17:33 Head/Face: Normocephalic, atraumatic. cp 17:33 Eyes: Periorbital structures: appear normal, Pupils: equal, round, and reactive to light and accomodation, Extraocular movements: intact throughout, Conjunctiva: normal, no exudate, no injection, Sclera: no appreciated abnormality, Lids and lashes: appear normal, bilaterally, 17:33 ENT: External ear(s): are unremarkable, Nose: is normal, Mouth: Lips: moist, Oral mucosa: pink and intact, moist, Posterior pharynx: Airway: no evidence of obstruction, patent, erythema, is not appreciated, exudate, is not appreciated, 17:33 Neck: ROM/movement: is normal, is supple, without pain, no range of motions limitations, no meningismus, 17:33 Chest/axilla: Inspection: normal, 17:33 Cardiovascular: Rate: normal, Rhythm: regular, Edema: is not appreciated, JVD: is not cp appreciated, 17:33 Respiratory: the patient does not display signs of respiratory distress, Respirations: normal, no use of accessory muscles, no retractions, labored breathing, is not present, Breath sounds: decreased breath sounds, that are mild, throughout, stridor, is not appreciated, wheezing: is not appreciated, 17:33 Abdomen/GI: Inspection: distension, that is mild, Bowel sounds: active, all quadrants, cp Palpation: abdomen is soft and non-tender, in all quadrants, 17:33 Back: pain, is absent, ROM is normal, 17:33 Skin: Appearance: Color: jaundiced, Temperature: normal temperature, cellulitis, is not appreciated, 17:33 Neuro: Orientation: to person, Mentation: able to follow commands, slow to respond, Motor: moves all fours, no focal deficit, Sensation: no obvious gross deficits, 18:08 ECG was reviewed by the Attending Physician. cp Vital Signs: 17:17 BP 111 / 53; Pulse 80; Resp 16; Temp 97.8(TE); Pulse Ox 98% on R/A; Weight 81.65 kg; me1 Height 5 ft. 6 in. ; Pain 0/10; 18:00 BP 111 / 58; Pulse 77; Resp 16; Pulse Ox 99% on R/A; me1 19:00 BP 105 / 53; Pulse 72; Resp 13; Pulse Ox 98% on R/A; me1 20:00 BP 110 / 57; Pulse 72; Resp 14; Pulse Ox 97% on R/A; me1 21:00 BP 105 / 54; Pulse 71; Resp 14 S; Pulse Ox 97% on 2 lpm NC; 7 22:00 BP 104 / 59; Pulse 71; Resp 12 S; Pulse Ox 97% on 2 lpm NC; jw7 17:17 Body Mass Index 29.05 (81.65 kg, 167.64 cm) me1 17:17 Pain Scale: Adult me1 MDM: 17:21 Patient medically screened. cp 18:00 Differential Diagnosis: electrolyte abnormality, intracranial bleed, meningitis, cp pneumonia, seizure, sepsis, UTI, volume depletion, hepatic encephalopathy. 19:30 Data reviewed: vital signs, nurses notes, lab test result(s), EKG, radiologic studies, cp CT scan, plain films, and as a result, I will admit patient. 19:30 Consideration of Admission/Observation Patient was admitted/placed on observation. cp Management of patient was discussed with the following: Hospitalist: DR Bustos will admit after discussion. I considered the following discharge prescriptions or medication management in the emergency department Medications were administered in the Emergency Department. See MAR. Care significantly affected by the following chronic conditions: Hypertension, Liver Disease. Response to treatment: the patient's symptoms have mildly improved after treatment. 11/27 17:20 Order name: Blood Culture Adult (2) 11/27 17:20 Order name: CBC with Diff; Complete Time: 03:08 11/27 19:14 Interpretation: Normal except: WBC 3.90; RBC 3.17; HGB 9.1; HCT 27.3; PLT 62; RDW 28.3. 11/27 17:20 Order name: CMP; Complete Time: 18:36 11/27 18:37 Interpretation: Normal except: GFR 70; AST 45; BILIT 3.3; ALB 2.5; GLOB 4.7; A/G 0.5. 11/27 17:20 Order name: Lactate w/ 2H reflex if indic.; Complete Time: 18:29 11/27 18:29 Interpretation: Reviewed. 11/27 17:20 Order name: Protime (+inr); Complete Time: 18:28 11/27 17:20 Order name: Ptt, Activated; Complete Time: 18:28 11/27 17:20 Order name: Urinalysis w/ reflexes; Complete Time: 18:54 11/27 18:54 Interpretation: Normal except: UPH 7.5. 11/27 17:20 Order name: Troponin High Sensitivity; Complete Time: 18:36 11/27 18:37 Interpretation: Reviewed. 11/27 17:20 Order name: UDS; Complete Time: 20:11 cp 11/27 20:12 Interpretation: Reviewed. 11/27 17:20 Order name: AMMONIA; Complete Time: 19:14 11/27 19:15 Interpretation: Abnormal: KASSANDRA 108. 11/27 18:21 Order name: Glucose, Ancillary Testing; Complete Time: 18:28 EDMN 11/27 18:36 Order name: Type And Screen; Complete Time: 03:08 cp 11/27 21:04 Order name: CBC Smear Scan; Complete Time: 03:08 EDMS 11/27 21:19 Order name: Urinalysis w/ reflexes EDMN 11/27 21:19 Order name: CBC with Automated Diff EDMN 11/27 21:19 Order name: CBC with Automated Diff [facility] 11/27 21:19 Order name: Comprehensive Metabolic Panel [facility] 11/27 21:19 Order name: Comprehensive Metabolic Panel [facility] 11/27 21:19 Order name: Magnesium EDMN 11/27 21:19 Order name: Magnesium [facility] 11/27 21:19 Order name: Phosphorus EDMN 11/27 21:19 Order name: Phosphorus [facility] 11/27 22:05 Order name: Lactate Sepsis 2 HR Follow-up; Complete Time: 03:08 EDMN 11/27 22:07 Order name: ABO/RH no charge; Complete Time: 03:08 EDMN 11/27 17:20 Order name: Chest Single View XRAY; Complete Time: 18:54 11/27 18:54 Interpretation: Report review. 11/27 17:20 Order name: CT Head Brain wo Cont; Complete Time: 18:28 11/27 17:20 Order name: EKG; Complete Time: 17:22 11/27 21:19 Order name: Patient Safety Orders EDMN 11/27 21:19 Order name: Physical Therapy Consult [facility] 11/27 17:20 Order name: Accucheck; Complete Time: 18:09 11/27 17:20 Order name: Cardiac monitoring; Complete Time: 18:06 11/27 17:20 Order name: EKG - Nurse/Tech; Complete Time: 18:05 11/27 17:20 Order name: IV Saline Lock - Large Bore; Complete Time: 17:51 cp 11/27 17:20 Order name: Labs collected and sent; Complete Time: 17:52 cp 11/27 17:20 Order name: O2 Per Protocol; Complete Time: 17:46 cp 11/27 17:20 Order name: O2 Sat Monitoring; Complete Time: 17:46 cp 11/27 17:20 Order name: Vital Signs; Complete Time: 17:46 cp 11/27 18:22 Order name: Labs - recollect needed: recollect cbc; Complete Time: 19:02 bd 11/27 18:32 Order name: Quevedo; Complete Time: 19:02 cp EC:08 Rate is 75 beats/min. Rhythm is regular. OK interval is normal. QRS interval is normal. cp QT interval is prolonged at 466 msec. Interpreted by me. Reviewed by me. Administered Medications: 17:51 Drug: NS 0.9% IV 500 ml IV at 500 ml/hr continuous Route: IV; Rate: 500 ml/hr; [place] [facility] [place]; 19:08 Follow up: Response: No adverse reaction; IV Status: Completed infusion; IV Intake: me1 500ml 19:02 Drug: NS 0.9% IV (30 ml/kg) 30 ml/kg IV at bolus once; Sepsis Protocol: 2430 cc total me1 Route: IV; Rate: bolus; Site: right forearm; 21:53 Follow up: Response: No adverse reaction; IV Status: Completed infusion; IV Intake: jw7 2500ml 19:07 Drug: Rocephin IV 1 grams IV at calculated rate once; Given slow IV push per pharmacy me1 instructions Route: IV; Rate: calculated rate; Site: right forearm; 19:27 Follow up: Response: No adverse reaction; IV Status: Completed infusion me1 19:35 Drug: Lactulose PO 30 grams 45 ml PO once Volume: 45 ml; Route: PO; me1 19:35 Follow up: Response: No adverse reaction me1 Point of Care Testing: Blood Glucose: 18:09 Blood Glucose: 88 mg/dL; me1 Ranges: Critical Glucose Levels:Adult <50 mg/dl or >400 mg/dl <40 mg/dl or >180 mg/dl Disposition Summary: 11/28/23 19:53 Hospitalization Ordered Notes: Hospitalization Status: Inpatient Admission cp Provider: Inder [facility]os [facility] Condition: Stable cp Problem: new cp Symptoms: have improved cp Bed/Room Type: Standard cp Room Assignment: 424(11/28/23 21:45) vc1 Diagnosis - Altered mental status, unspecified cp - Other specified sepsis cp Forms: - Medication Reconciliation Form cp - SBAR form cp - Leadership Thank You Letter cp Signatures: Dispatcher [employer] EDLilibeth Gamez Corey, PA PA cp Erin Vazquez RN RN vc1 Rosina Cui RN RN mn1 Lori Brown RN jw7 Corrections: (The following items were deleted from the chart) 21:45 19:53 cp vc1
--- NOTE | 2023-11-28 19:54 | ER ---
Nurse's Notes [facility] Name: Arely Chen Age: 63 yrs Sex: Female : 1960 Arrival Date: 11/28/2023 Time: 17:06 Bed 14 Private MD: Diagnosis: Altered mental status, unspecified;Other specified sepsis Presentation: 11/27 17:17 Chief complaint: EMS states: toned out for AMS. Patient is currently at [facility] for nm1 rehab and has been becoming more confused over the past 3 days. New onset of intermittent tremors and dizziness reported as well. Denies pain. Coronavirus screen: Vaccine status: Patient reports receiving the 2nd dose of the covid vaccine. Ebola Screen: No symptoms or risks identified at this time. Initial Sepsis Screen: Does the patient meet any 2 criteria? No. Patient's initial sepsis screen is negative. Does the patient have a suspected source of infection? No. Patient's initial sepsis screen is negative. Risk Assessment: Do you want to hurt yourself or someone else? Patient reports no desire to harm self or others. Onset of symptoms was November 25, 2023. 17:17 Method Of Arrival: EMS[place] [facility] [place] 17:17 Acuity: ZITA 2 me1 Triage Assessment: 17:21 General: Appears uncomfortable, ill, obese, well developed, well nourished, Behavior is me1 calm, cooperative, appropriate for age, flat. Pain: Denies pain. Neuro: Level of Consciousness is awake, alert, obeys commands, Oriented to person. Cardiovascular: Patient's skin is warm and dry. Respiratory: Respiratory effort is even, unlabored, Respiratory pattern is regular, symmetrical. GI: Abdomen is noted to have ascites. : Reports incontinence. Derm: Skin is jaundiced. Musculoskeletal: generalized weakness. Historical: - Allergies: 17:21 Codeine; me1 - PMHx: 17:21 depression; hyperlipidemia; neuralgia and neuritis; Hypertensive disorder; insomnia; me1 anxiety; anemia; alcoholic cirrhosis of liver with ascites; Diabetes mellitus; asthma; - Immunization history:: Adult Immunizations up to date. - Social history:: Smoking status: unknown. Screenin:26 [facility] ED Fall Risk Assessment (Adult) History of falling in the last 3 months, me1 including since admission No falls in past 3 months (0 pts) Confusion or Disorientation Yes (5 pts) Intoxicated or Sedated No (0 pts) Impaired Gait Yes (1 pt) Mobility Assist Device Used Yes (1 pt) Altered Elimination Yes (1 pt) Score/Fall Risk Level 3 or more points = High Risk Maintained a safe environment, Hourly rounding (assess needs \\T\\ fall precautionary measures) done, Used ambulatory aids as needed (educated on \\T\\ assisted with). Abuse screen: Denies threats or abuse. Nutritional screening: No deficits noted. Tuberculosis screening: No symptoms or risk factors identified. Assessment: 17:26 General: See triage assessment. . me1 20:30 General: Appears in no apparent distress. uncomfortable, Behavior is calm, cooperative. jw7 Pain: Denies pain. 20:30 Neuro: Level of Consciousness is awake, alert, obeys commands, Oriented to person, jw7 Cardiovascular: Capillary refill < 3 seconds Clubbing of nail beds is absent JVD is absent Patient's skin is warm and dry. Respiratory: Airway is patent Trachea midline Respiratory effort is even, unlabored, Respiratory pattern is regular, symmetrical. GI: Abdomen is round non-distended, obese, Bowel sounds present X 4 quads. Abd is soft and non tender X 4 quads. : No deficits noted. No signs and/or symptoms were reported regarding the genitourinary system. EENT: No deficits noted. No signs and/or symptoms were reported regarding the EENT system. Derm: Skin is intact, is healthy with good turgor, Skin is dry, Skin is normal, Skin temperature is warm. Musculoskeletal: Circulation, motion, and sensation intact. 20:52 General: Idalia Ambrosio "Neyda" [phone]. jw7 21:30 Reassessment: Patient appears in no apparent distress at this time. No changes from jw7 previously documented assessment. Patient and/or family updated on plan of care and expected duration. Pain level reassessed. 22:18 Reassessment: Patient appears in no apparent distress at this time. No changes from jw7 previously documented assessment. Patient and/or family updated on plan of care and expected duration. Pain level reassessed. Vital Signs: 17:17 BP 111 / 53; Pulse 80; Resp 16; Temp 97.8(TE); Pulse Ox 98% on R/A; Weight 81.65 kg; me1 Height 5 ft. 6 in. ; Pain 0/10; 18:00 BP 111 / 58; Pulse 77; Resp 16; Pulse Ox 99% on R/A; me1 19:00 BP 105 / 53; Pulse 72; Resp 13; Pulse Ox 98% on R/A; me1 20:00 BP 110 / 57; Pulse 72; Resp 14; Pulse Ox 97% on R/A; me1 21:00 BP 105 / 54; Pulse 71; Resp 14 S; Pulse Ox 97% on 2 lpm NC; jw7 22:00 BP 104 / 59; Pulse 71; Resp 12 S; Pulse Ox 97% on 2 lpm NC; jw7 17:17 Body Mass Index 29.05 (81.65 kg, 167.64 cm) me1 17:17 Pain Scale: Adult [facility] [place] ED Course: 17:17 Patient arrived in ED. nm1 17:17 Sanju Argueta PA is PHCP. cp 17:17 Simone Whitaker MD is Attending Physician. cp 17:21 Triage completed. me1 17:21 Arm band placed on Patient placed in an exam room. me1 17:26 Patient has correct armband on for positive identification. Bed in low position. Call nm1 light in reach. Side rails up X2. Provided Education on: POC. Verbalized understanding. . 17:26 No provider procedures requiring assistance completed. me1 17:46 Rosina Cui, RN is Primary Nurse. me1 17:57 CT Head Brain wo Cont In Process Unspecified. EDMS 18:06 Inserted saline lock: 22 gauge in left forearm, using aseptic technique. Blood ds4 collected. 18:15 Initial lab(s) drawn, by ED staff, sent to lab. EKG done, by ED staff, reviewed by nm1 Sanju MCKEE. 18:22 Chest Single View XRAY In Process Unspecified. EDMS 18:28 Notified Nurse Practitioner and/or Physician Fitting Room Maintenance Mechanic of a critical lab result(s), aa5 lactate 4.0. 18:33 UDS Sent. me1 18:34 Urinalysis w/ reflexes Sent. me1 18:34 Straight cath inserted, using sterile technique, 16 Fr. Specimen obtained. Returned nm1 clear yellow urine. 19:02 Type And Screen Sent. me1 19:03 Inserted saline lock: 20 gauge in right forearm, using aseptic technique. me1 19:03 Quevedo cath inserted, using sterile technique, 16 Fr., by nm, balloon inflated, to me1 gravity drainage. 19:11 T\\T\\S collected, blood band applied to patient. me1 19:50 Inder Bustos is Hospitalizing Provider. cp 20:30 Awaiting bed assignment. jw7 20:30 Report received from ANITA Almaguer. jw7 22:00 Patient admitted, IV remains in place. jw7 Administered Medications: 17:51 Drug: NS 0.9% IV 500 ml IV at 500 ml/hr continuous Route: IV; Rate: 500 ml/hr; Site: me1 left forearm; 19:08 Follow up: Response: No adverse reaction; IV Status: Completed infusion; IV Intake: me1 500ml 19:02 Drug: NS 0.9% IV (30 ml/kg) 30 ml/kg IV at bolus once; Sepsis Protocol: 2430 cc total me1 Route: IV; Rate: bolus; Site: right forearm; 21:53 Follow up: Response: No adverse reaction; IV Status: Completed infusion; IV Intake: jw7 2500ml 19:07 Drug: Rocephin IV 1 grams IV at calculated rate once; Given slow IV push per pharmacy me1 instructions Route: IV; Rate: calculated rate; Site: right forearm; 19:27 Follow up: Response: No adverse reaction; IV Status: Completed infusion me1 19:35 Drug: Lactulose PO 30 grams 45 ml PO once Volume: 45 ml; Route: PO; me1 19:35 Follow up: Response: No adverse reaction me1 Medication: 17:26 VIS not applicable for this client. nm1 Point of Care Testing: Blood Glucose: 18:09 Blood Glucose: 88 mg/dL; me1 Ranges: Intake: 19:08 IV: 500ml; Total: 500ml. me1 21:53 IV: 2500ml; Total: 3000ml. jw7 Outcome: 19:53 Decision to Hospitalize by Provider. cp 22:00 Admitted to Tele accompanied by [facility], via stretcher, room 424, jw7 22:00 Condition: stable 22:00 Instructed on the need for admit, Demonstrated understanding of instructions, 22:39 Patient left the ED. jw7 Signatures: Dispatcher [employer] EDAlysha Pearl RN RN aa5 Bashir Ibarra ds4 Sanju Argueta PA PA cp Waits, Jodi, RN RN jw7 Rosina Cui, ANITA RN me1 Corrections: (The following items were deleted from the chart) 19:03 19:02 NS 0.9% IV (30 ml/kg) 2449.5 mL IV at bolus in right antecubital me1 me1 19:12 19:00 BP 116 / 69; Pulse 78bpm; Resp 14bpm; Pulse Ox 100% RA; me1 me1
[2023-11-28 20:00] LABS: Barbiturates NEGATIVE (NEGATIVE); Benzodiazepines NEGATIVE (NEGATIVE); Cocaine NEGATIVE (NEGATIVE); METHAMPHETAM NEGATIVE (NEGATIVE); Methadone NEGATIVE (NEGATIVE); Opiates NEGATIVE (NEGATIVE); Phencyclidine NEGATIVE (NEGATIVE); THC Cannibis NEGATIVE (NEGATIVE)
[2023-11-28 21:03] LABS: Anisocytosis 1+; Blood Morphology Comment NOTED (NOT SEEN); Platelet Estimate DECR; Poikilocytosis 1+; White Blood Cell Scan OK (OK)
[2023-11-28] MEDS ORDERED: ONDANSETRON 4 MG/2 ML VIAL IV PRN (21:11)
--- NOTE | 2023-11-28 21:27 | P.HP ---
Certification for Inpatient Patient admitted to: Inpatient With expected LOS: >2 Midnights Practitioner: I am a practitioner with admitting privileges, knowledge of patient current condition, hospital course, and medical plan of care. Services: Services provided to patient in accordance with Admission requirements found in Title 42 Section 412.3 of the Code of Federal Regulations Patient History Date of Service: 11/28/23 Reason for admission: Altered mental status History of Present Illness: 63-year-old woman with a history of end-stage liver disease transferred from [facility] to the emergency department due to altered mental status. Patient significant other by her bedside provided history. Patient was recently discharged from [facility] after she was admitted for altered mental status generalized weakness and found to have severe anemia. EGD was done, patient found to have esophageal varices which were cauterized. Patient also has a history of ascites and currently on maintenance medication for end-stage liver disease which include lactulose, rifaximin, Lasix and Aldactone. Blood work in the emergency department showed elevated ammonia up to 100, lactic acidosis. Head CT negative for acute disease, Home medications list reviewed: Yes - Past Medical/Surgical History -: Liver cirrhosis -: GI bleed -: Hypertension -: Hyperlipidemia -: Type 2 diabetes -: Iron deficiency anemia -: Mild intermittent asthma -: EGD - Social History Alcohol use: No CD- Drugs: No Place of Residence: Home Review of Systems Other: No reported fever, patient reports soft stools. She denies any abdominal pain. She denies any nausea, she has not vomited, She denies any melena, Except as documented, all other systems negative. Physical Examination - Physical Exam General: In no apparent distress, Oriented x3, Other HEENT: Mucous membr. moist/pink, Scleral icterus (Mild) Neck: Supple, JVD not distended Respiratory: Clear to auscultation bilaterally, Normal air movement Cardiovascular: No edema, Regular rate/rhythm, Normal S1 S2, Systolic murmur Capillary refill: <2 Seconds Gastrointestinal: Normal bowel sounds, No tenderness, Distended, Ascites Musculoskeletal: No swelling, No tenderness Integumentary: No rashes, No cyanosis Neurological: Normal speech, Normal strength at 5/5 x4 extr, Cranial nerves 3-12 intact Lymphatics: No axilla or inguinal lymphadenopathy - Studies Laboratory Data (last 24 hrs) 11/28/23 11/28/2324 18:48 17:53 17:53 WBC 3.90 L Hgb 9.1 L Hct 27.3 L Plt Count 62 L PT 17.3 H INR 1.59 APTT 39.9 H Sodium 137 Potassium 4.1 BUN 13 Creatinine 0.91 Glucose 85 Total Bilirubin 3.3 H AST 45 H ALT 41 Alkaline Phosphatase 87 Assessment and Plan - Problems (Diagnosis) (1) Hepatic encephalopathy Current Visit: Yes Status: Acute (2) Alcoholic cirrhosis of liver Current Visit: Yes Status: Acute (3) Chronic anemia Current Visit: Yes Status: Acute (4) Type II diabetes mellitus Current Visit: Yes Status: Acute - Plan Hepatic encephalopathy Alcoholic liver cirrhosis Ascites Admitted to the medical floor Lactic acidosis likely related to liver cirrhosis Supportive measures with slow IV hydration. Start lactulose and titrate to 2-3 loose bowel movements per day Resume home dose rifaximin and Aldactone Lasix for ascites Serial ammonia level Empiric IV Rocephin. ADA diet Chronic anemia Secondary to GI bleed Stable Monitor CBC daily. DM type II Insulin sliding scale for glucose management Hypoglycemia protocol. DVT prophylaxis: SCD - Advance Directives Does patient have a Living Will: No Does patient have a Durable POA for Healthcare: No
[2023-11-28] MEDS ORDERED: D50W 25 GM/50 ML SYRINGE IV PRN (21:40)
[2023-11-28] MEDS ORDERED: GLUCAGON 1 MG/VIAL IM PRN (21:40)
[2023-11-28] MEDS ORDERED: D10W 125 ML IV PRN (21:49)
[2023-11-28 22:16] VITALS: BMI 29.0
[2023-11-28] MEDS: D5 0.9 NS 1,000 ML IV SCH (23:20)
[2023-11-29 07:06] LABS: Absolute Eosinophils 0.2 K/uL (0-0.5); Absolute Lymphocytes (CBC) 1.7 K/uL (0.7-4.9); Absolute Monocytes 0.4 K/uL (0.1-1.3); Absolute Neutrophil 1.6 K/uL (1.8-8.0); Basophils % 1.2 % (0-1.3); Eosinophils % 4.4 % (0-4.4); Hematocrit 24.6 % (36.0-45.0); Hemoglobin 8.1 g/dL (12.0-15.0); Lymphocytes % 43.8 % (15.3-44.8); MCH 28.3 pg (27.0-35.0); MCHC 32.8 g/dL (32.0-36.0); MCV 86.2 fL (80-100); MPV 8.9 fL (7.6-11.3); Monocytes % 10.4 % (3.3-12.3); Neutrophils % 40.2 % (41.7-73.7); Nucleated Red Blood Cells % 0.2 % (0-0); Platelets 56 thou/uL (152-406); RBC Red Blood Cell Count 2.86 M/uL (3.86-4.86); Red Cell Distribution Width 28.8 % (12.1-15.2)
[2023-11-29 07:19] LABS: Albumin 2.2 g/dL (3.4-5.0); Albumin/Globulin Ratio 0.6 (1.1-1.8); Anion Gap 9.4 mEq/L (5.0-15.0); Bilirubin Total 2.6 mg/dL (0.2-1.0); Phosphorus 3.5 mg/dL (2.5-4.9); Potassium 3.4 mEq/L (3.5-5.1); Protein, Total 6.2 g/dL (6.4-8.2)
[2023-11-29] MEDS: INSULIN REGULAR (HUMAN) 100 UNIT/ML SQ SCH (07:30)
[2023-11-29] MEDS: Rifaximin 550 MG Tab PO SCH (09:00)
[2023-11-29 09:13] LABS: White Blood Cell Scan OK (OK)
[2023-11-29 09:15] LABS: Anisocytosis 1+; Platelet Estimate DECR
[2023-11-29 09:16] LABS: Blood Morphology Comment NOTED (NOT SEEN); Hypochromasia 2+
[2023-11-29] MEDS: LACTULOSE 20 GM/30 ML UCUP PO SCH ×3 (09:55→20:29)
[2023-11-29] MEDS: KCL 20 MEQ/100 mL IVPB 20 MEQ/100 ML BAG IV SCH (09:57)
--- NOTE | 2023-11-29 13:16 | P.PN ---
Date of Service: 11/29/23 Subjective: Alert, oriented x 3 Some intermittent confusion/inappropriate words Significant other at bedside No acute events overnight Has not had a bowel movement yet ROS: 10 point ROS as noted above, otherwise negative Physical exam GEN: Alert, confused but generally oriented, NAD HEENT: Normal conjunctiva, sclera anicteric CV: Regular rate and rhythm, no edema Pulm: Nonlabored respirations on room air ABD: Soft, nontender, nondistended MSK: No joint tenderness Integumentary: No rashes Neuro: Normal speech, normal affect Vitals reviewed Problem List Hepatic encephalopathy Alcoholic cirrhosis of the liver Recent upper GI bleed status post cauterization of esophageal varices Iron deficiency anemia/anemia of chronic disease Diabetes mellitus type [id number] Hypertension Hyperlipidemia Plan Hepatic encephalopathy Alcoholic cirrhosis of the liver Has not had bowel movement yet More aggressive lactulose today every 1-2 hours until bowel movement Continue rifaximin, other home medications for cirrhosis Significant other at bedside reports this is her first episode of confusion with her cirrhosis Currently staying at [facility]-significant other does not want her to go back there Trying for inpatient rehab once patient is stabilized [facility] Recent upper GI bleed status post cauterization of esophageal varices Iron deficiency anemia/anemia of chronic disease Significant other reports 3 to 4 weeks ago her hemoglobin was 3 and she had an EGD performed with cauterization of some varices She had a large-volume of blood transfused during that admission No further GI bleeding noted, monitor hemoglobin daily Diabetes mellitus type [id number] Blood sugar in the 80s, continue to monitor for hypoglycemia May increase when patient is more alert/eating Hypertension Hyperlipidemia Review home medications, restart as appropriate VTE: SCDs Code: Full Dispo: 2 to 3 days Time Spent Managing Pts Care (In Minutes): 35
--- NOTE | 2023-11-29 17:03 | EKG ---
Test Date: 2023-11-28 Test Time: 18:02:22 [employer]ian Blind [employer]her: MEASUREMENT RESULTS: Intervals: Rate: 75 OH: 188 QRSD: 88 QT: 466 QTc: 520 [place]: P: 50 OH: 188 QRS: 23 T: 70 INTERPRETIVE STATEMENTS: Normal sinus rhythm Anterior infarct, age undetermined Prolonged QT Abnormal ECG No previous ECG available for comparison Electronically Signed On 11-29-23 17:00:28 CDT by Shaji Aguilera
[2023-11-29] MEDS: CEFTRIAXONE 1,000 MG in NA CHLORIDE 0.9% 50 ML IVPB SCH (17:48)
--- NOTE | 2023-11-30 08:53 | RAD REPORT ---
EXAM DESCRIPTION: RAD - Abdomen 1 View (KUB) - 11/30/2023 7:20 am CLINICAL HISTORY: Constipation, abd distension, hepatic encephalopathy COMPARISON: No comparisons TECHNIQUE: Single AP view of the abdomen. FINDINGS: Mild gaseous distention of large bowel particularly the transverse colon. Nonobstructive b owel gas pattern. No air-fluid levels, free air, or pneumatosis. No suspicious calcifications. No significant bony abnormality. Status post cholecystectomy. IMPRESSION: No acute findings. Mild gaseous distention of large bowel.
[2023-11-30 10:01] LABS: Albumin 2.3 g/dL (3.4-5.0); Albumin/Globulin Ratio 0.5 (1.1-1.8); Anion Gap 7.5 mEq/L (5.0-15.0); Bilirubin Total 2.7 mg/dL (0.2-1.0); Globulin 4.3 g/dL (2.3-3.5); Potassium 3.5 mEq/L (3.5-5.1); Protein, Total 6.6 g/dL (6.4-8.2)
[2023-11-30 10:03] LABS: Absolute Basophils 0.1 K/uL (0-0.5); Absolute Eosinophils 0.3 K/uL (0-0.5); Absolute Lymphocytes (CBC) 1.1 K/uL (0.7-4.9); Absolute Monocytes 0.5 K/uL (0.1-1.3); Absolute Neutrophil 2.3 K/uL (1.8-8.0); Basophils % 1.8 % (0-1.3); Eosinophils % 6.1 % (0-4.4); Hematocrit 26.2 % (36.0-45.0); Hemoglobin 8.7 g/dL (12.0-15.0); Lymphocytes % 26.8 % (15.3-44.8); MCH 28.8 pg (27.0-35.0); MCHC 33.2 g/dL (32.0-36.0); MPV 9.2 fL (7.6-11.3); Monocytes % 11.1 % (3.3-12.3); Neutrophils % 54.2 % (41.7-73.7); Nucleated Red Blood Cells % 0.1 % (0-0); Platelets 65 thou/uL (152-406); RBC Red Blood Cell Count 3.01 M/uL (3.86-4.86); Red Cell Distribution Width 28.2 % (12.1-15.2)
[2023-11-30 10:19] LABS: PT Prothrombin Time 17.8 SECONDS (9.5-12.5); Protime INR 1.64
[2023-11-30] MEDS: LACTULOSE 20 GM/30 ML UCUP PR ONE (10:35)
--- NOTE | 2023-11-30 12:25 | P.PN ---
Date of Service: 11/30/23 Subjective: More confused today No BM yet with oral lactulose ROS: 10 point ROS as noted above, otherwise negative Physical exam GEN: Alert, confused HEENT: Normal conjunctiva, sclera anicteric CV: Regular rate and rhythm, no edema Pulm: Nonlabored respirations on room air ABD: Soft, nontender, nondistended MSK: No joint tenderness Integumentary: No rashes Neuro: Normal speech, normal affect Vitals reviewed Problem List Hepatic encephalopathy Alcoholic cirrhosis of the liver Recent upper GI bleed status post cauterization of esophageal varices Iron deficiency anemia/anemia of chronic disease Diabetes mellitus type [id number] Hypertension Hyperlipidemia Plan Hepatic encephalopathy Alcoholic cirrhosis of the liver Has not had bowel movement yet Will give lactulose enema today Continue rifaximin, other home medications for cirrhosis Significant other at bedside reports this is her first episode of confusion with her cirrhosis Currently staying at [facility]-significant other does not want her to go back there Trying for inpatient rehab once patient is stabilized possibly [facility] Recent upper GI bleed status post cauterization of esophageal varices Iron deficiency anemia/anemia of chronic disease Significant other reports 3 to 4 weeks ago her hemoglobin was 3 and she had an EGD performed with cauterization of some varices She had a large-volume of blood transfused during that admission No further GI bleeding noted, monitor hemoglobin daily Diabetes mellitus type [id number]-[id number] Blood sugar in the 80s, continue to monitor for hypoglycemia May increase when patient is more alert/eating Hypertension Hyperlipidemia Review home medications, restart as appropriate VTE: SCDs Code: Full Dispo: 2 to 3 days Time Spent Managing Pts Care (In Minutes): 35
[2023-11-30] MEDS: LACTULOSE 20 GM/30 ML UCUP PO SCH ×2 (13:00→16:48)
[2023-11-30] MEDS: ATORVASTATIN 20 MG TAB PO SCH (20:55)
[2023-12-01 07:35] LABS: Hematocrit 25.9 % (36.0-45.0); Hemoglobin 8.6 g/dL (12.0-15.0); MCH 28.7 pg (27.0-35.0); MCHC 33.1 g/dL (32.0-36.0); MCV 86.8 fL (80-100); MPV 8.5 fL (7.6-11.3); Platelets 63 thou/uL (152-406); RBC Red Blood Cell Count 2.98 M/uL (3.86-4.86); Red Cell Distribution Width 28.7 % (12.1-15.2)
[2023-12-01 07:53] LABS: Albumin 2.3 g/dL (3.4-5.0); Albumin/Globulin Ratio 0.5 (1.1-1.8); Anion Gap 9.4 mEq/L (5.0-15.0); Globulin 4.3 g/dL (2.3-3.5); Potassium 3.4 mEq/L (3.5-5.1); Protein, Total 6.6 g/dL (6.4-8.2)
[2023-12-01 09:02] LABS: Anisocytosis 2+; Blood Morphology Comment NOTED (NOT SEEN); Platelet Estimate DECR; White Blood Cell Scan OK (OK)
[2023-12-01 09:03] LABS: Ovalocytes 1+; Poikilocytosis 1+
[2023-12-01] MEDS: PANTOPRAZOLE 40MG TABLET PO SCH (09:35)
[2023-12-01] MEDS: FUROSEMIDE 40 MG TABLET PO SCH (09:35)
[2023-12-01] MEDS: SPIRONOLACTONE 100 MG TAB PO SCH (09:35)
[2023-12-01] MEDS: THIAMINE HCL 100 MG TABLET PO SCH (09:35)
[2023-12-01] MEDS: POTASSIUM 25 MEQ EFFERV TAB PO ONE ×2 (11:36→11:43)
--- NOTE | 2023-12-01 13:22 | P.PN ---
Date of Service: 12/01/23 Subjective: Mental status improving Still with some confusion but much more interactive ROS: 10 point ROS as noted above, otherwise negative Physical exam GEN: Alert, confused-improving HEENT: Normal conjunctiva, sclera anicteric CV: Regular rate and rhythm, no edema Pulm: Nonlabored respirations on room air ABD: Soft, nontender, nondistended MSK: No joint tenderness Integumentary: No rashes Neuro: Normal speech, normal affect Vitals reviewed Problem List Hepatic encephalopathy Alcoholic cirrhosis of the liver Recent upper GI bleed status post cauterization of esophageal varices Iron deficiency anemia/anemia of chronic disease Diabetes mellitus type [id number] Hypertension Hyperlipidemia Plan Hepatic encephalopathy Alcoholic cirrhosis of the liver Had BM yesterday/last night more alert today PT consulted Continue rifaximin, other home medications for cirrhosis Significant other at bedside reports this is her first episode of confusion with her cirrhosis Currently staying at [facility]-significant other does not want her to go back there Trying for inpatient rehab once patient is stabilized possibly at [facility] Recent upper GI bleed status post cauterization of esophageal varices Iron deficiency anemia/anemia of chronic disease Significant other reports 3 to 4 weeks ago her hemoglobin was 3 and she had an EGD performed with cauterization of some varices She had a large-volume of blood transfused during that admission No further GI bleeding noted, monitor hemoglobin daily Diabetes mellitus type [id number] Blood sugar in the 80s to 100s, continue to monitor for hypoglycemia Hypertension Hyperlipidemia Continue home meds VTE: SCDs Code: Full Dispo: 2 to 3 days Time Spent Managing Pts Care (In Minutes): 35
[2023-12-01] MEDS: LACTULOSE 20 GM/30 ML UCUP PO ONE (18:05)
[2023-12-02 07:34] LABS: Hemoglobin 8.7 g/dL (12.0-15.0); MCH 29.3 pg (27.0-35.0); MCHC 33.6 g/dL (32.0-36.0); MCV 87.3 fL (80-100); MPV 8.4 fL (7.6-11.3); Platelets 60 thou/uL (152-406); RBC Red Blood Cell Count 2.98 M/uL (3.86-4.86); Red Cell Distribution Width 29.2 % (12.1-15.2)
[2023-12-02 07:37] LABS: Albumin 2.4 g/dL (3.4-5.0); Albumin/Globulin Ratio 0.6 (1.1-1.8); Anion Gap 7.5 mEq/L (5.0-15.0); Bilirubin Total 3.1 mg/dL (0.2-1.0); Globulin 4.2 g/dL (2.3-3.5); Potassium 3.5 mEq/L (3.5-5.1); Protein, Total 6.6 g/dL (6.4-8.2)
[2023-12-02] MEDS: POTASSIUM 25 MEQ EFFERV TAB PO ONE (08:48)
[2023-12-02] MEDS: LACTULOSE 20 GM/30 ML UCUP PR ONE (10:04)
--- NOTE | 2023-12-02 13:27 | P.PN ---
Date of Service: 12/02/23 Subjective: Mental status improving Still with some confusion Had large BM today ROS: 10 point ROS as noted above, otherwise negative Physical exam GEN: Alert, confused-improving HEENT: Normal conjunctiva, sclera anicteric CV: Regular rate and rhythm, no edema Pulm: Nonlabored respirations on room air ABD: Soft, nontender, nondistended MSK: No joint tenderness Integumentary: No rashes Neuro: Normal speech, normal affect Vitals reviewed Problem List Hepatic encephalopathy Alcoholic cirrhosis of the liver Recent upper GI bleed status post cauterization of esophageal varices Iron deficiency anemia/anemia of chronic disease Diabetes mellitus type [id number]-[id number]-[id number] Hypertension Hyperlipidemia Plan Hepatic encephalopathy Alcoholic cirrhosis of the liver mental status waxing/waining PT consulted Continue rifaximin, other home medications for cirrhosis received lactulose enema, had improvement was more confused morning 12/01 but had large BM now with some improvement Lactulose frequency increased to q4h 12/01 Significant other at bedside reports this is her first episode of confusion with her cirrhosis Currently staying at [facility]-significant other does not want her to go back there Trying for inpatient rehab once patient is stabilized possibly at [facility] Recent upper GI bleed status post cauterization of esophageal varices Iron deficiency anemia/anemia of chronic disease Significant other reports 3 to 4 weeks ago her hemoglobin was 3 and she had an EGD performed with cauterization of some varices She had a large-volume of blood transfused during that admission No further GI bleeding noted, monitor hemoglobin daily Diabetes mellitus type [id number]-vwerwrg-teqpottai Blood sugar in the 80s to 100s, continue to monitor for hypoglycemia Hypertension Hyperlipidemia Continue home meds VTE: SCDs Code: Full Dispo: 2 to 3 days Time Spent Managing Pts Care (In Minutes): 35
[2023-12-02] MEDS: LACTULOSE 20 GM/30 ML UCUP PO SCH (14:34)
[2023-12-03 03:20] LABS: Hematocrit 25.7 % (36.0-45.0); Hemoglobin 8.6 g/dL (12.0-15.0); MCH 29.3 pg (27.0-35.0); MCHC 33.6 g/dL (32.0-36.0); MCV 87.1 fL (80-100); Platelets 69 thou/uL (152-406); RBC Red Blood Cell Count 2.96 M/uL (3.86-4.86); Red Cell Distribution Width 28.8 % (12.1-15.2)
[2023-12-03 03:38] LABS: Albumin 2.3 g/dL (3.4-5.0); Albumin/Globulin Ratio 0.5 (1.1-1.8); Anion Gap 10.6 mEq/L (5.0-15.0); Bilirubin Total 3.3 mg/dL (0.2-1.0); Globulin 4.2 g/dL (2.3-3.5); Potassium 3.6 mEq/L (3.5-5.1); Protein, Total 6.5 g/dL (6.4-8.2)
[2023-12-03] MEDS: PREGABALIN 150 MG CAP PO SCH (08:08)
[2023-12-03] MEDS: AMLODIPINE 10 MG TAB PO SCH (08:09)
[2023-12-03] MEDS: FOLIC ACID 1 MG TABLET PO SCH (08:09)
[2023-12-03] MEDS: BUPROPION HCL XL 150 MG TAB PO SCH (08:09)
[2023-12-03] MEDS: POTASSIUM CL SA 10 MEQ TAB PO ONE (08:09)
[2023-12-03] MEDS: CITALOPRAM 10 MG TABLET PO SCH (08:10)
[2023-12-03] MEDS: carvediloL 3.125 MG TAB PO SCH (08:10)
--- NOTE | 2023-12-03 12:51 | P.PN ---
Date of Service: 12/03/23 Subjective: Alert but confused no acute events overnight tolerating oral meds/lactulose no BM overnight/today still with confusion ROS: 10 point ROS as noted above, otherwise negative Physical exam GEN: Alert, confused-improving HEENT: Normal conjunctiva, sclera anicteric CV: Regular rate and rhythm, no edema Pulm: Nonlabored respirations on room air ABD: Soft, nontender, nondistended MSK: No joint tenderness Integumentary: No rashes Neuro: Normal speech, normal affect Vitals reviewed Problem List Hepatic encephalopathy Alcoholic cirrhosis of the liver Recent upper GI bleed status post cauterization of esophageal varices Iron deficiency anemia/anemia of chronic disease Diabetes mellitus type 2rhe-emibhkn-hqzgvxuuw Hypertension Hyperlipidemia Plan Hepatic encephalopathy Alcoholic cirrhosis of the liver mental status waxing/waining PT consulted Continue rifaximin, other home medications for cirrhosis Lactulose frequency increased to q4h 12/01 repeat lactulose enema today Significant other at bedside reports this is her first episode of confusion with her cirrhosis Currently staying at [facility]-significant other does not want her to go back there Trying for inpatient rehab once patient is stabilized possibly at [facility] Recent upper GI bleed status post cauterization of esophageal varices Iron deficiency anemia/anemia of chronic disease Significant other reports 3 to 4 weeks ago her hemoglobin was 3 and she had an EGD performed with cauterization of some varices She had a large-volume of blood transfused during that admission No further GI bleeding noted, monitor hemoglobin daily Diabetes mellitus type 5qed-obttcya-sgycuqqos Blood sugar in the 80s to 100s, continue to monitor for hypoglycemia Hypertension Hyperlipidemia Continue home meds VTE: SCDs Code: Full Dispo: 2 to 3 days Time Spent Managing Pts Care (In Minutes): 35 <Sergio Louise - Last Filed: 12/03/23 12:50> Patient seen and examined on rounds this morning with TARE WEIGHER Aspen. I performed a substantial part of the MDM during this patient's care today as noted above in the plan of care. I agree with plan of care as noted above with the following additions / corrections: Problem List h/o grade 2 diastolic dysfunction (HFpEF) and mild aortic stenosis, seen on echo ~1 month ago at [facility] difficult to get consistent bowel movements with PO lactulose and rifaximin. requiring enemas at times improvement in alertness, however memory waxes/wanes, with some word finding difficulty check CT abd/pelvis <Kai Smith - Last Filed: 12/03/23 20:52>
[2023-12-03] MEDS: LACTULOSE 20 GM/30 ML UCUP PR ONE (12:54)
[2023-12-03] MEDS: AMITRIPTYLINE 25 MG TAB PO SCH (20:47)
[2023-12-04 04:06] LABS: Hematocrit 25.6 % (36.0-45.0); Hemoglobin 8.4 g/dL (12.0-15.0); MCH 29.2 pg (27.0-35.0); MCHC 32.9 g/dL (32.0-36.0); MCV 88.5 fL (80-100); MPV 9.1 fL (7.6-11.3); Platelets 74 thou/uL (152-406); RBC Red Blood Cell Count 2.89 M/uL (3.86-4.86); Red Cell Distribution Width 29.5 % (12.1-15.2)
[2023-12-04 04:32] LABS: Albumin 2.4 g/dL (3.4-5.0); Albumin/Globulin Ratio 0.6 (1.1-1.8); Anion Gap 9.5 mEq/L (5.0-15.0); Bilirubin Total 3.5 mg/dL (0.2-1.0); Globulin 4.3 g/dL (2.3-3.5); Potassium 3.5 mEq/L (3.5-5.1); Protein, Total 6.7 g/dL (6.4-8.2)
[2023-12-04] MEDS: LACTULOSE 20 GM/30 ML UCUP PR ONE (06:21)
--- NOTE | 2023-12-04 09:22 | RAD REPORT ---
EXAM DESCRIPTION: CTAbdomen Pelvis W Contrast - 12/04/2023 8:52 am CLINICAL HISTORY: Eval liver/elev t bili, constipation, encephalopat COMPARISON: No comparisons TECHNIQUE: CT of the abdomen and pelvis was performed. All CT scans are performed using dose optimization technique as appropriate and may include automated exposure control or mA/KV adjustment according to patient size. FINDINGS: Lower chest: Small left pleural effusion. Trace right effusion. Atelectasis in the lung ba ses. Mild coronary artery calcifications. Liver: No acute abnormality or suspicious lesions. Sources. Biliary: No biliary ductal dilatation. Cholecystectomy. Stomach: No significant focal abnormality. Duodenum: No significant focal abnormality. Pancreas: No significant abnormality. Spleen: No significant abnormality. Splenomegaly. Adrenal: No suspicious lesions. Kidney/ureter: No hydronephrosis. No renal calculi. Retroperitoneum: No retroperitoneal adenopathy. Vascular: No aneurysm. Bowel: No significant focal abnormality. Peritoneum: Mild ascites. Bladder: Gas in the bladder. Reproductive: No adnexal masses. Bones: No acute fracture. Grade 1 anterolisthesis of L4 on L5. Multilevel degenerative changes are pr esent in the spine. Other: n/a IMPRESSION: No acute intra-abdominal or pelvic finding. Cirrhosis with evidence of portal hypertensi on and mild ascites.
[2023-12-04] MEDS: POTASSIUM CL SA 10 MEQ TAB PO ONE (10:31)
--- NOTE | 2023-12-04 13:35 | P.PN ---
Date of Service: 12/04/23 Subjective: Alert, very confused keenly responsive but does not know own last name ROS: 10 point ROS as noted above, otherwise negative Physical exam GEN: Alert, confused HEENT: Normal conjunctiva, sclera anicteric CV: Regular rate and rhythm, no edema Pulm: Nonlabored respirations on room air ABD: Soft, nontender, nondistended MSK: No joint tenderness Integumentary: No rashes Neuro: Normal speech, normal affect Vitals reviewed Problem List Hepatic encephalopathy Alcoholic cirrhosis of the liver Recent upper GI bleed status post cauterization of esophageal varices Iron deficiency anemia/anemia of chronic disease Diabetes mellitus type [id number]-[id number]-vqmavwhek Hypertension Hyperlipidemia Plan Hepatic encephalopathy Alcoholic cirrhosis of the liver mental status waxing/waining PT consulted Continue rifaximin, other home medications for cirrhosis Lactulose frequency increased to q4h 12/01 repeat lactulose enema today-plan for q6h enema at least x2 CT abd pelvis 12/03 No acute intra-abdominal or pelvic finding. Cirrhosis with evidence of portal hypertension and mild ascites Noted to have trouble with the process of swallowing, holding food/drink/meds in mouth Speech consulted Significant other at bedside reports this is her first episode of confusion with her cirrhosis Currently staying at [facility]-significant other does not want her to go back there Trying for inpatient rehab once patient is stabilized possibly at [facility] Recent upper GI bleed status post cauterization of esophageal varices Iron deficiency anemia/anemia of chronic disease Significant other reports 3 to 4 weeks ago her hemoglobin was 3 and she had an EGD performed with cauterization of some varices She had a large-volume of blood transfused during that admission No further GI bleeding noted, monitor hemoglobin daily Diabetes mellitus type 2dey-nkhyxph-ugxhhigtf Blood sugar in the 80s to 100s, continue to monitor for hypoglycemia Hypertension Hyperlipidemia Continue home meds VTE: SCDs Code: Full Dispo: 2 to 3 days Time Spent Managing Pts Care (In Minutes): 35 <Sergio Louise - Last Filed: 12/04/23 13:35> Patient seen and examined on rounds this morning with SAFETY LEADER Aspen. I performed a substantial part of the MDM during this patient's care today as noted above in the plan of care. I agree with plan of care as noted above with the following additions / corrections: Patient remains awake/alert, but oriented to self only. holding meds/food in mouth. jaundiced, +scleral icterus on exam nontender abdomen didn't receive lactulose last night due to concern of not swallowing will be more aggressive with enemas within next 24hrs need to have 2-3 loose/good BMs/day suspect she is dehydrated as well, has not eaten much dc lasix/jose for now add IVF <Kia Smith - Last Filed: 12/04/23 17:33>
[2023-12-04] MEDS: LACTULOSE 20 GM/30 ML UCUP PR SCH ×2 (14:25→21:37)
[2023-12-05] MEDS: NA CHLORIDE 0.9% 1,000 ML IV SCH (00:29)
[2023-12-05] MEDS: LACTULOSE 20 GM/30 ML UCUP ONE ×2 (03:51→03:53)
[2023-12-05 06:13] LABS: PT Prothrombin Time 20.3 SECONDS (9.5-12.5); Protime INR 1.88
[2023-12-05 06:18] LABS: Hematocrit 24.5 % (36.0-45.0); Hemoglobin 8.1 g/dL (12.0-15.0); MCV 87.9 fL (80-100); MPV 8.6 fL (7.6-11.3); Platelets 75 thou/uL (152-406); RBC Red Blood Cell Count 2.79 M/uL (3.86-4.86); Red Cell Distribution Width 29.4 % (12.1-15.2)
[2023-12-05 06:25] LABS: Albumin 2.2 g/dL (3.4-5.0); Albumin/Globulin Ratio 0.5 (1.1-1.8); Anion Gap 7.3 mEq/L (5.0-15.0); Bilirubin Total 2.7 mg/dL (0.2-1.0); Globulin 4.1 g/dL (2.3-3.5); Potassium 3.3 mEq/L (3.5-5.1); Protein, Total 6.3 g/dL (6.4-8.2)
[2023-12-05] MEDS: POTASSIUM CL 40 MEQ in NA CHLORIDE 0.9% 500 ML IV SCH (08:47)
[2023-12-05] MEDS: NA CHLORIDE 0.9% 500 ML IV ONE (09:45)
[2023-12-05] MEDS: LACTULOSE 20 GM/30 ML UCUP PR ONE (11:30)
--- NOTE | 2023-12-05 12:03 | P.PN ---
Date of Service: 12/05/23 Subjective: More alert, oriented today after multiple lactulose enemas knows name/year today but still generally confused ROS: 10 point ROS as noted above, otherwise negative Physical exam GEN: Alert, confused HEENT: Normal conjunctiva, sclera icteric CV: Regular rate and rhythm, no edema Pulm: Nonlabored respirations on room air ABD: Soft, nontender, nondistended MSK: No joint tenderness Integumentary: No rashes, jaundiced Neuro: Normal speech, normal affect Vitals reviewed Problem List Hepatic encephalopathy Alcoholic cirrhosis of the liver Recent upper GI bleed status post cauterization of esophageal varices Iron deficiency anemia/anemia of chronic disease Diabetes mellitus type [id number]-cvnzqqt-niedrpzwt Hypertension Hyperlipidemia Plan Hepatic encephalopathy Alcoholic cirrhosis of the liver mental status waxing/waining PT consulted Continue rifaximin, other home medications for cirrhosis Lactulose frequency increased to q4h 12/01 had multiple lactulose enemas on the past 24 hours seem to be helping-more alert/oriented today repeat enema this morning, transition back to oral lactulose CT abd pelvis 12/03 No acute intra-abdominal or pelvic finding. Cirrhosis with evidence of portal hypertension and mild ascites Noted to have trouble with the process of swallowing, holding food/drink/meds in mouth Speech therapy consulted Significant other at bedside reports this is her first episode of confusion with her cirrhosis Currently staying at [facility]-significant other does not want her to go back there Trying for inpatient rehab once patient is stabilized possibly at [facility] Recent upper GI bleed status post cauterization of esophageal varices Iron deficiency anemia/anemia of chronic disease Significant other reports 3 to 4 weeks ago her hemoglobin was 3 and she had an EGD performed with cauterization of some varices She had a large-volume of blood transfused during that admission No further GI bleeding noted, monitor hemoglobin daily Diabetes mellitus type 9dke-uuxgesw-xwumbkjgc Blood sugar in the 80s to 100s, continue to monitor for hypoglycemia Hypertension Hyperlipidemia Continue home meds VTE: SCDs Code: Full Dispo: 2 to 3 days Time Spent Managing Pts Care (In Minutes): 35
[2023-12-06 07:21] LABS: Albumin 2.3 g/dL (3.4-5.0); Albumin/Globulin Ratio 0.5 (1.1-1.8); Anion Gap 7.8 mEq/L (5.0-15.0); Bilirubin Total 2.9 mg/dL (0.2-1.0); Globulin 4.2 g/dL (2.3-3.5); Potassium 3.8 mEq/L (3.5-5.1); Protein, Total 6.5 g/dL (6.4-8.2)
[2023-12-06 07:56] LABS: PT Prothrombin Time 18.3 SECONDS (9.5-12.5); Protime INR 1.69
[2023-12-06] MEDS: POTASSIUM 25 MEQ EFFERV TAB PO ONE (13:03)
--- NOTE | 2023-12-06 15:44 | RAD REPORT ---
EXAM DESCRIPTION: CT - Head Brain Wo Cont - 12/06/2023 3:35 pm CLINICAL HISTORY: Fall Fall, trauma, head injury COMPARISON: Head Brain Wo Cont dated 11/28/2023 TECHNIQUE: All CT scans are performed using dose optimization technique as appropriate and may inclu de automated exposure control or mA/KV adjustment according to patient size. FINDINGS: No intracranial hemorrhage, hydrocephalus or extra-axial fluid collection.No areas of brai n edema or evidence of midline shift. The paranasal sinuses and mastoids are clear. The calvarium is intact. IMPRESSION: No acute intracranial abnormality.
--- NOTE | 2023-12-06 15:47 | RAD REPORT ---
EXAM DESCRIPTION: CT - C Spine Wo Con - 12/06/2023 3:37 pm CLINICAL HISTORY: Fall Fall, trauma, neck injury COMPARISON: Thoracic Spine W/o Cont dated 12/06/2023; Head Brain Wo Cont dated 12/06/2023; Spine Lumbar Wo Con dated 12/06/2023 FINDINGS: The cervical vertebral body heights are maintained. Moderate lower cervical degenerative s pondylosis. No evidence of acute cervical spine fracture or subluxation. Prevertebral soft tissues are normal in thickness. Bilateral carotid atherosclerosis. IMPRESSION: Negative for acute cervical spine abnormality. Moderate lower cervical spondylosis. All CT scans are performed using dose optimization technique as appropriate and may include automated exposure control or mA/KV adjustment according to patient size.
--- NOTE | 2023-12-06 16:01 | RAD REPORT ---
EXAM DESCRIPTION: CT - Thoracic Spine W/o Cont - 12/06/2023 3:37 pm CLINICAL HISTORY: Radiculopathy. Fall COMPARISON: No comparisons TECHNIQUE: Axial CT imaging through the thoracic spine was performed with coronal and sagittal re-fo rmatted images. All CT scans are performed using dose optimization technique as appropriate and may include automated exposure control or mA/KV adjustment according to patient size. FINDINGS: Vertebral body heights and disc spaces are maintained. A compression fracture is not prese nt. Diffuse disc thinning is seen throughout the thoracic spine with anterior osteophytes. Subtle non displaced fracture of the right posterior twelfth rib is possible. Right transverse process of L1 gisela ws minimal fracture. These findings are better detailed on dedicated CT lumbar spine report. Thoracic spine alignment is within normal limits. No paraspinal masses or hematoma. Small left pleural effusion. IMPRESSION: No acute thoracic spine abnormality detected.
--- NOTE | 2023-12-06 16:02 | RAD REPORT ---
EXAM DESCRIPTION: CT - Spine Lumbar Wo Con - 12/06/2023 3:36 pm CLINICAL HISTORY: Radiculopathy. Fall COMPARISON: Thoracic Spine W/o Cont dated 12/06/2023 TECHNIQUE: Axial noncontrast CT imaging of the lumbar spine was performed with coronal and sagittal re-formatted images. All CT scans are performed using dose optimization technique as appropriate and may include automated exposure control or mA/KV adjustment according to patient size. FINDINGS: There is a nondisplaced fracture suspected posterior right twelfth rib. There is a tiny fr acture distal aspect of the right transverse process of L1. Mildly displaced fracture right transvers e process of L2 as well. Mild anterolisthesis, likely degenerative L4 on 5 is seen. Paraspinal tissues are normal in thickness. No paraspinal abscess or hematoma seen. Mild free fluid is seen in the abdomen. IMPRESSION: L1 and L2 right transverse process fractures are present, minimally displaced. Suspected nondisplaced fracture right posterior twelfth rib also present.
--- NOTE | 2023-12-06 20:00 | P.PN ---
Date of Service: 12/06/23 Subjective: COnversing well, eating breakfast this AM S/P fall this afternoon Continue to monitor overnight ROS: 10 point ROS as noted above, otherwise negative Physical exam GEN: AAOx3, calm, no acute distress HEENT: Normal conjunctiva, sclera icteric CV: RRR, no edema, no murmur noted Pulm: Nonlabored respirations on room air ABD: Soft and benign on palpation, ND/NT MSK: No joint tenderness Integumentary: No rashes, jaundiced Neuro: Normal speech, normal affect Vitals reviewed Problem List Hepatic encephalopathy Alcoholic cirrhosis of the liver Recent upper GI bleed status post cauterization of esophageal varices Iron deficiency anemia/anemia of chronic disease Diabetes mellitus type [id number]-yfkzsmeis Hypertension Hyperlipidemia Trauma fall L1 and L2 right transverse process fractures are present, minimally displaced Plan Hepatic encephalopathy Alcoholic cirrhosis of the liver Trauma fall L1 and L2 right transverse process fractures are present, minimally displaced mental status waxing/waining PT consulted Continue rifaximin, other home medications for cirrhosis Lactulose frequency increased to q4h 12/01 CT abd pelvis 12/03 No acute intra-abdominal or pelvic finding. Cirrhosis with evidence of portal hypertension and mild ascites Noted to have trouble with the process of swallowing, holding food/drink/meds in mouth Speech therapy consulted Significant other at bedside reports this is her first episode of confusion with her cirrhosis Currently staying at [facility]-significant other does not want her to go back there Trying for inpatient rehab once patient is stabilized possibly at [facility] CT Thoracic spine-No acute thoracic spine abnormality detected. CT lumbar spine- L1 and L2 right transverse process fractures are present, minimally displaced CT head-no acute intracranial abnormality CT cervical spine-negative for acute cervical spine abnormality Recent upper GI bleed status post cauterization of esophageal varices Iron deficiency anemia/anemia of chronic disease Significant other reports 3 to 4 weeks ago her hemoglobin was 3 and she had an EGD performed with cauterization of some varices She had a large-volume of blood transfused during that admission No further GI bleeding noted H/H 8.1/24.5 Diabetes mellitus type [id number]-[id number] Blood sugar 126/235/131/130 Hypertension Hyperlipidemia Continue home meds VTE: SCDs Code: Full Dispo: [facility] 12/06
[2023-12-07 07:32] LABS: Albumin 2.2 g/dL (3.4-5.0); Albumin/Globulin Ratio 0.6 (1.1-1.8); Anion Gap 8.6 mEq/L (5.0-15.0); Bilirubin Total 2.5 mg/dL (0.2-1.0); Globulin 3.8 g/dL (2.3-3.5); Magnesium 1.5 mg/dL (1.6-2.4); Phosphorus 3.2 mg/dL (2.5-4.9); Potassium 3.6 mEq/L (3.5-5.1)
[2023-12-07 08:31] VITALS: O2SAT 97
[2023-12-07] MEDS: HYDROCODONE/APAP 7.5/325 MG TAB PO ONE (12:22)
--- NOTE | 2023-12-07 13:01 | P.DS ---
Admission Date: 11/28/23 Discharge Date: 12/07/23 Disposition: TRANSFER TO INPATIENT REHAB Discharge Condition: FAIR Reason for Admission: Altered mental status - Problems (1) Hepatic encephalopathy Current Visit: Yes Status: Acute (2) Alcoholic cirrhosis of liver Current Visit: Yes Status: Acute (3) Chronic anemia Current Visit: Yes Status: Acute (4) Type II diabetes mellitus Current Visit: Yes Status: Acute Brief History of Present Illness: 63-year-old woman with a history of end-stage liver disease transferred from [facility] to the emergency department due to altered mental status. Patient significant other by her bedside provided history. Patient was recently discharged from [facility] after she was admitted for altered mental status generalized weakness and found to have severe anemia. EGD was done, patient found to have esophageal varices which were cauterized. Patient also has a history of ascites and currently on maintenance medication for end-stage liver disease which include lactulose, rifaximin, Lasix and Aldactone. Blood work in the emergency department showed elevated ammonia up to 100, lactic acidosis. Head CT negative for acute disease. Patient was hospitalized for further management. Hospital Course: Diagnosis Hepatic encephalopathy Alcoholic cirrhosis of the liver Recent upper GI bleed status post cauterization of esophageal varices Iron deficiency anemia/anemia of chronic disease Diabetes mellitus type [id number] Hypertension Hyperlipidemia Trauma fall L1 and L2 right transverse process fractures are present, minimally displaced Plan Hepatic encephalopathy Alcoholic cirrhosis of the liver Trauma fall L1 and L2 right transverse process fractures are present, minimally displaced mental status waxed and waned. Continued rifaximin. Also treated with lactulose which was titrated for target 2-3 loose bowel movements per day. CT abd pelvis 12/03 No acute intra-abdominal or pelvic finding. Cirrhosis with evidence of portal hypertension and mild ascites Patient seen by speech for some difficulty with swallowing. Difficulty swallowing likely related to altered mental status. Patient's mental status improved, she was able to tolerate diet, even feed herself. Patient fell at a point in time during the hospital stay. CT images done showed the following: CT Thoracic spine-No acute thoracic spine abnormality detected. CT lumbar spine- L1 and L2 right transverse process fractures are present, minimally displaced CT head-no acute intracranial abnormality CT cervical spine-negative for acute cervical spine abnormality. She has been tolerating physical therapy, mental status has significantly improved, she may continue to experience some fluctuations in her mental status. Patient has been accepted to inpatient rehab. Recent upper GI bleed status post cauterization of esophageal varices Iron deficiency anemia/anemia of chronic disease Significant other reports 3 to 4 weeks ago her hemoglobin was 3 and she had an EGD performed with cauterization of some varices She had a large-volume of blood transfused during that admission No further GI bleeding noted during the hospital stay. Hemoglobin was relatively stable during the hospital stay. Diabetes mellitus type [id number] Blood sugar readings were within range. Metformin resumed on discharge. Hypertension Hyperlipidemia Continued home medications during the hospital stay. Vital Signs/Physical Exam: Temp Pulse Resp BP Pulse Ox 97.0 F 70 16 116/56 L 97 12/07/23 08:00 12/07/23 09:23 12/07/23 12:22 12/07/23 09:23 12/07/23 12:22 General: In no apparent distress, Oriented x2, Cooperative, Other HEENT: PERRLA, Mucous membr. moist/pink, Scleral icterus Neck: Supple, JVD not distended Respiratory: Clear to auscultation bilaterally, Normal air movement Cardiovascular: No edema, Regular rate/rhythm, Normal S1 S2 Gastrointestinal: Normal bowel sounds, Soft and benign, Non-distended Musculoskeletal: No swelling Integumentary: No cyanosis Neurological: Normal speech, Normal strength at 5/5 x4 extr Laboratory Data at Discharge: WBC 4.10 thou/uL (4.3-10.9) L 12/05/23 05:56 Hgb 8.1 g/dL (12.0-15.0) L 12/05/23 05:56 Hct 24.5 % (36.0-45.0) L 12/05/23 05:56 Plt Count 75 thou/uL (152-406) L 12/05/23 05:56 PT 18.3 SECONDS (9.5-12.5) H 12/06/23 06:43 INR 1.69 12/06/23 06:43 APTT 39.9 SECONDS (24.3-36.9) H 11/28/23 17:53 Sodium 138 mEq/L (136-145) 12/07/23 06:49 Potassium 3.6 mEq/L (3.5-5.1) 12/07/23 06:49 BUN 5 mg/dL (7-18) L 12/07/23 06:49 Creatinine 0.57 mg/dL (0.55-1.02) 12/07/23 06:49 Glucose 113 mg/dL (74-106) H 12/07/23 06:49 Phosphorus 3.2 mg/dL (2.5-4.9) 12/07/23 06:49 Magnesium 1.5 mg/dL (1.6-2.4) L 12/07/23 06:49 Total Bilirubin 2.5 mg/dL (0.2-1.0) H 12/07/23 06:49 AST 43 U/L (15-37) H 12/07/23 06:49 ALT 37 U/L (13-56) 12/07/23 06:49 Alkaline Phosphatase 72 U/L (45-117) 12/07/23 06:49 Home Medications: Amitriptyline [Elavil*] 25 mg PO BEDTIME 11/30/23 Atorvastatin Calcium 20 mg PO BEDTIME 11/30/23 Bupropion *Xl* [Wellbutrin XL*] 150 mg PO BID 11/30/23 Carvedilol [Coreg] 3.125 mg PO BID 11/30/23 Citalopram [Celexa*] 40 mg PO DAILY 11/30/23 Flash Glucose Scanning [place] [[employer] Ang[employer]lica 14 Day [place]] 1 each MC DAILY 11/30/23 Flash Glucose Sensor [Freestyle Ang[place]a 14 Day Sensor] 1 each MC DAILY 11/30/23 Folic Acid 1 mg PO DAILY 11/30/23 Furosemide 40 mg PO DAILY 11/30/23 Metformin ER [Glucophage ER*] 500 mg PO BID 11/30/23 Multivitamin 1 tab PO BEDTIME 11/30/23 Pantoprazole [Protonix Tab*] 40 mg PO DAILY 11/30/23 Pregabalin 150 mg PO BID 11/30/23 Spironolactone [Aldactone*] 100 mg PO DAILY 11/30/23 Thiamine HCl [B-1] 100 mg PO DAILY 11/30/23 Insulin -Regular Human [Novolin -R*] See Protocol SQ ACHS ml 12/07/23 Lactulose 30 ml PO Q8H #1 bottle 12/07/23 Rifaximin [Xifaxan] 550 mg PO BID 04/03/24 New Medications: Lactulose 30 ml PO Q8H #1 bottle Physician Discharge Instructions: 1. Please call and schedule a follow-up appointment with your PCP in 3-5 days - Please follow-up with your PCP for medication refills/adjustments 2. Please call and schedule a follow-up appointment with in 3-5 days 3. Continue diabetic diet 4. Fall precautions 5. return to the ED if symptoms return Diet: ADA Activity: Fall precautions Followup: Martinez Leonard CRNA [Primary Care Provider] - Time spent managing pt's care (in minutes): 36
[2023-12-07 13:18] VITALS: BP 109/52; TEMP 97.5
== END 2023-12-07 14:06 | DRG 442 ==
LOC: ER 17:06 → ERHOLD 21:09 → 4TH 22:22
PROVIDERS: ADMIT Internal Medicine; ATTEND Internal Medicine
DX: K76.82 Hepatic encephalopathy (principal); E87.20 Acidosis, unspecified; S32.019A Unspecified fracture of first lumbar vertebra, initial encounter for closed fracture; S32.029A Unspecified fracture of second lumbar vertebra, initial encounter for closed fracture; K76.6 Portal hypertension; K70.31 Alcoholic cirrhosis of liver with ascites; L89.152 Pressure ulcer of sacral region, stage 2; E78.5 Hyperlipidemia, unspecified; I10 Essential (primary) hypertension; E11.9 Type 2 diabetes mellitus without complications; D50.0 Iron deficiency anemia secondary to blood loss (chronic); D63.8 Anemia in other chronic diseases classified elsewhere; Z88.5 Allergy status to narcotic agent; Z79.4 Long term (current) use of insulin; Z79.84 Long term (current) use of oral hypoglycemic drugs; Z79.899 Other long term (current) drug therapy; W19.XXXA Unspecified fall, initial encounter; Y93.9 Activity, unspecified; Y92.239 Unspecified place in hospital as the place of occurrence of the external cause; Y99.9 Unspecified external cause status
CPT/HCPCS: 36415; 51702; 70450; 71045; 72125; 72128; 72131; 74018; 74177; 80053; 80307; 81003; 82140; 82947; 83605; 83735; 84100; 84132; 84484; 85025; 85027; 85610; 85730; 86850; 86900; 86901; 87040; 92523; 93005; 94760; 96361; 96365; 96366; 97110; 97112; 97116; 97161; 97530; 99285; J0696; J1815; J3480; J7030; J7040; J7042; Q9967